=== PATIENT | male | born 1935 | race Caucasian/White ===

== ENCOUNTER 2022-07-16 09:36 | Outpatient (OUT) | payer MEDICARE, OTHER, SELFPAY ==
--- NOTE | 2022-07-16 10:26 | ECG_ITS ---
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
--- NOTE | 2022-07-16 11:15 | CA_ITS ---
Patient: SHANE IRWIN Exam Date: 07/16/2022 : 1935 Gender:M Ordering : DR RYLIE HENRY M.D. Admission #: [id number] Family : Order #: [id number] CLICK HERE TO VIEW EXAM ECHOCARDIOGRAM REPORT PROCEDURE: CA ECHO DOPPLER COMPLETE INDICATIONS: SYSTOLIC MURMUR COMPARISON: None. DESCRIPTION: COMPLETE ECHOCARDIOGRAM Real-time transthoracic echocardiography with 2D, M-mode, spectral and color flow Doppler performed. QUALITY: Technical quality was good. LEFT VENTRICLE: Normal chamber size. Moderate concentric left ventricular hypertrophy. Global left ventricular systolic function is normal. LV EF: Estimated left ventricular ejection fraction is 55-60% DIASTOLIC: Grade I diastolic dysfunction. ATRIAL SEPTUM: LEFT ATRIUM: Moderate dilatation. RIGHT ATRIUM: Moderate dilatation. RIGHT VENTRICLE: Normal chamber size. Normal right ventricular systolic function. TRICUSPID VALVE: Normal mobility and thickness. No stenosis with mild regurgitation. No evidence of pulmonary hypertension. RVSP 29 mmHg MITRAL VALVE: Normal mobility and thickness. No evidence of mitral valve stenosis. There is no mitral annular calcification. Trivial mitral regurgitation. AORTIC VALVE: Normal trileaflet appearance. Severely calcified aortic valve. Severely diminished mobility. Doppler velocity suggests moderate to severe aortic valve stenosis. LVOT diameter 2.3 cm. Aortic valve area 1.1 cm?, DVI 0.26, Maximum velocity 2.45 m/s, Mean gradient 12 mmHg. Mild to moderate aortic regurgitation. AORTIC ROOT: Mildly dilated, Measuring 3.9 cm. The ascending aorta is mildly dilated measuring 3.7 cm. PULMONIC VALVE: Normal thickness and mobility. No stenosis. Trivial regurgitation. PERICARDIUM: No evidence of pericardial effusion. IVC: Collapses with inspirations. Normal size. PLEURA: CONCLUSION: 1. Normal ventricular systolic function. LVEF is 55 to 60%. 2. Mild diastolic dysfunction. 3. Moderate concentric left ventricular hypertrophy. 4. Moderate to severe aortic valve stenosis. 5. Mild to moderate aortic valve regurgitation. 6. Normal right-sided pressures. 7. 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 Adult Echocardiography Procedure Report Left Ventricle LVEDD (3.7 - 5.6 cm): 4.59 cm, 4.59 cm LVESD (2.2 - 4.0 cm): 2.66 cm LVIVS thickness (0.6 - 1.2 cm): 1.40 cm, 1.39 cm LVPW thickness (0.5 - 1.0 cm): 1.18 cm e': 0.08 m/s E - e': 4.97 LVOT Max Gradient: 1.67 mm[Hg] LVOT Area (cm2): 0.65 m/s Peak Velocity (LVOT): 0.65 m/s Mean Velocity (LVOT): 0.43 m/s LVOT Diameter 2.3 cm Left Ventricular Ejection Fraction: 55-60% Left Atrium LA Volume Index (2D A2C): 53.97 ml/m2 Left Atrium Systolic Dimension: 4.54 cm Mitral Valve MV E to A Ratio: 0.47 Mitral Valve A-Wave Peak Velocity: 0.86 m/s Mitral Valve E-Wave Peak Velocity: 0.41 m/s Right Ventricle RV Internal Diastolic Dimension: 3.79 cm Aorta AO Root Diam: 3.87 cm Ascending Ao Diam: 3.73 cm Aortic Valve AoV Area (Peak Tereso): 1.31 cm2, 1.37 cm2 AoV Area (VTI): 1.32 cm2, 1.37 cm2 Deceleration [place]: 1.48 m/s2 Pressure Half-Time: 944.47 ms Peak Velocity(Antegrade Flow): 2.22 m/s, 2.22 m/s, 2.36 m/s, 2.36 m/s, 2.45 m/s Peak Gradient(Antegrade Flow): 19.80 mm[Hg], 19.80 mm[Hg], 22.33 mm[Hg], 22.33 mm[Hg], 23.97 mm[Hg] Mean Velocity(Antegrade Flow): 1.71 m/s, 1.71 m/s, 1.43 m/s, 1.43 m/s, 1.55 m/s Mean Gradient(Antegrade Flow): 12.41 mm[Hg], 12.37 mm[Hg], 10.17 mm[Hg], 10.17 mm[Hg], 11.32 mm[Hg] Velocity Time Integral: 60.57 cm, 53.59 cm, 67.57 cm, 67.57 cm, 63.69 cm Tricuspid Valve Peak Velocity (Regurgitant Flow): 2.55 m/s, 2.56 m/s, 1.82 m/s, 2.18 m/s Pulmonic Valve Mean Gradient: 3.25 mm[Hg] Mean Velocity: 0.83 m/s Peak Velocity: 1.28 m/s, 0.94 m/s Peak Gradient: 3.50 mm[Hg], 6.56 mm[Hg] Right Atrium Right Atrium Systolic Pressure: 45.92 ml, 45.92 ml Dictated by: Brooks Senior M.D. on 07/22/2022 at 10:22 Approved by: Brooks Senior M.D. on 07/22/2022 at 10:33
== END 2022-07-16 09:37 ==
LOC: CARD 09:41
PROVIDERS: PCP Internal Medicine; Visit Provider Internal Medicine
DX: I35.8 Other nonrheumatic aortic valve disorders (principal); R00.1 Bradycardia, unspecified
CPT/HCPCS: 93005; 93306

== ENCOUNTER 2022-09-07 10:28 | Outpatient (OUT) | payer MEDICARE, OTHER, SELFPAY ==
[2022-09-07 11:16] LABS: Anion Gap 10.3; Calcium 8.7 mg/dL (8.5-10.1); Carbon Dioxide 28.4 mmol/L (21.0-32.0); Chloride 98 mmol/L (98-107); Estimated GFR (African America >60 (>=60); Estimated GFR (Non-African Ame >60 (>=60); Glucose 102 mg/dL (74-106); Potassium 3.7 mmol/L (3.5-5.1); Sodium 133 mmol/L (136-145)
[2022-09-07 11:18] LABS: Basophils Absolute Auto 0.1 10^3/uL (0.0-0.1); Basophils Percent Auto 0.7 % (0.2-2.0); Eosinophils Absolute Auto 0.1 10^3/uL (0.0-0.7); Eosinophils Percent Auto 1.3 % (0.9-7.0); Hematocrit 37.9 % (42.0-54.0); Immature Granulocytes Abs Auto 0.07 10^3/uL (0.00-0.03); Immature Granulocytes Pct Auto 0.9 % (0.0-0.5); Lymphocytes Absolute Auto 0.9 10^3/uL (1.2-3.8); Lymphocytes Percent Auto 11.9 % (20.5-60.0); Mean Corpuscular HGB Conc 34.3 g/dL (29.9-35.2); Mean Corpuscular Hemoglobin 29.5 pg (25.9-34.0); Mean Corpuscular Volume 85.9 fL (80.0-94.0); Mean Platelet Volume 9.7 fL (9.5-13.5); Monocytes Absolute Auto 0.8 10^3/uL (0.3-0.8); Monocytes Percent Auto 10.6 % (1.7-12.0); Neutrophils Absolute Auto 5.6 10^3/uL (1.4-6.5); Neutrophils Percent Auto 74.6 % (43.0-75.0); Platelet Count 229 10^3/uL (150-450); Red Blood Count 4.41 10^6/uL (4.70-6.10); Red Cell Distribution Width 13.5 % (11.0-15.0); White Blood Count 7.5 10^3/uL (4.0-11.0)
== END 2022-09-07 10:29 | disposition home or self-care (01) ==
PROVIDERS: PCP Internal Medicine; Visit Provider Internal Medicine Interventional Cardiology
DX: I35.0 Nonrheumatic aortic (valve) stenosis (principal)
CPT/HCPCS: 36415; 80048; 85025

== ENCOUNTER 2023-01-20 16:24 | Emergency (ER) | payer MEDICARE, OTHER, SELFPAY ==
[2023-01-20] VITALS (27 sets, daily range): BP systolic 129–150; BP diastolic 59–66; PULSE 67–87; RESP 14–31; TEMP 36.6; O2SAT 98–100; BMI 23.0
--- NOTE | 2023-01-20 17:17 | ECG_ITS ---
The [facility] Test Date: 2023-01-20 Pat Name: SHANE IRWIN Department: Room: - Gender: Male [employer] C[employer]er: : 1935 Requested By: RYLIE HENRY Order Number: [id number] Reading MD: RAI FINN Measurements Intervals [place] Rate: 71 P: -88796 MI: -[id number] QRS: 22 QRSD: 106 T: 63 QT: 378 QTc: 400 Interpretive Statements Sinus rhythm Nonspecific ST/T wave changes 0102 ARTIFACT PRESENT 9140 abnormal rhythm ECG Compared to ECG 07/16/2022 10:56:29 Sinus bradycardia no longer present Intraventricular conduction delay no longer present T-wave abnormality no longer present Electronically Signed On 01-21-2023 7:15:53 EST by RAI FINN
[2023-01-20] MEDS: BACITRACIN OINTMENT 28.4 GM TUBE 1 APPLIC TOPICAL (17:20)
--- NOTE | 2023-01-20 17:30 | ED_ITS ---
HPI - Head Injury General Chief complaint: Head Injury Stated complaint: head injury/fall Time Seen by Provider: 01/20/23 16:41 Source: patient Mode of arrival: ambulance Limitations: no limitations History of Present Illness HPI Narrative: Is coming to us after he sustained an injury he fell down 1 step while getting out of the house apparently one of the neighbors called them because the patient had a pool of blood in front of his house the patient himself does not give enough details about how it happened but he remember falling one-step while getting out of his house on his face and hitting his face as well as knee and arms The patient just tripped he mentioned that he did not have any symptoms prior to this and he did not have any dizziness before or after, the patient actually stood up and did not realize that he had blood all over him until the neighbor called the EMS The patient did not lose consciousness he denies any dizziness or any pain at the moment although he does have multiple bruises and abrasions in his face as well as upper extremities and lower extremities the patient was brought to us by the EMS after he had a neck collar placed he did have some epistaxis as well prior to arrival Related Data Allergies Allergy/AdvReac Type Severity Reaction Status Date / Time No Known Drug Allergies Allergy Verified 01/20/23 16:31 Review of Systems ROS Status of ROS 10 or more systems reviewed and unremark able except as noted in history and below [facility] Social History Smoking status: Never smoker Exam Narrative Exam Narrative: Nurses notes and vital signs reviewed and patient is not hypoxic. General: Well-appearing and in no apparent distress. Skin: Warm, dry, no pallor noted. No rash. Head: The patient have ecchymosis to the left eye as well as raccoon eye on the left side and abrasion multiple to the face , none of them is deep and the patient have bilateral eye examination was normal Neck: Supple, non-tender. Eye: Pupils are equal, round and EOMI. No scleral icterus. Ears, Nose, Mouth, and Throat: TM are clear, no nasal mucosal hypertrophy. Oral mucosa is moist, no posterior oropharynx erythema, uvula is mid-line Cardiovascular: Regular Rate and Rhythm without murmur, gallop or rub. Respiratory: No accessory muscle use or respiratory distress. Lungs are clear to auscultation, no wheezing, rales or rhonchi Chest Wall: no tenderness Back: No midline thoracic or lumbar vertebral tenderness. No CVA tenderness Musculoskeletal: Multiple abrasions and wounds to his upper and lower extremity mostly at the dorsum of the hands as well as the anterior of the knee there is abrasion range in size between 4 and 3 cm and none of them is deep except for 1 on the dorsum of the right hand that is measuring 2 cm and no exposure of the underlying structures GI: Abdomen is soft, non-distended. Normal bowel sounds. No masses appreciated. No tenderness to palpation. No rebound, guarding, or rigidity noted. Neurological: A&O x4. No cranial nerve dysfunction observed. No truncal ataxia. Moves all extremities. Sensation intact. Psychiatric: Cooperative and interactive. Normal mood and affect. Constitutional Vital Signs, click to edit/add: Last Vital Signs Temp 97.8 F 01/20/23 16:31 Pulse 82 01/20/23 17:50 Resp 27 H 01/20/23 17:50 BP 129/61 01/20/23 17:43 Pulse Ox 100 01/20/23 17:50 O2 Del Method Room Air 01/20/23 16:31 Course Vital Signs Vital signs: Vital Signs Temperature 97.8 F 01/20/23 16:31 Pulse Rate 84 01/20/23 16:31 Respiratory Rate 24 01/20/23 16:31 Blood Pressure 150/65 H 01/20/23 16:31 Pulse Oximetry 100 01/20/23 16:31 Oxygen Delivery Method Room Air 01/20/23 16:31 Temperature 97.8 F 01/20/23 16:31 Pulse Rate 82 01/20/23 17:50 Respiratory Rate 27 H 01/20/23 17:50 Blood Pressure 129/61 01/20/23 17:43 Pulse Oximetry 100 01/20/23 17:50 Oxygen Delivery Method Room Air 01/20/23 16:31 MDM - Head Injury MDM Narrative Medical decision making narrative: The patient EKG in the ER showed sinus arrhythmia with a heart rate of [address] elevation or depression Patient have history of hypertension does not take any aspirin or any anticoagulation The patient neck collar kept in place he will obtain a CT head as well as CT sinuses and CT cervical The patient had a the laceration of the dorsum of the right hand that measures 2 cm cleaned thoroughly with normal saline and infiltrated with 1% lidocaine almost 2 cc after which almost 6 interrupted stitches of 4-0 Ethilon applied The patient provided with tetanus booster Awaiting the results of the above-mentioned work-up the patient had a CBC showing leukocytosis and the chemistry shows mild hyponatremia otherwise no significant pathology detected Awaiting the results of the above-mentioned scans the patient care will be transferred to Dr Caruso Lab Data Labs: Lab Results 01/20/23 Range/Units 17:44 WBC 15.5 H (4.0-11.0) 10^3/uL RBC 3.83 L (4.70-6.10) 10^6/uL Hgb 11.6 L (14.0-18.0) g/dL Hct 33.6 L (42.0-54.0) % MCV 87.7 (80.0-94.0) fL MCH 30.3 (25.9-34.0) pg MCHC 34.5 (29.9-35.2) g/dL RDW 13.5 (11.0-15.0) % Plt Count 214 (150-450) 10^3/uL MPV 9.9 (9.5-13.5) fL Neut % (Auto) 86.5 H (43.0-75.0) % Lymph % (Auto) 4.3 L (20.5-60.0) % [place] % (Auto) 7.9 (1.7-12.0) % Eos % (Auto) 0.2 L (0.9-7.0) % Baso % (Auto) 0.3 (0.2-2.0) % Neut # (Auto) 13.4 H (1.4-6.5) 10^3/uL Lymph # (Auto) 0.7 L (1.2-3.8) 10^3/uL [place] # (Auto) 1.2 H (0.3-0.8) 10^3/uL Eos # (Auto) 0.0 (0.0-0.7) 10^3/uL Baso # (Auto) 0.1 (0.0-0.1) 10^3/uL Abs Immat Gran (auto) 0.13 H (0.00-0.03) 10^3/uL Imm/Tot Granulo (auto) 0.8 H (0.0-0.5) % PT 10.8 (9.0-11.6) sec INR 1.02 Discharge Plan Discharge Patient Disposition: Still a Patient
[2023-01-20 17:49] LABS: Basophils Absolute Auto 0.1 10^3/uL (0.0-0.1); Basophils Percent Auto 0.3 % (0.2-2.0); Eosinophils Percent Auto 0.2 % (0.9-7.0); Hematocrit 33.6 % (42.0-54.0); Hemoglobin 11.6 g/dL (14.0-18.0); Immature Granulocytes Abs Auto 0.13 10^3/uL (0.00-0.03); Immature Granulocytes Pct Auto 0.8 % (0.0-0.5); Lymphocytes Absolute Auto 0.7 10^3/uL (1.2-3.8); Lymphocytes Percent Auto 4.3 % (20.5-60.0); Mean Corpuscular HGB Conc 34.5 g/dL (29.9-35.2); Mean Corpuscular Hemoglobin 30.3 pg (25.9-34.0); Mean Corpuscular Volume 87.7 fL (80.0-94.0); Mean Platelet Volume 9.9 fL (9.5-13.5); Monocytes Absolute Auto 1.2 10^3/uL (0.3-0.8); Monocytes Percent Auto 7.9 % (1.7-12.0); Neutrophils Absolute Auto 13.4 10^3/uL (1.4-6.5); Neutrophils Percent Auto 86.5 % (43.0-75.0); Platelet Count 214 10^3/uL (150-450); Red Blood Count 3.83 10^6/uL (4.70-6.10); Red Cell Distribution Width 13.5 % (11.0-15.0); White Blood Count 15.5 10^3/uL (4.0-11.0)
[2023-01-20] MEDS: LIDOCAINE HCL 1% 100 MG/10 ML MDV INJ (17:55)
[2023-01-20 18:03] LABS: INR 1.02; Prothrombin Time 10.8 sec (9.0-11.6)
[2023-01-20 18:07] LABS: Alanine Aminotransferase 18 U/L (16-63); Albumin Level 3.3 g/dL (3.4-5.0); Alkaline Phosphatase 109 U/L (46-116); Anion Gap 13.9; Aspartate Amino Transferase 23 U/L (15-37); Bilirubin Total 0.6 mg/dL (0.2-1.0); Calcium 9.3 mg/dL (8.5-10.1); Carbon Dioxide 25.2 mmol/L (21.0-32.0); Chloride 98 mmol/L (98-107); Estimated GFR (African America >60 (>=60); Estimated GFR (Non-African Ame 56 (>=60); Globulin 3.2 g/dL; Glucose 131 mg/dL (74-106); Potassium 4.1 mmol/L (3.5-5.1); Sodium 133 mmol/L (136-145); Total Protein 6.5 g/dL (6.4-8.2)
--- NOTE | 2023-01-20 18:13 | CT_ITS ---
The [address] [address] Patient Name: SHANE IRWIN MRN: [id number] date: 1935 Sex: M Assigned Patient Location: ED.MAIN Current Patient Location: Accession/Order Number: [id number] Exam Date: 01/20/2023 18:00 Report Date: 01/20/2023 19:17 At the request of: ZAC BLANDON Procedure: CT cervical spine wo con CT CERVICAL SPINE WITHOUT CONTRAST HISTORY: fall. COMPARISON: None available. TECHNIQUE: Helical CT images were performed of the cervical spine without intravenous contrast. Dose reduction techniques were achieved by using automated exposure control and/or adjustment of mA and/or kV according to patient size and/or use of iterative reconstruction technique. 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 MINERALIZATION: Moderate to severe osteopenia. CRANIOCERVICAL AND ATLANTOAXIAL ARTICULATIONS: Intact with no traumatic subluxation. VERTEBRAL BODIES: Normal in height with no acute compression fracture. DISC SPACES: Severe multilevel disc space narrowing with osteophytic spurring consistent with degenerative changes. ALIGNMENT: Grade 1 retrolisthesis at C2-C3, C3-C4, and C4-C5 which is likely degenerative in nature. POSTERIOR ELEMENTS: Intact. ODONTOID PROCESS: Intact. VISUALIZED SKULL BASE: Unremarkable. SPINAL CANAL/NEURAL FORAMEN: Multiple posterior disc-osteophyte complexes with canal stenosis at several levels including moderate canal stenosis at C3-C4, and moderate canal stenosis at C5-C6. UPPER THORAX: Unremarkable. SOFT TISSUES OF THE NECK: Diffuse atherosclerotic carotid artery calcification. CT/CT cervical spine wo con IMPRESSION: 1. No acute fracture or subluxation. 2. Osteopenia and degenerative changes as described above. 3. Atherosclerotic carotid artery calcification. Electronically authenticated by: TRISTON THOMPSON Date: 01/20/2023 19:17
--- NOTE | 2023-01-20 18:13 | CT_ITS ---
The [address] [address] Patient Name: SHANE IRWIN MRN: [id number] date: 1935 Sex: M Assigned Patient Location: ER Current Patient Location: ED.MAIN Accession/Order Number: [id number] Exam Date: 01/20/2023 18:00 Report Date: 01/20/2023 19:15 At the request of: ZAC BLANDON Procedure: CT head/brain wo con EXAMINATION: CT head/brain wo con, 01/20/2023 6:00 PM EST HISTORY: fall COMPARISON: None. TECHNIQUE: CT scan of the head was performed without IV contrast. CT dose reduction technique was used, including Automated Exposure Control. FINDINGS: BRAIN PARENCHYMA/CSF SPACES: Moderately enlarged ventricles and sulci consistent with atrophy. There is mild intraventricular hemorrhage within the occipital horns bilaterally. There is atherosclerotic calcification of bilateral carotid arteries. There is extensive low-attenuation throughout the white matter consistent with chronic microvascular ischemia. There is no other intracranial hemorrhage, mass effect or midline shift. PARANASAL SINUSES: There is a hemorrhagic air-fluid level in the left maxillary or sinus with extensive fractures of the maxillary sinus as described on the maxillofacial CT. Mild mucosal thickening of ethmoid air cells. SKULL BASE AND CALVARIUM: Fractured left zygomatic arch as noted on the maxillofacial CT. EXTRACRANIAL SOFT TISSUES: Moderate left lateral periorbital hematoma and left intraorbital/extraconal air. There is also air in the left infratemporal fossa and left scalp, likely related to the fractures. CT/CT head/brain wo con IMPRESSION: 1. Mild intraventricular hemorrhage. 2. No other intracranial hemorrhage. 3. Atrophy, chronic microvascular ischemia and atherosclerotic calcification. 4. Left facial bone fractures with associated soft tissue air, left periorbital hematoma and hemorrhage in the left maxillary sinus. Please correlate with the maxillofacial CT report. Critical results were NOTIFIED by TELEPHONE BY Dr. Sourav Yang to Sadia Siddiqui CNP At 01/20/2023 7:15 PM EST. Electronically authenticated by: SOURAV YANG Date: 01/20/2023 19:15
--- NOTE | 2023-01-20 18:13 | CT_ITS ---
The [address] [address] Patient Name: SHANE IRWIN MRN: [id number] date: 1935 Sex: M Assigned Patient Location: ED.MAIN Current Patient Location: Accession/Order Number: [id number] Exam Date: 01/20/2023 18:00 Report Date: 01/20/2023 19:38 At the request of: ZAC BLANDON Procedure: CT facial bones wo con EXAM: CT facial bones wo con HISTORY: fall COMPARISON: None. TECHNIQUE: Unenhanced helical CT was performed through the facial bones. Coronal and sagittal reconstructions were performed. FINDINGS: There is a mildly displaced fracture of the posterior left zygomatic arch and a nondisplaced fracture of the anterior left zygomatic arch. There are comminuted fractures of the left maxillary sinus involving the lateral and anterior connell extending into the inferior orbital rim. There is moderate displacement of the left lateral wall maxillary sinus fracture with apex medial angulation. The pterygoid plates appear intact. The nasal septum and nasal bones also appear intact. There is a nondisplaced fracture of the lateral wall of the left orbit. There is a nondisplaced fracture of the left mandibular ramus at the base of the coronoid process. There is also a nondisplaced fracture of the left lateral and posterior bony orbit due to the anterior temporal bone. There is a moderate hemorrhagic air-fluid level in the left maxillary sinus. There is mild mucosal thickening of ethmoid air cells consistent with chronic sinusitis. There is a moderate left lateral periorbital hematoma and there is moderate soft tissue gas seen in the left superior, lateral, and inferior orbit in the extraconal space. There is a large amount of soft tissue gas within the left retromaxillary fat extending into the left cheek and left fnps space. Air also extends inferiorly into the left neck. There is mild ecchymosis also seen in the left cheek. CT/CT facial bones wo con IMPRESSION: 1. Acute comminuted fractures of the left maxillary sinus extending into the inferior orbital rim with moderate displacement and angulation of the lateral wall. There is an associated hemorrhagic air-fluid level in left maxillary sinus and there is extensive left intraorbital/extraconal and facial soft tissue gas. 2. Nondisplaced fracture of the lateral left orbital wall. There is also a nondisplaced fracture of the posterolateral left bony orbit adjacent to the anterior temporal bone. 3. Nondisplaced and mild displaced fractures of the left zygomatic arch. 4. Nondisplaced left mandibular ramus fracture. Results were called to Sadia Siddiqui NP Electronically authenticated by: TRISTON THOMPSON Date: 01/20/2023 19:38
[2023-01-20] MEDS: ADACEL DIPH,PERTUSS(ACELL),TET VAC/PF 0.5 ML ADULT SYRINGE IM (18:45)
== END 2023-01-20 21:06 | disposition short-term general hospital (02) ==
PROVIDERS: Emergency Medicine; Emergency Provider Emergency Medicine; PCP Internal Medicine
DX: S02.842A Fracture of lateral orbital wall, left side, initial encounter for closed fracture (principal); S02.19XA Other fracture of base of skull, initial encounter for closed fracture; S02.40FA Zygomatic fracture, left side, initial encounter for closed fracture; S02.642A Fracture of ramus of left mandible, initial encounter for closed fracture; S02.40DA Maxillary fracture, left side, initial encounter for closed fracture; S06.300A Unspecified focal traumatic brain injury without loss of consciousness, initial encounter; W10.9XXA Fall (on) (from) unspecified stairs and steps, initial encounter; Z23 Encounter for immunization; I10 Essential (primary) hypertension; S61.411A Laceration without foreign body of right hand, initial encounter; D72.829 Elevated white blood cell count, unspecified; E87.1 Hypo-osmolality and hyponatremia
CPT/HCPCS: 36415; 70450; 70486; 72125; 80053; 85025; 85610; 90471; 90715; 93005; 99285

== ENCOUNTER 2023-04-10 19:34 | Observation (INO) | payer MEDICARE, OTHER, SELFPAY ==
[2023-04-10] VITALS (24 sets, daily range): BP systolic 150–182; BP diastolic 59–95; PULSE 43–77; RESP 9–25; TEMP 36.6; O2SAT 91–100; BMI 23.7; BMI 20.8
--- NOTE | 2023-04-10 19:40 | XR_ITS ---
The [address] [address] Patient Name: SHANE IRWIN MRN: [id number] date: 1935 Sex: M Assigned Patient Location: ED.MAIN Current Patient Location: ER Accession/Order Number: [id number] Exam Date: 04/10/2023 20:05 Report Date: 04/10/2023 20:53 At the request of: TATIANA ALFORD Procedure: XR chest 1V CXR HISTORY: Shortness of breath COMPARISON: None. TECHNIQUE: 1 view chest submitted for review. FINDINGS: Calcified granulomas. The lungs are adequately expanded without evidence of acute infiltrate or effusion. The cardiac silhouette measures within normal. Pulmonary vascularity is unremarkable. Osseous structures do not demonstrate any acute abnormality. XR/XR chest 1V IMPRESSION: No plain film evidence for acute cardiopulmonary disease. Electronically authenticated by: ADELINE GARRETT Date: 04/10/2023 20:53
--- NOTE | 2023-04-10 19:40 | ECG_ITS ---
The [facility] Test Date: 2023-04-10 Pat Name: SHANE IRWIN Department: Room: - Gender: Male [employer]: : 1935 Requested By: RYLIE HENRY Order Number: [id number] Reading MD: RAI FINN Measurements Intervals [place] Rate: 57 P: -17 OR: 218 QRS: 69 QRSD: 116 T: 72 QT: 452 QTc: 445 Interpretive Statements 1100 Sinus rhythm 1470 with occasional supraventricular premature complexes 2231 First degree AV block 2320 Nonspecific intraventricular conduction delay 9150 abnormal ECG Electronically Signed On 04-11-2023 7:37:25 EST by RAI FINN
--- NOTE | 2023-04-10 19:41 | CT_ITS ---
[address] [address] Patient Name: SHANE IRWIN MRN: [id number] date: 1935 Sex: M Assigned Patient Location: ER Current Patient Location: ER Accession/Order Number: [id number] Exam Date: 04/10/2023 20:05 Report Date: 04/10/2023 20:53 At the request of: TATIANA ALFORD Procedure: CT head/brain wo con EXAMINATION: CT head/brain wo con HISTORY: Syncope COMPARISON: Head CT 01/20/2023 TECHNIQUE: CT head without contrast. Dose reduction techniques were achieved by using: automated exposure control and/or adjustment of mA and /or kV according to patient size and/or use of iterative reconstruction technique. FINDINGS: There is mild prominence of the ventricles and sulci. There is no evidence for acute intracranial hemorrhage. There is mild hypoattenuation in the supratentorial white matter, most compatible with chronic microvascular ischemia. There is no mass effect or midline shift. There are no abnormal extraaxial fluid collections. Old injury in the left zygomatic arch. CT/CT head/brain wo con IMPRESSION: 1. Negative for acute hemorrhage or acute intracranial process. 2. 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 Electronically authenticated by: ROLLY GEORGE Date: 04/10/2023 20:53
--- NOTE | 2023-04-10 19:41 | ED_ITS ---
HPI - General Adult General Chief complaint: Altered Mental Status Stated complaint: weakness Time Seen by Provider: 04/10/23 19:40 Mode of arrival: ambulance Limitations: no limitations History of Present Illness HPI narrative: Patient is an 87-year-old male who presents to the emergency department by ambulance after an unresponsive episode at the [facility] where he is a resident. He has a history of Alzheimer's disease. He is a full code, not anticoagulated. Nursing staff reported finding the patient immediately prior to arrival Unresponsive, they attempted a sternal rub. EMS was called. The patient was breathing on his own and did not require CPR. On EMS arrival, the patient sat up and was completely alert and oriented. No incontinence, dental injury or seizure activity was noted. Patient states that this time he feels fine. He has no idea why he is in the emergency department. He has not had any recent illness, cough, congestion, chest pain, shortness of breath, dizziness. He has no focal medical complaints at this time. He is alert and oriented to person, place, time. Related Data Home Medications Medication Instructions Recorded Confirmed atorvastatin 20 mg tablet 20 mg PO QDAY 01/20/23 04/10/23 donepezil 10 mg tablet 10 mg PO QDAY 01/20/23 04/10/23 metoprolol succinate 25 mg 50 mg PO QDAY 01/20/23 04/10/23 tablet,extended release 24 hr olmesartan 40 1 tab PO QDAY 01/20/23 04/10/23 mg-hydrochlorothiazide 25 mg tablet Allergies Allergy/AdvReac Type Severity Reaction Status Date / Time No Known Drug Allergies Allergy Verified 01/20/23 16:31 Review of Systems ROS Constitutional Denies: fever or chills Eyes Denies: change in vision Ears, nose, mouth, and throat Denies: throat pain Cardiovascular Denies: chest pain Respiratory Denies: shortness of breath or cough Gastrointestinal Denies: nausea or vomiting Musculoskeletal Denies: back pain Integumentary/Breast Denies: rash Neurological Denies: headache Psychiatric Denies: anxiety Endocrine Denies: excessive urination [facility] Medical History (Updated 04/10/23 @ 23:46 by Tari Martinez) Bradycardia ?R00.1 - Bradycardia, unspecified (ICD-10) Hypertension ?I10 - Essential (primary) hypertension (ICD-10) Alzheimers disease ?G30.9 - Alzheimer's disease, unspecified (ICD-10) ?F02.80 - Dementia in other diseases classified elsewhere, unspecified severity, without behavioral disturbance, psychotic disturbance, mood disturbance, and anxiety (ICD-10) Intracranial bleed ?I62.9 - Nontraumatic intracranial hemorrhage, unspecified (ICD-10) Aortic valve disorder ?I35.9 - Nonrheumatic aortic valve disorder, unspecified (ICD-10) Social History Smoking status: Never smoker Gender Identity: male Exam Narrative Exam Narrative: Gen.: Awake, alert, in no distress Head: Normocephalic, atraumatic ENT: Moist mucous membranes Respiratory: No respiratory distress, lungs clear bilaterally Cardio: Regular rate and rhythm Gastrointestinal: Abdomen is soft, nondistended and nontender to palpation Extremities: Moves extremities equally, no injuries noted Psych: Normal mood and affect Neuro: No focal neuro deficit; Alert and oriented to person, place, time Skin: Warm, dry, intact Constitutional Vital Signs, click to edit/add: Last Vital Signs Temp 97.9 F 04/10/23 22:28 Pulse 56 L 04/11/23 02:00 Resp 16 04/10/23 22:28 BP 173/69 H 04/10/23 22:28 Pulse Ox 98 04/10/23 22:28 O2 Del Method Room Air 04/10/23 22:28 Course Vital Signs Vital signs: Vital Signs Temperature 97.9 F 04/10/23 19:36 Pulse Rate 73 04/10/23 19:36 Respiratory Rate 20 04/10/23 19:36 Blood Pressure 182/78 H 04/10/23 19:36 Pulse Oximetry 97 04/10/23 19:36 Oxygen Delivery Method Room Air 04/10/23 19:36 Temperature 97.9 F 04/10/23 22:28 Pulse Rate 56 L 04/11/23 02:00 Respiratory Rate 16 04/10/23 22:28 Blood Pressure 173/69 H 04/10/23 22:28 Pulse Oximetry 98 04/10/23 22:28 Oxygen Delivery Method Room Air 04/10/23 22:28 Medical Decision Making MDM Narrative Medical decision making narrative: Patient is treated with gentle IV fluids in the ER for elevated lactic acid and given antibiotic coverage with Rocephin by attending physician. Lab studies grossly within normal limits with the exception of elevated lactic acid, no significant UTI noted on urine specimen. Troponin within normal limits and EKG shows sinus bradycardia. Patient's son at bedside states that the patient was recently evaluated in [place], he had an echocardiogram and was noted to have resting bradycardia at that time, however given the patient's age and syncopal episode with full CODE STATUS, it was recommended to the patient and his son that he be admitted for observation and cardiac monitoring overnight. Medical Records Medical records reviewed: Yes I reviewed the patient's medical records Lab Data Lab results reviewed: Yes I reviewed the patient's lab results Labs: Lab Results 04/10/23 04/10/23 04/10/23 Range/Units 19:39 20:01 21:48 WBC 9.1 (4.0-11.0) 10^3/uL RBC 4.70 (4.70-6.10) 10^6/uL Hgb 13.5 L (14.0-18.0) g/dL Hct 41.7 L (42.0-54.0) % MCV 88.7 (80.0-94.0) fL MCH 28.7 (25.9-34.0) pg MCHC 32.4 (29.9-35.2) g/dL RDW 13.6 (11.0-15.0) % Plt Count 252 (150-450) 10^3/uL MPV 11.1 (9.5-13.5) fL Neut % (Auto) 63.3 (43.0-75.0) % Lymph % (Auto) 21.0 (20.5-60.0) % [place] % (Auto) 10.3 (1.7-12.0) % Eos % (Auto) 3.6 (0.9-7.0) % Baso % (Auto) 1.0 (0.2-2.0) % Neut # (Auto) 5.8 (1.4-6.5) 10^3/uL Lymph # (Auto) 1.9 (1.2-3.8) 10^3/uL [place] # (Auto) 0.9 H (0.3-0.8) 10^3/uL Eos # (Auto) 0.3 (0.0-0.7) 10^3/uL Baso # (Auto) 0.1 (0.0-0.1) 10^3/uL Abs Immat Gran (auto) 0.07 H (0.00-0.03) 10^3/uL Imm/Tot Granulo (auto) 0.8 H (0.0-0.5) % PT 10.3 (9.0-11.6) sec INR 0.97 Sodium 141 (136-145) mmol/L Potassium 4.0 (3.5-5.1) mmol/L Chloride 102 (98-107) mmol/L Carbon Dioxide 28.7 (21.0-32.0) mmol/L Anion Gap 14.3 BUN 26.0 H (7.0-18.0) mg/dL Creatinine 1.01 (0.70-1.30) mg/dL Est GFR ( Amer) >60 (>=60) Est GFR (Non-Af Amer) >60 (>=60) BUN/Creatinine Ratio 25.7 Glucose 83 (74-106) mg/dL Lactate 2.7 H* (0.4-2.0) mmol/L Calcium 9.3 (8.5-10.1) mg/dL Magnesium 1.9 (1.8-2.4) mg/dL Total Bilirubin 0.4 (0.2-1.0) mg/dL AST 18 (15-37) U/L ALT 19 (16-63) U/L Alkaline Phosphatase 172 H (46-116) U/L Troponin I High Sens 11.1 (4.0-76.1) pg/mL NT-Pro-B Natriuret Pep 511.0 (<=1800.0) pg/mL Total Protein 7.5 (6.4-8.2) g/dL Albumin 3.4 (3.4-5.0) g/dL Globulin 4.1 g/dL Albumin/Globulin Ratio 0.8 Procalcitonin 0.05 (0.00-0.50) ng/mL TSH 6.582 H (0.358-3.740) uIU/mL Free T4 1.12 (0.76-1.46) ng/dL Urine Color Lt. yellow (YELLOW) Urine Clarity Clear (CLEAR) Urine pH 6.0 (5.0-9.0) Ur Specific [place] 1.015 (1.005-1.025) Urine Protein Negative (NEG/TRACE) mg/dL Urine Glucose (UA) Negative (NEGATIVE) mg/dL Urine Ketones Negative (NEGATIVE) mg/dL Urine Occult Blood Small A (NEGATIVE) Urine Nitrite Negative (NEGATIVE) Urine Bilirubin Negative (NEGATIVE) Urine Urobilinogen 0.2 (0.2-1.0) EU/dL Ur Leukocyte Esterase Small A (NEGATIVE) Urine RBC 2-5 A (0-2) #/HPF Urine WBC 2-5 A (NONE SEEN) #/HPF Ur Squamous Epith Cells None seen (NONE/RARE) #/LPF Urine Crystals None seen (None Seen) #/HPF Urine Bacteria None seen (NONE SEEN) #/HPF Urine Casts Seen A (NONE SEEN) #/LPF Hyaline Casts Rare Urine Mucus Small A (NONE SEEN) Ur Culture Indicated? No Influenza Type A Ag Negative Influenza Type B Ag Negative RSV Antigen Not detected (NOT DETECTE) SARS-CoV-2 Ag (CV2AG) Negative (NEGATIVE) Imaging Data CT scan - head: Attestation: I have reviewed the pertinent imaging results. Radiologist's impression: ITS Impressions Chest X-Ray 04/10/23 19:40 IMPRESSION: No plain film evidence for acute cardiopulmonary disease. Electronically authenticated by: ADELINE GARRETT Date: 04/10/2023 20:[address] 04/10/23 19:41 IMPRESSION: 1. Negative for acute hemorrhage or acute intracranial process. 2. 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 Electronically authenticated by: ROLLY GEORGE Date: 04/10/2023 20:53 ECG Data Attestation: I personally reviewed and interpreted this ECG as follows: (Normal sinus rhythm at a rate of 57, occasional PVCs with first-degree AV block, artifact noted with no acute ST elevation. EKG reviewed by attending physician.) Discharge Plan Discharge Chief Complaint: Altered Mental Status Clinical Impression: Syncope Patient Disposition: Admitted as Observation Time of Disposition Decision: 21:32 Condition: Good Discharge Date/Time: 04/10/23 22:04
--- OUTSIDE RECORDS SUMMARY | 2023-04-10 20:04 | XMS_ITS | CCD ---
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 Name Role Phone GUIDO MCGREGOR Primary Care Unavailable REQUEST, NONE LISTED Admitting Unavailable REQUEST, NONE LISTED Attending Unavailable REQUEST, NONE LISTED Consulting Unavailable REQUEST, NONE LISTED Admitting Unavailable GUIDO MCGREGOR Primary Care Unavailable REQUEST, NONE LISTED Attending Unavailable REQUEST, NONE LISTED Consulting Unavailable Vlad Denis Attending Unavailable Vlad Denis Admitting Unavailable Guido Mcgregor Primary Care Unavailable DIMA WHITAKER Referring Unavailable DIMA WHITAKER Attending Unavailable DIMA WHITAKER Attending Unavailable CARROL FERNANDEZ Attending Unavailable TIGIST RYAN Consulting Unavailable GUIDO MCGREGOR Primary Care Unavailable CARROL FERNANDEZ Admitting Unavailable KOBE TRAN Consulting Unavailab le Problems Problem Classification Problem Date Documented Da te Episodic/Chronic 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, unspecified; Translations: [Nontraumatic intracranial hemorrhage, unspecified] Onset: 01-20-2023 Chronic Cardiac dysrhythmias (2 sources) Bradycardia, unspecified; Translations: [Bradycardia, unspecified] Onset: 08-06-2022 Episodic Disorders of lipid metabolism (2 sources) Mixed hyperlipidemia; Translations: [Mixed hyperlipidemia] Onset: 08-06-2022 Chronic Essential hypertension (2 sources) Essential (primary) hypertension; Translations: [Essential (primary) hypertension] Onset: 08-06-2022 Chronic Heart valve disorders (4 sources) Nonrheumatic aortic (valve) insufficiency; Translations: [Nonrheumatic aortic (valve) stenosis] Onset: 09-11-2022 Chronic Skull and face fractures (1 source) Unspecified fracture of facial bones, initial encounter for closed fracture; Translations: [Unspecified fracture of facial bones, initial encounter for closed fracture] Onset: 01-21-2023 Episodic Unclassified (1 source) Z01.818 - Encounter for other preprocedural examination; Translations: [Z01.818 - Encounter for other preprocedural examination] Onset: 04-22-2021 Results Test Name Value Interpretation Reference Range Facility Basic Metabolic Profon 01-25 Anion gap [Moles/Vol] 8 mmol/L Low 9-17 [facility] Comment on above: Performed By: #### T SH, VD25, ALB, B12, ECENZ, GLYHGB, ERTPF, FT4 #### [address] [address] [employer]: Jonathan Mckee MD Calcium [Mass/Vol] 8.7 mg/dL Normal 8.6-10.4 [facility] Comment on above: Performed By: #### T SH, VD25, ALB, B12, ECENZ, GLYHGB, ERTPF, FT4 #### [address] [address] [employer]: Jonathan Mckee MD Chloride [Moles/Vol] 100 mmol/L Normal 98-107 [facility] Comment on above: Performed By: #### T SH, VD25, ALB, B12, ECENZ, GLYHGB, ERTPF, FT4 #### [address] [address] [employer]: Jonathan Mckee MD CO2 [Moles/Vol] 23 mmol/L Normal 20-31 [facility] Comment on above: Performed By: #### T SH, VD25, ALB, B12, ECENZ, GLYHGB, ERTPF, FT4 #### [facility] [employer] [address] [place] [phone] [employer]: Jonathan Mckee MD Creatinine [Mass/Vol] 0.7 mg/dL Normal 0.7-1.2 [facility] Comment on above: Performed By: #### T SH, VD25, ALB, B12, ECENZ, GLYHGB, ERTPF, FT4 #### [address] [phone] [employer]: Jonathan Mckee MD GFR/1.73 sq M.predicted among non-blacks MDRD (S/P/Bld) [Vol rate/Area] mL/min/{1.73_m2} Normal >60 [facility] Comment on above: Result Comment: These results are not intended for use in patients <18 years of age. eGFR results are calculated without a race factor using the 2020 CKD-EPI equation. Careful clinical correlation is recommended, particularly when comparing to results calculated using previous equations. The CKD-EPI equation is less accurate in patients with extremes of muscle mass, extra-renal metabolism of creatine, excessive creatine ingestion, or following therapy that affects renal tubular secretion. Performed By: #### T SH, VD25, ALB, B12, ECENZ, GLYHGB, ERTPF, FT4 #### [address] [phone] [employer]: Jonathan Mckee MD Glucose [Mass/Vol] 98 mg/dL Normal 70-99 [facility] Comment on above: Performed By: #### T SH, VD25, ALB, B12, ECENZ, GLYHGB, ERTPF, FT4 #### [facility] [employer] [address] [place] [address] [phone] [employer]: Jonathan Mckee MD Potassium [Moles/Vol] 4.1 mmol/L Normal 3.7-5.3 [facility] Comment on above: Performed By: #### T SH, VD25, ALB, B12, ECENZ, GLYHGB, ERTPF, FT4 #### [address] [id number] [employer]: Jonathan Mckee MD Sodium [Moles/Vol] 131 mmol/L Low 135-144 [facility] Comment on above: Performed By: #### T SH, VD25, ALB, B12, ECENZ, GLYHGB, ERTPF, FT4 #### [address] [address] [employer]: Jonathan Mckee MD Urea nitrogen [Mass/Vol] 27 mg/dL High 8-23 [facility] Comment on above: Performed By: #### T SH, VD25, ALB, B12, ECENZ, GLYHGB, ERTPF, FT4 #### [address] [address] [employer]: Jonathan Mckee MD CBC with Diffon 01-25-2023 Abs. Basophil 0.05 k/uL Normal 0.00-0.20 [facility] Comment on above: Performed By: #### T SH, VD25, ALB, B12, ECENZ, GLYHGB, ERTPF, FT4 #### [address] [address] [employer]: Jonathan Mckee MD Abs.Imm.Granulocyte 0.11 k/uL Normal 0.00-0.30 [facility] Comment on above: Performed By: #### T SH, VD25, ALB, B12, ECENZ, GLYHGB, ERTPF, FT4 #### [address] [address] [employer]: Jonathan Mckee MD Abs.Neutrophil (Seg) 4.47 k/uL Normal 1.50-8.10 [facility] Comment on above: Performed By: #### T SH, VD25, ALB, B12, ECENZ, GLYHGB, ERTPF, FT4 #### [address] [address] [employer]: Jonathan Mckee MD Basophils/100 WBC (Bld) 1 % Normal 0-2 [facility] Comment on above: Performed By: #### T SH, VD25, ALB, B12, ECENZ, GLYHGB, ERTPF, FT4 #### [address] [address] [employer]: Jonathan Mckee MD Eosinophils (Bld) [#/Vol] 0.31 10*3/uL Normal 0.00-0.44 [facility] Comment on above: Performed By: #### T SH, VD25, ALB, B12, ECENZ, GLYHGB, ERTPF, FT4 #### [address] [address] [employer]: Jonathan Mckee MD Eosinophils/100 WBC (Bld) 5 % High 1-4 [facility] Comment on above: Performed By: #### T SH, VD25, ALB, B12, ECENZ, GLYHGB, ERTPF, FT4 #### [address] [address] [employer]: Jonathan Mckee MD Erythrocyte distribution width (RBC) [Ratio] 14.0 % Normal 11.8-14.4 [facility] Comment on above: Performed By: #### T SH, VD25, ALB, B12, ECENZ, GLYHGB, ERTPF, FT4 #### [address] [address] [employer]: Jonathan Mckee MD Hematocrit (Bld) [Volume fraction] 29.0 % Low 40.7-50.3 [facility] Comment on above: Performed By: #### T SH, VD25, ALB, B12, ECENZ, GLYHGB, ERTPF, FT4 #### [address] [address] [employer]: Jonathan Mckee MD Hemoglobin (Bld) [Mass/Vol] 10.1 g/dL Low 13.0-17.0 [facility] Comment on above: Performed By: #### T SH, VD25, ALB, B12, ECENZ, GLYHGB, ERTPF, FT4 #### [address] [address] [employer]: Jonathan Mckee MD Immature granulocytes/100 WBC (Bld) 2 % High 0 [facility] Comment on above: Performed By: #### T SH, VD25, ALB, B12, ECENZ, GLYHGB, ERTPF, FT4 #### [address] [address] [employer]: Jonathan Mckee MD Lymphocytes (Bld) [#/Vol] 0.94 10*3/uL Low 1.10-3.70 [facility] Comment on above: Performed By: #### T SH, VD25, ALB, B12, ECENZ, GLYHGB, ERTPF, FT4 #### [address] [address] [employer]: Jonathan Mckee MD Lymphocytes/100 WBC (Bld) 14 % Low 24-43 [facility] Comment on above: Performed By: #### T SH, VD25, ALB, B12, ECENZ, GLYHGB, ERTPF, FT4 #### [address] [address] [employer]: Jonathan Mckee MD MCH (RBC) [Entitic mass] 30.8 pg Normal 25.2-33.5 [facility] Comment on above: Performed By: #### T SH, VD25, ALB, B12, ECENZ, GLYHGB, ERTPF, FT4 #### [place] [address] [employer]: Jonathan Mckee MD MCHC (RBC) [Mass/Vol] 34.8 g/dL Normal 28.4-34.8 [facility] Comment on above: Performed By: #### T SH, VD25, ALB, B12, ECENZ, GLYHGB, ERTPF, FT4 #### [address] [address] [employer]: Jonathan Mckee MD MCV (RBC) [Entitic vol] 88.4 fL Normal 82.6-102.9 [facility] Comment on above: Performed By: #### T SH, VD25, ALB, B12, ECENZ, GLYHGB, ERTPF, FT4 #### [address] [address] [employer]: Jonathan Mckee MD Monocytes (Bld) [#/Vol] 0.70 10*3/uL Normal 0.10-1.20 [facility] Comment on above: Performed By: #### T SH, VD25, ALB, B12, ECENZ, GLYHGB, ERTPF, FT4 #### [address] [address] [employer]: Jonathan Mckee MD Monocytes/100 WBC (Bld) 11 % Normal 3-12 [facility] Comment on above: Performed By: #### T SH, VD25, ALB, B12, ECENZ, GLYHGB, ERTPF, FT4 #### [address] [address] [employer]: Jonathan Mckee MD Neutrophil (Seg) 68 % High 36-65 [facility] Comment on above: Performed By: #### T SH, VD25, ALB, B12, ECENZ, GLYHGB, ERTPF, FT4 #### [address] [address] [employer]: Jonathan Mckee MD NRBC Automated 0.0 per 100 WBC Normal 0.0 [facility] Comment on above: Performed By: #### T SH, VD25, ALB, B12, ECENZ, GLYHGB, ERTPF, FT4 #### [address] [address] [employer]: Jonathan Mckee MD Platelet mean volume (Bld) [Entitic vol] 11.6 fL Normal 8.1-13.5 [facility] Comment on above: Performed By: #### T SH, VD25, ALB, B12, ECENZ, GLYHGB, ERTPF, FT4 #### [facility] [address] [place] [address] [employer]: Jonathan Mckee MD Platelets (Bld) [#/Vol] 283 10*3/uL Normal 138-453 [facility] Comment on above: Performed By: #### T SH, VD25, ALB, B12, ECENZ, GLYHGB, ERTPF, FT4 #### [address] [address] [employer]: Jonathan Mckee MD RBC (Bld) [#/Vol] 3.28 10*6/uL Low 4.21-5.77 [facility] Comment on above: Performed By: #### T SH, VD25, ALB, B12, ECENZ, GLYHGB, ERTPF, FT4 #### [facility] [address] [place] [address] [employer]: Jonathan Mckee MD WBC (Bld) [#/Vol] 6.6 10*3/uL Normal 3.5-11.3 [facility] Comment on above: Performed By: #### T SH, VD25, ALB, B12, ECENZ, GLYHGB, ERTPF, FT4 #### [facility] [address] [place] [address] [employer]: Jonathan Mckee MD Basic Metabolic Profon 01-24 Anion gap [Moles/Vol] 9 mmol/L Normal 9-17 [facility] Comment on above: Performed By: #### T SH, VD25, ALB, B12, ECENZ, GLYHGB, ERTPF, FT4 #### [facility] [address] [place] [address] [employer]: Jonathan Mckee MD Calcium [Mass/Vol] 8.8 mg/dL Normal 8.6-10.4 [facility] Comment on above: Performed By: #### T SH, VD25, ALB, B12, ECENZ, GLYHGB, ERTPF, FT4 #### [address] [address] [employer]: Jonathan Mckee MD Chloride [Moles/Vol] 102 mmol/L Normal 98-107 [facility] Comment on above: Performed By: #### T SH, VD25, ALB, B12, ECENZ, GLYHGB, ERTPF, FT4 #### [address] [phone] [employer]: Jonathan Mckee MD CO2 [Moles/Vol] 23 mmol/L Normal 20-31 [facility] Comment on above: Performed By: #### T SH, VD25, ALB, B12, ECENZ, GLYHGB, ERTPF, FT4 #### [facility] [address] [place] [address] [phone] [employer]: Jonathan Mckee MD Creatinine [Mass/Vol] 0.7 mg/dL Normal 0.7-1.2 [facility] Comment on above: Performed By: #### T SH, VD25, ALB, B12, ECENZ, GLYHGB, ERTPF, FT4 #### [address] [phone] [employer]: Jonathan Mckee MD GFR/1.73 sq M.predicted among non-blacks MDRD (S/P/Bld) [Vol rate/Area] mL/min/{1.73_m2} Normal >60 [facility] Comment on above: Result Comment: These results are not intended for use in patients <18 years of age. eGFR results are calculated without a race factor using the 2020 CKD-EPI equation. Careful clinical correlation is recommended, particularly when comparing to results calculated using previous equations. The CKD-EPI equation is less accurate in patients with extremes of muscle mass, extra-renal metabolism of creatine, excessive creatine ingestion, or following therapy that affects renal tubular secretion. Performed By: #### T SH, VD25, ALB, B12, ECENZ, GLYHGB, ERTPF, FT4 #### [facility] [address] [place] [address] [employer]: Jonathan Mckee MD Glucose [Mass/Vol] 122 mg/dL High 70-99 [facility] Comment on above: Performed By: #### T SH, VD25, ALB, B12, ECENZ, GLYHGB, ERTPF, FT4 #### [facility] [address] [place] [address] [employer]: Jonathan Mckee MD Potassium [Moles/Vol] 3.7 mmol/L Normal 3.7-5.3 [facility] Comment on above: Performed By: #### T SH, VD25, ALB, B12, ECENZ, GLYHGB, ERTPF, FT4 #### [facility] [address] [place] [address] [employer]: Jonathan Mckee MD Sodium [Moles/Vol] 134 mmol/L Low 135-144 [facility] Comment on above: Performed By: #### T SH, VD25, ALB, B12, ECENZ, GLYHGB, ERTPF, FT4 #### [facility] [address] [place] [address] [employer]: Jonathan Mckee MD Urea nitrogen [Mass/Vol] 27 mg/dL High 8-23 [facility] Comment on above: Performed By: #### T SH, VD25, ALB, B12, ECENZ, GLYHGB, ERTPF, FT4 #### [facility] [address] [place] [address] [employer]: Jonathan Mckee MD CBC with Diffon 01-24-2023 Abs. Basophil 0.05 k/uL Normal 0.00-0.20 [facility] Comment on above: Performed By: #### T SH, VD25, ALB, B12, ECENZ, GLYHGB, ERTPF, FT4 #### [address] [address] [employer]: Jonathan Mckee MD Abs.Imm.Granulocyte 0.08 k/uL Normal 0.00-0.30 [facility] Comment on above: Performed By: #### T SH, VD25, ALB, B12, ECENZ, GLYHGB, ERTPF, FT4 #### [place] [address] [employer]: Jonathan Mckee MD Abs.Neutrophil (Seg) 4.05 k/uL Normal 1.50-8.10 [facility] Comment on above: Performed By: #### T SH, VD25, ALB, B12, ECENZ, GLYHGB, ERTPF, FT4 #### [place] [address] [employer]: Jonathan Mckee MD Basophils/100 WBC (Bld) 1 % Normal 0-2 [facility] Comment on above: Performed By: #### T SH, VD25, ALB, B12, ECENZ, GLYHGB, ERTPF, FT4 #### [place] [address] [employer]: Jonathan Mckee MD Eosinophils (Bld) [#/Vol] 0.26 10*3/uL Normal 0.00-0.44 [facility] Comment on above: Performed By: #### T SH, VD25, ALB, B12, ECENZ, GLYHGB, ERTPF, FT4 #### [place] [address] [employer]: Jonatahn Mckee MD Eosinophils/100 WBC (Bld) 5 % High 1-4 [facility] Comment on above: Performed By: #### T SH, VD25, ALB, B12, ECENZ, GLYHGB, ERTPF, FT4 #### [facility] [address] [place] [address] [phone] [employer]: Jonathan Mckee MD Erythrocyte distribution width (RBC) [Ratio] 13.7 % Normal 11.8-14.4 [facility] Comment on above: Performed By: #### T SH, VD25, ALB, B12, ECENZ, GLYHGB, ERTPF, FT4 #### [facility] [address] [place] [address] [phone] [employer]: Jonathan Mckee MD Hematocrit (Bld) [Volume fraction] 30.9 % Low 40.7-50.3 [facility] Comment on above: Performed By: #### T SH, VD25, ALB, B12, ECENZ, GLYHGB, ERTPF, FT4 #### [facility] [address] [place], [place] [phone] [employer]: Jnoathan Mckee MD Hemoglobin (Bld) [Mass/Vol] 10.4 g/dL Low 13.0-17.0 [facility] Comment on above: Performed By: #### T SH, VD25, ALB, B12, ECENZ, GLYHGB, ERTPF, FT4 #### [facility] [address] [place] [address] [phone] [employer]: Jonathan Mckee MD Immature granulocytes/100 WBC (Bld) 1 % High 0 [facility] Comment on above: Performed By: #### T SH, VD25, ALB, B12, ECENZ, GLYHGB, ERTPF, FT4 #### [facility] [address] [place] [address] [phone] [employer]: Jonathan Mckee MD Lymphocytes (Bld) [#/Vol] 0.70 10*3/uL Low 1.10-3.70 [facility] Comment on above: Performed By: #### T SH, VD25, ALB, B12, ECENZ, GLYHGB, ERTPF, FT4 #### [address] [address] [employer]: Jonathan Mckee MD Lymphocytes/100 WBC (Bld) 12 % Low 24-43 [facility] Comment on above: Performed By: #### T SH, VD25, ALB, B12, ECENZ, GLYHGB, ERTPF, FT4 #### [address] [address] [employer]: Jonathan Mckee MD MCH (RBC) [Entitic mass] 30.1 pg Normal 25.2-33.5 [facility] Comment on above: Performed By: #### T SH, VD25, ALB, B12, ECENZ, GLYHGB, ERTPF, FT4 #### [address] [address] [employer]: Jonathan Mckee MD MCHC (RBC) [Mass/Vol] 33.7 g/dL Normal 28.4-34.8 [facility] Comment on above: Performed By: #### T SH, VD25, ALB, B12, ECENZ, GLYHGB, ERTPF, FT4 #### [address] [address] [employer]: Jonathan Mckee MD MCV (RBC) [Entitic vol] 89.3 fL Normal 82.6-102.9 [facility] Comment on above: Performed By: #### T SH, VD25, ALB, B12, ECENZ, GLYHGB, ERTPF, FT4 #### [address] [address] [employer]: Jonathan Mckee MD Monocytes (Bld) [#/Vol] 0.62 10*3/uL Normal 0.10-1.20 [facility] Comment on above: Performed By: #### T SH, VD25, ALB, B12, ECENZ, GLYHGB, ERTPF, FT4 #### [address] [address] [employer]: Jonathan Mckee MD Monocytes/100 WBC (Bld) 11 % Normal 3-12 [facility] Comment on above: Performed By: #### T SH, VD25, ALB, B12, ECENZ, GLYHGB, ERTPF, FT4 #### [address] [address] [employer]: Jonathan Mckee MD Neutrophil (Seg) 70 % High 36-65 [facility] Comment on above: Performed By: #### T SH, VD25, ALB, B12, ECENZ, GLYHGB, ERTPF, FT4 #### [address] [address] [employer]: Jonathan Mckee MD NRBC Automated 0.0 per 100 WBC Normal 0.0 [facility] Comment on above: Performed By: #### T SH, VD25, ALB, B12, ECENZ, GLYHGB, ERTPF, FT4 #### [address] [address] [employer]: Jonathan Mckee MD Platelet mean volume (Bld) [Entitic vol] 10.4 fL Normal 8.1-13.5 [facility] Comment on above: Performed By: #### T SH, VD25, ALB, B12, ECENZ, GLYHGB, ERTPF, FT4 #### [address] [address] [employer]: Jonathan Mckee MD Platelets (Bld) [#/Vol] 166 10*3/uL Normal 138-453 [facility] Comment on above: Performed By: #### T SH, VD25, ALB, B12, ECENZ, GLYHGB, ERTPF, FT4 #### [address] [address] [employer]: Jonathan Mckee MD RBC (Bld) [#/Vol] 3.46 10*6/uL Low 4.21-5.77 [facility] Comment on above: Performed By: #### T SH, VD25, ALB, B12, ECENZ, GLYHGB, ERTPF, FT4 #### [address] [address] [employer]: Jonathan Mckee MD WBC (Bld) [#/Vol] 5.8 10*3/uL Normal 3.5-11.3 [facility] Comment on above: Performed By: #### T SH, VD25, ALB, B12, ECENZ, GLYHGB, ERTPF, FT4 #### [address] [address] [employer]: Jonathan Mckee MD Basic Metabolic Profon 01-23 Anion gap [Moles/Vol] 9 mmol/L Normal 9-17 [facility] Comment on above: Performed By: #### T SH, VD25, ALB, B12, ECENZ, GLYHGB, ERTPF, FT4 #### [address] [address] [employer]: Jonathan Mckee MD Calcium [Mass/Vol] 8.9 mg/dL Normal 8.6-10.4 [facility] Comment on above: Performed By: #### T SH, VD25, ALB, B12, ECENZ, GLYHGB, ERTPF, FT4 #### [address] [address] [employer]: Jonathan Mckee MD Chloride [Moles/Vol] 103 mmol/L Normal 98-107 [facility] Comment on above: Performed By: #### T SH, VD25, ALB, B12, ECENZ, GLYHGB, ERTPF, FT4 #### [address] [address] [employer]: Jonathan Mckee MD CO2 [Moles/Vol] 21 mmol/L Normal 20-31 [facility] Comment on above: Performed By: #### T SH, VD25, ALB, B12, ECENZ, GLYHGB, ERTPF, FT4 #### [facility] [address] [place] [address] [phone] [employer]: Jonathan Mckee MD Creatinine [Mass/Vol] 0.7 mg/dL Normal 0.7-1.2 [facility] Comment on above: Performed By: #### T SH, VD25, ALB, B12, ECENZ, GLYHGB, ERTPF, FT4 #### [address] [phone] [employer]: Jonathan Mckee MD GFR/1.73 sq M.predicted among non-blacks MDRD (S/P/Bld) [Vol rate/Area] mL/min/{1.73_m2} Normal >60 [facility] Comment on above: Result Comment: These results are not intended for use in patients <18 years of age. eGFR results are calculated without a race factor using the 2020 CKD-EPI equation. Careful clinical correlation is recommended, particularly when comparing to results calculated using previous equations. The CKD-EPI equation is less accurate in patients with extremes of muscle mass, extra-renal metabolism of creatine, excessive creatine ingestion, or following therapy that affects renal tubular secretion. Performed By: #### T SH, VD25, ALB, B12, ECENZ, GLYHGB, ERTPF, FT4 #### [facility] [address] [place] [address] [phone] [employer]: Jonathan Mckee MD Glucose [Mass/Vol] 105 mg/dL High 70-99 [facility] Comment on above: Performed By: #### T SH, VD25, ALB, B12, ECENZ, GLYHGB, ERTPF, FT4 #### [facility] [facility] [address] [place] [address] [id number] [employer]: Jonathan Mckee MD Potassium [Moles/Vol] 3.7 mmol/L Normal 3.7-5.3 [facility] Comment on above: Performed By: #### T SH, VD25, ALB, B12, ECENZ, GLYHGB, ERTPF, FT4 #### [address] [address] [employer]: Jonathan Mckee MD Sodium [Moles/Vol] 133 mmol/L Low 135-144 [facility] Comment on above: Performed By: #### T SH, VD25, ALB, B12, ECENZ, GLYHGB, ERTPF, FT4 #### [address] [address] [employer]: Jonathan Mckee MD Urea nitrogen [Mass/Vol] 28 mg/dL High 8-23 [facility] Comment on above: Performed By: #### T SH, VD25, ALB, B12, ECENZ, GLYHGB, ERTPF, FT4 #### [address] [address] [employer]: Jonathan Mckee MD CBC with Diffon 01-23-2023 Abs. Basophil 0.05 k/uL Normal 0.00-0.20 [facility] Comment on above: Performed By: #### T SH, VD25, ALB, B12, ECENZ, GLYHGB, ERTPF, FT4 #### [address] [address] [employer]: Jonathan Mckee MD Abs.Imm.Granulocyte 0.05 k/uL Normal 0.00-0.30 [facility] Comment on above: Performed By: #### T SH, VD25, ALB, B12, ECENZ, GLYHGB, ERTPF, FT4 #### [address] [address] [employer]: Jonathan Mckee MD Abs.Neutrophil (Seg) 4.18 k/uL Normal 1.50-8.10 [facility] Comment on above: Performed By: #### T SH, VD25, ALB, B12, ECENZ, GLYHGB, ERTPF, FT4 #### [address] [address] [employer]: Jonathan Mckee MD Basophils/100 WBC (Bld) 1 % Normal 0-2 [facility] Comment on above: Performed By: #### T SH, VD25, ALB, B12, ECENZ, GLYHGB, ERTPF, FT4 #### [place] [address] [employer]: Jonathan Mckee MD Eosinophils (Bld) [#/Vol] 0.21 10*3/uL Normal 0.00-0.44 [facility] Comment on above: Performed By: #### T SH, VD25, ALB, B12, ECENZ, GLYHGB, ERTPF, FT4 #### [place] [address] [employer]: Jonathan Mckee MD Eosinophils/100 WBC (Bld) 4 % Normal 1-4 [facility] Comment on above: Performed By: #### T SH, VD25, ALB, B12, ECENZ, GLYHGB, ERTPF, FT4 #### [place] [address] [employer]: Jonathan Mckee MD Erythrocyte distribution width (RBC) [Ratio] 13.8 % Normal 11.8-14.4 [facility] Comment on above: Performed By: #### T SH, VD25, ALB, B12, ECENZ, GLYHGB, ERTPF, FT4 #### [place] [address] [employer]: Jonathan Mckee MD Hematocrit (Bld) [Volume fraction] 31.5 % Low 40.7-50.3 [facility] Comment on above: Performed By: #### T SH, VD25, ALB, B12, ECENZ, GLYHGB, ERTPF, FT4 #### [facility] [address] [place] [address] [employer]: Jonathan Mckee MD Hemoglobin (Bld) [Mass/Vol] 10.6 g/dL Low 13.0-17.0 [facility] Comment on above: Performed By: #### T SH, VD25, ALB, B12, ECENZ, GLYHGB, ERTPF, FT4 #### [facility] [address] [place] [address] [employer]: Jonathan Mckee MD Immature granulocytes/100 WBC (Bld) 1 % High 0 [facility] Comment on above: Performed By: #### T SH, VD25, ALB, B12, ECENZ, GLYHGB, ERTPF, FT4 #### [facility] [address] [place] [address] [employer]: Jonathan Mckee MD Lymphocytes (Bld) [#/Vol] 0.71 10*3/uL Low 1.10-3.70 [facility] Comment on above: Performed By: #### T SH, VD25, ALB, B12, ECENZ, GLYHGB, ERTPF, FT4 #### [facility] [address] [place] [address] [employer]: Jonathan Mckee MD Lymphocytes/100 WBC (Bld) 12 % Low 24-43 [facility] Comment on above: Performed By: #### T SH, VD25, ALB, B12, ECENZ, GLYHGB, ERTPF, FT4 #### [facility] [address] [place] [address] [employer]: Jonathan Mckee MD MCH (RBC) [Entitic mass] 30.3 pg Normal 25.2-33.5 [facility] Comment on above: Performed By: #### T SH, VD25, ALB, B12, ECENZ, GLYHGB, ERTPF, FT4 #### [address] [id number] [employer]: Jonathan Mckee MD MCHC (RBC) [Mass/Vol] 33.7 g/dL Normal 28.4-34.8 [facility] Comment on above: Performed By: #### T SH, VD25, ALB, B12, ECENZ, GLYHGB, ERTPF, FT4 #### [address] [id number] [employer]: Jonathan Mckee MD MCV (RBC) [Entitic vol] 90.0 fL Normal 82.6-102.9 [facility] Comment on above: Performed By: #### T SH, VD25, ALB, B12, ECENZ, GLYHGB, ERTPF, FT4 #### [address] [id number] [employer]: Jonathan Mckee MD Monocytes (Bld) [#/Vol] 0.73 10*3/uL Normal 0.10-1.20 [facility] Comment on above: Performed By: #### T SH, VD25, ALB, B12, ECENZ, GLYHGB, ERTPF, FT4 #### [address] [id number] [employer]: Jonathan Mckee MD Monocytes/100 WBC (Bld) 12 % Normal 3-12 [facility] Comment on above: Performed By: #### T SH, VD25, ALB, B12, ECENZ, GLYHGB, ERTPF, FT4 #### [address] [id number] [employer]: Jonathan Mckee MD Neutrophil (Seg) 70 % High 36-65 [facility] Comment on above: Performed By: #### T SH, VD25, ALB, B12, ECENZ, GLYHGB, ERTPF, FT4 #### [address] [address] [employer]: Jonathan Mckee MD NRBC Automated 0.0 per 100 WBC Normal 0.0 [facility] Comment on above: Performed By: #### T SH, VD25, ALB, B12, ECENZ, GLYHGB, ERTPF, FT4 #### [address] [address] [employer]: Jonathan Mckee MD Platelet mean volume (Bld) [Entitic vol] 10.1 fL Normal 8.1-13.5 [facility] Comment on above: Performed By: #### T SH, VD25, ALB, B12, ECENZ, GLYHGB, ERTPF, FT4 #### [address] [address] [employer]: Jonathan Mckee MD Platelets (Bld) [#/Vol] 178 10*3/uL Normal 138-453 [facility] Comment on above: Performed By: #### T SH, VD25, ALB, B12, ECENZ, GLYHGB, ERTPF, FT4 #### [address] [address] [employer]: Jonathan Mckee MD RBC (Bld) [#/Vol] 3.50 10*6/uL Low 4.21-5.77 [facility] Comment on above: Performed By: #### T SH, VD25, ALB, B12, ECENZ, GLYHGB, ERTPF, FT4 #### [address] [address] [employer]: Jonathan Mckee MD WBC (Bld) [#/Vol] 5.9 10*3/uL Normal 3.5-11.3 [facility] Comment on above: Performed By: #### T SH, VD25, ALB, B12, ECENZ, GLYHGB, ERTPF, FT4 #### [address] [address] [employer]: Jonathan Mckee MD Basic Metabolic Profon 01-22 Anion gap [Moles/Vol] 15 mmol/L Normal 9-17 [facility] Comment on above: Performed By: #### T SH, VD25, ALB, B12, ECENZ, GLYHGB, ERTPF, FT4 #### [address] [address] [employer]: Jonathan Mckee MD Calcium [Mass/Vol] 8.9 mg/dL Normal 8.6-10.4 [facility] Comment on above: Performed By: #### T SH, VD25, ALB, B12, ECENZ, GLYHGB, ERTPF, FT4 #### [address] [address] [employer]: Jonathan Mckee MD Chloride [Moles/Vol] 99 mmol/L Normal 98-107 [facility] Comment on above: Performed By: #### T SH, VD25, ALB, B12, ECENZ, GLYHGB, ERTPF, FT4 #### [address] [address] [employer]: Jonathan Mckee MD CO2 [Moles/Vol] 17 mmol/L Low 20-31 [facility] Comment on above: Performed By: #### T SH, VD25, ALB, B12, ECENZ, GLYHGB, ERTPF, FT4 #### [address] [address] [employer]: Jonathan Mckee MD Creatinine [Mass/Vol] 0.8 mg/dL Normal 0.7-1.2 [facility] Comment on above: Performed By: #### T SH, VD25, ALB, B12, ECENZ, GLYHGB, ERTPF, FT4 #### [facility] [address] [place] [address] [employer]: Jonathan Mckee MD GFR/1.73 sq M.predicted among non-blacks MDRD (S/P/Bld) [Vol rate/Area] mL/min/{1.73_m2} Normal >60 [facility] Comment on above: Result Comment: These results are not intended for use in patients <18 years of age. eGFR results are calculated without a race factor using the 2020 CKD-EPI equation. Careful clinical correlation is recommended, particularly when comparing to results calculated using previous equations. The CKD-EPI equation is less accurate in patients with extremes of muscle mass, extra-renal metabolism of creatine, excessive creatine ingestion, or following therapy that affects renal tubular secretion. Performed By: #### T SH, VD25, ALB, B12, ECENZ, GLYHGB, ERTPF, FT4 #### [address] [address] [employer]: Jonathan Mckee MD Glucose [Mass/Vol] 90 mg/dL Normal 70-99 [facility] Comment on above: Performed By: #### T SH, VD25, ALB, B12, ECENZ, GLYHGB, ERTPF, FT4 #### [address] [address] [employer]: Jonathan Mckee MD Potassium [Moles/Vol] 3.7 mmol/L Normal 3.7-5.3 [facility] Comment on above: Performed By: #### T SH, VD25, ALB, B12, ECENZ, GLYHGB, ERTPF, FT4 #### [address] [address] [employer]: Jonathan Mckee MD Sodium [Moles/Vol] 131 mmol/L Low 135-144 [facility] Comment on above: Performed By: #### T SH, VD25, ALB, B12, ECENZ, GLYHGB, ERTPF, FT4 #### [address] [id number] [employer]: Jonathan Mckee MD Urea nitrogen [Mass/Vol] 28 mg/dL High 8-23 [facility] Comment on above: Performed By: #### T SH, VD25, ALB, B12, ECENZ, GLYHGB, ERTPF, FT4 #### [place] [address] [employer]: Jonathan Mckee MD CBC with Diffon 01-22-2023 Abs. Basophil 0.03 k/uL Normal 0.00-0.20 [facility] Comment on above: Performed By: #### T SH, VD25, ALB, B12, ECENZ, GLYHGB, ERTPF, FT4 #### [place] [address] [employer]: Jonathan Mckee MD Abs.Imm.Granulocyte 0.05 k/uL Normal 0.00-0.30 [facility] Comment on above: Performed By: #### T SH, VD25, ALB, B12, ECENZ, GLYHGB, ERTPF, FT4 #### [place] [address] [employer]: Jonathan Mckee MD Abs.Neutrophil (Seg) 4.98 k/uL Normal 1.50-8.10 [facility] Comment on above: Performed By: #### T SH, VD25, ALB, B12, ECENZ, GLYHGB, ERTPF, FT4 #### [place] [address] [employer]: Jonathan Mckee MD Basophils/100 WBC (Bld) 0 % Normal 0-2 [facility] Comment on above: Performed By: #### T SH, VD25, ALB, B12, ECENZ, GLYHGB, ERTPF, FT4 #### [place] [address] [employer]: Jonathan Mckee MD Eosinophils (Bld) [#/Vol] 0.18 10*3/uL Normal 0.00-0.44 [facility] Comment on above: Performed By: #### T SH, VD25, ALB, B12, ECENZ, GLYHGB, ERTPF, FT4 #### [facility] [address] [place] [address] [employer]: Jonathan Mckee MD Eosinophils/100 WBC (Bld) 3 % Normal 1-4 [facility] Comment on above: Performed By: #### T SH, VD25, ALB, B12, ECENZ, GLYHGB, ERTPF, FT4 #### [address] [address] [employer]: Jonathan Mckee MD Erythrocyte distribution width (RBC) [Ratio] 13.7 % Normal 11.8-14.4 [facility] Comment on above: Performed By: #### T SH, VD25, ALB, B12, ECENZ, GLYHGB, ERTPF, FT4 #### [address] [address] [employer]: Jonathan Mckee MD Hematocrit (Bld) [Volume fraction] 32.5 % Low 40.7-50.3 [facility] Comment on above: Performed By: #### T SH, VD25, ALB, B12, ECENZ, GLYHGB, ERTPF, FT4 #### [facility] [address] [place] [address] [employer]: Jonathan Mckee MD Hemoglobin (Bld) [Mass/Vol] 11.0 g/dL Low 13.0-17.0 [facility] Comment on above: Performed By: #### T SH, VD25, ALB, B12, ECENZ, GLYHGB, ERTPF, FT4 #### [facility] [address] [place] [address] [id number] [employer]: Jonathan Mckee MD Immature granulocytes/100 WBC (Bld) 1 % High 0 [facility] Comment on above: Performed By: #### T SH, VD25, ALB, B12, ECENZ, GLYHGB, ERTPF, FT4 #### [address] [address] [employer]: Jonathan Mckee MD Lymphocytes (Bld) [#/Vol] 0.95 10*3/uL Low 1.10-3.70 [facility] Comment on above: Performed By: #### T SH, VD25, ALB, B12, ECENZ, GLYHGB, ERTPF, FT4 #### [address] [address] [employer]: Jonathan Mckee MD Lymphocytes/100 WBC (Bld) 14 % Low 24-43 [facility] Comment on above: Performed By: #### T SH, VD25, ALB, B12, ECENZ, GLYHGB, ERTPF, FT4 #### [address] [address] [employer]: Jonathan Mckee MD MCH (RBC) [Entitic mass] 30.4 pg Normal 25.2-33.5 [facility] Comment on above: Performed By: #### T SH, VD25, ALB, B12, ECENZ, GLYHGB, ERTPF, FT4 #### [address] [address] [employer]: Jonathan Mckee MD MCHC (RBC) [Mass/Vol] 33.8 g/dL Normal 28.4-34.8 [facility] Comment on above: Performed By: #### T SH, VD25, ALB, B12, ECENZ, GLYHGB, ERTPF, FT4 #### [address] [address] [employer]: Jonathan Mckee MD MCV (RBC) [Entitic vol] 89.8 fL Normal 82.6-102.9 [facility] Comment on above: Performed By: #### T SH, VD25, ALB, B12, ECENZ, GLYHGB, ERTPF, FT4 #### [address] [address] [employer]: Jonathan Mckee MD Monocytes (Bld) [#/Vol] 0.78 10*3/uL Normal 0.10-1.20 [facility] Comment on above: Performed By: #### T SH, VD25, ALB, B12, ECENZ, GLYHGB, ERTPF, FT4 #### [place] [address] [employer]: Joanthan Mckee MD Monocytes/100 WBC (Bld) 11 % Normal 3-12 [facility] Comment on above: Performed By: #### T SH, VD25, ALB, B12, ECENZ, GLYHGB, ERTPF, FT4 #### [place] [address] [employer]: Jonathan Mckee MD Neutrophil (Seg) 72 % High 36-65 [facility] Comment on above: Performed By: #### T SH, VD25, ALB, B12, ECENZ, GLYHGB, ERTPF, FT4 #### [place] [address] [employer]: Jonathan Mckee MD NRBC Automated 0.0 per 100 WBC Normal 0.0 [facility] Comment on above: Performed By: #### T SH, VD25, ALB, B12, ECENZ, GLYHGB, ERTPF, FT4 #### [address] [address] [employer]: Jonathan Mckee MD Platelet mean volume (Bld) [Entitic vol] 10.3 fL Normal 8.1-13.5 [facility] Comment on above: Performed By: #### T SH, VD25, ALB, B12, ECENZ, GLYHGB, ERTPF, FT4 #### [facility] [address] [place] [phone] [employer]: Jonathan Mckee MD Platelets (Bld) [#/Vol] 201 10*3/uL Normal 138-453 [facility] Comment on above: Performed By: #### T SH, VD25, ALB, B12, ECENZ, GLYHGB, ERTPF, FT4 #### [facility] [address] [place] [address] [employer]: Jonathan Mckee MD RBC (Bld) [#/Vol] 3.62 10*6/uL Low 4.21-5.77 [facility] Comment on above: Performed By: #### T SH, VD25, ALB, B12, ECENZ, GLYHGB, ERTPF, FT4 #### [facility] [address] [place] [address] [employer]: Jonathan Mckee MD WBC (Bld) [#/Vol] 7.0 10*3/uL Normal 3.5-11.3 [facility] Comment on above: Performed By: #### T SH, VD25, ALB, B12, ECENZ, GLYHGB, ERTPF, FT4 #### [address] [address] [employer]: Jonathan Mckee MD XR SHOULDER RIGHT (MIN 2 VIE WS)on 01-22-2023 XR SHOULDER RIGHT (MIN 2 VIEWS) EXAMINATION: TWO XRAY VIEWS OF THE RIGHT SHOULDER 01/22/2023 12:22 pm COMPARISON: None. HISTORY: ORDERING SYSTEM PROVIDED HISTORY: right deltoid pain TECHNOLOGIST PROVIDED HISTORY: right deltoid pain FINDINGS: Glenohumeral joint is normally aligned. No evidence of acute fracture or dislocation. No abnormal periarticular calcifications. Mild AC joint degenerative changes. Visualized lung is unremarkable. IMPRESSION: No acute abnormality. Mild AC joint degenerative changes Interpreted by: Inder Pulliam MD Signed by: Inder Pulliam MD 01/22/23 Final result Normal [facility] Albuminon 01-21-2023 Albumin [Mass/Vol] 3.6 g/dL Normal 3.5-5.2 [facility] Comment on above: Performed By: #### T SH, VD25, ALB, B12, ECENZ, GLYHGB, ERTPF, FT4 #### [address] [address] [employer]: Jonathan Mckee MD Basic Metabolic Profon 01-21 Anion gap [Moles/Vol] 9 mmol/L Normal 9-17 [facility] Comment on above: Performed By: #### B MP, CDP, LISBETH, TROPI #### [address] [address] [employer]: Jonathan Mckee MD Calcium [Mass/Vol] 8.6 mg/dL Normal 8.6-10.4 [facility] Comment on above: Performed By: #### B MP, CDP, LISBETH, TROPI #### [address] [address] [employer]: Jonathan Mckee MD Chloride [Moles/Vol] 101 mmol/L Normal 98-107 [facility] Comment on above: Performed By: #### B MP, CDP, LISBETH, TROPI #### [address] [address] [employer]: Jonathan Mckee MD CO2 [Moles/Vol] 21 mmol/L Normal 20-31 [facility] Comment on above: Performed By: #### B MP, CDP, LISBETH, TROPI #### [address] [address] [employer]: Jonathan Mckee MD Creatinine [Mass/Vol] 0.9 mg/dL Normal 0.7-1.2 [facility] Comment on above: Performed By: #### B MP, CDP, LISBETH, TROPI #### [facility] [address] [place] [phone] [employer]: Jonathan Mckee MD GFR/1.73 sq M.predicted among non-blacks MDRD (S/P/Bld) [Vol rate/Area] mL/min/{1.73_m2} Normal >60 [facility] Comment on above: Result Comment: These results are not intended for use in patients <18 years of age. eGFR results are calculated without a race factor using the 2020 CKD-EPI equation. Careful clinical correlation is recommended, particularly when comparing to results calculated using previous equations. The CKD-EPI equation is less accurate in patients with extremes of muscle mass, extra-renal metabolism of creatine, excessive creatine ingestion, or following therapy that affects renal tubular secretion. Performed By: #### B MP, CDP, LISBETH, TROPI #### [facility] [address] [place] [address] [employer]: Jonathan Mckee MD Glucose [Mass/Vol] 113 mg/dL High 70-99 [facility] Comment on above: Performed By: #### B MP, CDP, LISBETH, TROPI #### [facility] [address] [place] [address] [employer]: Jonathan Mckee MD Potassium [Moles/Vol] 3.7 mmol/L Normal 3.7-5.3 [facility] Comment on above: Performed By: #### B MP, CDP, LISBETH, TROPI #### [facility] [address] [place] [address] [employer]: Jonathan Mckee MD Sodium [Moles/Vol] 131 mmol/L Low 135-144 [facility] Comment on above: Performed By: #### B MP, CDP, LISBETH, TROPI #### [facility] [address] [place] [address] [employer]: Jonathan Mckee MD Urea nitrogen [Mass/Vol] 30 mg/dL High 8-23 [facility] Comment on above: Performed By: #### B MP, CDP, LISBETH, TROPI #### [address] [address] [employer]: Jonathan Mckee MD CBC with Diffon 01-21-2023 Abs. Basophil 0.03 k/uL Normal 0.00-0.20 [facility] Comment on above: Performed By: #### B MP, CDP, LISBETH, TROPI #### [place] [address] [employer]: Jonathan Mckee MD Abs.Imm.Granulocyte 0.10 k/uL Normal 0.00-0.30 [facility] Comment on above: Performed By: #### B MP, CDP, LISBETH, TROPI #### [place] [address] [employer]: Jonathan Mckee MD Abs.Neutrophil (Seg) 9.58 k/uL High 1.50-8.10 [facility] Comment on above: Performed By: #### B MP, CDP, LISBETH, TROPI #### [place] [address] [employer]: Jonathan Mckee MD Basophils/100 WBC (Bld) 0 % Normal 0-2 [facility] Comment on above: Performed By: #### B MP, CDP, LISBETH, TROPI #### [facility] [address] [place] [address] [employer]: Jonathan Mckee MD Eosinophils (Bld) [#/Vol] 0.04 10*3/uL Normal 0.00-0.44 [facility] Comment on above: Performed By: #### B MP, CDP, LISBETH, TROPI #### [facility] [address] [place] [address] [employer]: Jonathan Mckee MD Eosinophils/100 WBC (Bld) 0 % Low 1-4 [facility] Comment on above: Performed By: #### B MP, CDP, LISBETH, TROPI #### [address] [address] [employer]: Jonathan Mckee MD Erythrocyte distribution width (RBC) [Ratio] 13.5 % Normal 11.8-14.4 [facility] Comment on above: Performed By: #### B MP, CDP, LISBETH, TROPI #### [address] [address] [employer]: Jonathan Mckee MD Hematocrit (Bld) [Volume fraction] 31.5 % Low 40.7-50.3 [facility] Comment on above: Performed By: #### B MP, CDP, LISBETH, TROPI #### [facility] [address] [place] [address] [employer]: Jonathan Mckee MD Hemoglobin (Bld) [Mass/Vol] 10.7 g/dL Low 13.0-17.0 [facility] Comment on above: Performed By: #### B MP, CDP, LISBETH, TROPI #### [facility] [address] [place] [address] [employer]: Jonathan Mckee MD Immature granulocytes/100 WBC (Bld) 1 % High 0 [facility] Comment on above: Performed By: #### B MP, CDP, LISBETH, TROPI #### [facility] [address] [place] [address] [employer]: Jonathan Mckee MD Lymphocytes (Bld) [#/Vol] 0.90 10*3/uL Low 1.10-3.70 [facility] Comment on above: Performed By: #### B MP, CDP, LISBETH, TROPI #### [facility] [address] [place] [address] [employer]: Jonathan Mckee MD Lymphocytes/100 WBC (Bld) 8 % Low 24-43 [facility] [facility] Comment on above: Performed By: #### B MP, CDP, LISBETH, TROPI #### [address] [address] [employer]: Jonathan Mckee MD MCH (RBC) [Entitic mass] 30.3 pg Normal 25.2-33.5 [facility] Comment on above: Performed By: #### B MP, CDP, LISBETH, TROPI #### [address] [address] [employer]: Jonathan Mckee MD MCHC (RBC) [Mass/Vol] 34.0 g/dL Normal 28.4-34.8 [facility] Comment on above: Performed By: #### B MP, CDP, LISBETH, TROPI #### [address] [address] [employer]: Jonathan Mckee MD MCV (RBC) [Entitic vol] 89.2 fL Normal 82.6-102.9 [facility] Comment on above: Performed By: #### B MP, CDP, LISBETH, TROPI #### [address] [address] [employer]: Jonathan Mckee MD Monocytes (Bld) [#/Vol] 1.19 10*3/uL Normal 0.10-1.20 [facility] Comment on above: Performed By: #### B MP, CDP, LISBETH, TROPI #### [address] [address] [employer]: Jonathan Mckee MD Monocytes/100 WBC (Bld) 10 % Normal 3-12 [facility] Comment on above: Performed By: #### B MP, CDP, LISBETH, TROPI #### [address] [address] [employer]: Jonathan Mckee MD Neutrophil (Seg) 81 % High 36-65 [facility] Comment on above: Performed By: #### B MP, CDP, LISBETH, TROPI #### [address] [address] [employer]: Jonathan Mckee MD NRBC Automated 0.0 per 100 WBC Normal 0.0 [facility] Comment on above: Performed By: #### B MP, CDP, LISBETH, TROPI #### [address] [address] [employer]: Jonathan Mckee MD Platelet mean volume (Bld) [Entitic vol] 9.9 fL Normal 8.1-13.5 [facility] Comment on above: Performed By: #### B MP, CDP, LISBETH, TROPI #### [address] [address] [employer]: Jonathan Mckee MD Platelets (Bld) [#/Vol] 186 10*3/uL Normal 138-453 [facility] Comment on above: Performed By: #### B MP, CDP, LISBETH, TROPI #### [address] [address] [employer]: Jonathan Mckee MD RBC (Bld) [#/Vol] 3.53 10*6/uL Low 4.21-5.77 [facility] Comment on above: Performed By: #### B MP, CDP, LISBETH, TROPI #### [address] [address] [employer]: Jonathan Mckee MD WBC (Bld) [#/Vol] 11.8 10*3/uL High 3.5-11.3 [facility] Comment on above: Performed By: #### B MP, CDP, LISBETH, TROPI #### [facility] [employer] [address] [place] [address] [employer]: Jonathan Mckee MD CT CHEST ABDOMEN PELVIS WO [facility] 01-21-[facility]23 CT CHEST ABDOMEN PELVIS WO CONTRAST EXAMINATION: CT OF THE CHEST, ABDOMEN, AND PELVIS WITHOUT CONTRAST 01/20/2023 10:04 pm TECHNIQUE: CT of the chest, abdomen and pelvis was performed without the administration of intravenous contrast. Multiplanar reformatted images are provided for review. Automated exposure control, iterative reconstruction, and/or weight based adjustment of the mA/kV was utilized to reduce the radiation dose to as low as reasonably achievable. COMPARISON: None HISTORY: ORDERING SYSTEM PROVIDED HISTORY: fall TECHNOLOGIST PROVIDED HISTORY: fall Decision Support Exception - unselect if not a suspected or confirmed emergency medical condition->Emergency Medical Condition (MA) FINDINGS: Chest: Lower neck: Unremarkable Chest wall: Unremarkable Lymph nodes: No lymphadenopathy in the chest. Calcified mediastinal lymph nodes compatible with prior granulomatous disease. Heart: The heart is not enlarged. Multivessel coronary artery calcifications. no pericardial effusion or focal thickening. Thoracic aorta: No aneurysm. Diffuse calcified plaque Esophagus: Unremarkable Lung parenchyma/Pleura: The lungs are clear of focal consolidation.No pleural effusion or pneumothorax. 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 Central airways: Patent. Soft tissues: ?Unremarkable. Bones: Spondylosis in the visualized spine. 7 ?old fracture of the right anterior 4th rib. No acute bony abnormality. Abdomen/Pelvis: Liver: ?Normal size and contour. No focal lesion. Gallbladder/biliary tree: No radiopaque stones. No biliary dilatation. ?Adrenal glands: ?Unremarkable Spleen: ?Unremarkable Pancreas: ?unremarkable Kidneys: 9.2 cm Bosniak 2 simple cyst in the right upper renal pole. Simple cyst in the left kidney measuring up to 3.5 cm. Tiny hyperdense lesion in the right kidney likely representing proteinaceous/hemorrhag ic cyst. No hydronephrosis or nephrolithiasis. Bowel: ?Normal in caliber. No obstruction or abnormal wall thickening. Appendix is normal in caliber. ?Lymph Nodes: ?No enlarged adenopathy Bladder: ?under distended and obscured by streak artifact. Pelvis: Extensive streak artifact from bilateral hip prosthesis limiting assessment. Peritoneum/retroperiton eum: ? No ascites or free air. No fluid collections. ?Abdominal aorta: ?Normal in caliber without aneurysm or dissection with diffuse calcified plaque.. Abdominal wall: ?Unremarkable ? Bones/soft tissues: L5-S1 degenerative disease. No acute bony abnormality. ? IMPRESSION: Limited noncontrast examination with no acute or traumatic findings identified. Interpreted by: Moe Waters MD Signed by: Moe Waters MD 01/20/23 Final result Normal [facility] CT HEAD WO CONTRASTon 2022 CT HEAD WO CONTRAST EXAMINATION: CT OF THE HEAD WITHOUT CONTRAST 01/21/2023 6:09 am TECHNIQUE: CT of the head was performed without the administration of intravenous contrast. Automated exposure control, iterative reconstruction, and/or weight based adjustment of the mA/kV was utilized to reduce the radiation dose to as low as reasonably achievable. COMPARISON: CT head 01/20/2023. HISTORY: ORDERING SYSTEM PROVIDED HISTORY: Repeat head CT for head bleed TECHNOLOGIST PROVIDED HISTORY: Repeat head CT for head bleed FINDINGS: BRAIN/VENTRICLES: There is no acute hemorrhage mass effect, midline shift. There is extensive chronic microvascular disease. The ventricles are symmetric and stable in size. There is a small amount of hemorrhagic products layering in the lateral ventricles that is decreased compared to prior exam. The infratentorial structures are unremarkable. ORBITS: There is redemonstration of air within the left orbital region along the lateral orbital wall.. SINUSES: There is fluid in the left maxillary sinus. Mastoid air cells are normally aerated. SOFT TISSUES/SKULL: There is redemonstration of facial fractures with left facial soft tissue swelling and soft tissue gas. IMPRESSION: Small amount of layering blood products in the lateral ventricles that is mildly decreased compared to prior. Stable facial fractures with left facial soft tissue swelling and soft tissue gas. Interpreted by: Myron Rizo MD Signed by: Myron Rizo MD 01/21/23 Final result Normal [facility] CT HEAD WO CONTRAST EXAMINATION: CT OF THE HEAD WITHOUT CONTRAST 01/20/2023 11:32 pm TECHNIQUE: CT of the head was performed without the administration of intravenous contrast. Automated exposure control, iterative reconstruction, and/or weight based adjustment of the mA/kV was utilized to reduce the radiation dose to as low as reasonably achievable. COMPARISON: None. HISTORY: ORDERING SYSTEM PROVIDED HISTORY: IVH TECHNOLOGIST PROVIDED HISTORY: IVH Decision Support Exception - unselect if not a suspected or confirmed emergency medical condition->Emergency Medical Condition (MA) Reason for Exam: IVH FINDINGS: BRAIN/VENTRICLES: Small amount of hyperdense blood layering in the occipital horns of both lateral ventricles. There is no significant mass effect or midline shift. No abnormal extra-axial fluid collection. The mahoney-white differentiation is maintained without evidence of an acute infarct. Generalized cerebral and cerebellar volume loss. Diffuse ventricular prominence may relate to central volume loss. There are nonspecific areas of hypoattenuation within the periventricular and subcortical white matter, which likely represent chronic microvascular ischemic change. Atherosclerosis. ORBITS: Posttraumatic extraconal air in the left orbit. No retro bulbar hematoma. Mild left proptosis. Both globes are intact. SINUSES: Hemorrhage in the left maxillary sinus. SOFT TISSUES/SKULL: Left facial soft tissue swelling and gas. Mildly depressed fracture of the left zygomatic arch. Fractures of the left maxillary sinus anterior and lateral connell, left orbital floor and lateral wall. IMPRESSION: 1. Small amount of blood layering in the occipital horns of both lateral ventricles. No mass effect or midline shift. 2. Diffuse ventricular prominence may relate to central volume loss. Component of hydrocephalus should also be considered in the appropriate clinical setting. 3. Extensive chronic small vessel ischemic disease. 4. Left facial bone fractures. Of note, patient's medical team is aware of the presence of intraventricular hemorrhage. Interpreted by: Darrell Hubbard DO Signed by: Darrell Hubbard DO 01/21/23 Final result Normal [facility] CT LUMBAR SPINE BONY RECONST RUCTIONon 01-21-2023 CT LUMBAR SPINE BONY RECONSTRUCTION EXAMINATION: CT OF THE LUMBAR SPINE WITHOUT CONTRAST; CT OF THE THORACIC SPINE WITHOUT CONTRAST 01/20/2023 TECHNIQUE: CT of the lumbar spine was performed without the administration of intravenous contrast. Multiplanar reformatted images are provided for review. Adjustment of mA and/or kV according to patient size was utilized. Automated exposure control, iterative reconstruction, and/or weight based adjustment of the mA/kV was utilized to reduce the radiation dose to as low as reasonably achievable.; CT of the thoracic spine was performed without the administration of intravenous contrast. Multiplanar reformatted images are provided for review. Automated exposure control, iterative reconstruction, and/or weight based adjustment of the mA/kV was utilized to reduce the radiation dose to as low as reasonably achievable. COMPARISON: None HISTORY: ORDERING SYSTEM PROVIDED HISTORY: fall TECHNOLOGIST PROVIDED HISTORY: fall FINDINGS: BONES/ALIGNMENT: There is normal curvature and alignment of the thoracolumbar spine. No acute fracture or subluxation is identified. Vertebral body heights are preserved. DEGENERATIVE CHANGES: There is intervertebral disc space narrowing at T7-T8, L2-L3, and L5-S1. SOFT TISSUES/RETROPERITONEUM : Normal dorsal paraspinal soft tissues. The partially visualized lungs are clear. 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 IMPRESSION: No acute fracture or subluxation of the thoracolumbar spine. Interpreted by: Saroj Franklin MD Signed by: Saroj Franklin MD 01/20/23 Final result Normal [facility] CT THORACIC SPINE BONY RECON STRUCTIONon 01-21-2023 CT THORACIC SPINE BONY RECONSTRUCTION EXAMINATION: CT OF THE LUMBAR SPINE WITHOUT CONTRAST; CT OF THE THORACIC SPINE WITHOUT CONTRAST 01/20/2023 TECHNIQUE: CT of the lumbar spine was performed without the administration of intravenous contrast. Multiplanar reformatted images are provided for review. Adjustment of mA and/or kV according to patient size was utilized. Automated exposure control, iterative reconstruction, and/or weight based adjustment of the mA/kV was utilized to reduce the radiation dose to as low as reasonably achievable.; CT of the thoracic spine was performed without the administration of intravenous contrast. Multiplanar reformatted images are provided for review. Automated exposure control, iterative reconstruction, and/or weight based adjustment of the mA/kV was utilized to reduce the radiation dose to as low as reasonably achievable. COMPARISON: None HISTORY: ORDERING SYSTEM PROVIDED HISTORY: fall TECHNOLOGIST PROVIDED HISTORY: fall FINDINGS: BONES/ALIGNMENT: There is normal curvature and alignment of the thoracolumbar spine. No acute fracture or subluxation is identified. Vertebral body heights are preserved. DEGENERATIVE CHANGES: There is intervertebral disc space narrowing at T7-T8, L2-L3, and L5-S1. SOFT TISSUES/RETROPERITONEUM : Normal dorsal paraspinal soft tissues. The partially visualized lungs are clear. 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 IMPRESSION: No acute fracture or subluxation of the thoracolumbar spine. Interpreted by: Saroj Franklin MD Signed by: Saroj Franklin MD 01/20/23 Final result Normal [facility] Drug Scr, Abuse, Uron 2022 Amphetamine(s),Ur Negative Normal NEG [facility] Comment on above: Result Comment: (Positive cutoff 1000 ng/mL) Performed By: #### T SH, VD25, ALB, B12, ECENZ, GLYHGB, ERTPF, FT4 #### [place] [address] [employer]: Jonathan Mckee MD Barbiturate(s),Ur Negative Normal NEG [facility] Comment on above: Result Comment: (Positive cutoff 200 ng/mL) Performed By: #### T SH, VD25, ALB, B12, ECENZ, GLYHGB, ERTPF, FT4 #### [place] [address] [employer]: Jonathan Mckee MD Benzodiazepine(s) Negative Normal NEG [facility] Comment on above: Result Comment: (Positive cutoff 200 ng/mL) Performed By: #### T SH, VD25, ALB, B12, ECENZ, GLYHGB, ERTPF, FT4 #### [facility] [employer] [address] [place] [address] [employer]: Jonathan Mckee MD Cannabinoid(s),Ur Negative Normal NEG [facility] Comment on above: Result Comment: (Positive cutoff 50 ng/mL) Performed By: #### T SH, VD25, ALB, B12, ECENZ, GLYHGB, ERTPF, FT4 #### [place] [address] [employer]: Jonathan Mckee MD Cocaine Metabolite Negative Normal NEG [facility] Comment on above: Result Comment: (Positive cutoff 300 ng/mL) Performed By: #### T SH, VD25, ALB, B12, ECENZ, GLYHGB, ERTPF, FT4 #### [place] [address] [employer]: Jonathan Mckee MD Fentanyl, Urine Negative Normal NEG [facility] Comment on above: Result Comment: (Positive cutoff 5 ng/ml) Performed By: #### T SH, VD25, ALB, B12, ECENZ, GLYHGB, ERTPF, FT4 #### [address] [address] [employer]: Jonathan Mckee MD Interpretive Info Assay provides medic al screening only. The absence of expected drug(s) and/or Normal [facility] Comment on above: Result Comment: meta bolite(s) may indicate diluted or adulterated urine, limitations of testing or timing of collection. Testing for legal purposes should be confirmed by another method. To request confirmation of test result, please call the lab within 7 days of sample submission. Performed By: #### T SH, VD25, ALB, B12, ECENZ, GLYHGB, ERTPF, FT4 #### [facility] [address] [place] [id number] [employer]: Jonathan Mckee MD Methadone Ql (U) Negative Normal NEG [facility] Comment on above: Result Comment: (Positive cutoff 300 ng/mL) Performed By: #### T SH, VD25, ALB, B12, ECENZ, GLYHGB, ERTPF, FT4 #### [facility] [address] [place] [address] [employer]: Jonathan Mckee MD Opiate(s), Ur Negative Normal NEG [facility] Comment on above: Result Comment: (Positive cutoff 300 ng/mL) Performed By: #### T SH, VD25, ALB, B12, ECENZ, GLYHGB, ERTPF, FT4 #### [employer] [address] [place] [address] [employer]: Jonathan Mckee MD Oxycodone, Urine Negative Normal NEG [facility] Comment on above: Result Comment: (Positive cutoff 100 ng/mL) Performed By: #### T SH, VD25, ALB, B12, ECENZ, GLYHGB, ERTPF, FT4 #### [employer] [address] [place] [address] [employer]: Jonathan Mckee MD Phencyclidine, Ur Negative Normal NEG [facility] Comment on above: Result Comment: (Positive cutoff 25 ng/mL) Performed By: #### T SH, VD25, ALB, B12, ECENZ, GLYHGB, ERTPF, FT4 #### [employer] [address] [place] [phone] [employer]: Jonathan Mckee MD Hemoglobin A1Con 01-21-2023 Glucose [Mass/Vol] 97 mg/dL Normal [facility] Comment on above: Result Comment: The ADA and AACC recommend providing the estimated average glucose result to permit better patient understanding of their HBA1c result. Performed By: #### T SH, VD25, ALB, B12, ECENZ, GLYHGB, ERTPF, FT4 #### [facility] [employer] [address] [place] [phone] [employer]: Jonathan Mckee MD HbA1c (Bld) [Mass fraction] 5.0 % Normal 4.0-6.0 [facility] Comment on above: Performed By: #### T SH, VD25, ALB, B12, ECENZ, GLYHGB, ERTPF, FT4 #### [facility] [address] [place] [phone] [employer]: Jonathan Mckee MD Myoglobinon 01-21-2023 Myoglobin [Mass/Vol] 888 ng/mL High 28-72 [facility] Comment on above: Performed By: #### T SH, VD25, ALB, B12, ECENZ, GLYHGB, ERTPF, FT4 #### [facility] [address] [place] [phone] [employer]: Jonathan Mckee MD Thyroid Stim. Horm.on 2022 Thyroid Stim. Horm. 4.37 uIU/mL Normal 0.30-5.00 [facility] Comment on above: Performed By: #### T SH, VD25, ALB, B12, ECENZ, GLYHGB, ERTPF, FT4 #### [address] [address] [employer]: Jonathan Mckee MD Thyroxine, Freeon 01-21-2023 Thyroxine, Free 1.4 ng/dL Normal 0.9-1.7 [facility] Comment on above: Performed By: #### T SH, VD25, ALB, B12, ECENZ, GLYHGB, ERTPF, FT4 #### [facility] [address] [place] [address] [employer]: Jonathan Mckee MD Trauma Profileon 01-21-2023 Anion gap [Moles/Vol] 15 mmol/L Normal 9-17 [facility] Comment on above: Performed By: #### T SH, VD25, ALB, B12, ECENZ, GLYHGB, ERTPF, FT4 #### [address] [address] [employer]: Jonathan Mckee MD Chloride [Moles/Vol] 98 mmol/L Normal 98-107 [facility] Comment on above: Performed By: #### T SH, VD25, ALB, B12, ECENZ, GLYHGB, ERTPF, FT4 #### [address] [address] [employer]: Jonathan Mckee MD CO2 [Moles/Vol] 19 mmol/L Low 20-31 [facility] Comment on above: Performed By: #### T SH, VD25, ALB, B12, ECENZ, GLYHGB, ERTPF, FT4 #### [address] [address] [employer]: Jonathan Mckee MD Creatinine [Mass/Vol] 0.9 mg/dL Normal 0.7-1.2 [facility] Comment on above: Performed By: #### T SH, VD25, ALB, B12, ECENZ, GLYHGB, ERTPF, FT4 #### [address] [address] [employer]: Jonathan Mckee MD Ethanol [Mass/Vol] mg/dL Normal <10 [facility] Comment on above: Performed By: #### T SH, VD25, ALB, B12, ECENZ, GLYHGB, ERTPF, FT4 #### [address] [address] [employer]: Jonathan Mckee MD Ethanol percent <0.010 Normal <0.010 [facility] Comment on above: Performed By: #### T SH, VD25, ALB, B12, ECENZ, GLYHGB, ERTPF, FT4 #### [address] [address] [employer]: Jonathan Mckee MD GFR/1.73 sq M.predicted among non-blacks MDRD (S/P/Bld) [Vol rate/Area] 58 mL/min/{1.73_m2} Low >60 [facility] Comment on above: Result Comment: These results are not intended for use in patients <18 years of age. eGFR results are calculated without a race factor using the 2020 CKD-EPI equation. Careful clinical correlation is recommended, particularly when comparing to results calculated using previous equations. The CKD-EPI equation is less accurate in patients with extremes of muscle mass, extra-renal metabolism of creatine, excessive creatine ingestion, or following therapy that affects renal tubular secretion. Performed By: #### T SH, VD25, ALB, B12, ECENZ, GLYHGB, ERTPF, FT4 #### [address] [address] [employer]: Jonathan Mckee MD Glucose [Mass/Vol] 111 mg/dL High 70-99 [facility] Comment on above: Performed By: #### T SH, VD25, ALB, B12, ECENZ, GLYHGB, ERTPF, FT4 #### [address] [address] [employer]: Jonathan Mckee MD Potassium [Moles/Vol] 3.7 mmol/L Normal 3.7-5.3 [facility] Comment on above: Performed By: #### T SH, VD25, ALB, B12, ECENZ, GLYHGB, ERTPF, FT4 #### [facility] [place], [place] [id number] [employer]: Jonathan Mckee MD Sodium [Moles/Vol] 132 mmol/L Low 135-144 [facility] Comment on above: Performed By: #### T SH, VD25, ALB, B12, ECENZ, GLYHGB, ERTPF, FT4 #### [facility] [address] [place] [phone] [employer]: Jonathan Mckee MD Urea nitrogen [Mass/Vol] 31 mg/dL High 8-23 [facility] Comment on above: Performed By: #### T SH, VD25, ALB, B12, ECENZ, GLYHGB, ERTPF, FT4 #### [facility] [employer] [address] [place] [phone] [employer]: Jonathan Mckee MD HCG Screen, Blood Negative Normal [facility] Comment on above: Result Comment: Spec imens with hCG levels near the threshold of the test (25 mIU/mL) may give a negative or indeterminate result. In such cases, another test should be performed with a new specimen in 48-72 hours. If early is suspected clinically in this setting, correlation with quantitative serum b-hCG level is suggested. [employer] has confirmed the use of plasma for this test. This has not been cleared or approved by the U.[place]. Food and Drug Administration. The FDA has determined that such clearance is not necessary. Performed By: #### T SH, VD25, ALB, B12, ECENZ, GLYHGB, ERTPF, FT4 #### [place] [address] [place], [place] [id number] [employer]: Jonathan Mckee MD aPTT Coag (Bld) [Time] 28.4 s Normal 23.0-36.5 [facility] Comment on above: Result Comment: IV Heparin Therapy Range: 66.0-92.0 sec Performed By: #### T SH, VD25, ALB, B12, ECENZ, GLYHGB, ERTPF, FT4 #### [place] [address] [employer]: Jonathan Mckee MD INR Coag (PPP) [Relative time] 1.1 {INR} Normal [facility] Comment on above: Result Comment: Therapeutic Range: Moderate Anticoagulant Intensity: INR = 2.0-3.0 High Anticoagulant Intensity: INR = 2.5-3.5 Performed By: #### T SH, VD25, ALB, B12, ECENZ, GLYHGB, ERTPF, FT4 #### [place] [id number] [employer]: Jonathan Mckee MD PT Coag (PPP) [Time] 14.3 s Normal 11.7-14.9 [facility] Comment on above: Performed By: #### T SH, VD25, ALB, B12, ECENZ, GLYHGB, ERTPF, FT4 #### [place] [address] [employer]: Jonathan Mckee MD Erythrocyte distribution width (RBC) [Ratio] 13.4 % Normal 11.8-14.4 [facility] Comment on above: Performed By: #### T SH, VD25, ALB, B12, ECENZ, GLYHGB, ERTPF, FT4 #### [place] [id number] [employer]: Jonathan Mckee MD Hematocrit (Bld) [Volume fraction] 35.3 % Low 40.7-50.3 [facility] Comment on above: Performed By: #### T SH, VD25, ALB, B12, ECENZ, GLYHGB, ERTPF, FT4 #### [address] [phone] [employer]: Jonathan Mckee MD Hemoglobin (Bld) [Mass/Vol] 12.1 g/dL Low 13.0-17.0 [facility] Comment on above: Performed By: #### T SH, VD25, ALB, B12, ECENZ, GLYHGB, ERTPF, FT4 #### [address] [address] [employer]: Jonathan Mckee MD MCH (RBC) [Entitic mass] 30.4 pg Normal 25.2-33.5 [facility] Comment on above: Performed By: #### T SH, VD25, ALB, B12, ECENZ, GLYHGB, ERTPF, FT4 #### [address] [address] [employer]: Jonathan Mckee MD MCHC (RBC) [Mass/Vol] 34.3 g/dL Normal 28.4-34.8 [facility] Comment on above: Performed By: #### T SH, VD25, ALB, B12, ECENZ, GLYHGB, ERTPF, FT4 #### [address] [address] [employer]: Jonathan Mckee MD MCV (RBC) [Entitic vol] 88.7 fL Normal 82.6-102.9 [facility] Comment on above: Performed By: #### T SH, VD25, ALB, B12, ECENZ, GLYHGB, ERTPF, FT4 #### [address] [id number] [employer]: Jonathan Mckee MD NRBC Automated 0.0 per 100 WBC Normal 0.0 [facility] Comment on above: Performed By: #### T SH, VD25, ALB, B12, ECENZ, GLYHGB, ERTPF, FT4 #### [address] [address] [employer]: Jonathan Mckee MD Platelet mean volume (Bld) [Entitic vol] 10.4 fL Normal 8.1-13.5 [facility] Comment on above: Performed By: #### T SH, VD25, ALB, B12, ECENZ, GLYHGB, ERTPF, FT4 #### [address] [address] [employer]: Jonathan Mckee MD Platelets (Bld) [#/Vol] 212 10*3/uL Normal 138-453 [facility] Comment on above: Performed By: #### T SH, VD25, ALB, B12, ECENZ, GLYHGB, ERTPF, FT4 #### [address] [address] [employer]: Jonathan Mckee MD RBC (Bld) [#/Vol] 3.98 10*6/uL Low 4.21-5.77 [facility] Comment on above: Performed By: #### T SH, VD25, ALB, B12, ECENZ, GLYHGB, ERTPF, FT4 #### [place] [address] [employer]: Jonathan Mckee MD WBC (Bld) [#/Vol] 14.3 10*3/uL High 3.5-11.3 [facility] Comment on above: Performed By: #### T SH, VD25, ALB, B12, ECENZ, GLYHGB, ERTPF, FT4 #### [address] [address] [employer]: Jonathan Mckee MD Body Temp. 37.0 Normal [facility] Comment on above: Performed By: #### T SH, VD25, ALB, B12, ECENZ, GLYHGB, ERTPF, FT4 #### [address] [address] [employer]: Jonathan Mckee MD Carboxy Hgb 1.1 % Normal 0-5 [facility] Comment on above: Result Comment: Reference Range: Non-Smokers 0-2% Average Smoker 2-4% Heavy Smoker <10% Performed By: #### T SH, VD25, ALB, B12, ECENZ, GLYHGB, ERTPF, FT4 #### [address] [address] [employer]: Jonathan Mckee MD FIO2 INFORMATION NOT PROVIDED Normal [facility] Comment on above: Performed By: #### T SH, VD25, ALB, B12, ECENZ, GLYHGB, ERTPF, FT4 #### [address] [address] [employer]: Jonathan Mckee MD HCO3 (Bld) [Moles/Vol] 24.1 mmol/L Normal 24-30 [facility] Comment on above: Performed By: #### T SH, VD25, ALB, B12, ECENZ, GLYHGB, ERTPF, FT4 #### [address] [address] [employer]: Jonathan Mckee MD Oxygen saturation in Blood 46.4 % Low 60.0-85.0 [facility] Comment on above: Performed By: #### T SH, VD25, ALB, B12, ECENZ, GLYHGB, ERTPF, FT4 #### [address] [address] [employer]: Jonathan Mckee MD pCO2 37.1 mm Hg Low 39-55 [facility] Comment on above: Performed By: #### T SH, VD25, ALB, B12, ECENZ, GLYHGB, ERTPF, FT4 #### [address] [address] [employer]: Jonathan Mckee MD pH (Bld) 7.428 [pH] High 7.320-7.420 [facility] Comment on above: Performed By: #### T SH, VD25, ALB, B12, ECENZ, GLYHGB, ERTPF, FT4 #### [facility] [address] [place] [address] [employer]: Jonathan Mckee MD pO2 28.2 mm Hg Low 30-50 [facility] Comment on above: Performed By: #### T SH, VD25, ALB, B12, ECENZ, GLYHGB, ERTPF, FT4 #### [facility] [employer] [address] [place] [address] [employer]: Jonathan Mckee MD Positive Base Excess 0.5 mmol/L Normal 0.0-2.0 [facility] Comment on above: Performed By: #### T SH, VD25, ALB, B12, ECENZ, GLYHGB, ERTPF, FT4 #### [facility] [address] [place] [address] [employer]: Joanthan Mckee MD Blood Bank BILL FOR SERVICES PERFORMED Normal [facility] Comment on above: Performed By: #### T SH, VD25, ALB, B12, ECENZ, GLYHGB, ERTPF, FT4 #### [facility] [employer] [address] [place] [address] [employer]: Jonathan Mckee MD Trop/Myoglobinon 01-21-2023 Myoglobin [Mass/Vol] 1084 ng/mL High 28-72 [facility] Comment on above: Performed By: #### T SH, VD25, ALB, B12, ECENZ, GLYHGB, ERTPF, FT4 #### [facility] [employer] [address] [place] [address] [employer]: Jonathan Mckee MD Troponin, High Sens 49 ng/L High 0-22 [facility] Comment on above: Result Comment: High Sensitivity Troponin values cannot be compared with other Troponin methodologies. Performed By: #### T SH, VD25, ALB, B12, ECENZ, GLYHGB, ERTPF, FT4 #### [facility] [employer] [address] [place] [address] [employer]: Jonathan Mckee MD Troponinon 01-21-2023 Troponin, High Sens 48 ng/L High 0-22 [facility] Comment on above: Result Comment: High Sensitivity Troponin values cannot be compared with other Troponin methodologies. Performed By: #### T SH, VD25, ALB, B12, ECENZ, GLYHGB, ERTPF, FT4 #### [address] [address] [employer]: Jonathan Mckee MD Type + Screenon 01-21-2023 Type + Screen Sample Expiration 01/23/2023,2359 Arm Band Number [place] [id number] ABO/Rh(D) O POSITIVE Antibody Screen NEGATIVE Normal [facility] Comment on above: Performed By: #### T SH, VD25, ALB, B12, ECENZ, GLYHGB, ERTPF, FT4 #### [address] [address] [employer]: Jonathan Mckee MD Urinalysis, Routineon 2022 Bilirubin, SemiQt,Ur Negative Normal NEG [facility] Comment on above: Performed By: #### T SH, VD25, ALB, B12, ECENZ, GLYHGB, ERTPF, FT4 #### [address] [address] [employer]: Jonathan Mckee MD Blood, Urine Negative Normal NEG [facility] Comment on above: Performed By: #### T SH, VD25, ALB, B12, ECENZ, GLYHGB, ERTPF, FT4 #### [facility] [employer] [address] [place] [address] [employer]: Jonathan Mckee MD Clarity (U) Clear Normal CLEAR [facility] Comment on above: Performed By: #### T SH, VD25, ALB, B12, ECENZ, GLYHGB, ERTPF, FT4 #### [facility] [address] [place] [address] [employer]: Jonathan Mckee MD Color (U) Yellow Normal YEL [facility] Comment on above: Performed By: #### T SH, VD25, ALB, B12, ECENZ, GLYHGB, ERTPF, FT4 #### [facility] [address] [place] [address] [employer]: Jonathan Mckee MD Glucose Ql (U) Negative Normal NEG [facility] Comment on above: Performed By: #### T SH, VD25, ALB, B12, ECENZ, GLYHGB, ERTPF, FT4 #### [facility] [address] [place] [address] [employer]: Jonathan Mckee MD Ketones Ql (U) SMALL Abnormal NEG [facility] Comment on above: Performed By: #### T SH, VD25, ALB, B12, ECENZ, GLYHGB, ERTPF, FT4 #### [facility] [address] [place] [address] [employer]: Jonathan Mckee MD Leukocyte esterase Test strip Ql (U) TRACE Abnormal NEG [facility] Comment on above: Performed By: #### T SH, VD25, ALB, B12, ECENZ, GLYHGB, ERTPF, FT4 #### [facility] [address] [place] [address] [employer]: Jonathan Mckee MD Nitrite,Ur Negative Normal NEG [facility] Comment on above: Performed By: #### T SH, VD25, ALB, B12, ECENZ, GLYHGB, ERTPF, FT4 #### [facility] [address] [place] [address] [employer]: Jonathan Mckee MD PH,Ur 8.0 Normal 5.0-8.0 [facility] Comment on above: Performed By: #### T SH, VD25, ALB, B12, ECENZ, GLYHGB, ERTPF, FT4 #### [address] [address] [employer]: Jonathan Mckee MD Protein Ql (U) Negative Normal NEG [facility] Comment on above: Performed By: #### T SH, VD25, ALB, B12, ECENZ, GLYHGB, ERTPF, FT4 #### [address] [address] [employer]: Jonathan Mckee MD Spec. [place],Ur 1.018 Normal 1.005-1.030 [facility] Comment on above: Performed By: #### T SH, VD25, ALB, B12, ECENZ, GLYHGB, ERTPF, FT4 #### [address] [address] [employer]: Jonathan Mckee MD Urobilinogen,Ur Normal Normal 0.0-1.0 [facility] Comment on above: Performed By: #### T SH, VD25, ALB, B12, ECENZ, GLYHGB, ERTPF, FT4 #### [address] [address] [employer]: Jonathan Mckee MD Urinalysis,Microon 3 Bacteria None Normal NONE [facility] Comment on above: Performed By: #### T SH, VD25, ALB, B12, ECENZ, GLYHGB, ERTPF, FT4 #### [address] [address] [employer]: Jonathan Mckee MD Casts 0 TO 2 HYALINE Normal 0-8 [facility] Comment on above: Result Comment: Refe rence range defined for non-centrifuged specimen. Performed By: #### T SH, VD25, ALB, B12, ECENZ, GLYHGB, ERTPF, FT4 #### [address] [address] [employer]: Jonathan Mckee MD Epithelial cells LM Ql (Urine sed) 0 TO 2 Normal 0-5 [facility] Comment on above: Performed By: #### T SH, VD25, ALB, B12, ECENZ, GLYHGB, ERTPF, FT4 #### [address] [address] [employer]: Jonathan Mckee MD Urine RBC's 0 TO 2 Normal 0-4 [facility] Comment on above: Result Comment: Refe rence range defined for non-centrifuged specimen. Performed By: #### T SH, VD25, ALB, B12, ECENZ, GLYHGB, ERTPF, FT4 #### [facility] [employer] [address] [place] [address] [employer]: Jonathan Mckee MD Urine WBC's 2 TO 5 Normal 0-5 [facility] Comment on above: Performed By: #### T SH, VD25, ALB, B12, ECENZ, GLYHGB, ERTPF, FT4 #### [address] [address] [employer]: Jonathan Mckee MD Vitamin B12on 01-21-2023 Cobalamin (Vitamin B12) [Mass/Vol] 544 pg/mL Normal 232-1245 [facility] Comment on above: Performed By: #### T SH, VD25, ALB, B12, ECENZ, GLYHGB, ERTPF, FT4 #### [address] [address] [employer]: Jonathan Mckee MD Vitamin D 25 OHon 01-21-2023 Vitamin D 25 OH 37.4 ng/mL Normal >29.9 [facility] Comment on above: Result Comment: Reference Range: Vitamin D status Range Deficiency <20 ng/mL Mild Deficiency 20-30 ng/mL Sufficiency 30-100 ng/mL Toxicity >100 ng/mL Performed By: #### T SH, VD25, ALB, B12, ECENZ, GLYHGB, ERTPF, FT4 #### [facility] [address] [place] [address] [employer]: Jonathan Mckee MD XR WRIST LEFT (MIN 3 VIEWS)o n 01-21-2023 XR WRIST LEFT (MIN 3 VIEWS) EXAMINATION: XRAY VIEWS OF THE LEFT WRIST 01/20/2023 10:15 pm COMPARISON: None. HISTORY: ORDERING SYSTEM PROVIDED HISTORY: fall TECHNOLOGIST PROVIDED HISTORY: fall Reason for Exam: fall FINDINGS: Carpal bones and alignment are maintained. Distal radius and ulna are intact. No acute fracture or dislocation. IMPRESSION: No acute fracture or dislocation Interpreted by: Moe Waters MD Signed by: Moe Waters MD 01/20/23 Final result Normal [facility] Office Visiton 10-02-2022 Follow-up visit [id number] Tal Torres 1935 M Date Provider Department Center 10/02/2022 [facility] Helene [facility] No family history on file Level of Service:95376 [place] OFFICE/OUTPATIENT ESTABLISHED LOW MDM 20-29 MIN Reason for Visit and Comments: Follow-up [825120] - FOLLOW UP FROM [facility] Jose 09-11-2022 LESLIE --- Attestation signed by Robby Buckner MD at 09/11/2022 5:02 PM agree Patient: Garth Torres Procedure Information Date/Time: 09/11/22 1030 Procedure: TRANSESOPHAGEAL ECHO (PETERSON) Location: [facility] Vascular Lab Clinical information reviewed: Allergies Meds Physical Exam Airway Mallampati: III Cardiovascular Rhythm: regular Rate: normal Dental Pulmonary Breath sounds clear to auscultation Abdominal Abdomen: soft Bowel sounds: normal Anesthesia Plan ASA 3 other (Moderate Sedation ) Anesthetic plan and risks discussed with patient. Use of blood products discussed with patient who consented to blood products. Additional Equipment Requests Normal [facility] HPon 09-11-2022 History Of Present Illness Garth Torres is a 87 y.o. male is presenting today for a scheduled PETERSON procedure. Past medical history includes HTN, HLD and mild dementia. Patient was seen by Dr. Whitaker last month for fatigue and mild dyspnea on exertion. An echocardiogram showed moderate to severe aortic stenosis. Patient was seen and examined today. PETERSON procedure was explained with risks and benefits. An informed consent was obtained. Past Medical History He has no past medical history on file. Surgical History He has no past surgical history on file. Social History He reports that he has never smoked. He has never used smokeless tobacco. No history on file for alcohol use and drug use. Allergies Patient has no known allergies. Medications (Not in a hospital admission) XR SHOULDER 2V 06/03/2020 [id number] Final Review of Systems All other systems reviewed and are negative. Physical Exam Vitals reviewed. Constitutional: Appearance: Normal appearance. HENT: Head: Normocephalic. Cardiovascular: Rate and Rhythm: Normal rate and regular rhythm. Pulses: Normal pulses. Heart sounds: Normal heart sounds. Pulmonary: Effort: Pulmonary effort is normal. Abdominal: General: Bowel sounds are normal. Palpations: Abdomen is soft. Musculoskeletal: Cervical back: Normal range of motion. Skin: General: Skin is warm. Neurological: Mental Status: He is alert. Last Recorded Vitals Blood pressure 131/83, pulse 50, resp. rate 16, SpO2 100 %. Imaging and other tests ECG 08/06/2022: Sinus bradycardia with first-degree AV block, ST and T wave abnormality consider lateral ischemia. Echocardiogram 07/16/2022: Normal ventricular systolic function, LVEF is 55 to 60%. Mild diastolic dysfunction, moderate concentric left ventricular hypertrophy, moderate to severe aortic valve stenosis, mild to moderate aortic valve regurgitation. Normal right-sided pressures. 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 Assessment/Plan Nonrheumatic aortic valve stenosis Primary hypertension Mixed hyperlipidemia Sinus bradycardia -symptomatic: fatigue, dyspnea on exertion -EKG: bradycardia -Echocardio: moderate to severe aortic valve stenosis, mild to moderate aortic valve regurgitation [DVI=0.26; Valve area= 1.1; Mean gradient= 12; Max velocity=2.45]. Scheduled for PETERSON procedure today to assess the severity of aortic stenosis. Daniel Nelson MD [facility] NURSNOTEon 09-11-2022 NURSNOTE RN educated pt on d/ c instructions. RN encouraged pt to voice any questions or concerns. Pt verbalizes no questions or concerns at this time.Swallow test passed by patient at bedside. [facility] Telephoneon 09-03-2022 Telephone [id number] Tal Torres 1935 [facility] Provider Department [place] 09/03/2022 [facility] No family history on file [facility] Office Visiton 08-06-2022 Follow-up visit [id number] Tal Torres 1935 [facility] Provider Department [place] 08/06/2022 Kb-DIMA WHITAKER [facility] No family history on file Level of Service:74154 [place] OFFICE/OUTPATIENT NEW MODERATE MDM 45-59 MINUTES Reason for Visit and Comments: Establish Care [42] - AORTIC STENOSIS [facility] Basic Metabolic Panelon 03-0 Calcium [Mass/Vol] 9.4 mg/dL Normal 8.2-10.2 [facility] Comment on above: Order Comment: Reaso n for Exam Blood tests prior to treatment or procedure Result Comment: PERF ORMED BY: [place] [address] PATHOLOGIST FLOORPERSON MAXI BENNETT M.D. Performed By: #### C BC, BMP #### [place] [address] [facility] Chloride [Moles/Vol] 97 mmol/L Normal 95-114 [facility] Comment on above: Order Comment: Reaso n for Exam Blood tests prior to treatment or procedure Performed By: #### C BC, BMP #### [facility] [address] CO2 [Moles/Vol] 25.9 mmol/L Normal 22.0-30.0 [facility] Comment on above: Order Comment: Reaso n for Exam Blood tests prior to treatment or procedure Performed By: #### C BC, BMP #### [facility] [address] Creatinine [Mass/Vol] 1.13 mg/dL Normal 0.64-1.27 [facility] Comment on above: Order Comment: Reaso n for Exam Blood tests prior to treatment or procedure Performed By: #### C BC, BMP #### [address] Estimated GFR ( [place] > 60 [facility] Comment on above: Order Comment: Reaso n for Exam Blood tests prior to treatment or procedure Result Comment: GFR estimated reference range: According to KDOQI guidelines, <60 ml/min/1.73m2 is sufficient to diagnose a patient with chronic kidney disease. Performed By: #### C BC, BMP #### [address] Estimated GFR (Non- Am > 60 [facility] Comment on above: Order Comment: Reaso n for Exam Blood tests prior to treatment or procedure Performed By: #### C BC, BMP #### [place] [address] [place] Glucose [Mass/Vol] 83 mg/dL Normal 70-100 [facility] Comment on above: Order Comment: Reaso n for Exam Blood tests prior to treatment or procedure Result Comment: [place] Glucose Reference Range is dependent on time and content of last meal. Glucose of more than 200 mg/dL in a nonstressed, ambulatory subject supports the diagnosis of Diabetes Mellitus. ADA recommended reference range Performed By: #### C BC, BMP #### [facility] [address] [place] [address] Potassium [Moles/Vol] 4.5 mmol/L Normal 3.5-5.1 [facility] Comment on above: Order Comment: Reaso n for Exam Blood tests prior to treatment or procedure Performed By: #### C BC, BMP #### [address] Sodium [Moles/Vol] 131 mmol/L Low 136-146 [facility] Comment on above: Order Comment: Reaso n for Exam Blood tests prior to treatment or procedure Performed By: #### C BC, BMP #### [address] Urea nitrogen [Mass/Vol] 20 mg/dL Normal 9-23 [facility] Comment on above: Order Comment: Reaso n for Exam Blood tests prior to treatment or procedure Performed By: #### C BC, BMP #### [address] Complete Blood Count Auto Di ffon 04-22-2021 Basophils (Bld) [#/Vol] 0.1 10*3/uL Normal 0.0-0.2 [facility] Comment on above: Order Comment: Reaso n for Exam Blood tests prior to treatment or procedure Result Comment: PERF ORMED BY: [place] [address] PATHOLOGIST FLOORPERSON MAXI BENNETT M.D. Performed By: #### C BC, BMP #### [address] Basophils/100 WBC (Bld) 1.0 % Normal . [facility] Comment on above: Order Comment: Reaso n for Exam Blood tests prior to treatment or procedure Performed By: #### C BC, BMP #### [address] Eosinophils (Bld) [#/Vol] 0.2 10*3/uL Normal 0.0-0.45 [facility] Comment on above: Order Comment: Reaso n for Exam Blood tests prior to treatment or procedure Performed By: #### C BC, BMP #### [address] Eosinophils/100 WBC (Bld) 2.5 % Normal . [facility] Comment on above: Order Comment: Reaso n for Exam Blood tests prior to treatment or procedure Performed By: #### C BC, BMP #### [address] Erythrocyte distribution width (RBC) [Ratio] 14.2 % Normal 12.0-14.8 [facility] Comment on above: Order Comment: Reaso n for Exam Blood tests prior to treatment or procedure Performed By: #### C BC, BMP #### [address] Hematocrit (Bld) [Volume fraction] 41.9 % Normal 38.8-50.0 [facility] Comment on above: Order Comment: Reaso n for Exam Blood tests prior to treatment or procedure Performed By: #### C BC, BMP #### [address] Hemoglobin (Bld) [Mass/Vol] 14.3 g/dL Normal 13.0-17.0 [facility] Comment on above: Order Comment: Reaso n for Exam Blood tests prior to treatment or procedure Performed By: #### C BC, BMP #### [address] Lymphocytes (Bld) [#/Vol] 1.1 10*3/uL Normal 1.00-4.8 [facility] Comment on above: Order Comment: Reaso n for Exam Blood tests prior to treatment or procedure Performed By: #### C BC, BMP #### [place] [address] [place] Lymphocytes/100 WBC (Bld) 14.2 % Normal . [facility] Comment on above: Order Comment: Reaso n for Exam Blood tests prior to treatment or procedure Performed By: #### C BC, BMP #### [address] MCH (RBC) [Entitic mass] 29.7 pg Normal 27.5-35.2 [facility] Comment on above: Order Comment: Reaso n for Exam Blood tests prior to treatment or procedure Performed By: #### C BC, BMP #### [address] MCV (RBC) [Entitic vol] 87.1 fL Normal 83.5-101 [facility] Comment on above: Order Comment: Reaso n for Exam Blood tests prior to treatment or procedure Performed By: #### C BC, BMP #### [address] Mean Corpuscular HGB Conc 34.0 g/dL Normal 32.5-35.6 [facility] Comment on above: Order Comment: Reaso n for Exam Blood tests prior to treatment or procedure Performed By: #### C BC, BMP #### [address] Monocytes (Bld) [#/Vol] 0.7 10*3/uL Normal 0.0-0.8 [facility] Comment on above: Order Comment: Reaso n for Exam Blood tests prior to treatment or procedure Performed By: #### C BC, BMP #### [address] Monocytes/100 WBC (Bld) 8.7 % Normal . [facility] Comment on above: Order Comment: Reaso n for Exam Blood tests prior to treatment or procedure Performed By: #### C BC, BMP #### [place] [address] [place] Neutrophils (Bld) [#/Vol] 5.6 10*3/uL Normal 1.8-7.7 [facility] Comment on above: Order Comment: Reaso n for Exam Blood tests prior to treatment or procedure Performed By: #### C BC, BMP #### [address] Neutrophils/100 WBC (Bld) 73.6 % Normal . [facility] Comment on above: Order Comment: Reaso n for Exam Blood tests prior to treatment or procedure Performed By: #### C BC, BMP #### [facility] [address] [place] [address] [place] Nucleated RBC/100 WBC (Bld) [Ratio] 0.1 % Normal 0-0.5 [facility] Comment on above: Order Comment: Reaso n for Exam Blood tests prior to treatment or procedure Performed By: #### C BC, BMP #### [address] Platelet mean volume (Bld) [Entitic vol] 9.8 fL Normal 6.6-10.1 [facility] Comment on above: Order Comment: Reaso n for Exam Blood tests prior to treatment or procedure Performed By: #### C BC, BMP #### [place] [address] [place] Platelets (Bld) [#/Vol] 200 10*3/uL Normal 150-450 [facility] Comment on above: Order Comment: Reaso n for Exam Blood tests prior to treatment or procedure Performed By: #### C BC, BMP #### [address] RBC (Bld) [#/Vol] 4.81 10*6/uL Normal 3.90-5.60 [facility] Comment on above: Order Comment: Reaso n for Exam Blood tests prior to treatment or procedure Performed By: #### C BC, BMP #### [address] WBC (Bld) [#/Vol] 7.6 10*3/uL Normal 4.5-11.0 [facility] Comment on above: Order Comment: Reaso n for Exam Blood tests prior to treatment or procedure Performed By: #### C BC, BMP #### [address] ECG 12 lead ECGon 04-22-2021 ECG 12 lead ECG [facility] [place] [address] [place] [address] Electrocardiograph Report Signed Patient: Garth Torres MR#: [id number] 25 : 1935 Acct:[id number] Age/Sex: 86 / M ADM Date: 04/22/21 Loc: Room: Type: [facility] Attending Dr: Vlad Denis DO Ordering Provider: Vlad Denis DO Date of Service: 04/22/2110/06/1133 ECG/ECG 12 lead ECG: Pre op;Encounter for other preprocedural examination Copies to: Test Reason : Blood Pressure : / mmHG Vent. Rate : 051 BPM Atrial Rate : 051 BPM P-R Int : 216 ms QRS Dur : 102 ms QT Int : 434 ms P-R-T Axes : 046 039 068 degrees QTc Int : 400 ms Sinus bradycardia with 1st degree AV block with premature atrial complexes Nonspecific ST abnormality Abnormal ECG When compared with ECG of 02-MAR-2019 16:53, premature atrial complexes are now present Confirmed by MITESH WEI DO ([id number]) on 04/22/2021 8:52:41 PM Referred By: Electronically Signed By:MITESH WEI DO Transcribed By: MUS Signed By Mitesh Wei DO 04/22 [facility] Ambulatory Clinical Summaryo n 02-11-2021 Ambulatory Clinical Summary {[id number] [facility] Patient Educationon 02-12-20 21 Patient Education Urology Benign Prostatic Hyperplasia Benign prostatic hyperplasia (BPH) is an enlarged prostate gland that is caused by the normal aging process and not by cancer. The prostate is a walnut-sized gland that is involved in the production of semen. It is located in front of the rectum and below the bladder. The bladder stores urine and the urethra is the tube that carries the urine out of the body. The prostate may get bigger as a man gets older. An enlarged prostate can press on the urethra. This can make it harder to pass urine. The build-up of urine in the bladder can cause infection. Back pressure and infection may progress to bladder damage and kidney (renal) failure. What are the causes? This condition is part of a normal aging process. However, not all men develop problems from this condition. If the prostate enlarges away from the urethra, urine flow will not be blocked. If it enlarges toward the urethra and compresses it, there will be problems passing urine. What increases the risk? This condition is more likely to develop in men over the age of 50 years. What are the signs or symptoms? Symptoms of this condition include: ? Getting up often during the night to urinate. ? Needing to urinate frequently during the day. ? Difficulty starting urine flow. ? Decrease in size and strength of your urine stream. ? Leaking (dribbling) after urinating. ? Inability to pass urine. This needs immediate treatment. ? Inability to completely empty your bladder. ? Pain when you pass urine. This is more common if there is also an infection. ? Urinary tract infection (UTI). How is this diagnosed? This condition is diagnosed based on your medical history, a physical exam, and your symptoms. Tests will also be done, such as: ? A post-void bladder scan. This measures any amount of urine that may remain in your bladder after you finish urinating. ? A digital rectal exam. In a rectal exam, your health care provider checks your prostate by putting a lubricated, gloved finger into your rectum to feel the back of your prostate gland. This exam detects the size of your gland and any abnormal lumps or growths. ? An exam of your urine (urinalysis). ? A prostate specific antigen (PSA) screening. This is a blood test used to screen for prostate cancer. ? An ultrasound. This test uses sound waves to electronically produce a picture of your prostate gland. Your health care provider may refer you to a specialist in kidney and prostate diseases (urologist). How is this treated? Once symptoms begin, your health care provider will monitor your condition (active surveillance or watchful waiting). Treatment for this condition will depend on the severity of your condition. Treatment may include: ? Observation and yearly exams. This may be the only treatment needed if your condition and symptoms are mild. ? Medicines to relieve your symptoms, including: ? Medicines to shrink the prostate. ? Medicines to relax the muscle of the prostate. ? Surgery in severe cases. Surgery may include: ? Prostatectomy. In this procedure, the prostate tissue is removed completely through an open incision or with a laparoscope or robotics. ? Transurethral resection of the prostate (TURP). In this procedure, a tool is inserted through the opening at the tip of the penis (urethra). It is used to cut away tissue of the inner core of the prostate. The pieces are removed through the same opening of the penis. This removes the blockage. ? Transurethral incision (TUIP). In this procedure, small cuts are made in the prostate. This lessens the prostate's pressure on the urethra. ? Transurethral microwave thermotherapy (TUMT). This procedure uses microwaves to create heat. The heat destroys and removes a small amount of prostate tissue. ? Transurethral needle ablation (TUNA). This procedure uses radio frequencies to destroy and remove a small amount of prostate tissue. ? Interstitial laser coagulation (ILC). This procedure uses a laser to destroy and remove a small amount of prostate tissue. ? Transurethral electrovaporization (TUVP). This procedure uses electrodes to destroy and remove a small amount of prostate tissue. ? Prostatic urethral lift. This procedure inserts an implant to push the lobes of the prostate away from the urethra. Follow these instructions at home: ? Take [id number] and prescription medicines only as told by your health care provider. ? Monitor your symptoms for any changes. Contact your health care provider with any changes. ? Avoid drinking large amounts of liquid before going to bed or out in public. ? Avoid or reduce how much caffeine or alcohol you drink. ? Give yourself time when you urinate. ? Keep all follow-up visits as told by your health care provider. This is important. Contact a health care provider if: ? You have unexplained back pain. ? Your symptoms do not get better with treatment. ? You d (more content not included)... Normal [facility] Urology Office/Clinic Noteon 02-11-2021 Urology Office/Clinic Note Chief Complaint This is a 85 year old male with BPH w/LUTS, urgency, nocturia This 85-year-old male has a history of prostatic hyperplasia. He status post TURP in August 2018 and states he is voiding without any difficulty at this point. He states he has a good stream with good control but he has occasional nocturia. There is no incontinence, dysuria, infections or urinary retention. HPI Staff 1 year. S/P TURP done 09/02. S/P Cysto/UD done 08/10/19. Pain with urination:No Blood in urine:No Incomplete bladder emptying:No Frequency:No Urgency:No Nocturia:1x Stream:good stream Post-void dribbling:No Leaking before getting to the restroom:Occasionally Urinary incontinence without sensory awareness:No Temporarily unable to restrain urination with body movement:No Flank/Back pain:No Abdominal pain:No History of Present Illness reviewed UA. reviewed last encounter. There have been no associated fever, chills, flank pain or blood in the urine. Review of Systems ROS - Provider Constitutional: denies weight loss, denies hot flashes. Eyes: denies eye problems. Gastrointestinal: denies nausea, denies vomiting. Cardiovascular: denies chest pain or angina. Integumentary: no dryness Musculoskeletal: denies musculoskeletal symptoms. ENMT: denies otolaryngeal symptoms. Respiratory: no shortness of breath. Heme/Lymph: denies easy bleeding tendency, denies easy bruising tendency. Psychiatric: no confusion, no anxiety. Genitourinary: denies dysuria, denies hematuria, denies discharge, denies urinary frequency, denies urinary hesitancy, mild nocturia, denies incontinence, denies genital sores, denies decreased libido, and denies erectile dysfunction. Physical Exam Vitals & Measurements HT: 177.8 cm HT: 177.8 cm WT: 78.5 kg WT: 78.5 kg BMI: 24.83 General Appearance: alert, no distress, well nourished, well developed male. Flank Pain: none. Bladder: nonpalpable. Assessment/Plan Overall this patient is doing quite well. We will plan to see him back in the office on an as-needed basis. He was to continue to follow-up with his primary care physician Dr. Hall. I explained to the patient to contact our office if he should have any difficulty voiding with his any problems related to his urinary tract. 1. BPH with urinary obstruction (N40.1: Benign prostatic hyperplasia with lower urinary tract symptoms) S/P TURP 08/2018. S/P Urolift 01/2018. Cysto/UD 08/10/19. Pt is currently not taking any BPH medications. Pt is emptying. Pt is not leaking. Pt is overall doing very well in the urology stand point. UA is clear Pt will be PRN 2. Asymptomatic microscopic hematuria (R31.21: Asymptomatic microscopic hematuria) UA today shows TRACE in sample. Ordered: Urnls Dip Stick Auto w/o Microscopy POC 76427 3. Urgency of urination (R39.15: Urgency of urination) mild to moderate sx- 4. Nocturia (R35.1: Nocturia) intermittent 1-2x a night Other obstructive and reflux uropathy (N13.8: Other obstructive and reflux uropathy) I have reviewed the previous health record information and history for this patient from Dr. Estevez Follow-up With When Contact Information Herb Dutton MD, Terrance Bal, URO Only if needed [facility] [address], [place] [address]- Additional Instructions: Patient Education Benign Prostatic Hyperplasia I, Ling Melara, personally scribed for Dr. Estevez on 02/11/2021 12:32:31. . Documentation recorded by the scribe, Ling Melara, accurately reflects the services(s) I performed and decisions made by me. Authenticated by Dr. Estevez on 02/11/2021 12:57:22. Problem List/Past Medical History Ongoing Asymptomatic microscopic hematuria BMI 24.0-24.9, adult BPH with urinary obstruction Colitis Elevated cholesterol Elevated PSA Feeling of incomplete bladder emptying Frequency of urination Hx of smoking Nocturia Post-void dribbling Urge incontinence Urgency of urination Urine frequency Weak urine stream Historical Esophageal reflux Heart murmur Hematospermia Incomplete bladder emptying Procedure/Surgical History Cystourethroscopy with dilation of urethral stricture (08/10/2019), TURP - Transurethral resection of prostate (08/24/2018), Cystoscopy (08/04/2018), Transurethral insertion of prostatic urethral lift implant (01/20/2018), Cystoscopy (12/16/2017), Transrectal biopsy of prostate using ultrasound (US) guidance (03/13/2011), Appendectomy, Hip replacement. Medications atorvastatin 20 mg oral tablet esomeprazole 20 mg Cap-DR hydrochlorothiazide 25 mg oral tablet Metoprolol Succinate ER 50 mg oral tablet, extended release naproxen sodium 220 mg Tab olmesartan 40 mg oral tablet Shingrix intramuscular injection Allergies No Known Medication Allergies Social History Alcohol Current, 1-2 times per year, 08/29/2018 Tobacco Former smoker, quit more t (more content not included)... Normal [facility] Comment on above: Result Comment: Elec tronically Signed By: Herb Dutton MD, Terrance Bal\.br\Date and Time Signed: 02/11/21 12:57 EST\.br\Electronically Co-Signed By: Ling Melara MA\.br\Date and Time Co-Signed: 02/11/21 12:33 EST Comprehensive Metabolic Pane daniela 02-10-2021 Albumin [Mass/Vol] 3.8 g/dL Normal 3.6-5.1 [facility] Comment on above: Performed By: #### L IPD, CMP #### [facility] [address] [facility] [place] [id number] Albumin/Globulin [Mass ratio] 1.7 {ratio} Normal 1.0-2.5 [facility] Comment on above: Performed By: #### L IPD, CMP #### [facility] [address] [place] [id number] ALP [Catalytic activity/Vol] 119 U/L Normal 40-129 [facility] Comment on above: Performed By: #### L IPD, CMP #### [facility] [address] [facility] [place] [id number] ALT [Catalytic activity/Vol] 12 U/L Normal 9-46 [facility] Comment on above: Result Comment: 01/15 Female reference range changed. Performed By: #### L IPD, CMP #### [facility] [address] [facility] [place] [id number] Anion gap [Moles/Vol] 14 mmol/L Normal 12-20 [facility] Comment on above: Result Comment: Effe ctive 02/20/2019 reference range changed. Performed By: #### L IPD, CMP #### [facility] [address] [place] [id number] AST [Catalytic activity/Vol] 17 U/L Normal 10-40 [facility] Comment on above: Performed By: #### L IPD, CMP #### [facility] [address] [facility] [id number] Bilirubin [Mass/Vol] 0.50 mg/dL Normal 0.30-1.20 [place] [facility] Comment on above: Performed By: #### L IPD, CMP #### [facility] [address] [place], [place] [id number] BUN/CREA 20 Ratio Normal 6-22 [facility] Comment on above: Performed By: #### L IPD, CMP #### [facility] [address] [place], [place] [id number] Calcium [Mass/Vol] 9.4 mg/dL Normal 8.6-10.2 [facility] Comment on above: Performed By: #### L IPD, CMP #### [facility] [address] [place], [place] [id number] Chloride [Moles/Vol] 101 mmol/L Normal 98-107 [facility] Comment on above: Performed By: #### L IPD, CMP #### [facility] [address] [place], [place] [id number] CO2 [Moles/Vol] 26 mmol/L Normal 20-31 [facility] Comment on above: Performed By: #### L IPD, CMP #### [facility] [address] [place], [place] [id number] Creatinine [Mass/Vol] 1.1 mg/dL Normal 0.7-1.4 [facility] Comment on above: Performed By: #### L IPD, CMP #### [facility] [address] [place], [place] [id number] eGFRAA 78 mL/min/1.73m2 Normal >60 [facility] Comment on above: Performed By: #### L IPD, CMP #### [facility] [address] [place], [place] [id number] eGFRNAA 64 mL/min/1.73m2 Normal >60 [facility] Comment on above: Performed By: #### L IPD, CMP #### [facility] [address] [place], [place] [id number] Globulin (S) [Mass/Vol] 2.3 g/dL Normal 1.9-3.7 [facility] Comment on above: Performed By: #### L IPD, CMP #### [facility] [address] [place], [place] [id number] Glucose [Mass/Vol] 85 mg/dL Normal 65-99 [facility] [place] [facility] Comment on above: Result Comment: For FASTING Glucose --- ADA reference ranges: Normal 65-99 mg/dl Prediabetes 100-125 Diabetes >/= 126 Performed By: #### L IPD, CMP #### [facility] [address] [place], [place] [id number] Potassium [Moles/Vol] 4.1 mmol/L Normal 3.5-5.5 [facility] Comment on above: Performed By: #### L IPD, CMP #### [facility] [address] [place], [place] [id number] Protein [Mass/Vol] 6.1 g/dL Normal 6.1-8.1 [place] [facility] Comment on above: Performed By: #### L IPD, CMP #### [facility] [address] [place], [place] [id number] Sodium [Moles/Vol] 137 mmol/L Normal 135-146 [place] [facility] Comment on above: Performed By: #### L IPD, CMP #### [facility] [address] [place], [place] [id number] Urea nitrogen [Mass/Vol] 22 mg/dL Normal 7-25 [facility] Comment on above: Performed By: #### L IPD, CMP #### [facility] [address] [place], [place] [id number] Hemoglobin A1Con 02-10-2021 EAG 114.02 Normal [facility] Comment on above: Performed By: #### A 1C #### [facility] [address] [place], [place] [id number] HbA1c (Bld) [Mass fraction] 5.6 % Normal 4.0-6.0 [facility] Comment on above: Performed By: #### A 1C #### [facility] [address] [place], [place] [id number] Lipid Panelon 02-10-2021 Cholesterol [Mass/Vol] 138 mg/dL Normal 125-200 [facility] Comment on above: Result Comment: Low risk < 200mg/dL Borderline risk 201-239 mg/dl High risk > or equal to 240 Performed By: #### L IPD, CMP #### [facility] [address] [place], [place] [id number] Cholesterol in HDL [Mass/Vol] 53 mg/dL Normal >40 [facility] Comment on above: Result Comment: High Cardiovascular Risk HDL <40 mg/dL Low Cardiovascular Risk HDL > or equal to 60 mg/dl Performed By: #### L IPD, CMP #### [facility] [address] [place], [place] [id number] Cholesterol in LDL [Mass/Vol] 65 mg/dL Normal [facility] Comment on above: Result Comment: LDL ATP III CLASSIFICATION LDL less than 100 mg/dl Optimal LDL 100-129 mg/dl Near or above optimal LDL 130-159 Borderline high LDL 160-189 High LDL greater than 189 mg/dl Very High Performed By: #### L IPD, CMP #### [facility] [address] [place], [place] [id number] Cholesterol in VLDL [Mass/Vol] 20 mg/dL Normal [facility] Comment on above: Performed By: #### L IPD, CMP #### [facility] [address] [place], [place] [id number] Cholesterol.total/Ch olesterol in HDL [Mass ratio] 3 {ratio} Normal [facility] Comment on above: Performed By: #### L IPD, CMP #### [facility] [address] [place], [place] [id number] Triglyceride [Mass/Vol] 98 mg/dL Normal 30-150 [facility] Comment on above: Result Comment: TRIG ATPIII CLASSIFICATIONS TRIG less than 150 mg/dl Normal TRIG 150-199 mg/dl Borderline High TRIG 200-500 mg/dl High TRIG greather than 500 mg/dl Very High Performed By: #### L IPD, CMP #### [facility] [address] [place], [place] [id number] Encounters Encounter Date Encounter Type Care Provider Facility Start: 01-20-2023 End: 01-25-2023 Evaluation and management of inpatient CARROL Wlilis JOSETONYAmy [facility] Start: 10-02-2022 End: 10-02-2022 ambulatory [facility] Start: 09-11-2022 End: 09-12-2022 ambulatory [facility] Start: 08-06-2022 End: 08-06-2022 ambulatory DIMA WHITAKER [facility] Start: 04-22-2021 End: 04-22-2021 ambulatory Vlad Denis Facility:[facility] Start: 04-22-2021 Encounter for preprocedural laboratory examination Vlad Denis [facility] Start: 04-03-2020 End: 04-04-2020 Patient encounter procedure GUIOD MCGREGOR Facility: Start: 03-11-2020 End: 03-12-2020 Patient encounter procedure NONE LISTED REQUEST Facility:[facility] Payers Date Payer Category Payer Private Health Insurance [id number] 1999 Medicare [id number] 1960 Self-pay 1935 Unknown [id number] Unknown [id number] [id number] [id number] Unknown [id number] [id number] [id number] Unknown [id number] [id number] Consultation note 01-21-2023 Note Date & Type Note Facility 01-21-[address] [address] CONSULTATION PATIENT NAME: GARTH TORRES : 1935 MED REC NO: [id number] ROOM: 1006 ACCOUNT NO: [id number] ADMIT DATE: 01/20/2023 PROVIDER: Kobe Tran CONSULT DATE: 01/21/2023 PLASTIC SURGICAL CONSULTATION He was seen earlier today by myself at the bedside in the Trauma ICU. HISTORY OF PRESENT ILLNESS: This is an 87-year-old gentleman, who was transferred from [facility] for intracranial bleed, left maxillary sinus fracture, left inferior orbital fracture, left orbital wall fracture, nondisplaced left zygomatic arch fracture, and left mandibular ramus fracture. The gentleman apparently was walking out a step to his front door and fell. He did not remember very much of what happened. He was brought to [facility] for evaluation and transferred to [facility]. He has been treated for intracranial hemorrhage and multiple skin tears. Facial fractures were noted on the examination. PAST MEDICAL HISTORY: Noted in the chart and reviewed. PHYSICAL EXAMINATION: Examination of this gentleman's face shows a significant left periorbital ecchymosis with multiple skin tears. He has old incisions that are well-healed on the nose. There is no palpable facial fracture. His symmetry of the face is reasonably appropriate and symmetrical. He is edentulous. IMAGING STUDIES: The x-rays do show a minimally displaced left zygomatic arch fracture and a nondisplaced vertical left ramus of the mandible fracture, as well as cracks around the left orbit maxillary sinus that are nondisplaced. IMPRESSION: Multiple facial fractures that do not require surgical intervention. PLAN: Plastic Surgery will be happy to be called at any time, but otherwise will sign off of this consultation. KOBE TRAN GERALD/[email or web address] Doc#: [id number] CC: [facility] Progress note 10-02-2022 Note Date & Type Note Facility 10-02-2022 Note [facility] Subjective Garth Torres is a 87 y.o. 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 Benign essential hypertension Benign localized prostatic hyperplasia with lower urinary tract symptoms (LUTS) Body mass index (BMI) of 20 to 24 Diverticulosis of colon GERD without esophagitis Gout Hemorrhoids High prostate specific antigen (PSA) History of total left hip replacement Hyponatremia IGT (impaired glucose tolerance) Increased frequency of urination Internal derangement of right shoulder LVH (left ventricular hypertrophy) Mild cognitive impairment Hypercholesterolemia Nocturia Osteoarthritis of hip Other specified malignant neoplasm of skin of nose Paroxysmal supraventricular tachycardia (CMS/HCC) Peyronie's disease Polydipsia Poor urinary stream 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 Social History Tobacco Use Smoking status: Never Smokeless tobacco: Never MATY Liang is seen in follow-up. I met him the first time on 08/06/[address] Mcgregor's office due to aortic valve stenosis. He is 87 years old. He has prior history of hypertension, hyperlipidemia and mild dementia on treatment. He was recently evaluated at his PCPs office due to feeling tired and fatigued and some symptoms of shortness of breath. An echocardiogram suggested moderate to severe aortic valve stenosis. Due to that and symptoms of shortness of breath, I proceeded with transesophageal echocardiography for better assessment of the valve. Also due to bradycardia I had reduce metoprolol succinate to 25 mg once daily. He denies chest pain, palpitations. He has occasional lightheadedness but no clear syncope. Today he reports that he does not feel any significant symptoms of shortness of breath. Review of Systems Constitutional: Positive for decreased appetite and weight loss. Musculoskeletal: Positive for muscle weakness. All other systems reviewed and are negative. Objective Visit Vitals BP 104/60 (BP Location: Right arm, Patient Position: Sitting, BP Cuff Size: Adult) Pulse (!) 47 Resp 12 Ht 1.778 m (5' 10 ) Wt 66.8 kg (147 lb 3.2 oz) SpO2 99% BMI 21.12 kg/m??? Smoking Status Never BSA 1.82 m??? Physical Exam Constitutional: Appearance: He is well-developed. He is not ill-appearing. HENT: Head: Normocephalic and atraumatic. Nose: Nose normal. Eyes: General: No scleral icterus. Pupils: Pupils are equal, round, and reactive to light. Neck: Thyroid: No thyromegaly. Vascular: No JVD. Cardiovascular: Rate and Rhythm: Regular rhythm. Bradycardia present. Pulses: Radial pulses are 2+ on the right side and 2+ on the left side. Heart sounds: Murmur heard. Systolic (RUSB) murmur is present with a grade of 2/6. No friction rub. No gallop. Pulmonary: Effort: Pulmonary effort is normal. No respiratory distress. Breath sounds: Normal breath sounds. No wheezing or rales. Chest: Chest wall: No tenderness. Abdominal: General: Bowel sounds are normal. There is no distension. Palpations: Abdomen is soft. Tenderness: There is no abdominal tenderness. Musculoskeletal: General: No swelling. Cervical back: Neck supple. Right lower le+ Pitting Edema present. Left lower le+ Pitting Edema present. Skin: General: Skin is warm and dry. Neurological: General: No focal deficit present. Mental Status: He is alert and oriented to person, place, and time. Psychiatric: Mood and Affect: Mood normal. Behavior: Behavior is cooperative. Judgment: Judgment normal. Allergies No Known Allergies Medications Current Outpatient Medications: atorvastatin (Lipitor) 20 mg tablet, Take 20 mg by mouth every other day., Disp: , Rfl: donepezil (Aricept) 10 mg tablet, Take 10 mg by mouth at bedtime., Disp: , Rfl: esomeprazole (NexIUM) [address] capsule, Take 20 mg by mouth if needed each day., Disp: , Rfl: olmesartan-hydrochlorothiazide (BENIcar HCT) 40-25 mg tablet, Take 1 tablet by mouth in the morning., Disp: , Rfl: Recent Labs Blood testing 09/07/2022: Hemoglobin 13, platelets 229, potassium 3.7, BUN 21, creatinine 1.05. Blood testing 02/17/2022: Hemoglobin 14.1, platelets 202, BUN 27, creatinine 1.02, potassium 4.3, LFTs normal, EGFR 71, cholesterol 139, triglycerides 94, HDL 58, LDL 63, TSH 6.88, free T4 1.1 Normal. Imaging and other tests [place] 09/11/2022: Left Ventr (more content not included)... [facility] Progress note 08-06-2022 Note Date & Type Note Facility 08-06-2022 Note [place] [facility] Subjective Garth Torres is a 87 y.o. 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 Benign essential hypertension Benign localized prostatic hyperplasia with lower urinary tract symptoms (LUTS) Body mass index (BMI) of 20 to 24 Diverticulosis of colon GERD without esophagitis Gout Hemorrhoids High prostate specific antigen (PSA) History of total left hip replacement Hyponatremia IGT (impaired glucose tolerance) Increased frequency of urination Internal derangement of right shoulder LVH (left ventricular hypertrophy) Mild cognitive impairment Hypercholesterolemia Nocturia Osteoarthritis of hip Other specified malignant neoplasm of skin of nose Paroxysmal supraventricular tachycardia (CMS/HCC) Peyronie's disease Polydipsia Poor urinary stream 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 Social History Tobacco Use Smoking status: Never Smokeless tobacco: Never HPI This is a 87-year-old man who is seen today as a new patient referred from Dr. Mcgregor's office due to aortic valve stenosis. He has prior history of hypertension, hyperlipidemia and mild dementia on treatment. He was recently evaluated at his PCPs office due to feeling tired and fatigued and some symptoms of shortness of breath. An echocardiogram suggested moderate to severe aortic valve stenosis. He denies chest pain, palpitations. He has occasional lightheadedness but no clear syncope. He has shortness of breath on exertion, NYHA class II-III. Review of Systems Constitutional: Positive for decreased appetite. Cardiovascular: Positive for dyspnea on exertion. Musculoskeletal: Positive for joint pain. Neurological: Positive for light-headedness. All other systems reviewed and are negative. Objective Visit Vitals BP 124/51 (BP Location: Left arm, Patient Position: Sitting, BP Cuff Size: Adult) Pulse (!) 41 Ht 1.778 m (5' 10 ) Wt 68.9 kg (152 lb) SpO2 99% BMI 21.81 kg/m??? Smoking Status Never BSA 1.84 m??? Physical Exam Constitutional: Appearance: He is well-developed. He is not ill-appearing. HENT: Head: Normocephalic and atraumatic. Nose: Nose normal. Eyes: General: No scleral icterus. Pupils: Pupils are equal, round, and reactive to light. Neck: Thyroid: No thyromegaly. Vascular: No JVD. Cardiovascular: Rate and Rhythm: Regular rhythm. Bradycardia present. Pulses: Radial pulses are 2+ on the right side and 2+ on the left side. Heart sounds: Murmur heard. Systolic (RUSB) murmur is present with a grade of 2/6. No friction rub. No gallop. Pulmonary: Effort: Pulmonary effort is normal. No respiratory distress. Breath sounds: Normal breath sounds. No wheezing or rales. Chest: Chest wall: No tenderness. Abdominal: General: Bowel sounds are normal. There is no distension. Palpations: Abdomen is soft. Tenderness: There is no abdominal tenderness. Musculoskeletal: General: No swelling. Cervical back: Neck supple. Right lower le+ Pitting Edema present. Left lower le+ Pitting Edema present. Skin: General: Skin is warm and dry. Neurological: General: No focal deficit present. Mental Status: He is alert and oriented to person, place, and time. Psychiatric: Mood and Affect: Mood normal. Behavior: Behavior is cooperative. Judgment: Judgment normal. Allergies No Known Allergies Medications Current Outpatient Medications: atorvastatin (Lipitor) 20 mg tablet, Take 20 mg by mouth in the morning., Disp: , Rfl: donepezil (Aricept) 10 mg tablet, Take 10 mg by mouth at bedtime., Disp: , Rfl: esomeprazole (NexIUM) [address] capsule, Take 20 mg by mouth if needed each day., Disp: , Rfl: olmesartan-hydrochlorothiazide (BENIcar HCT) 40-25 mg tablet, Take 1 tablet by mouth in the morning., Disp: , Rfl: metoprolol succinate XL (Toprol-XL) 25 mg 24 hr tablet, Take 1 tablet (25 mg) by mouth in the morning. Do not crush or chew., Disp: 90 tablet, Rfl: 3 Recent Labs No results found for any previous visit. Blood testing 02/17/2022: Hemoglobin 14.1, platelets 202, BUN 27, creatinine 1.02, potassium 4.3, LFTs normal, EGFR 71, cholesterol 139, triglycerides 94, HDL 58, LDL 63, TSH 6.88, free T41.1 Normal. Imaging and other tests ECG 08/06/2022: Sinus bradycardia with first-degree AV block, ST and T wave abnormality consider lateral ischemia. Echocardiogram 07/16/2022: Norm (more content not included)... [facility] Summary Purpose Family History No Family History Records FoundNo Family History Records FoundNo Family History Records FoundNo Family History Records FoundNo Family History Records FoundNo Family History Records Found Advance Directives No Advanced Directives Records FoundNo Advanced Directives Records FoundNo Advanced Directives Records FoundNo Advanced Directives Records FoundNo Advanced Directives Records FoundNo Advanced Directives Records Found Additional Source Comments (unrecognized sect ion and content) No Status Records FoundNo Status Records FoundNo Status Records FoundNo Status Records FoundNo Status Records FoundNo Status Records Found INFORMATION SOURCE (unrecogn ized section and content) DATE CREATED AUTHOR 04/02/2020 [facility] DATE CREATED AUTHOR AUTHOR'S ORGANIZ ATION 02/10/2021 [facility] DATE CREATED AUTHOR AUTHOR'S ORGANIZ ATION 05/08/2021 [facility] DATE CREATED AUTHOR AUTHOR'S ORGANIZ ATION 03/21/2022 [facility] DATE CREATED AUTHOR AUTHOR'S ORGANIZ ATION 10/03/2022 [facility] DATE CREATED AUTHOR AUTHOR'S ORGANIZ ATION 01/31/2023 [facility] FOR RECORDS PERTAINING TO PATIENTS WHO ARE OR HAVE BEEN ENROLLED IN A CHEMICAL DEPENDENCY/SUBSTANCEABUSE PROGRAM, SOME INFORMATION MAY BE OMITTED. This clinical summary was aggregated from multiple sources. Caution should be exercised in using it in the provision of clinical care. This summary normalizes information from multiple sources, and as a consequence, information in this document may materially change the coding, format and clinical context of patient data. In addition, data may be omitted in some cases. CLINICAL DECISIONS SHOULD BE BASED ON THE PRIMARY CLINICAL RECORDS. [facility] provides no warranty or guarantee of the accuracy or completeness of information in this document.
[2023-04-10 20:38] LABS: Basophils Absolute Auto 0.1 10^3/uL (0.0-0.1); Eosinophils Absolute Auto 0.3 10^3/uL (0.0-0.7); Eosinophils Percent Auto 3.6 % (0.9-7.0); Hematocrit 41.7 % (42.0-54.0); Hemoglobin 13.5 g/dL (14.0-18.0); Immature Granulocytes Abs Auto 0.07 10^3/uL (0.00-0.03); Immature Granulocytes Pct Auto 0.8 % (0.0-0.5); Lymphocytes Absolute Auto 1.9 10^3/uL (1.2-3.8); Mean Corpuscular HGB Conc 32.4 g/dL (29.9-35.2); Mean Corpuscular Hemoglobin 28.7 pg (25.9-34.0); Mean Corpuscular Volume 88.7 fL (80.0-94.0); Mean Platelet Volume 11.1 fL (9.5-13.5); Monocytes Absolute Auto 0.9 10^3/uL (0.3-0.8); Monocytes Percent Auto 10.3 % (1.7-12.0); Neutrophils Absolute Auto 5.8 10^3/uL (1.4-6.5); Neutrophils Percent Auto 63.3 % (43.0-75.0); Platelet Count 252 10^3/uL (150-450); Red Cell Distribution Width 13.6 % (11.0-15.0); White Blood Count 9.1 10^3/uL (4.0-11.0)
[2023-04-10 20:44] LABS: Bilirubin Urine NEGATIVE (NEGATIVE); Blood Urine SMALL (NEGATIVE); Clarity Urine CLEAR (CLEAR); Color Urine LT. YELLOW (YELLOW); Glucose Urine UA NEGATIVE (NEGATIVE); Ketones Urine NEGATIVE (NEGATIVE); Leukocyte Esterase Urine SMALL (NEGATIVE); Nitrite Urine NEGATIVE (NEGATIVE); Protein Urine NEGATIVE (NEG/TRACE); Specific Gravity Urine 1.015 (1.005-1.025); Urobilinogen Urine 0.2 EU/dL (0.2-1.0)
[2023-04-10 20:49] LABS: Urine Microscopic Indicated YES
[2023-04-10 20:55] LABS: Bacteria Urine NONE SEEN #/HPF (NONE SEEN)
[2023-04-10 20:56] LABS: Cast Seen? SEEN #/LPF (NONE SEEN); Crystals Seen? None Seen #/HPF (None Seen); Hyaline Casts Urine RARE; Mucus Urine SMALL (NONE SEEN); Squamous Epithelial Cell Urine NONE SEEN #/LPF (NONE/RARE); Urine Culture Indicated NO
[2023-04-10 20:59] LABS: INR 0.97; Prothrombin Time 10.3 sec (9.0-11.6)
[2023-04-10 21:10] LABS: Alanine Aminotransferase 19 U/L (16-63); Albumin Globulin Ratio 0.8; Albumin Level 3.4 g/dL (3.4-5.0); Alkaline Phosphatase 172 U/L (46-116); Anion Gap 14.3; Aspartate Amino Transferase 18 U/L (15-37); BUN Creatinine Ratio 25.7; Bilirubin Total 0.4 mg/dL (0.2-1.0); Calcium 9.3 mg/dL (8.5-10.1); Carbon Dioxide 28.7 mmol/L (21.0-32.0); Chloride 102 mmol/L (98-107); Estimated GFR (African America >60 (>=60); Estimated GFR (Non-African Ame >60 (>=60); Globulin 4.1 g/dL; Glucose 83 mg/dL (74-106); Magnesium 1.9 mg/dL (1.8-2.4); Sodium 141 mmol/L (136-145); Thyroid Stimulating Hormone 6.582 uIU/mL (0.358-3.740); Total Protein 7.5 g/dL (6.4-8.2); Troponin I High Sensitivity 11.1 pg/mL (4.0-76.1)
[2023-04-10 21:15] LABS: Lactate/Lactic Acid 2.7 mmol/L (0.4-2.0)
[2023-04-10] MEDS: CEFTRIAXONE 1,000 MG in 0.9 % SODIUM CHLORIDE 50 ML 100 MG IV (21:44)
[2023-04-10] MEDS: 0.9 % SODIUM CHLORIDE 1,000 ML 250 ML IV (21:45)
[2023-04-10 22:08] LABS: Free T4 1.12 ng/dL (0.76-1.46)
[2023-04-10 22:11] LABS: Influenza Virus A Antigen Negative; Influenza Virus B Antigen Negative; Internal Control Within Normal Limits; SARS-CoV-2 Ag NEGATIVE (NEGATIVE)
[2023-04-10 22:12] LABS: Internal Control Within Normal Limits; Respiratory Syncytial Virus Not Detected (NOT DETECTE)
--- OUTSIDE RECORDS SUMMARY | 2023-04-10 22:15 | XMS_ITS | CCD ---
Author Name Unknown Address [address] [facility] [address] [place] [address] Organization [facility] Care Team Providers Care Gyroscope Repairer Name Role Phone GUIDO MCGREGOR Primary Care [...] Anion gap [Moles/Vol] 8 mmol/L Low 9-17 [facility] Comment on above: Performed By: #### T SH, VD25, ALB, B12, ECENZ, GLYHGB, ERTPF, FT4 #### [address] [phone] [employer] Agent: Jonathan Mckee MD Calcium [Mass/Vol] 8.7 mg/dL Normal 8.6-10.4 [facility] Comment on above: Performed By: #### T SH, VD25, ALB, B12, ECENZ, GLYHGB, ERTPF, FT4 #### [address] [phone] [employer] Agent: Jonathan Mckee MD Chloride [Moles/Vol] 100 mmol/L Normal 98-107 [facility] Comment on above: Performed By: #### T SH, VD25, ALB, B12, ECENZ, GLYHGB, ERTPF, FT4 #### [address] [phone] Lot[employer] Agent: Jonathan Mckee MD CO2 [Moles/Vol] 23 mmol/L Normal 20-31 [facility] Comment on above: Performed By: #### T SH, VD25, ALB, B12, ECENZ, GLYHGB, ERTPF, FT4 #### [facility] [address] [place] [phone] [employer] Agent: Jonathan Mckee MD Creatinine [Mass/Vol] 0.7 mg/dL Normal 0.7-1.2 [facility] Comment on above: Performed By: #### T SH, VD25, ALB, B12, ECENZ, GLYHGB, ERTPF, FT4 #### [address] [phone] Lot[employer] Agent: Jonathan Mckee MD GFR/1.73 sq M.predicted among non-blacks MDRD (S/P/Bld) [Vol rate/Area] mL/min/{1.73_m2} Normal >60 [facility] Comment on above: Result Comment: These results [...] ALB, B12, ECENZ, GLYHGB, ERTPF, FT4 #### [address] [phone] Lot[employer] Agent: Jonathan Mckee MD Glucose [Mass/Vol] 98 mg/dL Normal 70-99 [facility] Comment on above: Performed By: #### T SH, VD25, ALB, B12, ECENZ, GLYHGB, ERTPF, FT4 #### [facility] [address] [place] [address] [phone] Lot[employer] Agent: Jonathan Mckee MD Potassium [Moles/Vol] 4.1 mmol/L Normal 3.7-5.3 [facility] Comment on above: Performed By: #### T SH, VD25, ALB, B12, ECENZ, GLYHGB, ERTPF, FT4 #### [address] [phone] Lot[employer] Agent: Jonathan Mckee MD Sodium [Moles/Vol] 131 mmol/L Low 135-144 [facility] Comment on above: Performed By: #### T SH, VD25, ALB, B12, ECENZ, GLYHGB, ERTPF, FT4 #### [address] [phone] [employer] Agent: Jonathan Mckee MD Urea nitrogen [Mass/Vol] 27 mg/dL High 8-23 [facility] Comment on above: Performed By: #### T SH, VD25, ALB, B12, ECENZ, GLYHGB, ERTPF, FT4 #### [address] [phone] Lotter[employer] Agent: Jonathan Mckee MD CBC with Diffon 01-25-2023 Abs. Basophil 0.05 k/uL Normal 0.00-0.20 [facility] Comment on above: Performed By: #### T SH, VD25, ALB, B12, ECENZ, GLYHGB, ERTPF, FT4 #### [address] [phone] Lot[employer] Agent: Jonathan Mckee MD Abs.Imm.Granulocyte 0.11 k/uL Normal 0.00-0.30 [facility] Comment on above: Performed By: #### T SH, VD25, ALB, B12, ECENZ, GLYHGB, ERTPF, FT4 #### [address] [phone] [employer] Agent: Jonathan Mckee MD Abs.Neutrophil (Seg) 4.47 k/uL Normal 1.50-8.10 [facility] Comment on above: Performed By: #### T SH, VD25, ALB, B12, ECENZ, GLYHGB, ERTPF, FT4 #### [address] [phone] [employer] Agent: Jonathan Mckee MD Basophils/100 WBC (Bld) 1 % Normal 0-2 [facility] Comment on above: Performed By: #### T SH, VD25, ALB, B12, ECENZ, GLYHGB, ERTPF, FT4 #### [address] [phone] [employer] Agent: Jonathan Mckee MD Eosinophils (Bld) [#/Vol] 0.31 10*3/uL Normal 0.00-0.44 [facility] Comment on above: Performed By: #### T SH, VD25, ALB, B12, ECENZ, GLYHGB, ERTPF, FT4 #### [address] [phone] [employer] Agent: Jonathan Mckee MD Eosinophils/100 WBC (Bld) 5 % High 1-4 [facility] Comment on above: Performed By: #### T SH, VD25, ALB, B12, ECENZ, GLYHGB, ERTPF, FT4 #### [address] [phone] [employer] Agent: Jonathan Mckee MD Erythrocyte distribution width (RBC) [Ratio] 14.0 % Normal 11.8-14.4 [facility] Comment on above: Performed By: #### T SH, VD25, ALB, B12, ECENZ, GLYHGB, ERTPF, FT4 #### [address] [phone] [employer] Agent: Jonathan Mckee MD Hematocrit (Bld) [Volume fraction] 29.0 % Low 40.7-50.3 [facility] Comment on above: Performed By: #### T SH, VD25, ALB, B12, ECENZ, GLYHGB, ERTPF, FT4 #### [address] [phone] Lot[employer] Agent: Jonathan Mckee MD Hemoglobin (Bld) [Mass/Vol] 10.1 g/dL Low 13.0-17.0 [facility] Comment on above: Performed By: #### T SH, VD25, ALB, B12, ECENZ, GLYHGB, ERTPF, FT4 #### [address] [phone] Lotter[employer] Agent: Jonathan Mckee MD Immature granulocytes/100 WBC (Bld) 2 % High 0 [facility] Comment on above: Performed By: #### T SH, VD25, ALB, B12, ECENZ, GLYHGB, ERTPF, FT4 #### [address] [phone] [employer] Agent: Jonathan Mckee MD Lymphocytes (Bld) [#/Vol] 0.94 10*3/uL Low 1.10-3.70 [facility] Comment on above: Performed By: #### T SH, VD25, ALB, B12, ECENZ, GLYHGB, ERTPF, FT4 #### [address] [phone] [employer] Agent: Jonathan Mckee MD Lymphocytes/100 WBC (Bld) 14 % Low 24-43 [facility] Comment on above: Performed By: #### T SH, VD25, ALB, B12, ECENZ, GLYHGB, ERTPF, FT4 #### [address] [phone] Lotter[employer] Agent: Jonathan Mckee MD MCH (RBC) [Entitic mass] 30.8 pg Normal 25.2-33.5 [facility] Comment on above: Performed By: #### T SH, VD25, ALB, B12, ECENZ, GLYHGB, ERTPF, FT4 #### [place] [address] [employer] Agent: Jonathan Mckee MD MCHC (RBC) [Mass/Vol] 34.8 g/dL Normal 28.4-34.8 [facility] Comment on above: Performed By: #### T SH, VD25, ALB, B12, ECENZ, GLYHGB, ERTPF, FT4 #### [address] [phone] [employer] Agent: Jonathan Mckee MD MCV (RBC) [Entitic vol] 88.4 fL Normal 82.6-102.9 [facility] Comment on above: Performed By: #### T SH, VD25, ALB, B12, ECENZ, GLYHGB, ERTPF, FT4 #### [address] [phone] [employer] Agent: Jonathan Mckee MD Monocytes (Bld) [#/Vol] 0.70 10*3/uL Normal 0.10-1.20 [facility] Comment on above: Performed By: #### T SH, VD25, ALB, B12, ECENZ, GLYHGB, ERTPF, FT4 #### [address] [phone] Lot[employer] Agent: Jonathan Mckee MD Monocytes/100 WBC (Bld) 11 % Normal 3-12 [facility] Comment on above: Performed By: #### T SH, VD25, ALB, B12, ECENZ, GLYHGB, ERTPF, FT4 #### [address] [phone] Lotter[employer] Agent: Jonathan Mckee MD Neutrophil (Seg) 68 % High 36-65 [facility] Comment on above: Performed By: #### T SH, VD25, ALB, B12, ECENZ, GLYHGB, ERTPF, FT4 #### [address] [phone] Lotter[employer] Agent: Jonathan Mckee MD NRBC Automated 0.0 per 100 WBC Normal 0.0 [facility] Comment on above: Performed By: #### T SH, VD25, ALB, B12, ECENZ, GLYHGB, ERTPF, FT4 #### [address] [phone] Lot[employer] Agent: Jonathan Mckee MD Platelet mean volume (Bld) [Entitic vol] 11.6 fL Normal 8.1-13.5 [facility] Comment on above: Performed By: #### T SH, VD25, ALB, B12, ECENZ, GLYHGB, ERTPF, FT4 #### [facility] [address] [place] [phone] Lotter[employer] Agent: Jonathan Mckee MD Platelets (Bld) [#/Vol] 283 10*3/uL Normal 138-453 [facility] Comment on above: Performed By: #### T SH, VD25, ALB, B12, ECENZ, GLYHGB, ERTPF, FT4 #### [address] [phone] Lotter[employer] Agent: Jonathan Mckee MD RBC (Bld) [#/Vol] 3.28 10*6/uL Low 4.21-5.77 [facility] Comment on above: Performed By: #### T SH, VD25, ALB, B12, ECENZ, GLYHGB, ERTPF, FT4 #### [facility] [address] [place] [phone] [employer] Agent: Jonathan Mckee MD WBC (Bld) [#/Vol] 6.6 10*3/uL Normal 3.5-11.3 [facility] Comment on above: Performed By: #### T SH, VD25, ALB, B12, ECENZ, GLYHGB, ERTPF, FT4 #### [facility] [address] [place] [phone] [employer] Agent: Jonathan Mckee MD Basic Metabolic Profon 01-24 Anion gap [Moles/Vol] 9 mmol/L Normal 9-17 [facility] Comment on above: Performed By: #### T SH, VD25, ALB, B12, ECENZ, GLYHGB, ERTPF, FT4 #### [facility] [address] [place] [phone] [employer] Agent: Jonathan Mckee MD Calcium [Mass/Vol] 8.8 mg/dL Normal 8.6-10.4 [facility] Comment on above: Performed By: #### T SH, VD25, ALB, B12, ECENZ, GLYHGB, ERTPF, FT4 #### [address] [phone] [employer] Agent: Jonathan Mckee MD Chloride [Moles/Vol] 102 mmol/L Normal 98-107 [facility] Comment on above: Performed By: #### T SH, VD25, ALB, B12, ECENZ, GLYHGB, ERTPF, FT4 #### [address] [phone] Lot[employer] Agent: Jonathan Mckee MD CO2 [Moles/Vol] 23 mmol/L Normal 20-31 [facility] Comment on above: Performed By: #### T SH, VD25, ALB, B12, ECENZ, GLYHGB, ERTPF, FT4 #### [facility] [address] [place] [address] [phone] [employer] Agent: Jonathan Mckee MD Creatinine [Mass/Vol] 0.7 mg/dL Normal 0.7-1.2 [facility] Comment on above: Performed By: #### T SH, VD25, ALB, B12, ECENZ, GLYHGB, ERTPF, FT4 #### [address] [phone] [employer] Agent: Jonathan Mckee MD GFR/1.73 sq M.predicted among non-blacks MDRD (S/P/Bld) [Vol rate/Area] mL/min/{1.73_m2} Normal >60 [facility] Comment on above: Result Comment: These results [...] ALB, B12, ECENZ, GLYHGB, ERTPF, FT4 #### [facility] [address] [place] [phone] [employer] Agent: Jonathan Mckee MD Glucose [Mass/Vol] 122 mg/dL High 70-99 [facility] Comment on above: Performed By: #### T SH, VD25, ALB, B12, ECENZ, GLYHGB, ERTPF, FT4 #### [facility] [address] [place] [phone] [employer]ter[employer] Agent: Jonathan Mckee MD Potassium [Moles/Vol] 3.7 mmol/L Normal 3.7-5.3 [facility] Comment on above: Performed By: #### T SH, VD25, ALB, B12, ECENZ, GLYHGB, ERTPF, FT4 #### [facility] [address] [place] [phone] Lotter[employer] Agent: Jonathan Mckee MD Sodium [Moles/Vol] 134 mmol/L Low 135-144 [facility] Comment on above: Performed By: #### T SH, VD25, ALB, B12, ECENZ, GLYHGB, ERTPF, FT4 #### [facility] [address] [place] [phone] [employer] Agent: Jonathan Mckee MD Urea nitrogen [Mass/Vol] 27 mg/dL High 8-23 [facility] Comment on above: Performed By: #### T SH, VD25, ALB, B12, ECENZ, GLYHGB, ERTPF, FT4 #### [facility] [address] [place] [phone] [employer] Agent: Jonathan Mckee MD CBC with Diffon 01-24-2023 Abs. Basophil 0.05 k/uL Normal 0.00-0.20 [facility] Comment on above: Performed By: #### T SH, VD25, ALB, B12, ECENZ, GLYHGB, ERTPF, FT4 #### [address] [phone] [employer] Agent: Jonathan Mckee MD Abs.Imm.Granulocyte 0.08 k/uL Normal 0.00-0.30 [facility] Comment on above: Performed By: #### T SH, VD25, ALB, B12, ECENZ, GLYHGB, ERTPF, FT4 #### [place] [address] [employer] Agent: Jonathan Mckee MD Abs.Neutrophil (Seg) 4.05 k/uL Normal 1.50-8.10 [facility] Comment on above: Performed By: #### T SH, VD25, ALB, B12, ECENZ, GLYHGB, ERTPF, FT4 #### [place] [address] [employer] Agent: Jonathan Mckee MD Basophils/100 WBC (Bld) 1 % Normal 0-2 [facility] Comment on above: Performed By: #### T SH, VD25, ALB, B12, ECENZ, GLYHGB, ERTPF, FT4 #### [place] [address] [employer] Agent: Jonathan Mckee MD Eosinophils (Bld) [#/Vol] 0.26 10*3/uL Normal 0.00-0.44 [facility] Comment on above: Performed By: #### T SH, VD25, ALB, B12, ECENZ, GLYHGB, ERTPF, FT4 #### [place] [address] [employer] Agent: Jonathan Mckee MD Eosinophils/100 WBC (Bld) 5 % High 1-4 [facility] Comment on above: Performed By: #### T SH, VD25, ALB, B12, ECENZ, GLYHGB, ERTPF, FT4 #### [facility] [address] [place] [address] [phone] Lot[employer] Agent: Jonathan Mckee MD Erythrocyte distribution width (RBC) [Ratio] 13.7 % Normal 11.8-14.4 [facility] Comment on above: Performed By: #### T SH, VD25, ALB, B12, ECENZ, GLYHGB, ERTPF, FT4 #### [facility] [address] [place] [address] [phone] [employer] Agent: Jonathan Mckee MD Hematocrit (Bld) [Volume fraction] 30.9 % Low 40.7-50.3 [facility] Comment on above: Performed By: #### T SH, VD25, ALB, B12, ECENZ, GLYHGB, ERTPF, FT4 #### [facility] [address] [place], [place] [phone] Lot[employer] Agent: Jonathan Mckee MD Hemoglobin (Bld) [Mass/Vol] 10.4 g/dL Low 13.0-17.0 [facility] Comment on above: Performed By: #### T SH, VD25, ALB, B12, ECENZ, GLYHGB, ERTPF, FT4 #### [facility] [address] [place] [address] [phone] [employer] Agent: Jonathan Mckee MD Immature granulocytes/100 WBC (Bld) 1 % High 0 [facility] Comment on above: Performed By: #### T SH, VD25, ALB, B12, ECENZ, GLYHGB, ERTPF, FT4 #### [facility] [address] [place] [address] [phone] [employer] Agent: Jonathan Mckee MD Lymphocytes (Bld) [#/Vol] 0.70 10*3/uL Low 1.10-3.70 [facility] Comment on above: Performed By: #### T SH, VD25, ALB, B12, ECENZ, GLYHGB, ERTPF, FT4 #### [address] [phone] [employer] Agent: Jonathan Mckee MD Lymphocytes/100 WBC (Bld) 12 % Low 24-43 [facility] Comment on above: Performed By: #### T SH, VD25, ALB, B12, ECENZ, GLYHGB, ERTPF, FT4 #### [address] [phone] [employer] Agent: Jonathan Mckee MD MCH (RBC) [Entitic mass] 30.1 pg Normal 25.2-33.5 [facility] Comment on above: Performed By: #### T SH, VD25, ALB, B12, ECENZ, GLYHGB, ERTPF, FT4 #### [address] [phone] [employer] Agent: Jonathan Mckee MD MCHC (RBC) [Mass/Vol] 33.7 g/dL Normal 28.4-34.8 [facility] Comment on above: Performed By: #### T SH, VD25, ALB, B12, ECENZ, GLYHGB, ERTPF, FT4 #### [address] [phone] [employer] Agent: Jonathan Mckee MD MCV (RBC) [Entitic vol] 89.3 fL Normal 82.6-102.9 [facility] Comment on above: Performed By: #### T SH, VD25, ALB, B12, ECENZ, GLYHGB, ERTPF, FT4 #### [address] [phone] [employer] Agent: Jonathan Mckee MD Monocytes (Bld) [#/Vol] 0.62 10*3/uL Normal 0.10-1.20 [facility] Comment on above: Performed By: #### T SH, VD25, ALB, B12, ECENZ, GLYHGB, ERTPF, FT4 #### [address] [phone] Lot[employer] Agent: Jonathan Mckee MD Monocytes/100 WBC (Bld) 11 % Normal 3-12 [facility] Comment on above: Performed By: #### T SH, VD25, ALB, B12, ECENZ, GLYHGB, ERTPF, FT4 #### [address] [phone] [employer] Agent: Jonathan Mckee MD Neutrophil (Seg) 70 % High 36-65 [facility] Comment on above: Performed By: #### T SH, VD25, ALB, B12, ECENZ, GLYHGB, ERTPF, FT4 #### [address] [phone] [employer] Agent: Jonathan Mckee MD NRBC Automated 0.0 per 100 WBC Normal 0.0 [facility] Comment on above: Performed By: #### T SH, VD25, ALB, B12, ECENZ, GLYHGB, ERTPF, FT4 #### [address] [phone] Lotter[employer] Agent: Jonathan Mckee MD Platelet mean volume (Bld) [Entitic vol] 10.4 fL Normal 8.1-13.5 [facility] Comment on above: Performed By: #### T SH, VD25, ALB, B12, ECENZ, GLYHGB, ERTPF, FT4 #### [address] [phone] Lotter[employer] Agent: Jonathan Mckee MD Platelets (Bld) [#/Vol] 166 10*3/uL Normal 138-453 [facility] Comment on above: Performed By: #### T SH, VD25, ALB, B12, ECENZ, GLYHGB, ERTPF, FT4 #### [address] [phone] [employer] Agent: Jonathan Mckee MD RBC (Bld) [#/Vol] 3.46 10*6/uL Low 4.21-5.77 [facility] Comment on above: Performed By: #### T SH, VD25, ALB, B12, ECENZ, GLYHGB, ERTPF, FT4 #### [address] [phone] [employer] Agent: Jonathan Mckee MD WBC (Bld) [#/Vol] 5.8 10*3/uL Normal 3.5-11.3 [facility] Comment on above: Performed By: #### T SH, VD25, ALB, B12, ECENZ, GLYHGB, ERTPF, FT4 #### [address] [phone] [employer] Agent: Jonathan Mckee MD Basic Metabolic Profon 01-23 Anion gap [Moles/Vol] 9 mmol/L Normal 9-17 [facility] Comment on above: Performed By: #### T SH, VD25, ALB, B12, ECENZ, GLYHGB, ERTPF, FT4 #### [address] [phone] Lot[employer] Agent: Jonathan Mckee MD Calcium [Mass/Vol] 8.9 mg/dL Normal 8.6-10.4 [facility] Comment on above: Performed By: #### T SH, VD25, ALB, B12, ECENZ, GLYHGB, ERTPF, FT4 #### [address] [phone] [employer] Agent: Jonathan Mckee MD Chloride [Moles/Vol] 103 mmol/L Normal 98-107 [facility] Comment on above: Performed By: #### T SH, VD25, ALB, B12, ECENZ, GLYHGB, ERTPF, FT4 #### [address] [phone] [employer] Agent: Jonathan Mckee MD CO2 [Moles/Vol] 21 mmol/L Normal 20-31 [facility] Comment on above: Performed By: #### T SH, VD25, ALB, B12, ECENZ, GLYHGB, ERTPF, FT4 #### [facility] [address] [place] [address] [phone] Lot[employer] Agent: Jonathan Mckee MD Creatinine [Mass/Vol] 0.7 mg/dL Normal 0.7-1.2 [facility] Comment on above: Performed By: #### T SH, VD25, ALB, B12, ECENZ, GLYHGB, ERTPF, FT4 #### [address] [phone] [employer] Agent: Jonathan Mckee MD GFR/1.73 sq M.predicted among non-blacks MDRD (S/P/Bld) [Vol rate/Area] mL/min/{1.73_m2} Normal >60 [facility] Comment on above: Result Comment: These results [...] ALB, B12, ECENZ, GLYHGB, ERTPF, FT4 #### [facility] [address] [place] [address] [phone] [employer] Agent: Jonathan Mckee MD Glucose [Mass/Vol] 105 mg/dL High 70-99 [facility] Comment on above: Performed By: #### T SH, VD25, ALB, B12, ECENZ, GLYHGB, ERTPF, FT4 #### [facility] [address] [place] [address] [phone] [employer] Agent: Jonathan Mckee MD Potassium [Moles/Vol] 3.7 mmol/L Normal 3.7-5.3 [facility] Comment on above: Performed By: #### T SH, VD25, ALB, B12, ECENZ, GLYHGB, ERTPF, FT4 #### [address] [phone] [employer] Agent: Jonathan Mckee MD Sodium [Moles/Vol] 133 mmol/L Low 135-144 [facility] Comment on above: Performed By: #### T SH, VD25, ALB, B12, ECENZ, GLYHGB, ERTPF, FT4 #### [address] [phone] [employer] Agent: Jonathan Mckee MD Urea nitrogen [Mass/Vol] 28 mg/dL High 8-23 [facility] Comment on above: Performed By: #### T SH, VD25, ALB, B12, ECENZ, GLYHGB, ERTPF, FT4 #### [address] [phone] [employer] Agent: Jonathan Mckee MD CBC with Diffon 01-23-2023 Abs. Basophil 0.05 k/uL Normal 0.00-0.20 [facility] Comment on above: Performed By: #### T SH, VD25, ALB, B12, ECENZ, GLYHGB, ERTPF, FT4 #### [address] [phone] [employer] Agent: Jonathan Mckee MD Abs.Imm.Granulocyte 0.05 k/uL Normal 0.00-0.30 [facility] Comment on above: Performed By: #### T SH, VD25, ALB, B12, ECENZ, GLYHGB, ERTPF, FT4 #### [address] [phone] Lot[employer] Agent: Jonathan Mckee MD Abs.Neutrophil (Seg) 4.18 k/uL Normal 1.50-8.10 [facility] Comment on above: Performed By: #### T SH, VD25, ALB, B12, ECENZ, GLYHGB, ERTPF, FT4 #### [address] [phone] Lot[employer] Agent: Jonathan Mckee MD Basophils/100 WBC (Bld) 1 % Normal 0-2 [facility] Comment on above: Performed By: #### T SH, VD25, ALB, B12, ECENZ, GLYHGB, ERTPF, FT4 #### [place] [address] [employer] Agent: Jonathan Mckee MD Eosinophils (Bld) [#/Vol] 0.21 10*3/uL Normal 0.00-0.44 [facility] Comment on above: Performed By: #### T SH, VD25, ALB, B12, ECENZ, GLYHGB, ERTPF, FT4 #### [place] [address] [employer] Agent: Jonathan Mckee MD Eosinophils/100 WBC (Bld) 4 % Normal 1-4 [facility] Comment on above: Performed By: #### T SH, VD25, ALB, B12, ECENZ, GLYHGB, ERTPF, FT4 #### [place] [address] [employer] Agent: Jonathan Mckee MD Erythrocyte distribution width (RBC) [Ratio] 13.8 % Normal 11.8-14.4 [facility] Comment on above: Performed By: #### T SH, VD25, ALB, B12, ECENZ, GLYHGB, ERTPF, FT4 #### [place] [address] [employer] Agent: Jonathan Mckee MD Hematocrit (Bld) [Volume fraction] 31.5 % Low 40.7-50.3 [facility] Comment on above: Performed By: #### T SH, VD25, ALB, B12, ECENZ, GLYHGB, ERTPF, FT4 #### [facility] [address] [place] [address] Lot[employer] Agent: Jonathan Mckee MD Hemoglobin (Bld) [Mass/Vol] 10.6 g/dL Low 13.0-17.0 [facility] Comment on above: Performed By: #### T SH, VD25, ALB, B12, ECENZ, GLYHGB, ERTPF, FT4 #### [facility] [address] [place] [address] Lot[employer]ies Agent: Jonathan Mckee MD Immature granulocytes/100 WBC (Bld) 1 % High 0 [facility] Comment on above: Performed By: #### T SH, VD25, ALB, B12, ECENZ, GLYHGB, ERTPF, FT4 #### [facility] [address] [place] [address] [employer] Agent: Jonathan Mckee MD Lymphocytes (Bld) [#/Vol] 0.71 10*3/uL Low 1.10-3.70 [facility] Comment on above: Performed By: #### T SH, VD25, ALB, B12, ECENZ, GLYHGB, ERTPF, FT4 #### [facility] [address] [place] [address] Lot[employer]ies Agent: Jonathan Mckee MD Lymphocytes/100 WBC (Bld) 12 % Low 24-43 [facility] Comment on above: Performed By: #### T SH, VD25, ALB, B12, ECENZ, GLYHGB, ERTPF, FT4 #### [facility] [address] [place] [address] [employer] Agent: Jonathan Mckee MD MCH (RBC) [Entitic mass] 30.3 pg Normal 25.2-33.5 [facility] Comment on above: Performed By: #### T SH, VD25, ALB, B12, ECENZ, GLYHGB, ERTPF, FT4 #### [address] [phone] Lot[employer] Agent: Jonathan Mckee MD MCHC (RBC) [Mass/Vol] 33.7 g/dL Normal 28.4-34.8 [facility] Comment on above: Performed By: #### T SH, VD25, ALB, B12, ECENZ, GLYHGB, ERTPF, FT4 #### [address] [phone] [employer] Agent: Jonathan Mckee MD MCV (RBC) [Entitic vol] 90.0 fL Normal 82.6-102.9 [facility] Comment on above: Performed By: #### T SH, VD25, ALB, B12, ECENZ, GLYHGB, ERTPF, FT4 #### [address] [phone] Lot[employer] Agent: Jonathan Mckee MD Monocytes (Bld) [#/Vol] 0.73 10*3/uL Normal 0.10-1.20 [facility] Comment on above: Performed By: #### T SH, VD25, ALB, B12, ECENZ, GLYHGB, ERTPF, FT4 #### [address] [phone] [employer] Agent: Jonathan Mckee MD Monocytes/100 WBC (Bld) 12 % Normal 3-12 [facility] [facility] Comment on above: Performed By: #### T SH, VD25, ALB, B12, ECENZ, GLYHGB, ERTPF, FT4 #### [address] [phone] Lotter[employer] Agent: Jonathan Mckee MD Neutrophil (Seg) 70 % High 36-65 [facility] Comment on above: Performed By: #### T SH, VD25, ALB, B12, ECENZ, GLYHGB, ERTPF, FT4 #### [address] [phone] Lotter[employer] Agent: Jonathan Mckee MD NRBC Automated 0.0 per 100 WBC Normal 0.0 [facility] Comment on above: Performed By: #### T SH, VD25, ALB, B12, ECENZ, GLYHGB, ERTPF, FT4 #### [address] [phone] Lotteries Agent: Jonathan Mckee MD Platelet mean volume (Bld) [Entitic vol] 10.1 fL Normal 8.1-13.5 [facility] Comment on above: Performed By: #### T SH, VD25, ALB, B12, ECENZ, GLYHGB, ERTPF, FT4 #### [address] [phone] Lotteries Agent: Jonathan Mckee MD Platelets (Bld) [#/Vol] 178 10*3/uL Normal 138-453 [facility] Comment on above: Performed By: #### T SH, VD25, ALB, B12, ECENZ, GLYHGB, ERTPF, FT4 #### [address] [phone] Lotter[employer] Agent: Jonathan Mckee MD RBC (Bld) [#/Vol] 3.50 10*6/uL Low 4.21-5.77 [facility] Comment on above: Performed By: #### T SH, VD25, ALB, B12, ECENZ, GLYHGB, ERTPF, FT4 #### [address] [phone] Lotter[employer] Agent: Jonathan Mckee MD WBC (Bld) [#/Vol] 5.9 10*3/uL Normal 3.5-11.3 [facility] Comment on above: Performed By: #### T SH, VD25, ALB, B12, ECENZ, GLYHGB, ERTPF, FT4 #### [address] [phone] Lot[employer] Agent: Jonathan Mckee MD Basic Metabolic Profon 01-22 Anion gap [Moles/Vol] 15 mmol/L Normal 9-17 [facility] Comment on above: Performed By: #### T SH, VD25, ALB, B12, ECENZ, GLYHGB, ERTPF, FT4 #### [address] [phone] Lotteries Agent: Jonathan Mckee MD Calcium [Mass/Vol] 8.9 mg/dL Normal 8.6-10.4 [facility] Comment on above: Performed By: #### T SH, VD25, ALB, B12, ECENZ, GLYHGB, ERTPF, FT4 #### [address] [phone] Lotter[employer] Agent: Jonathan Mckee MD Chloride [Moles/Vol] 99 mmol/L Normal 98-107 [facility] Comment on above: Performed By: #### T SH, VD25, ALB, B12, ECENZ, GLYHGB, ERTPF, FT4 #### [address] [phone] Lotteries Agent: Jonathan Mckee MD CO2 [Moles/Vol] 17 mmol/L Low 20-31 [facility] Comment on above: Performed By: #### T SH, VD25, ALB, B12, ECENZ, GLYHGB, ERTPF, FT4 #### [address] [phone] Lotteries Agent: Jonathan Mckee MD Creatinine [Mass/Vol] 0.8 mg/dL Normal 0.7-1.2 [facility] Comment on above: Performed By: #### T SH, VD25, ALB, B12, ECENZ, GLYHGB, ERTPF, FT4 #### [facility] [address] [place] [phone] Lotteries Agent: Jonathan Mckee MD GFR/1.73 sq M.predicted among non-blacks MDRD (S/P/Bld) [Vol rate/Area] mL/min/{1.73_m2} Normal >60 [facility] Comment on above: Result Comment: These results [...] ALB, B12, ECENZ, GLYHGB, ERTPF, FT4 #### [address] [phone] Lotteries Agent: Jonathan Mckee MD Glucose [Mass/Vol] 90 mg/dL Normal 70-99 [facility] Comment on above: Performed By: #### T SH, VD25, ALB, B12, ECENZ, GLYHGB, ERTPF, FT4 #### [address] [phone] Lotteries Agent: Jonathan Mckee MD Potassium [Moles/Vol] 3.7 mmol/L Normal 3.7-5.3 [facility] Comment on above: Performed By: #### T SH, VD25, ALB, B12, ECENZ, GLYHGB, ERTPF, FT4 #### [address] [phone] Lotteries Agent: Jonathan Mckee MD Sodium [Moles/Vol] 131 mmol/L Low 135-144 [facility] Comment on above: Performed By: #### T SH, VD25, ALB, B12, ECENZ, GLYHGB, ERTPF, FT4 #### [address] [phone] Lotter[employer] Agent: Jonathan Mckee MD Urea nitrogen [Mass/Vol] 28 mg/dL High 8-23 [facility] Comment on above: Performed By: #### T SH, VD25, ALB, B12, ECENZ, GLYHGB, ERTPF, FT4 #### [place] [address] [employer] Agent: Jonathan Mckee MD CBC with Diffon 01-22-2023 Abs. Basophil 0.03 k/uL Normal 0.00-0.20 [facility] Comment on above: Performed By: #### T SH, VD25, ALB, B12, ECENZ, GLYHGB, ERTPF, FT4 #### [place] [address] Lotter[employer] Agent: Jonathan Mckee MD Abs.Imm.Granulocyte 0.05 k/uL Normal 0.00-0.30 [facility] Comment on above: Performed By: #### T SH, VD25, ALB, B12, ECENZ, GLYHGB, ERTPF, FT4 #### [place] [address] [employer] Agent: Jonathan Mckee MD Abs.Neutrophil (Seg) 4.98 k/uL Normal 1.50-8.10 [facility] Comment on above: Performed By: #### T SH, VD25, ALB, B12, ECENZ, GLYHGB, ERTPF, FT4 #### [place] [address] [employer] Agent: Jonathan Mckee MD Basophils/100 WBC (Bld) 0 % Normal 0-2 [facility] Comment on above: Performed By: #### T SH, VD25, ALB, B12, ECENZ, GLYHGB, ERTPF, FT4 #### [place] [address] [employer] Agent: Jonathan Mckee MD Eosinophils (Bld) [#/Vol] 0.18 10*3/uL Normal 0.00-0.44 [facility] Comment on above: Performed By: #### T SH, VD25, ALB, B12, ECENZ, GLYHGB, ERTPF, FT4 #### [facility] [address] [place] [phone] Lotteries Agent: Jonathan Mckee MD Eosinophils/100 WBC (Bld) 3 % Normal 1-4 [facility] Comment on above: Performed By: #### T SH, VD25, ALB, B12, ECENZ, GLYHGB, ERTPF, FT4 #### [address] [phone] Lotter[employer] Agent: Jonathan Mckee MD Erythrocyte distribution width (RBC) [Ratio] 13.7 % Normal 11.8-14.4 [facility] Comment on above: Performed By: #### T SH, VD25, ALB, B12, ECENZ, GLYHGB, ERTPF, FT4 #### [address] [phone] Lotter[employer] Agent: Jonathan Mckee MD Hematocrit (Bld) [Volume fraction] 32.5 % Low 40.7-50.3 [facility] Comment on above: Performed By: #### T SH, VD25, ALB, B12, ECENZ, GLYHGB, ERTPF, FT4 #### [facility] [address] [place] [phone] Lot[employer] Agent: Jonathan Mckee MD Hemoglobin (Bld) [Mass/Vol] 11.0 g/dL Low 13.0-17.0 [facility] Comment on above: Performed By: #### T SH, VD25, ALB, B12, ECENZ, GLYHGB, ERTPF, FT4 #### [facility] [address] [place] [address] [phone] Lotter[employer] Agent: Jonathan Mckee MD Immature granulocytes/100 WBC (Bld) 1 % High 0 [facility] Comment on above: Performed By: #### T SH, VD25, ALB, B12, ECENZ, GLYHGB, ERTPF, FT4 #### [address] [phone] Lotter[employer] Agent: Jonathan Mckee MD Lymphocytes (Bld) [#/Vol] 0.95 10*3/uL Low 1.10-3.70 [facility] Comment on above: Performed By: #### T SH, VD25, ALB, B12, ECENZ, GLYHGB, ERTPF, FT4 #### [address] [phone] Lotter[employer] Agent: Jonathan Mckee MD Lymphocytes/100 WBC (Bld) 14 % Low 24-43 [facility] Comment on above: Performed By: #### T SH, VD25, ALB, B12, ECENZ, GLYHGB, ERTPF, FT4 #### [address] [phone] Lotter[employer] Agent: Jonathan Mckee MD MCH (RBC) [Entitic mass] 30.4 pg Normal 25.2-33.5 [facility] Comment on above: Performed By: #### T SH, VD25, ALB, B12, ECENZ, GLYHGB, ERTPF, FT4 #### [address] [phone] Lotter[employer] Agent: Jonathan Mckee MD MCHC (RBC) [Mass/Vol] 33.8 g/dL Normal 28.4-34.8 [facility] Comment on above: Performed By: #### T SH, VD25, ALB, B12, ECENZ, GLYHGB, ERTPF, FT4 #### [address] [phone] Lotter[employer] Agent: Jonathan Mckee MD MCV (RBC) [Entitic vol] 89.8 fL Normal 82.6-102.9 [facility] Comment on above: Performed By: #### T SH, VD25, ALB, B12, ECENZ, GLYHGB, ERTPF, FT4 #### [address] [phone] Lot[employer] Agent: Jonathan Mckee MD Monocytes (Bld) [#/Vol] 0.78 10*3/uL Normal 0.10-1.20 [facility] Comment on above: Performed By: #### T SH, VD25, ALB, B12, ECENZ, GLYHGB, ERTPF, FT4 #### [place] [address] [employer] Agent: Jonathan Mckee MD Monocytes/100 WBC (Bld) 11 % Normal 3-12 [facility] Comment on above: Performed By: #### T SH, VD25, ALB, B12, ECENZ, GLYHGB, ERTPF, FT4 #### [place] [address] [employer] Agent: Jonathan Mckee MD Neutrophil (Seg) 72 % High 36-65 [facility] Comment on above: Performed By: #### T SH, VD25, ALB, B12, ECENZ, GLYHGB, ERTPF, FT4 #### [place] [address] [employer] Agent: Jonathan Mckee MD NRBC Automated 0.0 per 100 WBC Normal 0.0 [facility] Comment on above: Performed By: #### T SH, VD25, ALB, B12, ECENZ, GLYHGB, ERTPF, FT4 #### [address] [phone] Lotter[employer] Agent: Jonathan Mckee MD Platelet mean volume (Bld) [Entitic vol] 10.3 fL Normal 8.1-13.5 [facility] Comment on above: Performed By: #### T SH, VD25, ALB, B12, ECENZ, GLYHGB, ERTPF, FT4 #### [facility] [address] [place] [phone] Lotteries Agent: Jonathan Mckee MD Platelets (Bld) [#/Vol] 201 10*3/uL Normal 138-453 [facility] Comment on above: Performed By: #### T SH, VD25, ALB, B12, ECENZ, GLYHGB, ERTPF, FT4 #### [facility] [address] [place] [phone] Lotteries Agent: Jonathan Mckee MD RBC (Bld) [#/Vol] 3.62 10*6/uL Low 4.21-5.77 [facility] Comment on above: Performed By: #### T SH, VD25, ALB, B12, ECENZ, GLYHGB, ERTPF, FT4 #### [facility] [address] [place] [phone] Lotter[employer] Agent: Jonathan Mckee MD WBC (Bld) [#/Vol] 7.0 10*3/uL Normal 3.5-11.3 [facility] Comment on above: Performed By: #### T SH, VD25, ALB, B12, ECENZ, GLYHGB, ERTPF, FT4 #### [address] [phone] Lotter[employer] Agent: Jonathan Mckee MD XR SHOULDER RIGHT (MIN [...] Inder Pulliam MD 01/22/23 Final result Normal [facility] Albuminon 01-21-2023 Albumin [Mass/Vol] 3.6 g/dL Normal 3.5-5.2 [facility] Comment on above: Performed By: #### T SH, VD25, ALB, B12, ECENZ, GLYHGB, ERTPF, FT4 #### [address] [phone] Lot[employer] Agent: Jonathan Mckee MD Basic Metabolic Profon 01-21 Anion gap [Moles/Vol] 9 mmol/L Normal 9-17 [facility] Comment on above: Performed By: #### B MP, CDP, LISBETH, TROPI #### [address] [phone] Lotter[employer] Agent: Jonathan Mckee MD Calcium [Mass/Vol] 8.6 mg/dL Normal 8.6-10.4 [facility] Comment on above: Performed By: #### B MP, CDP, LISBETH, TROPI #### [address] [phone] Lotter[employer] Agent: Jonathan Mckee MD Chloride [Moles/Vol] 101 mmol/L Normal 98-107 [facility] Comment on above: Performed By: #### B MP, CDP, LISBETH, TROPI #### [address] [phone] Lotteries Agent: Jonathan Mckee MD CO2 [Moles/Vol] 21 mmol/L Normal 20-31 [facility] Comment on above: Performed By: #### B MP, CDP, LISBETH, TROPI #### [address] [phone] Lot[employer] Agent: Jonathan Mckee MD Creatinine [Mass/Vol] 0.9 mg/dL Normal 0.7-1.2 [facility] Comment on above: Performed By: #### B MP, CDP, LISBETH, TROPI #### [facility] [address] [place] [phone] [employer] Agent: Jonathan Mckee MD GFR/1.73 sq M.predicted among non-blacks MDRD (S/P/Bld) [Vol rate/Area] mL/min/{1.73_m2} Normal >60 [facility] Comment on above: Result Comment: These results [...] #### B MP, CDP, LISBETH, TROPI #### [facility] [address] [place] [phone] Lotter[employer] Agent: Jonathan Mckee MD Glucose [Mass/Vol] 113 mg/dL High 70-99 [facility] Comment on above: Performed By: #### B MP, CDP, LISBETH, TROPI #### [facility] [address] [place] [phone] Lotteries Agent: Jonathan Mckee MD Potassium [Moles/Vol] 3.7 mmol/L Normal 3.7-5.3 [facility] Comment on above: Performed By: #### B MP, CDP, LISBETH, TROPI #### [facility] [address] [place] [phone] Lotter[employer] Agent: Jonathan Mckee MD Sodium [Moles/Vol] 131 mmol/L Low 135-144 [facility] Comment on above: Performed By: #### B MP, CDP, LISBETH, TROPI #### [facility] [address] [place] [phone] Lot[employer] Agent: Jonathan Mckee MD Urea nitrogen [Mass/Vol] 30 mg/dL High 8-23 [facility] Comment on above: Performed By: #### B MP, CDP, LISBETH, TROPI #### [address] [phone] Lotter[employer] Agent: Jonathan Mckee MD CBC with Diffon 01-21-2023 Abs. Basophil 0.03 k/uL Normal 0.00-0.20 [facility] Comment on above: Performed By: #### B MP, CDP, LISBETH, TROPI #### [place] [address] [employer] Agent: Jonathan Mckee MD Abs.Imm.Granulocyte 0.10 k/uL Normal 0.00-0.30 [facility] Comment on above: Performed By: #### B MP, CDP, LISBETH, TROPI #### [place] [address] [employer] Agent: Jonathan Mckee MD Abs.Neutrophil (Seg) 9.58 k/uL High 1.50-8.10 [facility] Comment on above: Performed By: #### B MP, CDP, LISBETH, TROPI #### [place] [address] [employer] Agent: Jonathan Mckee MD Basophils/100 WBC (Bld) 0 % Normal 0-2 [facility] Comment on above: Performed By: #### B MP, CDP, LISBETH, TROPI #### [facility] [address] [place] [address] Lot[employer] Agent: Jonathan Mckee MD Eosinophils (Bld) [#/Vol] 0.04 10*3/uL Normal 0.00-0.44 [facility] Comment on above: Performed By: #### B MP, CDP, LISBETH, TROPI #### [facility] [address] [place] [phone] [employer] Agent: Jonathan Mckee MD Eosinophils/100 WBC (Bld) 0 % Low 1-4 [facility] Comment on above: Performed By: #### B MP, CDP, LISBETH, TROPI #### [address] [phone] [employer] Agent: Jonathan Mckee MD Erythrocyte distribution width (RBC) [Ratio] 13.5 % Normal 11.8-14.4 [facility] Comment on above: Performed By: #### B MP, CDP, LISBETH, TROPI #### [address] [phone] [employer]ter[employer] Agent: Jonathan Mckee MD Hematocrit (Bld) [Volume fraction] 31.5 % Low 40.7-50.3 [facility] Comment on above: Performed By: #### B MP, CDP, LISBETH, TROPI #### [facility] [address] [place] [phone] [employer] Agent: Jonathan Mckee MD Hemoglobin (Bld) [Mass/Vol] 10.7 g/dL Low 13.0-17.0 [facility] Comment on above: Performed By: #### B MP, CDP, LISBETH, TROPI #### [facility] [address] [place] [phone] Lotteries Agent: Jonathan Mckee MD Immature granulocytes/100 WBC (Bld) 1 % High 0 [facility] Comment on above: Performed By: #### B MP, CDP, LISBETH, TROPI #### [facility] [address] [place] [phone] Lot[employer] Agent: Jonathan Mckee MD Lymphocytes (Bld) [#/Vol] 0.90 10*3/uL Low 1.10-3.70 [facility] Comment on above: Performed By: #### B MP, CDP, LISBETH, TROPI #### [facility] [address] [place] [phone] Lot[employer]ies Agent: Jonathan Mckee MD Lymphocytes/100 WBC (Bld) 8 % Low 24-43 [facility] Comment on above: Performed By: #### B MP, CDP, LISBETH, TROPI #### [address] [phone] [employer] Agent: Jonathan Mckee MD MCH (RBC) [Entitic mass] 30.3 pg Normal 25.2-33.5 [facility] Comment on above: Performed By: #### B MP, CDP, LISBETH, TROPI #### [address] [phone] Lot[employer] Agent: Jonathan Mckee MD MCHC (RBC) [Mass/Vol] 34.0 g/dL Normal 28.4-34.8 [facility] Comment on above: Performed By: #### B MP, CDP, LISBETH, TROPI #### [address] [phone] Lot[employer] Agent: Jonathan Mckee MD MCV (RBC) [Entitic vol] 89.2 fL Normal 82.6-102.9 [facility] Comment on above: Performed By: #### B MP, CDP, LISBETH, TROPI #### [address] [phone] Lot[employer]ies Agent: Jonathan Mckee MD Monocytes (Bld) [#/Vol] 1.19 10*3/uL Normal 0.10-1.20 [facility] Comment on above: Performed By: #### B MP, CDP, LISBETH, TROPI #### [address] [phone] Lot[employer] Agent: Jonathan Mckee MD Monocytes/100 WBC (Bld) 10 % Normal 3-12 [facility] Comment on above: Performed By: #### B MP, CDP, LISBETH, TROPI #### [address] [phone] Lot[employer] Agent: Jonathan Mckee MD Neutrophil (Seg) 81 % High 36-65 [facility] Comment on above: Performed By: #### B MP, CDP, LISBETH, TROPI #### [address] [phone] Lot[employer] Agent: Jonathan Mckee MD NRBC Automated 0.0 per 100 WBC Normal 0.0 [facility] Comment on above: Performed By: #### B MP, CDP, LISBETH, TROPI #### [address] [phone] Lot[employer] Agent: Jonathan Mckee MD Platelet mean volume (Bld) [Entitic vol] 9.9 fL Normal 8.1-13.5 [facility] Comment on above: Performed By: #### B MP, CDP, LISBETH, TROPI #### [address] [phone] Lot[employer]ies Agent: Jonathan Mckee MD Platelets (Bld) [#/Vol] 186 10*3/uL Normal 138-453 [facility] Comment on above: Performed By: #### B MP, CDP, LISBETH, TROPI #### [address] [phone] Lot[employer]ies Agent: Jonathan Mckee MD RBC (Bld) [#/Vol] 3.53 10*6/uL Low 4.21-5.77 [facility] Comment on above: Performed By: #### B MP, CDP, LISBETH, TROPI #### [address] [phone] Lot[employer] Agent: Jonathan Mckee MD WBC (Bld) [#/Vol] 11.8 10*3/uL High 3.5-11.3 [facility] Comment on above: Performed By: #### B MP, CDP, LISBETH, TROPI #### [facility] [address] [place] [phone] Lotteries Agent: Jonathan Mckee MD CT CHEST ABDOMEN PELVIS WO [facility] 01-21-2023 CT CHEST ABDOMEN PELVIS WO CONTRAST [...] Moe Waters MD 01/20/23 Final result Normal [facility] CT HEAD WO CONTRASTon 2022 CT HEAD [...] Myron Rizo MD 01/21/23 Final result Normal [facility] CT HEAD WO CONTRAST EXAMINATION: CT OF [...] Darrell Hubbard DO 01/21/23 Final result Normal [facility] CT LUMBAR SPINE BONY RECONST RUCTIONon 01-21-2023 [...] Saroj Franklin MD 01/20/23 Final result Normal [facility] CT THORACIC SPINE BONY RECON STRUCTIONon 01-21-2023 [...] Saroj Franklin MD 01/20/23 Final result Normal [facility] Drug Scr, Abuse, Uron 2022 Amphetamine(s),Ur Negative Normal [facility]G [facility] Comment on above: Result Comment: (Positive cutoff 1000 ng/mL) Performed By: #### T SH, VD25, ALB, B12, ECENZ, GLYHGB, ERTPF, FT4 #### [place] [address] [employer] Agent: Jonathan Mckee MD Barbiturate(s),Ur Negative Normal NEG [facility] Comment on above: Result Comment: (Positive cutoff 200 ng/mL) Performed By: #### T SH, VD25, ALB, B12, ECENZ, GLYHGB, ERTPF, FT4 #### [place] [address] [employer] Agent: Jonathan Mckee MD Benzodiazepine(s) Negative Normal [facility]G [facility] Comment on above: Result Comment: (Positive cutoff 200 ng/mL) Performed By: #### T SH, VD25, ALB, B12, ECENZ, GLYHGB, ERTPF, FT4 #### [facility] [address] [place] [address] Lotteries Agent: Jonathan Mckee MD Cannabinoid(s),Ur Negative Normal [facility]G [facility] Comment on above: Result Comment: (Positive cutoff 50 ng/mL) Performed By: #### T SH, VD25, ALB, B12, ECENZ, GLYHGB, ERTPF, FT4 #### [place] [address] [employer] Agent: Jonathan Mckee MD Cocaine Metabolite Negative Normal NEG [facility] Comment on above: Result Comment: (Positive cutoff 300 ng/mL) Performed By: #### T SH, VD25, ALB, B12, ECENZ, GLYHGB, ERTPF, FT4 #### [place] [address] [employer] Agent: Jonathan Mckee MD Fentanyl, Urine Negative Normal NEG [facility] Comment on above: Result Comment: (Positive cutoff 5 ng/ml) Performed By: #### T SH, VD25, ALB, B12, ECENZ, GLYHGB, ERTPF, FT4 #### [address] [phone] Lotteries Agent: Jonathan Mckee MD Interpretive Info Assay provides medic al screening only. The absence of expected drug(s) and/or Normal [facility] Comment on above: Result Comment: meta bolite(s) may indicate diluted or adulterated urine, limitations of testing or timing of collection. Testing for legal purposes should be confirmed by another method. To request confirmation of test result, please call the lab within 7 days of sample submission. Performed By: #### T SH, VD25, ALB, B12, ECENZ, GLYHGB, ERTPF, FT4 #### [facility] [address] [place] [phone] Lotteries Agent: Jonathan Mckee MD Methadone Ql (U) Negative Normal NEG [facility] Comment on above: Result Comment: (Positive cutoff 300 ng/mL) Performed By: #### T SH, VD25, ALB, B12, ECENZ, GLYHGB, ERTPF, FT4 #### [facility] [address] [place] [phone] Lotteries Agent: Jonathan Mckee MD Opiate(s), Ur Negative Normal NEG [facility] Comment on above: Result Comment: (Positive cutoff 300 ng/mL) Performed By: #### T SH, VD25, ALB, B12, ECENZ, GLYHGB, ERTPF, FT4 #### [facility] [address] [place] [phone] Lotteries Agent: Jonathan Mckee MD Oxycodone, Urine Negative Normal NEG [facility] Comment on above: Result Comment: (Positive cutoff 100 ng/mL) Performed By: #### T SH, VD25, ALB, B12, ECENZ, GLYHGB, ERTPF, FT4 #### [facility] [address] [place] [phone] Lotteries Agent: Jonathan Mckee MD Phencyclidine, Ur Negative Normal NEG [facility] Comment on above: Result Comment: (Positive cutoff 25 ng/mL) Performed By: #### T SH, VD25, ALB, B12, ECENZ, GLYHGB, ERTPF, FT4 #### [facility] [address] [place] [address] [phone] Lotteries Agent: Jonathan Mckee MD Hemoglobin A1Con 01-21-2023 Glucose [Mass/Vol] 97 mg/dL Normal [facility] Comment on above: Result Comment: The ADA and AACC recommend providing the estimated average glucose result to permit better patient understanding of their HBA1c result. Performed By: #### T SH, VD25, ALB, B12, ECENZ, GLYHGB, ERTPF, FT4 #### [facility] [address] [place] [address] [phone] Lot[employer] Agent: Jonathan Mckee MD HbA1c (Bld) [Mass fraction] 5.0 % Normal 4.0-6.0 [facility] Comment on above: Performed By: #### T SH, VD25, ALB, B12, ECENZ, GLYHGB, ERTPF, FT4 #### [facility] [address] [place] [address] [phone] Lot[employer]ies Agent: Jonathan Mckee MD Myoglobinon 01-21-2023 Myoglobin [Mass/Vol] 888 ng/mL High 28-72 [facility] Comment on above: Performed By: #### T SH, VD25, ALB, B12, ECENZ, GLYHGB, ERTPF, FT4 #### [facility] [address] [place] [phone] [employer] Agent: Jonathan Mckee MD Thyroid Stim. Horm.on 2022 Thyroid Stim. Horm. 4.37 uIU/mL Normal 0.30-5.00 [facility] Comment on above: Performed By: #### T SH, VD25, ALB, B12, ECENZ, GLYHGB, ERTPF, FT4 #### [address] [phone] Lot[employer] Agent: Jonathan Mckee MD Thyroxine, Freeon 01-21-2023 Thyroxine, Free 1.4 ng/dL Normal 0.9-1.7 [facility] Comment on above: Performed By: #### T SH, VD25, ALB, B12, ECENZ, GLYHGB, ERTPF, FT4 #### [facility] [address] [place] [phone] Lotteries Agent: Jonathan Mckee MD Trauma Profileon 01-21-2023 Anion gap [Moles/Vol] 15 mmol/L Normal 9-17 [facility] Comment on above: Performed By: #### T SH, VD25, ALB, B12, ECENZ, GLYHGB, ERTPF, FT4 #### [address] [phone] Lotteries Agent: Jonathan Mckee MD Chloride [Moles/Vol] 98 mmol/L Normal 98-107 [facility] Comment on above: Performed By: #### T SH, VD25, ALB, B12, ECENZ, GLYHGB, ERTPF, FT4 #### [address] [phone] Lotteries Agent: Jonathan Mckee MD CO2 [Moles/Vol] 19 mmol/L Low 20-31 [facility] Comment on above: Performed By: #### T SH, VD25, ALB, B12, ECENZ, GLYHGB, ERTPF, FT4 #### [address] [phone] Lotteries Agent: Jonathan Mckee MD Creatinine [Mass/Vol] 0.9 mg/dL Normal 0.7-1.2 [facility] Comment on above: Performed By: #### T SH, VD25, ALB, B12, ECENZ, GLYHGB, ERTPF, FT4 #### [address] [phone] Lotteries Agent: Jonathan Mckee MD Ethanol [Mass/Vol] mg/dL Normal <10 [facility] Comment on above: Performed By: #### T SH, VD25, ALB, B12, ECENZ, GLYHGB, ERTPF, FT4 #### [address] [phone] Lotteries Agent: Jonathan Mckee MD Ethanol percent <0.010 Normal <0.010 [facility] Comment on above: Performed By: #### T SH, VD25, ALB, B12, ECENZ, GLYHGB, ERTPF, FT4 #### [address] [phone] Lotteries Agent: Jonathan Mckee MD GFR/1.73 sq M.predicted among non-blacks MDRD (S/P/Bld) [Vol rate/Area] 58 mL/min/{1.73_m2} Low >60 [facility] Comment on above: Result Comment: These results [...] ALB, B12, ECENZ, GLYHGB, ERTPF, FT4 #### [address] [phone] Lotteries Agent: Jonathan Mckee MD Glucose [Mass/Vol] 111 mg/dL High 70-99 [facility] Comment on above: Performed By: #### T SH, VD25, ALB, B12, ECENZ, GLYHGB, ERTPF, FT4 #### [address] [phone] Lotteries Agent: Jonathan Mckee MD Potassium [Moles/Vol] 3.7 mmol/L Normal 3.7-5.3 [facility] Comment on above: Performed By: #### T SH, VD25, ALB, B12, ECENZ, GLYHGB, ERTPF, FT4 #### [facility] [place], [place] [phone] Lotteries Agent: Jonathan Mckee MD Sodium [Moles/Vol] 132 mmol/L Low 135-144 [facility] Comment on above: Performed By: #### T SH, VD25, ALB, B12, ECENZ, GLYHGB, ERTPF, FT4 #### [facility] [address] [place] [address] [phone] Lotteries Agent: Jonathan Mckee MD Urea nitrogen [Mass/Vol] 31 mg/dL High 8-23 [facility] Comment on above: Performed By: #### T SH, VD25, ALB, B12, ECENZ, GLYHGB, ERTPF, FT4 #### [facility] [address] [place] [address] [phone] Lotteries Agent: Jonathan Mckee MD HCG Screen, Blood Negative Normal [facility] Comment on above: Result Comment: Spec imens with hCG levels near the threshold of the test (25 mIU/mL) may give a negative or indeterminate result. In such cases, another test should be performed with a new specimen in 48-72 hours. If early is suspected clinically in this setting, correlation with quantitative serum b-hCG level is suggested. [employer] has confirmed the use of plasma for this test. This has not been cleared or approved by the U.S. Food and Drug Administration. The FDA has determined that such clearance is not necessary. Performed By: #### T SH, VD25, ALB, B12, ECENZ, GLYHGB, ERTPF, FT4 #### [id number] [place], [place] [phone] Lotteries Agent: Jonathan Mckee MD aPTT Coag (Bld) [Time] 28.4 s Normal 23.0-36.5 [facility] Comment on above: Result Comment: IV Heparin Therapy Range: 66.0-92.0 sec Performed By: #### T SH, VD25, ALB, B12, ECENZ, GLYHGB, ERTPF, FT4 #### [place] [address] Lotteries Agent: Jonathan Mckee MD INR Coag (PPP) [Relative time] 1.1 {INR} Normal [facility] Comment on above: Result Comment: Therapeutic Range: Moderate Anticoagulant Intensity: INR = 2.0-3.0 High Anticoagulant Intensity: INR = 2.5-3.5 Performed By: #### T SH, VD25, ALB, B12, ECENZ, GLYHGB, ERTPF, FT4 #### [place] [phone] Lotteries Agent: Jonathan Mckee MD PT Coag (PPP) [Time] 14.3 s Normal 11.7-14.9 [facility] Comment on above: Performed By: #### T SH, VD25, ALB, B12, ECENZ, GLYHGB, ERTPF, FT4 #### [place] [address] [employer] Agent: Jonathan Mckee MD Erythrocyte distribution width (RBC) [Ratio] 13.4 % Normal 11.8-14.4 [facility] Comment on above: Performed By: #### T SH, VD25, ALB, B12, ECENZ, GLYHGB, ERTPF, FT4 #### [place] [phone] Lotteries Agent: Jonathan Mckee MD Hematocrit (Bld) [Volume fraction] 35.3 % Low 40.7-50.3 [facility] Comment on above: Performed By: #### T SH, VD25, ALB, B12, ECENZ, GLYHGB, ERTPF, FT4 #### [address] [phone] Lotteries Agent: Jonathan Mckee MD Hemoglobin (Bld) [Mass/Vol] 12.1 g/dL Low 13.0-17.0 [facility] Comment on above: Performed By: #### T SH, VD25, ALB, B12, ECENZ, GLYHGB, ERTPF, FT4 #### [address] [phone] Lotteries Agent: Jonathan Mckee MD MCH (RBC) [Entitic mass] 30.4 pg Normal 25.2-33.5 [facility] Comment on above: Performed By: #### T SH, VD25, ALB, B12, ECENZ, GLYHGB, ERTPF, FT4 #### [address] [phone] Lotteries Agent: Jonathan Mckee MD MCHC (RBC) [Mass/Vol] 34.3 g/dL Normal 28.4-34.8 [facility] Comment on above: Performed By: #### T SH, VD25, ALB, B12, ECENZ, GLYHGB, ERTPF, FT4 #### [address] [phone] Lotteries Agent: Jonathan Mckee MD MCV (RBC) [Entitic vol] 88.7 fL Normal 82.6-102.9 [facility] Comment on above: Performed By: #### T SH, VD25, ALB, B12, ECENZ, GLYHGB, ERTPF, FT4 #### [address] [phone] Lotteries Agent: Jonathan Mckee MD NRBC Automated 0.0 per 100 WBC Normal 0.0 [facility] Comment on above: Performed By: #### T SH, VD25, ALB, B12, ECENZ, GLYHGB, ERTPF, FT4 #### [address] [phone] Lotteries Agent: Jonathan Mckee MD Platelet mean volume (Bld) [Entitic vol] 10.4 fL Normal 8.1-13.5 [facility] Comment on above: Performed By: #### T SH, VD25, ALB, B12, ECENZ, GLYHGB, ERTPF, FT4 #### [address] [phone] Lotteries Agent: Jonathan Mckee MD Platelets (Bld) [#/Vol] 212 10*3/uL Normal 138-453 [facility] Comment on above: Performed By: #### T SH, VD25, ALB, B12, ECENZ, GLYHGB, ERTPF, FT4 #### [address] [phone] Lotteries Agent: Jonathan Mckee MD RBC (Bld) [#/Vol] 3.98 10*6/uL Low 4.21-5.77 [facility] Comment on above: Performed By: #### T SH, VD25, ALB, B12, ECENZ, GLYHGB, ERTPF, FT4 #### [place] [address] [employer] Agent: Jonathan Mckee MD WBC (Bld) [#/Vol] 14.3 10*3/uL High 3.5-11.3 [facility] Comment on above: Performed By: #### T SH, VD25, ALB, B12, ECENZ, GLYHGB, ERTPF, FT4 #### [address] [phone] Lotteries Agent: Jonathan Mckee MD Body Temp. 37.0 Normal [facility] Comment on above: Performed By: #### T SH, VD25, ALB, B12, ECENZ, GLYHGB, ERTPF, FT4 #### [address] [phone] Lotteries Agent: Jonathan Mckee MD Carboxy Hgb 1.1 % Normal 0-5 [facility] Comment on above: Result Comment: Reference Range: Non-Smokers 0-2% Average Smoker 2-4% Heavy Smoker <10% Performed By: #### T SH, VD25, ALB, B12, ECENZ, GLYHGB, ERTPF, FT4 #### [address] [phone] Lotteries Agent: Jonathan Mckee MD FIO2 INFORMATION NOT PROVIDED Normal [facility] Comment on above: Performed By: #### T SH, VD25, ALB, B12, ECENZ, GLYHGB, ERTPF, FT4 #### [address] [phone] Lotteries Agent: Jonathan Mckee MD HCO3 (Bld) [Moles/Vol] 24.1 mmol/L Normal 24-30 [facility] Comment on above: Performed By: #### T SH, VD25, ALB, B12, ECENZ, GLYHGB, ERTPF, FT4 #### [address] [phone] Lotteries Agent: Jonathan Mckee MD Oxygen saturation in Blood 46.4 % Low 60.0-85.0 [facility] Comment on above: Performed By: #### T SH, VD25, ALB, B12, ECENZ, GLYHGB, ERTPF, FT4 #### [address] [phone] Lotteries Agent: Jonathan Mckee MD pCO2 37.1 mm Hg Low 39-55 [facility] Comment on above: Performed By: #### T SH, VD25, ALB, B12, ECENZ, GLYHGB, ERTPF, FT4 #### [address] [phone] Lotteries Agent: Jonathan Mckee MD pH (Bld) 7.428 [pH] High 7.320-7.420 [facility] Comment on above: Performed By: #### T SH, VD25, ALB, B12, ECENZ, GLYHGB, ERTPF, FT4 #### [facility] [address] [place] [phone] Lotteries Agent: Jonathan Mckee MD pO2 28.2 mm Hg Low 30-50 [facility] Comment on above: Performed By: #### T SH, VD25, ALB, B12, ECENZ, GLYHGB, ERTPF, FT4 #### [facility] [address] [place] [phone] Lotteries Agent: Jonathan Mckee MD Positive Base Excess 0.5 mmol/L Normal 0.0-2.0 [facility] Comment on above: Performed By: #### T SH, VD25, ALB, B12, ECENZ, GLYHGB, ERTPF, FT4 #### [facility] [address] [place] [phone] Lotteries Agent: Jonathan Mckee MD Blood Bank BILL FOR SERVICES PERFORMED Normal [facility] Comment on above: Performed By: #### T SH, VD25, ALB, B12, ECENZ, GLYHGB, ERTPF, FT4 #### [facility] [address] [place] [phone] Lotteries Agent: Jonathan Mckee MD Trop/Myoglobinon 01-21-2023 Myoglobin [Mass/Vol] 1084 ng/mL High 28-72 [facility] Comment on above: Performed By: #### T SH, VD25, ALB, B12, ECENZ, GLYHGB, ERTPF, FT4 #### [facility] [address] [place] [phone] Lotteries Agent: Jonathan Mckee MD Troponin, High Sens 49 ng/L High 0-22 [facility] Comment on above: Result Comment: High Sensitivity Troponin values cannot be compared with other Troponin methodologies. Performed By: #### T SH, VD25, ALB, B12, ECENZ, GLYHGB, ERTPF, FT4 #### [facility] [address] [place] [phone] Lotteries Agent: Jonathan Mckee MD Troponinon 01-21-2023 Troponin, High Sens 48 ng/L High 0-22 [facility] Comment on above: Result Comment: High Sensitivity Troponin values cannot be compared with other Troponin methodologies. Performed By: #### T SH, VD25, ALB, B12, ECENZ, GLYHGB, ERTPF, FT4 #### [address] [phone] Lotteries Agent: Jonathan Mckee MD Type + Screenon 01-21-2023 Type + Screen Sample Expiration 01/23/2023,2359 Arm Band Number BE [id number] ABO/Rh(D) O POSITIVE Antibody Screen NEGATIVE Normal [facility] Comment on above: Performed By: #### T SH, VD25, ALB, B12, ECENZ, GLYHGB, ERTPF, FT4 #### [address] [phone] Lotteries Agent: Jonathan Mckee MD Urinalysis, Routineon 2022 Bilirubin, SemiQt,Ur Negative Normal NEG [facility] Comment on above: Performed By: #### T SH, VD25, ALB, B12, ECENZ, GLYHGB, ERTPF, FT4 #### [address] [phone] Lotteries Agent: Jonathan Mckee MD Blood, Urine Negative Normal NEG [facility] Comment on above: Performed By: #### T SH, VD25, ALB, B12, ECENZ, GLYHGB, ERTPF, FT4 #### [facility] [address] [place] [phone] Lotteries Agent: Jonathan Mckee MD Clarity (U) Clear Normal CLEAR [facility] Comment on above: Performed By: #### T SH, VD25, ALB, B12, ECENZ, GLYHGB, ERTPF, FT4 #### [facility] [address] [place] [phone] Lotteries Agent: Jonathan Mckee MD Color (U) Yellow Normal YEL [facility] Comment on above: Performed By: #### T SH, VD25, ALB, B12, ECENZ, GLYHGB, ERTPF, FT4 #### [facility] [address] [place] [phone] Lotteries Agent: Jonathan Mckee MD Glucose Ql (U) Negative Normal NEG [facility] Comment on above: Performed By: #### T SH, VD25, ALB, B12, ECENZ, GLYHGB, ERTPF, FT4 #### [facility] [address] [place] [phone] Lotteries Agent: Jonathan Mckee MD Ketones Ql (U) SMALL Abnormal NEG [facility] Comment on above: Performed By: #### T SH, VD25, ALB, B12, ECENZ, GLYHGB, ERTPF, FT4 #### [facility] [address] [place] [phone] Lotteries Agent: Jonathan Mckee MD Leukocyte esterase Test strip Ql (U) TRACE Abnormal NEG [facility] Comment on above: Performed By: #### T SH, VD25, ALB, B12, ECENZ, GLYHGB, ERTPF, FT4 #### [facility] [address] [place] [phone] Lotteries Agent: Jonathan Mckee MD Nitrite,Ur Negative Normal NEG [facility] Comment on above: Performed By: #### T SH, VD25, ALB, B12, ECENZ, GLYHGB, ERTPF, FT4 #### [facility] [address] [place] [phone] Lotteries Agent: Jonathan Mckee MD PH,Ur 8.0 Normal 5.0-8.0 [facility] Comment on above: Performed By: #### T SH, VD25, ALB, B12, ECENZ, GLYHGB, ERTPF, FT4 #### [address] [phone] Lotteries Agent: Jonathan Mckee MD Protein Ql (U) Negative Normal NEG [facility] Comment on above: Performed By: #### T SH, VD25, ALB, B12, ECENZ, GLYHGB, ERTPF, FT4 #### [address] [phone] Lotteries Agent: Jonathan Mckee MD Spec. [place],Ur 1.018 Normal 1.005-1.030 [facility] Comment on above: Performed By: #### T SH, VD25, ALB, B12, ECENZ, GLYHGB, ERTPF, FT4 #### [address] [phone] Lotteries Agent: Jonathan Mckee MD Urobilinogen,Ur Normal Normal 0.0-1.0 [facility] Comment on above: Performed By: #### T SH, VD25, ALB, B12, ECENZ, GLYHGB, ERTPF, FT4 #### [address] [phone] Lotteries Agent: Jonathan Mckee MD Urinalysis,Microon 3 Bacteria None Normal NONE [facility] Comment on above: Performed By: #### T SH, VD25, ALB, B12, ECENZ, GLYHGB, ERTPF, FT4 #### [address] [phone] Lotteries Agent: Jonathan Mckee MD Casts 0 TO 2 HYALINE Normal 0-8 [facility] Comment on above: Result Comment: Refe rence range defined for non-centrifuged specimen. Performed By: #### T SH, VD25, ALB, B12, ECENZ, GLYHGB, ERTPF, FT4 #### [address] [phone] Lotteries Agent: Jonathan Mckee MD Epithelial cells LM Ql (Urine sed) 0 TO 2 Normal 0-5 [facility] Comment on above: Performed By: #### T SH, VD25, ALB, B12, ECENZ, GLYHGB, ERTPF, FT4 #### [address] [phone] Lotteries Agent: Jonathan Mckee MD Urine RBC's 0 TO 2 Normal 0-4 [facility] Comment on above: Result Comment: Refe rence range defined for non-centrifuged specimen. Performed By: #### T SH, VD25, ALB, B12, ECENZ, GLYHGB, ERTPF, FT4 #### [facility] [address] [place] [phone] Lotteries Agent: Jonathan Mckee MD Urine WBC's 2 TO 5 Normal 0-5 [facility] Comment on above: Performed By: #### T SH, VD25, ALB, B12, ECENZ, GLYHGB, ERTPF, FT4 #### [address] [phone] Lotteries Agent: Jonathan Mckee MD Vitamin B12on 01-21-2023 Cobalamin (Vitamin B12) [Mass/Vol] 544 pg/mL Normal 232-1245 [facility] Comment on above: Performed By: #### T SH, VD25, ALB, B12, ECENZ, GLYHGB, ERTPF, FT4 #### [address] [phone] Lotteries Agent: Jonathan Mckee MD Vitamin D 25 OHon 01-21-2023 Vitamin D 25 [place] 37.4 ng/mL Normal >29.9 [facility] Comment on above: Result Comment: Reference Range: Vitamin D status Range Deficiency <20 ng/mL Mild Deficiency 20-30 ng/mL Sufficiency 30-100 ng/mL Toxicity >100 ng/mL Performed By: #### T SH, VD25, ALB, B12, ECENZ, GLYHGB, ERTPF, FT4 #### [facility] [address] [place] [address] Lotteries Agent: Jonathan Mckee MD XR WRIST LEFT (MIN [...] Moe Waters MD 01/20/23 Final result Normal [facility] Office Visiton 10-02-2022 Follow-up visit [id number] Tal Torres 1935 M Date Provider Department Center 10/02/2022 DIMA HENDRIX [facility] Helene [facility] No family history on file Level of Service:97237 [place] OFFICE/OUTPATIENT ESTABLISHED LOW MDM 20-29 MIN Reason for Visit and Comments: Follow-up [[id number]] - FOLLOW UP FROM [facility] Jose 09-11-2022 LESLIE --- Attestation signed by Robby Buckner MD at 09/11/2022 5:02 PM agree Patient: Garth Torres Procedure Information Date/Time: 09/11/22 1030 Procedure: TRANSESOPHAGEAL ECHO (PETERSON) Location: [facility] Vascular Lab Clinical [...] to blood products. Additional Equipment Requests Normal [facility] HPon 09-11-2022 History Of Present Illness [...] a hospital admission) XR SHOULDER 2V 06/03/2020 [id number] Final Review of Systems All other systems [...] severity of aortic stenosis. Daniel Nelson MD [facility] NURSNOTEon 09-11-2022 NURSNOTE RN educated pt on d/ c instructions. RN encouraged pt to voice any questions or concerns. Pt verbalizes no questions or concerns at this time.Swallow test passed by patient at bedside. [facility] Telephoneon 09-03-2022 Telephone [id number] Tal Torres 1935 [facility] Provider Department [place] 09/03/2022 FOX MANZANO [facility] No family history on file [facility] Office Visiton 08-06-2022 Follow-up visit [id number] Tal Torres 1935 [facility] Provider Department [place] 08/06/2022 Kb-DIMA WHITAKER CARD [facility] No family history on file Level of Service:72906 [place] OFFICE/OUTPATIENT NEW MODERATE MDM 45-59 MINUTES Reason for Visit and Comments: Establish Care [42] - AORTIC STENOSIS [facility] Basic Metabolic Panelon 03-0 Calcium [Mass/Vol] 9.4 mg/dL Normal 8.2-10.2 [facility] Comment on above: Order Comment: Reaso n for Exam Blood tests prior to treatment or procedure Result Comment: PERF ORMED BY: [place] [address] PATHOLOGIST [employer] TENDER MAXI BENNETT M.D. Performed By: #### C BC, BMP #### [place] [address] [facility] Chloride [Moles/Vol] 97 mmol/L Normal 95-114 [facility] Comment on above: Order Comment: Reaso n for Exam Blood tests prior to treatment or procedure Performed By: #### C BC, BMP #### [facility] [address] CO2 [Moles/Vol] 25.9 mmol/L Normal 22.0-30.0 [facility] Comment on above: Order Comment: Reaso n for Exam Blood tests prior to treatment or procedure Performed By: #### C BC, BMP #### [facility] [address] Creatinine [Mass/Vol] 1.13 mg/dL Normal 0.64-1.27 [facility] Comment on above: Order Comment: Reaso n for Exam Blood tests prior to treatment or procedure Performed By: #### C BC, BMP #### [address] Estimated GFR ( [place] > 60 [facility] Comment on above: Order Comment: Reaso n for Exam Blood tests prior to treatment or procedure Result Comment: GFR estimated reference range: According to KDOQI guidelines, <60 ml/min/1.73m2 is sufficient to diagnose a patient with chronic kidney disease. Performed By: #### C BC, BMP #### [address] Estimated GFR (Non- Am > 60 [facility] Comment on above: Order Comment: Reaso n for Exam Blood tests prior to treatment or procedure Performed By: #### C BC, BMP #### [place] [address] [place] Glucose [Mass/Vol] 83 mg/dL Normal 70-100 [facility] Comment on above: Order Comment: Reaso n for Exam Blood tests prior to treatment or procedure Result Comment: [place] Glucose Reference Range is dependent on time and content of last meal. Glucose of more than 200 mg/dL in a nonstressed, ambulatory subject supports the diagnosis of Diabetes Mellitus. ADA recommended reference range Performed By: #### C BC, BMP #### [facility] [address] [place] [address] Potassium [Moles/Vol] 4.5 mmol/L Normal 3.5-5.1 [facility] Comment on above: Order Comment: Reaso n for Exam Blood tests prior to treatment or procedure Performed By: #### C BC, BMP #### [address] Sodium [Moles/Vol] 131 mmol/L Low 136-146 [facility] Comment on above: Order Comment: Reaso n for Exam Blood tests prior to treatment or procedure Performed By: #### C BC, BMP #### [address] Urea nitrogen [Mass/Vol] 20 mg/dL Normal 9-23 [facility] Comment on above: Order Comment: Reaso n for Exam Blood tests prior to treatment or procedure Performed By: #### C BC, BMP #### [address] Complete Blood Count Auto Di ffon 04-22-2021 Basophils (Bld) [#/Vol] 0.1 10*3/uL Normal 0.0-0.2 [facility] Comment on above: Order Comment: Reaso n for Exam Blood tests prior to treatment or procedure Result Comment: PERF ORMED BY: [place] [address] PATHOLOGIST [employer] TENDER MAXI BENNETT M.D. Performed By: #### C BC, BMP #### [address] Basophils/100 WBC (Bld) 1.0 % Normal . [facility] Comment on above: Order Comment: Reaso n for Exam Blood tests prior to treatment or procedure Performed By: #### C BC, BMP #### [address] Eosinophils (Bld) [#/Vol] 0.2 10*3/uL Normal 0.0-0.45 [facility] Comment on above: Order Comment: Reaso n for Exam Blood tests prior to treatment or procedure Performed By: #### C BC, BMP #### [address] Eosinophils/100 WBC (Bld) 2.5 % Normal . [facility] Comment on above: Order Comment: Reaso n for Exam Blood tests prior to treatment or procedure Performed By: #### C BC, BMP #### [address] Erythrocyte distribution width (RBC) [Ratio] 14.2 % Normal 12.0-14.8 [facility] Comment on above: Order Comment: Reaso n for Exam Blood tests prior to treatment or procedure Performed By: #### C BC, BMP #### [address] Hematocrit (Bld) [Volume fraction] 41.9 % Normal 38.8-50.0 [facility] Comment on above: Order Comment: Reaso n for Exam Blood tests prior to treatment or procedure Performed By: #### C BC, BMP #### [address] Hemoglobin (Bld) [Mass/Vol] 14.3 g/dL Normal 13.0-17.0 [facility] Comment on above: Order Comment: Reaso n for Exam Blood tests prior to treatment or procedure Performed By: #### C BC, BMP #### [address] Lymphocytes (Bld) [#/Vol] 1.1 10*3/uL Normal 1.00-4.8 [facility] Comment on above: Order Comment: Reaso n for Exam Blood tests prior to treatment or procedure Performed By: #### C BC, BMP #### [place] [address] [place] Lymphocytes/100 WBC (Bld) 14.2 % Normal . [facility] Comment on above: Order Comment: Reaso n for Exam Blood tests prior to treatment or procedure Performed By: #### C BC, BMP #### [address] MCH (RBC) [Entitic mass] 29.7 pg Normal 27.5-35.2 [facility] Comment on above: Order Comment: Reaso n for Exam Blood tests prior to treatment or procedure Performed By: #### C BC, BMP #### [address] MCV (RBC) [Entitic vol] 87.1 fL Normal 83.5-101 [facility] Comment on above: Order Comment: Reaso n for Exam Blood tests prior to treatment or procedure Performed By: #### C BC, BMP #### [address] Mean Corpuscular HGB Conc 34.0 g/dL Normal 32.5-35.6 [facility] Comment on above: Order Comment: Reaso n for Exam Blood tests prior to treatment or procedure Performed By: #### C BC, BMP #### [address] Monocytes (Bld) [#/Vol] 0.7 10*3/uL Normal 0.0-0.8 [facility] Comment on above: Order Comment: Reaso n for Exam Blood tests prior to treatment or procedure Performed By: #### C BC, BMP #### [address] Monocytes/100 WBC (Bld) 8.7 % Normal . [facility] Comment on above: Order Comment: Reaso n for Exam Blood tests prior to treatment or procedure Performed By: #### C BC, BMP #### [place] [address] [place] Neutrophils (Bld) [#/Vol] 5.6 10*3/uL Normal 1.8-7.7 [facility] Comment on above: Order Comment: Reaso n for Exam Blood tests prior to treatment or procedure Performed By: #### C BC, BMP #### [address] Neutrophils/100 WBC (Bld) 73.6 % Normal . [facility] Comment on above: Order Comment: Reaso n for Exam Blood tests prior to treatment or procedure Performed By: #### C BC, BMP #### [facility] [address] [place] [address] [place] Nucleated RBC/100 WBC (Bld) [Ratio] 0.1 % Normal 0-0.5 [facility] Comment on above: Order Comment: Reaso n for Exam Blood tests prior to treatment or procedure Performed By: #### C BC, BMP #### [address] Platelet mean volume (Bld) [Entitic vol] 9.8 fL Normal 6.6-10.1 [facility] Comment on above: Order Comment: Reaso n for Exam Blood tests prior to treatment or procedure Performed By: #### C BC, BMP #### [place] [address] [place] Platelets (Bld) [#/Vol] 200 10*3/uL Normal 150-450 [facility] Comment on above: Order Comment: Reaso n for Exam Blood tests prior to treatment or procedure Performed By: #### C BC, BMP #### [address] RBC (Bld) [#/Vol] 4.81 10*6/uL Normal 3.90-5.60 [facility] Comment on above: Order Comment: Reaso n for Exam Blood tests prior to treatment or procedure Performed By: #### C BC, BMP #### [address] WBC (Bld) [#/Vol] 7.6 10*3/uL Normal 4.5-11.0 [facility] Comment on above: Order Comment: Reaso n for Exam Blood tests prior to treatment or procedure Performed By: #### C BC, BMP #### [address] ECG 12 lead ECGon 04-22-2021 [address] [facility] [address] [place] [address] Electrocardiograph Report Signed Patient: Garth Torres MR#: [id number] 25 : 1935 Acct:[id number] Age/Sex: 86 / M ADM Date: 04/22/21 Loc: Room: Type: [facility] Attending Dr: Vlad Denis DO Ordering Provider: [...] MUS Signed By Mitesh Wei DO 04/22 [facility] Ambulatory Clinical Summaryo n 02-11-2021 Ambulatory Clinical Summary {[id number] [facility] Patient Educationon 02-12-20 21 Patient Education [...] Follow these instructions at home: ? Take xfyd-mhl-uezenob and prescription medicines only as told by [...] You d (more content not included)... Normal [facility] Urology Office/Clinic Noteon 02-11-2021 Urology Office/Clinic [...] Urnls Dip Stick Auto w/o Microscopy POC 91599 3. Urgency of urination (R39.15: Urgency of [...] [facility] [address], [place] [address]- Additional Instructions: Patient Education Benign Prostatic Hyperplasia [...] more t (more content not included)... Normal [facility] Comment on above: Result Comment: Elec tronically Signed By: Herb Dutton MD, Terrance Bal\.br\Date and Time Signed: 02/11/21 12:57 EST\.br\Electronically Co-Signed By: Ling Melara MA\.br\Date and Time Co-Signed: 02/11/21 12:33 EST Comprehensive Metabolic Pane daniela 02-10-2021 Albumin [Mass/Vol] 3.8 g/dL Normal 3.6-5.1 [facility] Comment on above: Performed By: #### L IPD, CMP #### [facility] [address] [facility] [place] [id number] Albumin/Globulin [Mass ratio] 1.7 {ratio} Normal 1.0-2.5 [facility] Comment on above: Performed By: #### L IPD, CMP #### [facility] [address] [facility] [id number] ALP [Catalytic activity/Vol] 119 U/L Normal 40-129 [facility] Comment on above: Performed By: #### L IPD, CMP #### [facility] [address] [facility] [place] [id number] ALT [Catalytic activity/Vol] 12 U/L Normal 9-46 [facility] Comment on above: Result Comment: 01/15 Female reference range changed. Performed By: #### L IPD, CMP #### [facility] [address] [facility] [place] [id number] Anion gap [Moles/Vol] 14 mmol/L Normal 12-20 [facility] Comment on above: Result Comment: Effe ctive 02/20/2019 reference range changed. Performed By: #### L IPD, CMP #### [facility] [address] [place] [id number] AST [Catalytic activity/Vol] 17 U/L Normal 10-40 [facility] Comment on above: Performed By: #### L IPD, CMP #### [facility] [address] [facility] [place] [id number] Bilirubin [Mass/Vol] 0.50 mg/dL Normal 0.30-1.20 [place] [employer] Comment on above: Performed By: #### L IPD, CMP #### [facility] [address] [place], [place] [id number] BUN/CREA 20 Ratio Normal 6-22 [facility] Comment on above: Performed By: #### L IPD, CMP #### [facility] [address] [place], [place] [id number] Calcium [Mass/Vol] 9.4 mg/dL Normal 8.6-10.2 [facility] Comment on above: Performed By: #### L IPD, CMP #### [facility] [address] [place], [place] [id number] Chloride [Moles/Vol] 101 mmol/L Normal 98-107 [facility] Comment on above: Performed By: #### L IPD, CMP #### [facility] [address] [place], [place] [id number] CO2 [Moles/Vol] 26 mmol/L Normal 20-31 [facility] Comment on above: Performed By: #### L IPD, CMP #### [facility] [address] [place], [place] [id number] Creatinine [Mass/Vol] 1.1 mg/dL Normal 0.7-1.4 [facility] Comment on above: Performed By: #### L IPD, CMP #### [facility] [address] [place], [place] [id number] eGFRAA 78 mL/min/1.73m2 Normal >60 [facility] Comment on above: Performed By: #### L IPD, CMP #### [facility] [address] [place], [place] [id number] eGFRNAA 64 mL/min/1.73m2 Normal >60 [facility] Comment on above: Performed By: #### L IPD, CMP #### [facility] [address] [place], [place] [id number] Globulin (S) [Mass/Vol] 2.3 g/dL Normal 1.9-3.7 [facility] Comment on above: Performed By: #### L IPD, CMP #### [facility] [address] [place], [place] [id number] Glucose [Mass/Vol] 85 mg/dL Normal 65-99 [facility] [place] [employer] Comment on above: Result Comment: For FASTING Glucose --- ADA reference ranges: Normal 65-99 mg/dl Prediabetes 100-125 Diabetes >/= 126 Performed By: #### L IPD, CMP #### [facility] [address] [place], [place] [id number] Potassium [Moles/Vol] 4.1 mmol/L Normal 3.5-5.5 [facility] [employer] Comment on above: Performed By: #### L IPD, CMP #### [facility] [address] [place], [place] [id number] Protein [Mass/Vol] 6.1 g/dL Normal 6.1-8.1 [place] [employer] Comment on above: Performed By: #### L IPD, CMP #### [facility] [address] [place], [place] [id number] Sodium [Moles/Vol] 137 mmol/L Normal 135-146 [place] [facility] [employer] Comment on above: Performed By: #### L IPD, CMP #### [facility] [address] [place], [place] [id number] Urea nitrogen [Mass/Vol] 22 mg/dL Normal 7-25 [facility] [employer] Comment on above: Performed By: #### L IPD, CMP #### [facility] [address] [place], [place] [id number] Hemoglobin A1Con 02-10-2021 EAG 114.02 Normal [facility] [employer] Comment on above: Performed By: #### A 1C #### [facility] [address] [place], [place] [id number] HbA1c (Bld) [Mass fraction] 5.6 % Normal 4.0-6.0 [facility] [employer] Comment on above: Performed By: #### A 1C #### [facility] [address] [place], [place] [id number] Lipid Panelon 02-10-2021 Cholesterol [Mass/Vol] 138 mg/dL Normal 125-200 [facility] [employer] Comment on above: Result Comment: Low risk < 200mg/dL Borderline risk 201-239 mg/dl High risk > or equal to 240 Performed By: #### L IPD, CMP #### [facility] [address] [place], [place] [id number] Cholesterol in HDL [Mass/Vol] 53 mg/dL Normal >40 [facility] [employer] Comment on above: Result Comment: High Cardiovascular Risk HDL <40 mg/dL Low Cardiovascular Risk HDL > or equal to 60 mg/dl Performed By: #### L IPD, CMP #### [facility] [address] [place], [place] [id number] Cholesterol in LDL [Mass/Vol] 65 mg/dL Normal [facility] [employer] Comment on above: Result Comment: LDL ATP III CLASSIFICATION LDL less than 100 mg/dl Optimal LDL 100-129 mg/dl Near or above optimal LDL 130-159 Borderline high LDL 160-189 High LDL greater than 189 mg/dl Very High Performed By: #### L IPD, CMP #### [facility] [address] [place], [place] [id number] Cholesterol in VLDL [Mass/Vol] 20 mg/dL Normal [facility] [employer] Comment on above: Performed By: #### L IPD, CMP #### [facility] [address] [place], [place] [id number] Cholesterol.total/Ch olesterol in HDL [Mass ratio] 3 {ratio} Normal [facility] [employer] Comment on above: Performed By: #### L IPD, CMP #### [facility] [address] [place], [place] [id number] Triglyceride [Mass/Vol] 98 mg/dL Normal 30-150 [facility] [employer] Comment on above: Result Comment: TRIG ATPIII CLASSIFICATIONS TRIG less than 150 mg/dl Normal TRIG 150-199 mg/dl Borderline High TRIG 200-500 mg/dl High TRIG greather than 500 mg/dl Very High Performed By: #### L IPD, CMP #### [facility] [address] [place], [place] [id number] Encounters Encounter Date Encounter Type Care Provider Facility Start: 01-20-2023 End: 01-25-2023 Evaluation and management of inpatient CARROL Willis JOSETONYAmy [facility] Start: 10-02-2022 End: 10-02-2022 ambulatory [facility] Start: 09-11-2022 End: 09-12-2022 ambulatory [facility] Start: 08-06-2022 End: 08-06-2022 ambulatory DIMA WHITAKER [facility] Start: 04-22-2021 End: 04-22-2021 ambulatory Vlad Denis Facility:[facility] Start: 04-22-2021 Encounter for preprocedural laboratory examination Vlad Denis [facility] Start: 04-03-2020 End: 04-04-2020 Patient encounter procedure GUIDO MCGREGOR Facility: Start: 03-11-2020 End: 03-12-2020 Patient encounter procedure NONE LISTED REQUEST Facility:[facility]1 Payers Date Payer Category Payer Private Health Insurance [id number] 1999 Medicare [id number] 1960 Self-pay 1935 Unknown [id number] Unknown [id number] Unknown [id number] [id number] Unknown [id number] Consultation note 01-21-2023 Note Date & Type Note Facility 01-21-[address] [address] CONSULTATION PATIENT NAME: GARTH TORRES : 1935 MED REC NO: [id number] ROOM: 1006 ACCOUNT NO: [id number] ADMIT DATE: 01/20/2023 PROVIDER: Kobe Tran CONSULT DATE: 01/21/2023 PLASTIC SURGICAL CONSULTATION He was seen earlier today by myself at the bedside in the Trauma ICU. HISTORY OF PRESENT ILLNESS: This is an 87-year-old gentleman, who was transferred from [facility] for intracranial bleed, left maxillary sinus fracture, left inferior orbital fracture, left orbital wall fracture, nondisplaced left zygomatic arch fracture, and left mandibular ramus fracture. The gentleman apparently was walking out a step to his front door and fell. He did not remember very much of what happened. He was brought to [facility] for evaluation and transferred to [facility]. He has been treated for intracranial [...] of this consultation. KOBE TRAN GERALD/[email or web address] Doc#: [id number] CC: [facility] Progress note 10-02-2022 Note Date & Type Note Facility 10-02-2022 Note [facility] Subjective Garth Torres is a 87 [...] 09/11/2022: Left Ventr (more content not included)... [facility] Progress note 08-06-2022 Note Date & Type Note Facility 08-06-2022 Note [facility] Subjective Garth Torres is a 87 [...] Echocardiogram 07/16/2022: Norm (more content not included)... [facility] Summary Purpose Family History No Family [...] and content) DATE CREATED AUTHOR 04/02/2020 [facility] DATE CREATED AUTHOR AUTHOR'S ORGANIZ ATION 02/10/2021 [facility] dical Specialist DATE CREATED AUTHOR AUTHOR'S ORGANIZ ATION 05/08/2021 [facility] DATE CREATED AUTHOR AUTHOR'S ORGANIZ ATION 03/21/2022 [facility] DATE CREATED AUTHOR AUTHOR'S ORGANIZ ATION 10/03/2022 [facility] DATE CREATED AUTHOR AUTHOR'S ORGANIZ ATION 01/31/2023 [facility] FOR RECORDS PERTAINING TO PATIENTS WHO ARE [...] BE BASED ON THE PRIMARY CLINICAL RECORDS. [facility] [employer] [facility] provides no warranty or guarantee of the accuracy or completeness of information in this document.
[2023-04-10 22:20] LABS: PROCALCITONIN 0.05 ng/mL (0.00-0.50)
[2023-04-10 23:00] LABS: Lactate/Lactic Acid 1.1 mmol/L (0.4-2.0)
[2023-04-11] VITALS (8 sets, daily range): BP systolic 95–171; BP diastolic 47–76; PULSE 52–73; RESP 18; TEMP 36.4; O2SAT 97
[2023-04-11 04:38] LABS: Hemoglobin 11.7 g/dL (14.0-18.0); Mean Corpuscular HGB Conc 33.4 g/dL (29.9-35.2); Mean Corpuscular Hemoglobin 29.1 pg (25.9-34.0); Mean Corpuscular Volume 87.1 fL (80.0-94.0); Mean Platelet Volume 10.6 fL (9.5-13.5); Platelet Count 208 10^3/uL (150-450); Red Blood Count 4.02 10^6/uL (4.70-6.10); Red Cell Distribution Width 13.3 % (11.0-15.0); White Blood Count 7.4 10^3/uL (4.0-11.0)
[2023-04-11 04:50] LABS: Anion Gap 10.6; BUN Creatinine Ratio 25.6; Calcium 8.5 mg/dL (8.5-10.1); Carbon Dioxide 27.3 mmol/L (21.0-32.0); Chloride 105 mmol/L (98-107); Estimated GFR (African America >60 (>=60); Estimated GFR (Non-African Ame >60 (>=60); Glucose 86 mg/dL (74-106); Potassium 3.9 mmol/L (3.5-5.1); Sodium 139 mmol/L (136-145)
--- NOTE | 2023-04-11 07:50 | PM.HP ---
H&P: HPI History of Present Illness Chief complaint: weakness, syncope Narrative: patient is a very pleasant 87-year-old male with past medical history of hypertension, Alzheimer's dementia and hyperlipidemia. He follows regularly with [facility] cardiology. 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 daughter is present at the bedside during admission exam this morning. Patient resides in an assisted living facility and last night when staff went to check on him they could not arouse him from sleep. EMS was called and once they arrived patient was alert and oriented ?3. Patient was brought to the Emergency Room for further workup and possible syncopal event. Patient states this morning he feels fine and is not sure why he is in the hospital. He also reports that he is uncertain as to what happened last night he just said maybe he was sleeping. He denies any chest pain shortness of breath, fevers chills, nausea vomiting or diarrhea. He has been worked up for bradycardia in the past but denies any other cardiovascular issues. 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 workup in the emergency department revealed a normal cbc, Normal coags, Normal troponin, normal proBNP, normal electrolytes, UA was negative for infection, Viral testing negative.head CT and chest x-ray revealed both negative for any acute processes. he was admitted overnight to the hospitalist service for further evaluation. No overnight events noted on Telemetry. This morning patient and daughter are amendable to discharge back to assisted living facility with close Cardiology follow up for possible Holter monitor/ Event monitor. I also discussed the need for further outpatient management of home meds as this may be contributing to his bradycardia and orthostatic hypotension. I decreased the olmesartan/hctz dose. Review of Systems ROS Narrative ROS: a complete review of systems were reviewed with patient and are positive as below or listed in History of Chief Complaint. General: no fever, chills, night sweats Head: no headache, trauma, visual changes, nausea or vomiting Skin: no reported rashes, itching or sores Eyes: no blurriness of vision Ears: no reported hearing loss, vertigo, earache, or tinnitus Throat: no sore throat, hoarseness, swelling of neck, or tongue pain Heart: no chest pain Lungs: no shortness of breath or cough GI: no diarrhea or vomiting/nausea Urinary: no urinary urgency, frequency or pain Neuro: no numbness or tingling HEM: no bleeding issues or bruising ENDO: no thyroid problems Psych: no anxiety or depression PFSH PFSH Medical History Bradycardia ?R00.1 - Bradycardia, unspecified (ICD-10) Hypertension ?I10 - Essential (primary) hypertension (ICD-10) Alzheimers disease ?G30.9 - Alzheimer's disease, unspecified (ICD-10) ?F02.80 - Dementia in other diseases classified elsewhere, unspecified severity, without behavioral disturbance, psychotic disturbance, mood disturbance, and anxiety (ICD-10) Intracranial bleed ?I62.9 - Nontraumatic intracranial hemorrhage, unspecified (ICD-10) Aortic valve disorder ?I35.9 - Nonrheumatic aortic valve disorder, unspecified (ICD-10) Social History Smoking status: Never smoker Gender Identity: male Meds Home Medications and Allergies Home Medications Medication Instructions Recorded Confirmed Type atorvastatin 20 mg tablet 20 mg PO QDAY 01/20/23 04/10/23 History donepezil 10 mg tablet 10 mg PO QDAY 01/20/23 04/10/23 History metoprolol succinate 25 mg 50 mg PO QDAY 01/20/23 04/10/23 History tablet,extended release 24 hr olmesartan 20 1 tab PO DAILY #30 tabs 04/11/23 Rx mg-hydrochlorothiazide 12.5 mg tablet Allergies Allergy/AdvReac Type Severity Reaction Status Date / Time No Known Drug Allergies Allergy Verified 01/20/23 16:31 Exam Narrative Exam Narrative: General: Patient is alert, and oriented to person, place and time with normal affect, proper hygiene Skin: no visible rashes, or ulcers Head: atraumatic, acephalic Eyes: PERRLA, no nystagmus present, conjunctiva clear, no scleral icterus Ears: diminished gross auditory acuity Nose: symmetric, no discharge, no maxillary or frontal sinus tenderness Mouth/Throat: no erythema, exudate, or tonsillar enlargement, normal dentition Neck: no masses palpated Heart: Normal rate and rhythm, holo systolic murmur Lungs: no audible wheezes, crackles and normal breath sounds all lung morrison Abdomen: Normal audible bowel sounds, no distension, No palpable masses, no organomegaly, no rebound/guarding/ or rigidity Musculoskeletal: no swelling bilateral lower extremities Neuro: CN II-X grossly intact Constitutional Vital Signs, click to edit/add: Last Vital Signs Temp 97.6 F 04/11/23 04:58 Pulse 65 04/11/23 06:00 Resp 18 04/11/23 04:58 BP 171/76 H 04/11/23 04:58 Pulse Ox 97 04/11/23 04:58 O2 Del Method Room Air 04/11/23 04:58 Results Labs Labs: Short CBC 04/10/23 04/11/23 Range/Units 19:39 04:11 WBC 9.1 7.4 (4.0-11.0) 10^3/uL Hgb 13.5 L 11.7 L (14.0-18.0) g/dL Hct 41.7 L 35.0 L (42.0-54.0) % Plt Count 252 208 (150-450) 10^3/uL BMP 04/10/23 04/11/23 19:39 04:11 Sodium 141 139 Potassium 4.0 3.9 Chloride 102 105 Carbon Dioxide 28.7 27.3 BUN 26.0 H 21.0 H Creatinine 1.01 0.82 Glucose 83 86 Calcium 9.3 8.5 Liver Function 04/10/23 Range/Units 19:39 Total Bilirubin 0.4 (0.2-1.0) mg/dL AST 18 (15-37) U/L ALT 19 (16-63) U/L Alkaline Phosphatase 172 H (46-116) U/L Albumin 3.4 (3.4-5.0) g/dL Urine 04/10/23 Range/Units 20:01 Urine Color Lt. yellow (YELLOW) Urine Clarity Clear (CLEAR) Urine pH 6.0 (5.0-9.0) Ur Specific [place] 1.015 (1.005-1.025) Urine Protein Negative (NEG/TRACE) mg/dL Urine Glucose (UA) Negative (NEGATIVE) mg/dL Assessment and Plan Assessment and Plan (1) Syncope: Assessment and Plan: symptoms have since resolved at the time of admission. Please see the HPI but workup has essentially been remained negative with exception of positive orthostatic vital signs. I will decrease the almost certain/hydrochlorothiazide to 20 mg and 12.5 daily he is to have close outpatient follow-up with cardiology for discussion of his blood pressure medications, possible Holter or event monitor and possibly carotid artery ultrasounds. Daughter is in agreement with plan he'll be discharged today with close follow-up. Qualifiers: Syncope type: unspecified Qualified Code(s): R55 - Syncope and collapse (2) Bradycardia: Assessment and Plan: further outpatient work up but no symptomatic events, HR stable (3) Alzheimers disease: Assessment and Plan: continue donepezil (4) Hypertension: Assessment and Plan: continue home medications with exception of taking half of the almost certain Hydrocort thiazide Qualifiers: Hypertension type: primary hypertension Qualified Code(s): I10 - Essential (primary) hypertension (5) Aortic valve disorder: Assessment and Plan: as seen on echocardiogram Plan patient was admitted to observation is not expected to stay more than two days for evaluation of his medical condition. patient is a full code
[2023-04-11] MEDS: ATORVASTATIN CALCIUM 20 MG TABLET PO (09:56)
--- NOTE | 2023-04-11 12:43 | PM.DS1 ---
DS: Providers Provider Date of admission: 04/10/23 22:04 Primary care physician: RYLIE HENRY Admitting clinician: Yohana Ferguson Discharging clinician: Yohana Ferguson DS: Diagnosis Discharge Diagnosis (1) Syncope: Qualifiers: Syncope type: unspecified Qualified Code(s): R55 - Syncope and collapse (2) Bradycardia: (3) Alzheimers disease: (4) Hypertension: Qualifiers: Hypertension type: primary hypertension Qualified Code(s): I10 - Essential (primary) hypertension (5) Aortic valve disorder: DS: Summary Hospital Course Hospital Course: please see the H and P dated 04/11/2023 as this was a same-day admit and discharge Status at Discharge Functional status at discharge: independent ambulation Overall status at discharge: patient is not back to baseline Time Spent with Patient Time attestation: Total time spent providing and/or coordinating discharge services: Time spent: less than 30 minutes Exam Narrative Exam Narrative: no changes to discharge exam from admission exam dated 04/11/23 Constitutional Vital Signs, click to edit/add: Last Vital Signs Temp 97.6 F 04/11/23 04:58 Pulse 63 04/11/23 11:56 Resp 18 04/11/23 08:00 BP 95/47 L 04/11/23 08:00 Pulse Ox 97 04/11/23 04:58 O2 Del Method Room Air 04/11/23 04:58 DS: Data Data Completed and Pending Labs on day of discharge: Labs from last 24 hours 04/11/23 04/10/23 04/10/23 04:11 22:36 21:48 WBC 7.4 RBC 4.02 L Hgb 11.7 L Hct 35.0 L MCV 87.1 MCH 29.1 MCHC 33.4 RDW 13.3 Plt Count 208 MPV 10.6 Neut % (Auto) Lymph % (Auto) [place] % (Auto) Eos % (Auto) Baso % (Auto) Neut # (Auto) Lymph # (Auto) [place] # (Auto) Eos # (Auto) Baso # (Auto) Abs Immat Gran (auto) Imm/Tot Granulo (auto) PT INR Sodium 139 Potassium 3.9 Chloride 105 Carbon Dioxide 27.3 Anion Gap 10.6 BUN 21.0 H Creatinine 0.82 Est GFR ( Amer) >60 Est GFR (Non-Af Amer) >60 BUN/Creatinine Ratio 25.6 Glucose 86 Lactate 1.1 Calcium 8.5 Magnesium Total Bilirubin AST ALT Alkaline Phosphatase Troponin I High Sens NT-Pro-B Natriuret Pep Total Protein Albumin Globulin Albumin/Globulin Ratio Procalcitonin TSH Free T4 Urine Color Urine Clarity Urine pH Ur Specific [place] Urine Protein Urine Glucose (UA) Urine Ketones Urine Occult Blood Urine Nitrite Urine Bilirubin Urine Urobilinogen Ur Leukocyte Esterase Urine RBC Urine WBC Ur Squamous Epith Cells Urine Crystals Urine Bacteria Urine Casts Hyaline Casts Urine Mucus Ur Culture Indicated? Influenza Type A Ag Negative Influenza Type B Ag Negative RSV Antigen Not detected SARS-CoV-2 Ag (CV2AG) Negative 04/10/23 04/10/23 20:01 19:39 WBC 9.1 RBC 4.70 Hgb 13.5 L Hct 41.7 L MCV 88.7 MCH 28.7 MCHC 32.4 RDW 13.6 Plt Count 252 MPV 11.1 Neut % (Auto) 63.3 Lymph % (Auto) 21.0 [place] % (Auto) 10.3 Eos % (Auto) 3.6 Baso % (Auto) 1.0 Neut # (Auto) 5.8 Lymph # (Auto) 1.9 [place] # (Auto) 0.9 H Eos # (Auto) 0.3 Baso # (Auto) 0.1 Abs Immat Gran (auto) 0.07 H Imm/Tot Granulo (auto) 0.8 H PT 10.3 INR 0.97 Sodium 141 Potassium 4.0 Chloride 102 Carbon Dioxide 28.7 Anion Gap 14.3 BUN 26.0 H Creatinine 1.01 Est GFR ( Amer) >60 Est GFR (Non-Af Amer) >60 BUN/Creatinine Ratio 25.7 Glucose 83 Lactate 2.7 H* Calcium 9.3 Magnesium 1.9 Total Bilirubin 0.4 AST 18 ALT 19 Alkaline Phosphatase 172 H Troponin I High Sens 11.1 NT-Pro-B Natriuret Pep 511.0 Total Protein 7.5 Albumin 3.4 Globulin 4.1 Albumin/Globulin Ratio 0.8 Procalcitonin 0.05 TSH 6.582 H Free T4 1.12 Urine Color Lt. yellow Urine Clarity Clear Urine pH 6.0 Ur Specific [place] 1.015 Urine Protein Negative Urine Glucose (UA) Negative Urine Ketones Negative Urine Occult Blood Small A Urine Nitrite Negative Urine Bilirubin Negative Urine Urobilinogen 0.2 Ur Leukocyte Esterase Small A Urine RBC 2-5 A Urine WBC 2-5 A Ur Squamous Epith Cells None seen Urine Crystals None seen Urine Bacteria None seen Urine Casts Seen A Hyaline Casts Rare Urine Mucus Small A Ur Culture Indicated? No Influenza Type A Ag Influenza Type B Ag RSV Antigen SARS-CoV-2 Ag (CV2AG) Discharge Plan Discharge Disposition: er Intermediate Care Fac Condition: Good Discharge Medications: New olmesartan-hydrochlorothiazide 20-12.5 mg tablet 1 tab PO DAILY Qty: 30 0RF Continued atorvastatin 20 mg tablet 20 mg PO QDAY donepezil 10 mg tablet 10 mg PO QDAY metoprolol succinate 25 mg tablet extended release 24 hr 50 mg PO QDAY Discontinued olmesartan-hydrochlorothiazide 40-25 mg tablet 1 tab PO QDAY Forms: Portal Instructions Follow Up Appointments: Please Call [facility] Cardiology tomorrow and get appt this week for hospital follow up and possible Holter Monitor placement and to assess Blood Pressure medications Discharge location: [facility]
== END 2023-04-11 13:12 ==
LOC: ER 21:37 → MS 22:13
PROVIDERS: Physician Assistant; Registered Nurse; Admitting Provider Family Medicine; Emergency Provider Emergency Medicine; PCP Internal Medicine; Visit Provider Family Medicine
DX: R55 Syncope and collapse (principal); R00.1 Bradycardia, unspecified; G30.9 Alzheimer's disease, unspecified; F02.80 Dementia in other diseases classified elsewhere, unspecified severity, without behavioral disturbance, psychotic disturbance, mood disturbance, and anxiety; I10 Essential (primary) hypertension; E78.5 Hyperlipidemia, unspecified; I35.9 Nonrheumatic aortic valve disorder, unspecified; R06.02 Shortness of breath; Z79.899 Other long term (current) drug therapy; Z20.822 Contact with and (suspected) exposure to COVID-19
CPT/HCPCS: 36415; 70450; 71045; 80048; 80053; 81001; 83605; 83735; 83880; 84145; 84439; 84443; 84484; 85025; 85027; 85610; 87420; 87804; 87811; 93005; 96365; 99285; G0378

== ENCOUNTER 2023-11-16 09:48 | Outpatient (OUT) | payer MEDICARE, OTHER, SELFPAY ==
--- NOTE | 2023-11-16 10:01 | CA_ITS ---
Patient Name: SHANE IRWIN MR#: [id number] : 1935 Exam Date: 11/16/2023 Ordering Doctor: EMANUEL PARMAR ECHOCARDIOGRAM REPORT PROCEDURE: CA ECHO DOPPLER COMPLETE INDICATIONS: Aortic valve stenosis, Aortic insufficiency COMPARISON: None. DESCRIPTION: COMPLETE ECHOCARDIOGRAM Real-time transthoracic echocardiography with 2D, M-mode, spectral and color flow Doppler performed. QUALITY: Technical quality was good. LEFT VENTRICLE: Normal chamber size. Proximal septal hypertrophy (sigmoid septum). LV EF: Global left ventricular systolic function is normal; visually estimated ejection fraction is 60%. No significant wall motion abnormalities. DIASTOLIC: Grade I diastolic dysfunction. ATRIAL SEPTUM: Inadequately seen. LEFT ATRIUM: Severe dilatation. RIGHT ATRIUM: Mild dilatation. RIGHT VENTRICLE: Normal chamber size. Normal right ventricular systolic function. TRICUSPID VALVE: Normal mobility and thickness. No stenosis with trivial regurgitation. No evidence of pulmonary hypertension. RVSP 30 mmHg MITRAL VALVE: Normal mobility and thickness. No evidence of mitral valve stenosis. There is no mitral annular calcification. Trivial mitral regurgitation. AORTIC VALVE: Normal trileaflet appearance. Severely calcified aortic valve with diminished mobility. Doppler velocity suggests mild to moderate aortic valve stenosis RICARDO 1.3 cm2, mean 14.74 mmHg. DVI 0.25 consistent with severe aortic stenosis. Mild aortic regurgitation. AORTIC ROOT: Mildly dilated (4.0 cm). Ascending aorta is mildly dilated (3.9 cm). PULMONIC VALVE: Normal thickness and mobility. No stenosis. Trivial regurgitation. PERICARDIUM: No evidence of pericardial effusion. IVC: Not well visualized. CONCLUSION: 1. Global left ventricular systolic function is normal; visually estimated ejection fraction is 60% 2. Normal right ventricular size and systolic function 3. Biatrial dilatation 4. Grade 1 diastolic dysfunction 5. Doppler velocity suggests mild to moderate aortic valve stenosis RICARDO 1.3 cm2, mean 14.74 mmHg; DVI 0.25 consistent with severe aortic stenosis 6. Mild aortic regurgitation 7. 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 Adult Echocardiography Procedure Report Left Ventricle LVEDD (3.7 - 5.6 cm): 5.31 cm LVESD (2.2 - 4.0 cm): 3.52 cm LVIVS thickness (0.6 - 1.2 cm): 1.64 cm LVPW thickness (0.5 - 1.0 cm): 0.87 cm e': 0.08 m/s E - e': 5.13 LVOT Max Gradient: 1.69 mm[Hg] LVOT Area (cm2): 0.65 m/s Peak Velocity (LVOT): 0.65 m/s Mean Velocity (LVOT): 0.44 m/s LVOT Diameter 2.77 cm Left Atrium LA Volume Index (2D A2C): 50.60 ml/m2 Left Atrium Systolic Dimension: 4.21 cm Mitral Valve MV E to A Ratio: 0.49 Mitral Valve A-Wave Peak Velocity: 0.84 m/s Mitral Valve E-Wave Peak Velocity: 0.41 m/s Right Ventricle Aorta AO Root Diam: 3.99 cm Ascending Ao Diam: 3.89 cm Aortic Valve AoV Area (Peak Tereso): 1.53 cm2, 1.99 cm2 AoV Area (VTI): 1.32 cm2, 2.01 cm2 Deceleration [place]: 1.28 m/s2 Pressure Half-Time: 980.10 ms Peak Velocity(Antegrade Flow): 1.96 m/s, 2.55 m/s Peak Gradient(Antegrade Flow): 15.43 mm[Hg], 26.08 mm[Hg] Mean Velocity(Antegrade Flow): 1.45 m/s, 1.81 m/s Mean Gradient(Antegrade Flow): 9.22 mm[Hg], 14.74 mm[Hg] Velocity Time Integral: 45.12 cm, 68.93 cm Tricuspid Valve Peak Velocity (Regurgitant Flow): 2.15 m/s, 2.61 m/s Pulmonic Valve Mean Gradient: 4.25 mm[Hg] Mean Velocity: 0.94 m/s Peak Velocity: 1.43 m/s, 0.80 m/s Peak Gradient: 2.55 mm[Hg], 8.16 mm[Hg] Right Atrium Right Atrium Systolic Pressure: 53.96 ml, 53.96 ml Dictated by: Carol Guardado M.D. on 11/16/2023 at 17:20 Approved by: Carol Guardado M.D. on 11/16/2023 at 17:28
--- OUTSIDE RECORDS SUMMARY | 2023-11-16 10:09 | XMS_ITS | CCD ---
Author Organization [facility] Care Team Providers Care Stoner Hand Name Role Phone GUIDO MCGREGOR Primary Care Unavailable REQUEST, NONE LISTED Admitting Unavailable REQUEST, NONE LISTED Attending Unavailable REQUEST, NONE LISTED Consulting Unavailable REQUEST, NONE LISTED Admitting Unavailable GUIDO MCGREGOR Primary Care Unavailable REQUEST, NONE LISTED Attending Unavailable REQUEST, NONE LISTED Consulting Unavailable Vlad Denis Attending Unavailable Vlad Denis Admitting Unavailable Guido Mcgregor Primary Care Unavailable CARROL FERNANDEZ Attending Unavailable TIGIST RYAN Consulting Unavailable GUIDO MCGREGOR Primary Care Unavailable CARROL FERNANDEZ Admitting Unavailable KOBE TRAN Consulting Unavailab EMANUEL Hernandez Attending Unavailable MOUKADIMA AUGUSTE Attending Unavailable MOUKADIMA AUGUSTE Referring Unavailable DIMA WHITAKER Attending Unavailable GUIDO MCGREGOR Attending Unavailable JANAK CROCKER Attending Unavailable GUIDO MCGREGOR Referring Unavailable JANAK CROCKER Attending Unavailable Problems Active Problems Problem Classification Problem Date Documented Date Episodic/Chronic 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, unspecified; Translations: [Nontraumatic intracranial hemorrhage, unspecified] Onset: 01-20-2023 Chronic Disorders of lipid metabolism (2 sources) Mixed hyperlipidemia; Translations: [Mixed hyperlipidemia] Onset: 08-06-2022 Chronic Essential hypertension (2 sources) Essential (primary) hypertension; Translations: [Essential (primary) hypertension] Onset: 08-06-2022 Chronic Heart valve disorders (4 sources) Nonrheumatic aortic (valve) stenosis; Translations: [Nonrheumatic aortic (valve) insufficiency] Onset: 08-06-2022 Chronic Skull and face fractures (1 source) Unspecified fracture of facial bones, initial encounter for closed fracture; Translations: [Unspecified fracture of facial bones, initial encounter for closed fracture] Onset: 01-21-2023 Episodic Unclassified (1 source) Z01.818 - Encounter for other preprocedural examination; Translations: [Z01.818 - Encounter for other preprocedural examination] Onset: 04-22-2021 Unclassified (1 source) Supraventricular tachycardia, unspecified; Translations: [Supraventricular tachycardia, unspecified] Onset: 08-06-2022 Past or Other Problems Problem Classification Problem Date Documented Date Episodic/Chronic Cardiac dysrhythmias (2 sources) Bradycardia, unspecified; Translations: [Bradycardia, unspecified] Onset: 08-06-2022 Episodic Unclassified (1 source) Supraventricular tachycardia, unspecified; Translations: [Supraventricular tachycardia, unspecified] Onset: 04-23-2023 Results Test Name Value Interpretation Reference Range Facility Office Visiton 04-23-2023 Follow-up visit [id number] Torres,Tal figueroa 1935 M Date Provider Department Center 04/23/2023 Dorothy-EMANUEL PARMAR [facility] No family history on file Level of Service:72309 [place] OFFICE/OUTPATIENT ESTABLISHED MOD MDM 30 MIN Reason for Visit and Comments: Follow-up [205766] - ER follow up Normal [facility] Basic Metabolic Profon 01-25 Anion gap [Moles/Vol] 8 mmol/L Low 9-17 [facility] Comment on above: Performed By: #### T SH, VD25, ALB, B12, ECENZ, GLYHGB, ERTPF, FT4 #### [facility] [address] [place] [id number] Mental Health Specialist: Jonathan Mckee MD Calcium [Mass/Vol] 8.7 mg/dL Normal 8.6-10.4 [facility] Comment on above: Performed By: #### T SH, VD25, ALB, B12, ECENZ, GLYHGB, ERTPF, FT4 #### [facility] [address] [place], [place] [id number] Mental Health Specialist: Jonathan Mckee MD Chloride [Moles/Vol] 100 mmol/L Normal 98-107 [facility] Comment on above: Performed By: #### T SH, VD25, ALB, B12, ECENZ, GLYHGB, ERTPF, FT4 #### [address] [id number] Mental Health Specialist: Jonathan Mckee MD CO2 [Moles/Vol] 23 mmol/L Normal 20-31 [facility] Comment on above: Performed By: #### T SH, VD25, ALB, B12, ECENZ, GLYHGB, ERTPF, FT4 #### [address] [id number] Mental Health Specialist: Jonathan Mckee MD Creatinine [Mass/Vol] 0.7 mg/dL Normal 0.7-1.2 [facility] Comment on above: Performed By: #### T SH, VD25, ALB, B12, ECENZ, GLYHGB, ERTPF, FT4 #### [address] [id number] Mental Health Specialist: Jonathan Mckee MD GFR/1.73 sq M.predicted among non-blacks MDRD (S/P/Bld) [Vol rate/Area] mL/min/{1.73_m2} Normal >60 [facility] Comment on above: Result Comment: These results [...] ALB, B12, ECENZ, GLYHGB, ERTPF, FT4 #### [address] [id number] Mental Health Specialist: Jonathan Mckee MD Glucose [Mass/Vol] 98 mg/dL Normal 70-99 [facility] Comment on above: Performed By: #### T SH, VD25, ALB, B12, ECENZ, GLYHGB, ERTPF, FT4 #### [facility] [address] [place] [address] Mental Health Specialist: Jonathan Mckee MD Potassium [Moles/Vol] 4.1 mmol/L Normal 3.7-5.3 [facility] Comment on above: Performed By: #### T SH, VD25, ALB, B12, ECENZ, GLYHGB, ERTPF, FT4 #### [facility] [address] [place] [address] Mental Health Specialist: Jnoathan Mckee MD Sodium [Moles/Vol] 131 mmol/L Low 135-144 [facility] Comment on above: Performed By: #### T SH, VD25, ALB, B12, ECENZ, GLYHGB, ERTPF, FT4 #### [place] [address] Mental Health Specialist: Jonathan Mckee MD Urea nitrogen [Mass/Vol] 27 mg/dL High 8-23 [facility] Comment on above: Performed By: #### T SH, VD25, ALB, B12, ECENZ, GLYHGB, ERTPF, FT4 #### [facility] [address] [place] [address] Mental Health Specialist: Jonathan Mckee MD CBC with Diffon 01-25-2023 Abs. Basophil 0.05 k/uL Normal 0.00-0.20 [facility] Comment on above: Performed By: #### T SH, VD25, ALB, B12, ECENZ, GLYHGB, ERTPF, FT4 #### [facility] [address] [place] [address] Mental Health Specialist: Jonathan Mckee MD Abs.Imm.Granulocyte 0.11 k/uL Normal 0.00-0.30 [facility] Comment on above: Performed By: #### T SH, VD25, ALB, B12, ECENZ, GLYHGB, ERTPF, FT4 #### [address] [address] Mental Health Specialist: Jonathan Mckee MD Abs.Neutrophil (Seg) 4.47 k/uL Normal 1.50-8.10 [facility] Comment on above: Performed By: #### T SH, VD25, ALB, B12, ECENZ, GLYHGB, ERTPF, FT4 #### [address] [address] Mental Health Specialist: Jonathan Mckee MD Basophils/100 WBC (Bld) 1 % Normal 0-2 [facility] Comment on above: Performed By: #### T SH, VD25, ALB, B12, ECENZ, GLYHGB, ERTPF, FT4 #### [place] [address] Mental Health Specialist: Jonathan Mckee MD Eosinophils (Bld) [#/Vol] 0.31 10*3/uL Normal 0.00-0.44 [facility] Comment on above: Performed By: #### T SH, VD25, ALB, B12, ECENZ, GLYHGB, ERTPF, FT4 #### [place] [address] Mental Health Specialist: Jonathan Mckee MD Eosinophils/100 WBC (Bld) 5 % High 1-4 [facility] Comment on above: Performed By: #### T SH, VD25, ALB, B12, ECENZ, GLYHGB, ERTPF, FT4 #### [place] [address] Mental Health Specialist: Jonathan Mckee MD Erythrocyte distribution width (RBC) [Ratio] 14.0 % Normal 11.8-14.4 [facility] Comment on above: Performed By: #### T SH, VD25, ALB, B12, ECENZ, GLYHGB, ERTPF, FT4 #### [place] [address] Mental Health Specialist: Jonathan Mckee MD Hematocrit (Bld) [Volume fraction] 29.0 % Low 40.7-50.3 [facility] Comment on above: Performed By: #### T SH, VD25, ALB, B12, ECENZ, GLYHGB, ERTPF, FT4 #### [place] [address] Mental Health Specialist: Jonathan Mckee MD Hemoglobin (Bld) [Mass/Vol] 10.1 g/dL Low 13.0-17.0 [facility] Comment on above: Performed By: #### T SH, VD25, ALB, B12, ECENZ, GLYHGB, ERTPF, FT4 #### [place] [address] Mental Health Specialist: Jonathan Mckee MD Immature granulocytes/100 WBC (Bld) 2 % High 0 [facility] Comment on above: Performed By: #### T SH, VD25, ALB, B12, ECENZ, GLYHGB, ERTPF, FT4 #### [place] [address] Mental Health Specialist: Jonathan Mckee MD Lymphocytes (Bld) [#/Vol] 0.94 10*3/uL Low 1.10-3.70 [facility] Comment on above: Performed By: #### T SH, VD25, ALB, B12, ECENZ, GLYHGB, ERTPF, FT4 #### [facility] [address] [place] [address] Mental Health Specialist: Jonathan Mckee MD Lymphocytes/100 WBC (Bld) 14 % Low 24-43 [facility] Comment on above: Performed By: #### T SH, VD25, ALB, B12, ECENZ, GLYHGB, ERTPF, FT4 #### [facility] [address] [place] [address] Mental Health Specialist: Jonathan Mckee MD MCH (RBC) [Entitic mass] 30.8 pg Normal 25.2-33.5 [facility] Comment on above: Performed By: #### T SH, VD25, ALB, B12, ECENZ, GLYHGB, ERTPF, FT4 #### [address] [address] Mental Health Specialist: Jonathan Mckee MD MCHC (RBC) [Mass/Vol] 34.8 g/dL Normal 28.4-34.8 [facility] Comment on above: Performed By: #### T SH, VD25, ALB, B12, ECENZ, GLYHGB, ERTPF, FT4 #### [address] [address] Mental Health Specialist: Jonathan Mckee MD MCV (RBC) [Entitic vol] 88.4 fL Normal 82.6-102.9 [facility] Comment on above: Performed By: #### T SH, VD25, ALB, B12, ECENZ, GLYHGB, ERTPF, FT4 #### [address] [address] Mental Health Specialist: Jonathan Mckee MD Monocytes (Bld) [#/Vol] 0.70 10*3/uL Normal 0.10-1.20 [facility] Comment on above: Performed By: #### T SH, VD25, ALB, B12, ECENZ, GLYHGB, ERTPF, FT4 #### [address] [address] Mental Health Specialist: Jonathan Mckee MD Monocytes/100 WBC (Bld) 11 % Normal 3-12 [facility] Comment on above: Performed By: #### T SH, VD25, ALB, B12, ECENZ, GLYHGB, ERTPF, FT4 #### [address] [address] Mental Health Specialist: Jonathan Mckee MD Neutrophil (Seg) 68 % High 36-65 [facility] Comment on above: Performed By: #### T SH, VD25, ALB, B12, ECENZ, GLYHGB, ERTPF, FT4 #### [address] [address] Mental Health Specialist: Jonathan Mckee MD NRBC Automated 0.0 per 100 WBC Normal 0.0 [facility] Comment on above: Performed By: #### T SH, VD25, ALB, B12, ECENZ, GLYHGB, ERTPF, FT4 #### [address] [address] Mental Health Specialist: Jonathan Mckee MD Platelet mean volume (Bld) [Entitic vol] 11.6 fL Normal 8.1-13.5 [facility] Comment on above: Performed By: #### T SH, VD25, ALB, B12, ECENZ, GLYHGB, ERTPF, FT4 #### [address] [address] Mental Health Specialist: Jonathan Mckee MD Platelets (Bld) [#/Vol] 283 10*3/uL Normal 138-453 [facility] Comment on above: Performed By: #### T SH, VD25, ALB, B12, ECENZ, GLYHGB, ERTPF, FT4 #### [address] [address] Mental Health Specialist: Jonathan Mckee MD RBC (Bld) [#/Vol] 3.28 10*6/uL Low 4.21-5.77 [facility] Comment on above: Performed By: #### T SH, VD25, ALB, B12, ECENZ, GLYHGB, ERTPF, FT4 #### [address] [address] Mental Health Specialist: Jonathan Mckee MD WBC (Bld) [#/Vol] 6.6 10*3/uL Normal 3.5-11.3 [facility] Comment on above: Performed By: #### T SH, VD25, ALB, B12, ECENZ, GLYHGB, ERTPF, FT4 #### [address] [address] Mental Health Specialist: Jonathan Mckee MD Basic Metabolic Profon 01-24 Anion gap [Moles/Vol] 9 mmol/L Normal 9-17 [facility] Comment on above: Performed By: #### T SH, VD25, ALB, B12, ECENZ, GLYHGB, ERTPF, FT4 #### [address] [address] Mental Health Specialist: Jonathan Mckee MD Calcium [Mass/Vol] 8.8 mg/dL Normal 8.6-10.4 [facility] Comment on above: Performed By: #### T SH, VD25, ALB, B12, ECENZ, GLYHGB, ERTPF, FT4 #### [address] [address] Mental Health Specialist: Jonathan Mckee MD Chloride [Moles/Vol] 102 mmol/L Normal 98-107 [facility] Comment on above: Performed By: #### T SH, VD25, ALB, B12, ECENZ, GLYHGB, ERTPF, FT4 #### [address] [address] Mental Health Specialist: Jonathan Mckee MD CO2 [Moles/Vol] 23 mmol/L Normal 20-31 [facility] Comment on above: Performed By: #### T SH, VD25, ALB, B12, ECENZ, GLYHGB, ERTPF, FT4 #### [address] [address] Mental Health Specialist: Jonathan Mckee MD Creatinine [Mass/Vol] 0.7 mg/dL Normal 0.7-1.2 [facility] Comment on above: Performed By: #### T SH, VD25, ALB, B12, ECENZ, GLYHGB, ERTPF, FT4 #### [address] [id number] Mental Health Specialist: Jonathan Mckee MD GFR/1.73 sq M.predicted among non-blacks MDRD (S/P/Bld) [Vol rate/Area] mL/min/{1.73_m2} Normal >60 [facility] Comment on above: Result Comment: These results [...] ALB, B12, ECENZ, GLYHGB, ERTPF, FT4 #### [address] [address] Mental Health Specialist: Jonathan Mckee MD Glucose [Mass/Vol] 122 mg/dL High 70-99 [facility] Comment on above: Performed By: #### T SH, VD25, ALB, B12, ECENZ, GLYHGB, ERTPF, FT4 #### [address] [address] Mental Health Specialist: Jonathan Mckee MD Potassium [Moles/Vol] 3.7 mmol/L Normal 3.7-5.3 [facility] Comment on above: Performed By: #### T SH, VD25, ALB, B12, ECENZ, GLYHGB, ERTPF, FT4 #### [address] [address] Mental Health Specialist: Jonathan Mckee MD Sodium [Moles/Vol] 134 mmol/L Low 135-144 [facility] Comment on above: Performed By: #### T SH, VD25, ALB, B12, ECENZ, GLYHGB, ERTPF, FT4 #### [place] [address] Mental Health Specialist: Jonathan Mckee MD Urea nitrogen [Mass/Vol] 27 mg/dL High 8-23 [facility] Comment on above: Performed By: #### T SH, VD25, ALB, B12, ECENZ, GLYHGB, ERTPF, FT4 #### [address] [address] Mental Health Specialist: Jonathan Mckee MD CBC with Diffon 01-24-2023 Abs. Basophil 0.05 k/uL Normal 0.00-0.20 [facility] Comment on above: Performed By: #### T SH, VD25, ALB, B12, ECENZ, GLYHGB, ERTPF, FT4 #### [place] [address] Mental Health Specialist: Jonathan Mckee MD Abs.Imm.Granulocyte 0.08 k/uL Normal 0.00-0.30 [facility] Comment on above: Performed By: #### T SH, VD25, ALB, B12, ECENZ, GLYHGB, ERTPF, FT4 #### [place] [address] Mental Health Specialist: Jonathan Mckee MD Abs.Neutrophil (Seg) 4.05 k/uL Normal 1.50-8.10 [facility] Comment on above: Performed By: #### T SH, VD25, ALB, B12, ECENZ, GLYHGB, ERTPF, FT4 #### [place] [address] Mental Health Specialist: Jonathan Mckee MD Basophils/100 WBC (Bld) 1 % Normal 0-2 [facility] Comment on above: Performed By: #### T SH, VD25, ALB, B12, ECENZ, GLYHGB, ERTPF, FT4 #### [address] [id number] Mental Health Specialist: Jonathan Mckee MD Eosinophils (Bld) [#/Vol] 0.26 10*3/uL Normal 0.00-0.44 [facility] Comment on above: Performed By: #### T SH, VD25, ALB, B12, ECENZ, GLYHGB, ERTPF, FT4 #### [address] [address] Mental Health Specialist: Jonathan Mckee MD Eosinophils/100 WBC (Bld) 5 % High 1-4 [facility] Comment on above: Performed By: #### T SH, VD25, ALB, B12, ECENZ, GLYHGB, ERTPF, FT4 #### [place] [address] Mental Health Specialist: Jonathan Mckee MD Erythrocyte distribution width (RBC) [Ratio] 13.7 % Normal 11.8-14.4 [facility] Comment on above: Performed By: #### T SH, VD25, ALB, B12, ECENZ, GLYHGB, ERTPF, FT4 #### [place] [address] Mental Health Specialist: Jonathan Mckee MD Hematocrit (Bld) [Volume fraction] 30.9 % Low 40.7-50.3 [facility] Comment on above: Performed By: #### T SH, VD25, ALB, B12, ECENZ, GLYHGB, ERTPF, FT4 #### [place] [address] Mental Health Specialist: Jonathan Mckee MD Hemoglobin (Bld) [Mass/Vol] 10.4 g/dL Low 13.0-17.0 [facility] Comment on above: Performed By: #### T SH, VD25, ALB, B12, ECENZ, GLYHGB, ERTPF, FT4 #### [address] [address] Mental Health Specialist: Jonathan Mckee MD Immature granulocytes/100 WBC (Bld) 1 % High 0 [facility] Comment on above: Performed By: #### T SH, VD25, ALB, B12, ECENZ, GLYHGB, ERTPF, FT4 #### [address] [address] Mental Health Specialist: Jonathan Mckee MD Lymphocytes (Bld) [#/Vol] 0.70 10*3/uL Low 1.10-3.70 [facility] Comment on above: Performed By: #### T SH, VD25, ALB, B12, ECENZ, GLYHGB, ERTPF, FT4 #### [place] [address] Mental Health Specialist: Jonathan Mckee MD Lymphocytes/100 WBC (Bld) 12 % Low 24-43 [facility] Comment on above: Performed By: #### T SH, VD25, ALB, B12, ECENZ, GLYHGB, ERTPF, FT4 #### [address] [address] Mental Health Specialist: Jonathan Mckee MD MCH (RBC) [Entitic mass] 30.1 pg Normal 25.2-33.5 [facility] Comment on above: Performed By: #### T SH, VD25, ALB, B12, ECENZ, GLYHGB, ERTPF, FT4 #### [address] [address] Mental Health Specialist: Jonathan Mckee MD MCHC (RBC) [Mass/Vol] 33.7 g/dL Normal 28.4-34.8 [facility] Comment on above: Performed By: #### T SH, VD25, ALB, B12, ECENZ, GLYHGB, ERTPF, FT4 #### [address] [address] Mental Health Specialist: Jonathan Mckee MD MCV (RBC) [Entitic vol] 89.3 fL Normal 82.6-102.9 [facility] Comment on above: Performed By: #### T SH, VD25, ALB, B12, ECENZ, GLYHGB, ERTPF, FT4 #### [address] [address] Mental Health Specialist: Jonathan Mckee MD Monocytes (Bld) [#/Vol] 0.62 10*3/uL Normal 0.10-1.20 [facility] Comment on above: Performed By: #### T SH, VD25, ALB, B12, ECENZ, GLYHGB, ERTPF, FT4 #### [address] [address] Mental Health Specialist: Jonathan Mckee MD Monocytes/100 WBC (Bld) 11 % Normal 3-12 [facility] Comment on above: Performed By: #### T SH, VD25, ALB, B12, ECENZ, GLYHGB, ERTPF, FT4 #### [address] [address] Mental Health Specialist: Jonathan Mckee MD Neutrophil (Seg) 70 % High 36-65 [facility] Comment on above: Performed By: #### T SH, VD25, ALB, B12, ECENZ, GLYHGB, ERTPF, FT4 #### [address] [address] Mental Health Specialist: Jonathan Mckee MD NRBC Automated 0.0 per 100 WBC Normal 0.0 [facility] Comment on above: Performed By: #### T SH, VD25, ALB, B12, ECENZ, GLYHGB, ERTPF, FT4 #### [address] [address] Mental Health Specialist: Jonathan Mckee MD Platelet mean volume (Bld) [Entitic vol] 10.4 fL Normal 8.1-13.5 [facility] Comment on above: Performed By: #### T SH, VD25, ALB, B12, ECENZ, GLYHGB, ERTPF, FT4 #### [address] [address] Mental Health Specialist: Jonathan Mckee MD Platelets (Bld) [#/Vol] 166 10*3/uL Normal 138-453 [facility] Comment on above: Performed By: #### T SH, VD25, ALB, B12, ECENZ, GLYHGB, ERTPF, FT4 #### [address] [address] Mental Health Specialist: Jonathan Mckee MD RBC (Bld) [#/Vol] 3.46 10*6/uL Low 4.21-5.77 [facility] Comment on above: Performed By: #### T SH, VD25, ALB, B12, ECENZ, GLYHGB, ERTPF, FT4 #### [address] [address] Mental Health Specialist: Jonathan Mckee MD WBC (Bld) [#/Vol] 5.8 10*3/uL Normal 3.5-11.3 [facility] Comment on above: Performed By: #### T SH, VD25, ALB, B12, ECENZ, GLYHGB, ERTPF, FT4 #### [address] [address] Mental Health Specialist: Jonathan Mckee MD Basic Metabolic Profon 01-23 Anion gap [Moles/Vol] 9 mmol/L Normal 9-17 [facility] Comment on above: Performed By: #### T SH, VD25, ALB, B12, ECENZ, GLYHGB, ERTPF, FT4 #### [address] [place] [id number] Mental Health Specialist: Jonathan Mckee MD Calcium [Mass/Vol] 8.9 mg/dL Normal 8.6-10.4 [facility] Comment on above: Performed By: #### T SH, VD25, ALB, B12, ECENZ, GLYHGB, ERTPF, FT4 #### [address] [id number] Mental Health Specialist: Jonathan Mckee MD Chloride [Moles/Vol] 103 mmol/L Normal 98-107 [facility] Comment on above: Performed By: #### T SH, VD25, ALB, B12, ECENZ, GLYHGB, ERTPF, FT4 #### [address] [address] Mental Health Specialist: Jonathan Mckee MD CO2 [Moles/Vol] 21 mmol/L Normal 20-31 [facility] Comment on above: Performed By: #### T SH, VD25, ALB, B12, ECENZ, GLYHGB, ERTPF, FT4 #### [address] [address] Mental Health Specialist: Jonathan Mckee MD Creatinine [Mass/Vol] 0.7 mg/dL Normal 0.7-1.2 [facility] Comment on above: Performed By: #### T SH, VD25, ALB, B12, ECENZ, GLYHGB, ERTPF, FT4 #### [address] [address] Mental Health Specialist: Jonathan Mckee MD GFR/1.73 sq M.predicted among non-blacks MDRD (S/P/Bld) [Vol rate/Area] mL/min/{1.73_m2} Normal >60 [facility] Comment on above: Result Comment: These results [...] ALB, B12, ECENZ, GLYHGB, ERTPF, FT4 #### [address] [address] Mental Health Specialist: Jonathan Mckee MD Glucose [Mass/Vol] 105 mg/dL High 70-99 [facility] Comment on above: Performed By: #### T SH, VD25, ALB, B12, ECENZ, GLYHGB, ERTPF, FT4 #### [address] [address] Mental Health Specialist: Jonathan Mckee MD Potassium [Moles/Vol] 3.7 mmol/L Normal 3.7-5.3 [facility] Comment on above: Performed By: #### T SH, VD25, ALB, B12, ECENZ, GLYHGB, ERTPF, FT4 #### [address] [address] Mental Health Specialist: Jonathan Mckee MD Sodium [Moles/Vol] 133 mmol/L Low 135-144 [facility] Comment on above: Performed By: #### T SH, VD25, ALB, B12, ECENZ, GLYHGB, ERTPF, FT4 #### [address] [address] Mental Health Specialist: Jonathan Mckee MD Urea nitrogen [Mass/Vol] 28 mg/dL High 8-23 [facility] Comment on above: Performed By: #### T SH, VD25, ALB, B12, ECENZ, GLYHGB, ERTPF, FT4 #### [address] [address] Mental Health Specialist: Jonathan Mckee MD CBC with Diffon 01-23-2023 Abs. Basophil 0.05 k/uL Normal 0.00-0.20 [facility] Comment on above: Performed By: #### T SH, VD25, ALB, B12, ECENZ, GLYHGB, ERTPF, FT4 #### [address] [address] Mental Health Specialist: Jonathan Mckee MD Abs.Imm.Granulocyte 0.05 k/uL Normal 0.00-0.30 [facility] Comment on above: Performed By: #### T SH, VD25, ALB, B12, ECENZ, GLYHGB, ERTPF, FT4 #### [place] [address] Mental Health Specialist: Jonathan Mckee MD Abs.Neutrophil (Seg) 4.18 k/uL Normal 1.50-8.10 [facility] Comment on above: Performed By: #### T SH, VD25, ALB, B12, ECENZ, GLYHGB, ERTPF, FT4 #### [place] [address] Mental Health Specialist: Jonathan Mckee MD Basophils/100 WBC (Bld) 1 % Normal 0-2 [facility] Comment on above: Performed By: #### T SH, VD25, ALB, B12, ECENZ, GLYHGB, ERTPF, FT4 #### [place] [address] Mental Health Specialist: Jonathan Mckee MD Eosinophils (Bld) [#/Vol] 0.21 10*3/uL Normal 0.00-0.44 [facility] Comment on above: Performed By: #### T SH, VD25, ALB, B12, ECENZ, GLYHGB, ERTPF, FT4 #### [address] [address] Mental Health Specialist: Jonathan Mckee MD Eosinophils/100 WBC (Bld) 4 % Normal 1-4 [facility] Comment on above: Performed By: #### T SH, VD25, ALB, B12, ECENZ, GLYHGB, ERTPF, FT4 #### [place] [address] Mental Health Specialist: Jonathan Mckee MD Erythrocyte distribution width (RBC) [Ratio] 13.8 % Normal 11.8-14.4 [facility] Comment on above: Performed By: #### T SH, VD25, ALB, B12, ECENZ, GLYHGB, ERTPF, FT4 #### [place] [address] Mental Health Specialist: Jonathan Mckee MD Hematocrit (Bld) [Volume fraction] 31.5 % Low 40.7-50.3 [facility] Comment on above: Performed By: #### T SH, VD25, ALB, B12, ECENZ, GLYHGB, ERTPF, FT4 #### [place] [place] [address] Mental Health Specialist: Jonathan Mckee MD Hemoglobin (Bld) [Mass/Vol] 10.6 g/dL Low 13.0-17.0 [facility] Comment on above: Performed By: #### T SH, VD25, ALB, B12, ECENZ, GLYHGB, ERTPF, FT4 #### [place] [address] Mental Health Specialist: Jonathan Mckee MD Immature granulocytes/100 WBC (Bld) 1 % High 0 [facility] Comment on above: Performed By: #### T SH, VD25, ALB, B12, ECENZ, GLYHGB, ERTPF, FT4 #### [place] [address] Mental Health Specialist: Jonathan Mckee MD Lymphocytes (Bld) [#/Vol] 0.71 10*3/uL Low 1.10-3.70 [facility] Comment on above: Performed By: #### T SH, VD25, ALB, B12, ECENZ, GLYHGB, ERTPF, FT4 #### [address] [id number] Mental Health Specialist: Jonathan Mckee MD Lymphocytes/100 WBC (Bld) 12 % Low 24-43 [facility] Comment on above: Performed By: #### T SH, VD25, ALB, B12, ECENZ, GLYHGB, ERTPF, FT4 #### [place] [address] Mental Health Specialist: Jonathan Mckee MD MCH (RBC) [Entitic mass] 30.3 pg Normal 25.2-33.5 [facility] Comment on above: Performed By: #### T SH, VD25, ALB, B12, ECENZ, GLYHGB, ERTPF, FT4 #### [place] [address] Mental Health Specialist: Jonathan Mckee MD MCHC (RBC) [Mass/Vol] 33.7 g/dL Normal 28.4-34.8 [facility] Comment on above: Performed By: #### T SH, VD25, ALB, B12, ECENZ, GLYHGB, ERTPF, FT4 #### [place] [address] Mental Health Specialist: Jonathan Mckee MD MCV (RBC) [Entitic vol] 90.0 fL Normal 82.6-102.9 [facility] Comment on above: Performed By: #### T SH, VD25, ALB, B12, ECENZ, GLYHGB, ERTPF, FT4 #### [place] [address] Mental Health Specialist: Jonathan Mckee MD Monocytes (Bld) [#/Vol] 0.73 10*3/uL Normal 0.10-1.20 [facility] Comment on above: Performed By: #### T SH, VD25, ALB, B12, ECENZ, GLYHGB, ERTPF, FT4 #### [address] [address] Mental Health Specialist: Jonathan Mckee MD Monocytes/100 WBC (Bld) 12 % Normal 3-12 [facility] Comment on above: Performed By: #### T SH, VD25, ALB, B12, ECENZ, GLYHGB, ERTPF, FT4 #### [address] [address] Mental Health Specialist: Jonathan Mckee MD Neutrophil (Seg) 70 % High 36-65 [facility] Comment on above: Performed By: #### T SH, VD25, ALB, B12, ECENZ, GLYHGB, ERTPF, FT4 #### [place] [address] Mental Health Specialist: Jonathan Mckee MD NRBC Automated 0.0 per 100 WBC Normal 0.0 [facility] Comment on above: Performed By: #### T SH, VD25, ALB, B12, ECENZ, GLYHGB, ERTPF, FT4 #### [address] [address] Mental Health Specialist: Jonathan Mckee MD Platelet mean volume (Bld) [Entitic vol] 10.1 fL Normal 8.1-13.5 [facility] Comment on above: Performed By: #### T SH, VD25, ALB, B12, ECENZ, GLYHGB, ERTPF, FT4 #### [address] [address] Mental Health Specialist: Jonathan Mckee MD Platelets (Bld) [#/Vol] 178 10*3/uL Normal 138-453 [facility] Comment on above: Performed By: #### T SH, VD25, ALB, B12, ECENZ, GLYHGB, ERTPF, FT4 #### [address] [address] Mental Health Specialist: Jonathan Mckee MD RBC (Bld) [#/Vol] 3.50 10*6/uL Low 4.21-5.77 [facility] Comment on above: Performed By: #### T SH, VD25, ALB, B12, ECENZ, GLYHGB, ERTPF, FT4 #### [address] [address] Mental Health Specialist: Jonathan Mckee MD WBC (Bld) [#/Vol] 5.9 10*3/uL Normal 3.5-11.3 [facility] Comment on above: Performed By: #### T SH, VD25, ALB, B12, ECENZ, GLYHGB, ERTPF, FT4 #### [address] [address] Mental Health Specialist: Jonathan Mckee MD Basic Metabolic Profon 01-22 Anion gap [Moles/Vol] 15 mmol/L Normal 9-17 [facility] Comment on above: Performed By: #### T SH, VD25, ALB, B12, ECENZ, GLYHGB, ERTPF, FT4 #### [address] [address] Mental Health Specialist: Jonathan Mckee MD Calcium [Mass/Vol] 8.9 mg/dL Normal 8.6-10.4 [facility] Comment on above: Performed By: #### T SH, VD25, ALB, B12, ECENZ, GLYHGB, ERTPF, FT4 #### [address] [address] Mental Health Specialist: Jonathan Mckee MD Chloride [Moles/Vol] 99 mmol/L Normal 98-107 [facility] Comment on above: Performed By: #### T SH, VD25, ALB, B12, ECENZ, GLYHGB, ERTPF, FT4 #### [facility] [address] [place] [address] Mental Health Specialist: Jonathan Mckee MD CO2 [Moles/Vol] 17 mmol/L Low 20-31 [facility] Comment on above: Performed By: #### T SH, VD25, ALB, B12, ECENZ, GLYHGB, ERTPF, FT4 #### [facility] [address] [place] [address] Mental Health Specialist: Jonathan Mckee MD Creatinine [Mass/Vol] 0.8 mg/dL Normal 0.7-1.2 [facility] Comment on above: Performed By: #### T SH, VD25, ALB, B12, ECENZ, GLYHGB, ERTPF, FT4 #### [address] [id number] Mental Health Specialist: Jonathan Mckee MD GFR/1.73 sq M.predicted among non-blacks MDRD (S/P/Bld) [Vol rate/Area] mL/min/{1.73_m2} Normal >60 [facility] Comment on above: Result Comment: These results [...] ALB, B12, ECENZ, GLYHGB, ERTPF, FT4 #### [facility] [address] [place] [address] [id number] Mental Health Specialist: Jonathan Mckee MD Glucose [Mass/Vol] 90 mg/dL Normal 70-99 [facility] Comment on above: Performed By: #### T SH, VD25, ALB, B12, ECENZ, GLYHGB, ERTPF, FT4 #### [address] [address] Mental Health Specialist: Jonathan Mckee MD Potassium [Moles/Vol] 3.7 mmol/L Normal 3.7-5.3 [facility] Comment on above: Performed By: #### T SH, VD25, ALB, B12, ECENZ, GLYHGB, ERTPF, FT4 #### [address] [address] Mental Health Specialist: Jonathan Mckee MD Sodium [Moles/Vol] 131 mmol/L Low 135-144 [facility] Comment on above: Performed By: #### T SH, VD25, ALB, B12, ECENZ, GLYHGB, ERTPF, FT4 #### [place] [address] Mental Health Specialist: Jonathan Mckee MD Urea nitrogen [Mass/Vol] 28 mg/dL High 8-23 [facility] Comment on above: Performed By: #### T SH, VD25, ALB, B12, ECENZ, GLYHGB, ERTPF, FT4 #### [address] [address] Mental Health Specialist: Jonathan Mckee MD CBC with Diffon 01-22-2023 Abs. Basophil 0.03 k/uL Normal 0.00-0.20 [facility] Comment on above: Performed By: #### T SH, VD25, ALB, B12, ECENZ, GLYHGB, ERTPF, FT4 #### [address] [address] Mental Health Specialist: Jonathan Mckee MD Abs.Imm.Granulocyte 0.05 k/uL Normal 0.00-0.30 [facility] Comment on above: Performed By: #### T SH, VD25, ALB, B12, ECENZ, GLYHGB, ERTPF, FT4 #### [address] [address] Mental Health Specialist: Jonathan Mckee MD Abs.Neutrophil (Seg) 4.98 k/uL Normal 1.50-8.10 [facility] Comment on above: Performed By: #### T SH, VD25, ALB, B12, ECENZ, GLYHGB, ERTPF, FT4 #### [place] [address] Mental Health Specialist: Jonathan Mkcee MD Basophils/100 WBC (Bld) 0 % Normal 0-2 [facility] Comment on above: Performed By: #### T SH, VD25, ALB, B12, ECENZ, GLYHGB, ERTPF, FT4 #### [place] [address] Mental Health Specialist: Jonathan Mckee MD Eosinophils (Bld) [#/Vol] 0.18 10*3/uL Normal 0.00-0.44 [facility] Comment on above: Performed By: #### T SH, VD25, ALB, B12, ECENZ, GLYHGB, ERTPF, FT4 #### [place] [address] Mental Health Specialist: Jonathan Mckee MD Eosinophils/100 WBC (Bld) 3 % Normal 1-4 [facility] Comment on above: Performed By: #### T SH, VD25, ALB, B12, ECENZ, GLYHGB, ERTPF, FT4 #### [place] [address] Mental Health Specialist: Jonathan Mckee MD Erythrocyte distribution width (RBC) [Ratio] 13.7 % Normal 11.8-14.4 [facility] Comment on above: Performed By: #### T SH, VD25, ALB, B12, ECENZ, GLYHGB, ERTPF, FT4 #### [place] [address] Mental Health Specialist: Jonathan Mckee MD Hematocrit (Bld) [Volume fraction] 32.5 % Low 40.7-50.3 [facility] Comment on above: Performed By: #### T SH, VD25, ALB, B12, ECENZ, GLYHGB, ERTPF, FT4 #### [address] [address] Mental Health Specialist: Jonathan Mckee MD Hemoglobin (Bld) [Mass/Vol] 11.0 g/dL Low 13.0-17.0 [facility] Comment on above: Performed By: #### T SH, VD25, ALB, B12, ECENZ, GLYHGB, ERTPF, FT4 #### [address] [address] Mental Health Specialist: Jonathan Mckee MD Immature granulocytes/100 WBC (Bld) 1 % High 0 [facility] Comment on above: Performed By: #### T SH, VD25, ALB, B12, ECENZ, GLYHGB, ERTPF, FT4 #### [place] [address] Mental Health Specialist: Jonathan Mckee MD Lymphocytes (Bld) [#/Vol] 0.95 10*3/uL Low 1.10-3.70 [facility] Comment on above: Performed By: #### T SH, VD25, ALB, B12, ECENZ, GLYHGB, ERTPF, FT4 #### [address] [address] Mental Health Specialist: Jonathan Mckee MD Lymphocytes/100 WBC (Bld) 14 % Low 24-43 [facility] Comment on above: Performed By: #### T SH, VD25, ALB, B12, ECENZ, GLYHGB, ERTPF, FT4 #### [address] [address] Mental Health Specialist: Jonathan Mckee MD MCH (RBC) [Entitic mass] 30.4 pg Normal 25.2-33.5 [facility] Comment on above: Performed By: #### T SH, VD25, ALB, B12, ECENZ, GLYHGB, ERTPF, FT4 #### [address] [address] Mental Health Specialist: Jonathan Mckee MD MCHC (RBC) [Mass/Vol] 33.8 g/dL Normal 28.4-34.8 [facility] Comment on above: Performed By: #### T SH, VD25, ALB, B12, ECENZ, GLYHGB, ERTPF, FT4 #### [address] [address] Mental Health Specialist: Jonathan Mckee MD MCV (RBC) [Entitic vol] 89.8 fL Normal 82.6-102.9 [facility] Comment on above: Performed By: #### T SH, VD25, ALB, B12, ECENZ, GLYHGB, ERTPF, FT4 #### [address] [address] Mental Health Specialist: Jonathan Mckee MD Monocytes (Bld) [#/Vol] 0.78 10*3/uL Normal 0.10-1.20 [facility] Comment on above: Performed By: #### T SH, VD25, ALB, B12, ECENZ, GLYHGB, ERTPF, FT4 #### [address] [address] Mental Health Specialist: Jonathan Mckee MD Monocytes/100 WBC (Bld) 11 % Normal 3-12 [facility] Comment on above: Performed By: #### T SH, VD25, ALB, B12, ECENZ, GLYHGB, ERTPF, FT4 #### [address] [address] Mental Health Specialist: Jonathan Mckee MD Neutrophil (Seg) 72 % High 36-65 [facility] Comment on above: Performed By: #### T SH, VD25, ALB, B12, ECENZ, GLYHGB, ERTPF, FT4 #### [address] [address] Mental Health Specialist: Jonathan Mckee MD NRBC Automated 0.0 per 100 WBC Normal 0.0 [facility] Comment on above: Performed By: #### T SH, VD25, ALB, B12, ECENZ, GLYHGB, ERTPF, FT4 #### [address] [address] Mental Health Specialist: Jonathan Mckee MD Platelet mean volume (Bld) [Entitic vol] 10.3 fL Normal 8.1-13.5 [facility] Comment on above: Performed By: #### T SH, VD25, ALB, B12, ECENZ, GLYHGB, ERTPF, FT4 #### [address] [address] Mental Health Specialist: Jonathan Mckee MD Platelets (Bld) [#/Vol] 201 10*3/uL Normal 138-453 [facility] Comment on above: Performed By: #### T SH, VD25, ALB, B12, ECENZ, GLYHGB, ERTPF, FT4 #### [address] [address] Mental Health Specialist: Jonathan Mckee MD RBC (Bld) [#/Vol] 3.62 10*6/uL Low 4.21-5.77 [facility] Comment on above: Performed By: #### T SH, VD25, ALB, B12, ECENZ, GLYHGB, ERTPF, FT4 #### [address] [address] Mental Health Specialist: Jonathan Mckee MD WBC (Bld) [#/Vol] 7.0 10*3/uL Normal 3.5-11.3 [facility] Comment on above: Performed By: #### T SH, VD25, ALB, B12, ECENZ, GLYHGB, ERTPF, FT4 #### [facility] [address] [place] [id number] Mental Health Specialist: Jonathan Mckee MD XR SHOULDER RIGHT (MIN [...] Inder Pulliam MD 01/22/23 Final result Normal [facility] Albuminon 01-21-2023 Albumin [Mass/Vol] 3.6 g/dL Normal 3.5-5.2 [facility] Comment on above: Performed By: #### T SH, VD25, ALB, B12, ECENZ, GLYHGB, ERTPF, FT4 #### [address] [address] Mental Health Specialist: Jonathan Mckee MD Basic Metabolic Profon 01-21 Anion gap [Moles/Vol] 9 mmol/L Normal 9-17 [facility] Comment on above: Performed By: #### B MP, CDP, LISBETH, TROPI #### [facility] [address] [place] [address] Mental Health Specialist: Jonathan Mckee MD Calcium [Mass/Vol] 8.6 mg/dL Normal 8.6-10.4 [facility] Comment on above: Performed By: #### B MP, CDP, LISBETH, TROPI #### [facility] [address] [place] [address] Mental Health Specialist: Jonathan Mckee MD Chloride [Moles/Vol] 101 mmol/L Normal 98-107 [facility] Comment on above: Performed By: #### B MP, CDP, LISBETH, TROPI #### [facility] [address] [place] [address] [phone] Mental Health Specialist: Jonathan Mckee MD CO2 [Moles/Vol] 21 mmol/L Normal 20-31 [facility] Comment on above: Performed By: #### B MP, CDP, LISBETH, TROPI #### [facility] [address] [place] [address] Mental Health Specialist: Jonathan Mckee MD Creatinine [Mass/Vol] 0.9 mg/dL Normal 0.7-1.2 [facility] Comment on above: Performed By: #### B MP, CDP, LISBETH, TROPI #### [address] [phone] Mental Health Specialist: Jonathan Mckee MD GFR/1.73 sq M.predicted among non-blacks MDRD (S/P/Bld) [Vol rate/Area] mL/min/{1.73_m2} Normal >60 [facility] Comment on above: Result Comment: These results [...] #### B MP, CDP, LISBETH, TROPI #### [facility] [address] [place] [address] Mental Health Specialist: Jonathan Mckee MD Glucose [Mass/Vol] 113 mg/dL High 70-99 [facility] Comment on above: Performed By: #### B MP, CDP, LISBETH, TROPI #### [facility] [address] [place] [address] Mental Health Specialist: Jonathan Mckee MD Potassium [Moles/Vol] 3.7 mmol/L Normal 3.7-5.3 [facility] Comment on above: Performed By: #### B MP, CDP, LISBETH, TROPI #### [address] [address] Mental Health Specialist: Jonathan Mckee MD Sodium [Moles/Vol] 131 mmol/L Low 135-144 [facility] Comment on above: Performed By: #### B MP, CDP, LISBETH, TROPI #### [address] [address] Mental Health Specialist: Jonathan Mckee MD Urea nitrogen [Mass/Vol] 30 mg/dL High 8-23 [facility] Comment on above: Performed By: #### B MP, CDP, LISBETH, TROPI #### [facility] [address] [place] [address] Mental Health Specialist: Jonathan Mckee MD CBC with Diffon 01-21-2023 Abs. Basophil 0.03 k/uL Normal 0.00-0.20 [facility] Comment on above: Performed By: #### B MP, CDP, LISBETH, TROPI #### [facility] [address] [place] [address] Mental Health Specialist: Jonathan Mckee MD Abs.Imm.Granulocyte 0.10 k/uL Normal 0.00-0.30 [facility] Comment on above: Performed By: #### B MP, CDP, LISBETH, TROPI #### [facility] [address] [place] [address] Mental Health Specialist: Jonathan Mckee MD Abs.Neutrophil (Seg) 9.58 k/uL High 1.50-8.10 [facility] Comment on above: Performed By: #### B MP, CDP, LISBETH, TROPI #### [address] [address] Mental Health Specialist: Jonathan Mckee MD Basophils/100 WBC (Bld) 0 % Normal 0-2 [facility] Comment on above: Performed By: #### B MP, CDP, LISBETH, TROPI #### [address] [address] Mental Health Specialist: Jonathan Mckee MD Eosinophils (Bld) [#/Vol] 0.04 10*3/uL Normal 0.00-0.44 [facility] Comment on above: Performed By: #### B MP, CDP, LISBETH, TROPI #### [address] [address] Mental Health Specialist: Jonathan Mckee MD Eosinophils/100 WBC (Bld) 0 % Low 1-4 [facility] Comment on above: Performed By: #### B MP, CDP, LISBETH, TROPI #### [address] [address] Mental Health Specialist: Jonathan Mckee MD Erythrocyte distribution width (RBC) [Ratio] 13.5 % Normal 11.8-14.4 [facility] Comment on above: Performed By: #### B MP, CDP, LISBETH, TROPI #### [address] [address] Mental Health Specialist: Jonathan Mckee MD Hematocrit (Bld) [Volume fraction] 31.5 % Low 40.7-50.3 [facility] Comment on above: Performed By: #### B MP, CDP, LISBETH, TROPI #### [address] [address] Mental Health Specialist: Jonathan Mckee MD Hemoglobin (Bld) [Mass/Vol] 10.7 g/dL Low 13.0-17.0 [facility] Comment on above: Performed By: #### B MP, CDP, LISBETH, TROPI #### [address] [place] [address] Mental Health Specialist: Jonathan Mckee MD Immature granulocytes/100 WBC (Bld) 1 % High 0 [facility] Comment on above: Performed By: #### B MP, CDP, LISBETH, TROPI #### [address] [address] Mental Health Specialist: Jonathan Mckee MD Lymphocytes (Bld) [#/Vol] 0.90 10*3/uL Low 1.10-3.70 [facility] Comment on above: Performed By: #### B MP, CDP, LISBETH, TROPI #### [address] [address] Mental Health Specialist: Jonathan Mckee MD Lymphocytes/100 WBC (Bld) 8 % Low 24-43 [facility] Comment on above: Performed By: #### B MP, CDP, LISBETH, TROPI #### [address] [address] Mental Health Specialist: Jonathan Mckee MD MCH (RBC) [Entitic mass] 30.3 pg Normal 25.2-33.5 [facility] Comment on above: Performed By: #### B MP, CDP, LISBETH, TROPI #### [address] [address] Mental Health Specialist: Jonathan Mckee MD MCHC (RBC) [Mass/Vol] 34.0 g/dL Normal 28.4-34.8 [facility] Comment on above: Performed By: #### B MP, CDP, LISBETH, TROPI #### [facility] [address] [place] [address] Mental Health Specialist: Jonathan Mckee MD MCV (RBC) [Entitic vol] 89.2 fL Normal 82.6-102.9 [facility] Comment on above: Performed By: #### B MP, CDP, LISBETH, TROPI #### [address] [address] Mental Health Specialist: Jonathan Mckee MD Monocytes (Bld) [#/Vol] 1.19 10*3/uL Normal 0.10-1.20 [facility] Comment on above: Performed By: #### B MP, CDP, LISBETH, TROPI #### [address] [address] Mental Health Specialist: Jonathan Mckee MD Monocytes/100 WBC (Bld) 10 % Normal 3-12 [facility] Comment on above: Performed By: #### B MP, CDP, LISBETH, TROPI #### [address] [address] Mental Health Specialist: Jonathan Mckee MD Neutrophil (Seg) 81 % High 36-65 [facility] Comment on above: Performed By: #### B MP, CDP, LISBETH, TROPI #### [address] [address] Mental Health Specialist: Jonahtan Mckee MD NRBC Automated 0.0 per 100 WBC Normal 0.0 [facility] Comment on above: Performed By: #### B MP, CDP, LISBETH, TROPI #### [address] [address] Mental Health Specialist: Jonathan Mckee MD Platelet mean volume (Bld) [Entitic vol] 9.9 fL Normal 8.1-13.5 [facility] Comment on above: Performed By: #### B MP, CDP, LISBETH, TROPI #### [address] [address] Mental Health Specialist: Jonathan Mckee MD Platelets (Bld) [#/Vol] 186 10*3/uL Normal 138-453 [facility] Comment on above: Performed By: #### B MP, CDP, LISBETH, TROPI #### [address] [place] [phone] Mental Health Specialist: Jonathan Mckee MD RBC (Bld) [#/Vol] 3.53 10*6/uL Low 4.21-5.77 [facility] Comment on above: Performed By: #### B MP, CDP, LISBETH, TROPI #### [facility] [address] [place], [place] [phone] Mental Health Specialist: Jonathan Mckee MD WBC (Bld) [#/Vol] 11.8 10*3/uL High 3.5-11.3 [facility] Comment on above: Performed By: #### B MP, CDP, LISBETH, TROPI #### [place] [address] [place], [place] [phone] Mental Health Specialist: Jonathan Mckee MD CT CHEST ABDOMEN PELVIS WO C ONTRASTon 01-21-2023 CT CHEST ABDOMEN PELVIS WO CONTRAST [...] Moe Waters MD 01/20/23 Final result Normal [facility] CT HEAD WO CONTRASTon 2022 CT HEAD [...] Myron Rizo MD 01/21/23 Final result Normal [facility] CT HEAD WO CONTRAST EXAMINATION: CT OF [...] Darrell Hubbard DO 01/21/23 Final result Normal [facility] CT LUMBAR SPINE BONY RECONST RUCTIONon 01-21-2023 [...] Saroj Franklin MD 01/20/23 Final result Normal [facility] CT THORACIC SPINE BONY RECON STRUCTIONon 01-21-2023 [...] Saroj Franklin MD 01/20/23 Final result Normal [facility] Drug Scr, Abuse, Uron 2022 Amphetamine(s),Ur Negative Normal NEG [facility] Comment on above: Result Comment: (Positive cutoff 1000 ng/mL) Performed By: #### T SH, VD25, ALB, B12, ECENZ, GLYHGB, ERTPF, FT4 #### [place] [address] [place] [address] [phone] Mental Health Specialist: Jonathan Mckee MD Barbiturate(s),Ur Negative Normal NEG [facility] Comment on above: Result Comment: (Positive cutoff 200 ng/mL) Performed By: #### T SH, VD25, ALB, B12, ECENZ, GLYHGB, ERTPF, FT4 #### [place] [address] [place] [address] [phone] Mental Health Specialist: Jonathan Mckee MD Benzodiazepine(s) Negative Normal NEG [facility] Comment on above: Result Comment: (Positive cutoff 200 ng/mL) Performed By: #### T SH, VD25, ALB, B12, ECENZ, GLYHGB, ERTPF, FT4 #### [place] [address] [place] [address] [phone] Mental Health Specialist: Jonathan Mckee MD Cannabinoid(s),Ur Negative Normal NEG [facility] Comment on above: Result Comment: (Positive cutoff 50 ng/mL) Performed By: #### T SH, VD25, ALB, B12, ECENZ, GLYHGB, ERTPF, FT4 #### [facility] [address] [place] [id number] Mental Health Specialist: Jonathan Mckee MD Cocaine Metabolite Negative Normal NEG [facility] Comment on above: Result Comment: (Positive cutoff 300 ng/mL) Performed By: #### T SH, VD25, ALB, B12, ECENZ, GLYHGB, ERTPF, FT4 #### [facility] [address] [place] [address] Mental Health Specialist: Jonathan Mckee MD Fentanyl, Urine Negative Normal NEG [facility] Comment on above: Result Comment: (Positive cutoff 5 ng/ml) Performed By: #### T SH, VD25, ALB, B12, ECENZ, GLYHGB, ERTPF, FT4 #### [facility] [address] [address] Mental Health Specialist: Jonathan Mckee MD Interpretive Info Assay provides medic al screening only. The absence of expected drug(s) and/or Normal [facility] Comment on above: Result Comment: meta bolite(s) may indicate diluted or adulterated urine, limitations of testing or timing of collection. Testing for legal purposes should be confirmed by another method. To request confirmation of test result, please call the lab within 7 days of sample submission. Performed By: #### T SH, VD25, ALB, B12, ECENZ, GLYHGB, ERTPF, FT4 #### [facility] [address] [place] [id number] Mental Health Specialist: Jonathan Mckee MD Methadone Ql (U) Negative Normal NEG [facility] Comment on above: Result Comment: (Positive cutoff 300 ng/mL) Performed By: #### T SH, VD25, ALB, B12, ECENZ, GLYHGB, ERTPF, FT4 #### [facility] [address] [place] [id number] Mental Health Specialist: Jonathan Mckee MD Opiate(s), Ur Negative Normal NEG [facility] Comment on above: Result Comment: (Positive cutoff 300 ng/mL) Performed By: #### T SH, VD25, ALB, B12, ECENZ, GLYHGB, ERTPF, FT4 #### [address] [id number] Mental Health Specialist: Jonathan Mckee MD Oxycodone, Urine Negative Normal NEG [facility] Comment on above: Result Comment: (Positive cutoff 100 ng/mL) Performed By: #### T SH, VD25, ALB, B12, ECENZ, GLYHGB, ERTPF, FT4 #### [address] [id number] Mental Health Specialist: Jonathan Mckee MD Phencyclidine, Ur Negative Normal NEG [facility] Comment on above: Result Comment: (Positive cutoff 25 ng/mL) Performed By: #### T SH, VD25, ALB, B12, ECENZ, GLYHGB, ERTPF, FT4 #### [address] [id number] Mental Health Specialist: Jonathan Mckee MD Hemoglobin A1Con 01-21-2023 Glucose [Mass/Vol] 97 mg/dL Normal [facility] Comment on above: Result Comment: The ADA and AACC recommend providing the estimated average glucose result to permit better patient understanding of their HBA1c result. Performed By: #### T SH, VD25, ALB, B12, ECENZ, GLYHGB, ERTPF, FT4 #### [facility] [address] [place] [address] [id number] Mental Health Specialist: Jonathan Mckee MD HbA1c (Bld) [Mass fraction] 5.0 % Normal 4.0-6.0 [facility] Comment on above: Performed By: #### T SH, VD25, ALB, B12, ECENZ, GLYHGB, ERTPF, FT4 #### [address] [id number] Mental Health Specialist: Jonathan Mckee MD Myoglobinon 01-21-2023 Myoglobin [Mass/Vol] 888 ng/mL High 28-72 [facility] Comment on above: Performed By: #### T SH, VD25, ALB, B12, ECENZ, GLYHGB, ERTPF, FT4 #### [address] [phone] Mental Health Specialist: Jonathan Mckee MD Thyroid Stim. Horm.on 2022 Thyroid Stim. Horm. 4.37 uIU/mL Normal 0.30-5.00 [facility] Comment on above: Performed By: #### T SH, VD25, ALB, B12, ECENZ, GLYHGB, ERTPF, FT4 #### [address] [phone] Mental Health Specialist: Jonathan Mckee MD Thyroxine, Freeon 01-21-2023 Thyroxine, Free 1.4 ng/dL Normal 0.9-1.7 [facility] Comment on above: Performed By: #### T SH, VD25, ALB, B12, ECENZ, GLYHGB, ERTPF, FT4 #### [address] [phone] Mental Health Specialist: Jonathan Mckee MD Trauma Profileon 01-21-2023 Anion gap [Moles/Vol] 15 mmol/L Normal 9-17 [facility] Comment on above: Performed By: #### T SH, VD25, ALB, B12, ECENZ, GLYHGB, ERTPF, FT4 #### [address] [phone] Mental Health Specialist: Jonathan Mckee MD Chloride [Moles/Vol] 98 mmol/L Normal 98-107 [facility] Comment on above: Performed By: #### T SH, VD25, ALB, B12, ECENZ, GLYHGB, ERTPF, FT4 #### [address] [address] Mental Health Specialist: Jonathan Mckee MD CO2 [Moles/Vol] 19 mmol/L Low 20-31 [facility] Comment on above: Performed By: #### T SH, VD25, ALB, B12, ECENZ, GLYHGB, ERTPF, FT4 #### [address] [address] Mental Health Specialist: Jonathan Mckee MD Creatinine [Mass/Vol] 0.9 mg/dL Normal 0.7-1.2 [facility] Comment on above: Performed By: #### T SH, VD25, ALB, B12, ECENZ, GLYHGB, ERTPF, FT4 #### [address] [address] Mental Health Specialist: Jonathan Mckee MD Ethanol [Mass/Vol] mg/dL Normal <10 [facility] Comment on above: Performed By: #### T SH, VD25, ALB, B12, ECENZ, GLYHGB, ERTPF, FT4 #### [address] [address] Mental Health Specialist: Jonathan Mckee MD Ethanol percent <0.010 Normal <0.010 [facility] Comment on above: Performed By: #### T SH, VD25, ALB, B12, ECENZ, GLYHGB, ERTPF, FT4 #### [address] [address] Mental Health Specialist: Jonathan Mckee MD GFR/1.73 sq M.predicted among non-blacks MDRD (S/P/Bld) [Vol rate/Area] 58 mL/min/{1.73_m2} Low >60 [facility] Comment on above: Result Comment: These results [...] ALB, B12, ECENZ, GLYHGB, ERTPF, FT4 #### [address] [address] Mental Health Specialist: Jonathan Mckee MD Glucose [Mass/Vol] 111 mg/dL High 70-99 [facility] Comment on above: Performed By: #### T SH, VD25, ALB, B12, ECENZ, GLYHGB, ERTPF, FT4 #### [address] [address] Mental Health Specialist: Jonathan Mckee MD Potassium [Moles/Vol] 3.7 mmol/L Normal 3.7-5.3 [facility] Comment on above: Performed By: #### T SH, VD25, ALB, B12, ECENZ, GLYHGB, ERTPF, FT4 #### [address] [address] Mental Health Specialist: Jonathan Mckee MD Sodium [Moles/Vol] 132 mmol/L Low 135-144 [facility] Comment on above: Performed By: #### T SH, VD25, ALB, B12, ECENZ, GLYHGB, ERTPF, FT4 #### [address] [address] Mental Health Specialist: Jonathan Mckee MD Urea nitrogen [Mass/Vol] 31 mg/dL High 8-23 [facility] Comment on above: Performed By: #### T SH, VD25, ALB, B12, ECENZ, GLYHGB, ERTPF, FT4 #### [address] [address] Mental Health Specialist: Jonathan Mckee MD HCG Screen, Blood Negative Normal [facility] Comment on above: Result Comment: Spec imens with hCG levels near the threshold of the test (25 mIU/mL) may give a negative or indeterminate result. In such cases, another test should be performed with a new specimen in 48-72 hours. If early is suspected clinically in this setting, correlation with quantitative serum b-hCG level is suggested. [facility] has confirmed the use of plasma for this test. This has not been cleared or approved by the U.S. Food and Drug Administration. The FDA has determined that such clearance is not necessary. Performed By: #### T SH, VD25, ALB, B12, ECENZ, GLYHGB, ERTPF, FT4 #### [address] [address] Mental Health Specialist: Jonathan Mckee MD aPTT Coag (Bld) [Time] 28.4 s Normal 23.0-36.5 [facility] Comment on above: Result Comment: IV Heparin Therapy Range: 66.0-92.0 sec Performed By: #### T SH, VD25, ALB, B12, ECENZ, GLYHGB, ERTPF, FT4 #### [address] [address] Mental Health Specialist: Jonathan Mckee MD INR Coag (PPP) [Relative time] 1.1 {INR} Normal [facility] Comment on above: Result Comment: Therapeutic Range: Moderate Anticoagulant Intensity: INR = 2.0-3.0 High Anticoagulant Intensity: INR = 2.5-3.5 Performed By: #### T SH, VD25, ALB, B12, ECENZ, GLYHGB, ERTPF, FT4 #### [address] [address] Mental Health Specialist: Jonathan Mckee MD PT Coag (PPP) [Time] 14.3 s Normal 11.7-14.9 [facility] Comment on above: Performed By: #### T SH, VD25, ALB, B12, ECENZ, GLYHGB, ERTPF, FT4 #### [address] [address] Mental Health Specialist: Jonathan Mckee MD Erythrocyte distribution width (RBC) [Ratio] 13.4 % Normal 11.8-14.4 [facility] Comment on above: Performed By: #### T SH, VD25, ALB, B12, ECENZ, GLYHGB, ERTPF, FT4 #### [address] [address] Mental Health Specialist: Jonathan Mckee MD Hematocrit (Bld) [Volume fraction] 35.3 % Low 40.7-50.3 [facility] Comment on above: Performed By: #### T SH, VD25, ALB, B12, ECENZ, GLYHGB, ERTPF, FT4 #### [place] [address] Mental Health Specialist: Jonathan Mckee MD Hemoglobin (Bld) [Mass/Vol] 12.1 g/dL Low 13.0-17.0 [facility] Comment on above: Performed By: #### T SH, VD25, ALB, B12, ECENZ, GLYHGB, ERTPF, FT4 #### [address] [id number] Mental Health Specialist: Jonathan Mckee MD MCH (RBC) [Entitic mass] 30.4 pg Normal 25.2-33.5 [facility] Comment on above: Performed By: #### T SH, VD25, ALB, B12, ECENZ, GLYHGB, ERTPF, FT4 #### [place] [address] Mental Health Specialist: Jonathan Mckee MD MCHC (RBC) [Mass/Vol] 34.3 g/dL Normal 28.4-34.8 [facility] Comment on above: Performed By: #### T SH, VD25, ALB, B12, ECENZ, GLYHGB, ERTPF, FT4 #### [address] [address] Mental Health Specialist: Jonathan Mckee MD MCV (RBC) [Entitic vol] 88.7 fL Normal 82.6-102.9 [facility] Comment on above: Performed By: #### T SH, VD25, ALB, B12, ECENZ, GLYHGB, ERTPF, FT4 #### [address] [address] Mental Health Specialist: Jonathan Mckee MD NRBC Automated 0.0 per 100 WBC Normal 0.0 [facility] Comment on above: Performed By: #### T SH, VD25, ALB, B12, ECENZ, GLYHGB, ERTPF, FT4 #### [address] [address] Mental Health Specialist: Jonathan Mckee MD Platelet mean volume (Bld) [Entitic vol] 10.4 fL Normal 8.1-13.5 [facility] Comment on above: Performed By: #### T SH, VD25, ALB, B12, ECENZ, GLYHGB, ERTPF, FT4 #### [address] [address] Mental Health Specialist: Jonathan Mckee MD Platelets (Bld) [#/Vol] 212 10*3/uL Normal 138-453 [facility] Comment on above: Performed By: #### T SH, VD25, ALB, B12, ECENZ, GLYHGB, ERTPF, FT4 #### [address] [address] Mental Health Specialist: Jonathan Mckee MD RBC (Bld) [#/Vol] 3.98 10*6/uL Low 4.21-5.77 [facility] Comment on above: Performed By: #### T SH, VD25, ALB, B12, ECENZ, GLYHGB, ERTPF, FT4 #### [address] [address] Mental Health Specialist: Jonathan Mckee MD WBC (Bld) [#/Vol] 14.3 10*3/uL High 3.5-11.3 [facility] Comment on above: Performed By: #### T SH, VD25, ALB, B12, ECENZ, GLYHGB, ERTPF, FT4 #### [address] [address] Mental Health Specialist: Jonathan Mckee MD Body Temp. 37.0 Normal [facility] Comment on above: Performed By: #### T SH, VD25, ALB, B12, ECENZ, GLYHGB, ERTPF, FT4 #### [address] [address] Mental Health Specialist: Jonathan Mckee MD Carboxy Hgb 1.1 % Normal 0-5 [facility] Comment on above: Result Comment: Reference Range: Non-Smokers 0-2% Average Smoker 2-4% Heavy Smoker <10% Performed By: #### T SH, VD25, ALB, B12, ECENZ, GLYHGB, ERTPF, FT4 #### [address] [address] Mental Health Specialist: Jonathan Mckee MD FIO2 INFORMATION NOT PROVIDED Normal [facility] Comment on above: Performed By: #### T SH, VD25, ALB, B12, ECENZ, GLYHGB, ERTPF, FT4 #### [address] [address] Mental Health Specialist: Jonathan Mckee MD HCO3 (Bld) [Moles/Vol] 24.1 mmol/L Normal 24-30 [facility] Comment on above: Performed By: #### T SH, VD25, ALB, B12, ECENZ, GLYHGB, ERTPF, FT4 #### [address] [address] Mental Health Specialist: Jonathan Mckee MD Oxygen saturation in Blood 46.4 % Low 60.0-85.0 [facility] Comment on above: Performed By: #### T SH, VD25, ALB, B12, ECENZ, GLYHGB, ERTPF, FT4 #### [address] [address] Mental Health Specialist: Jonathan Mckee MD pCO2 37.1 mm Hg Low 39-55 [facility] Comment on above: Performed By: #### T SH, VD25, ALB, B12, ECENZ, GLYHGB, ERTPF, FT4 #### [address] [address] Mental Health Specialist: Jonathan Mckee MD pH (Bld) 7.428 [pH] High 7.320-7.420 [facility] Comment on above: Performed By: #### T SH, VD25, ALB, B12, ECENZ, GLYHGB, ERTPF, FT4 #### [address] [address] Mental Health Specialist: Jonathan Mckee MD pO2 28.2 mm Hg Low 30-50 [facility] Comment on above: Performed By: #### T SH, VD25, ALB, B12, ECENZ, GLYHGB, ERTPF, FT4 #### [facility] [address] [place] [address] Mental Health Specialist: Jonathan Mckee MD Positive Base Excess 0.5 mmol/L Normal 0.0-2.0 [facility] Comment on above: Performed By: #### T SH, VD25, ALB, B12, ECENZ, GLYHGB, ERTPF, FT4 #### [address] [address] Mental Health Specialist: Jonathan Mckee MD Blood Bank BILL FOR SERVICES PERFORMED Normal [facility] Comment on above: Performed By: #### T SH, VD25, ALB, B12, ECENZ, GLYHGB, ERTPF, FT4 #### [address] [address] Mental Health Specialist: Jonathan Mckee MD Trop/Myoglobinon 01-21-2023 Myoglobin [Mass/Vol] 1084 ng/mL High 28-72 [facility] Comment on above: Performed By: #### T SH, VD25, ALB, B12, ECENZ, GLYHGB, ERTPF, FT4 #### [address] [phone] Mental Health Specialist: Jonathan Mckee MD Troponin, High Sens 49 ng/L High 0-22 [facility] Comment on above: Result Comment: High Sensitivity Troponin values cannot be compared with other Troponin methodologies. Performed By: #### T SH, VD25, ALB, B12, ECENZ, GLYHGB, ERTPF, FT4 #### [facility] [address] [place] [address] Mental Health Specialist: Jonathan Mckee MD Troponinon 01-21-2023 Troponin, High Sens 48 ng/L High 0-22 [facility] Comment on above: Result Comment: High Sensitivity Troponin values cannot be compared with other Troponin methodologies. Performed By: #### T SH, VD25, ALB, B12, ECENZ, GLYHGB, ERTPF, FT4 #### [facility] [address] [place] [id number] Mental Health Specialist: Jonathan Mckee MD Type + Screenon 01-21-2023 Type + Screen Sample Expiration 01/23/2023,2359 Arm Band Number BE [id number] ABO/Rh(D) O POSITIVE Antibody Screen NEGATIVE Normal [facility] Comment on above: Performed By: #### T SH, VD25, ALB, B12, ECENZ, GLYHGB, ERTPF, FT4 #### [facility] [address] [place] [address] Mental Health Specialist: Jonathan Mckee MD Urinalysis, Routineon 2022 Bilirubin, SemiQt,Ur Negative Normal NEG [facility] Comment on above: Performed By: #### T SH, VD25, ALB, B12, ECENZ, GLYHGB, ERTPF, FT4 #### [facility] [address] [place] [address] Mental Health Specialist: Jonathan Mckee MD Blood, Urine Negative Normal NEG [facility] Comment on above: Performed By: #### T SH, VD25, ALB, B12, ECENZ, GLYHGB, ERTPF, FT4 #### [facility] [address] [place] [address] Mental Health Specialist: Jonathan Mckee MD Clarity (U) Clear Normal CLEAR [facility] Comment on above: Performed By: #### T SH, VD25, ALB, B12, ECENZ, GLYHGB, ERTPF, FT4 #### [facility] [address] [place] [address] Mental Health Specialist: Jonathan Mckee MD Color (U) Yellow Normal YEL [facility] Comment on above: Performed By: #### T SH, VD25, ALB, B12, ECENZ, GLYHGB, ERTPF, FT4 #### [facility] [address] [place] [address] Mental Health Specialist: Jonathan Mckee MD Glucose Ql (U) Negative Normal NEG [facility] Comment on above: Performed By: #### T SH, VD25, ALB, B12, ECENZ, GLYHGB, ERTPF, FT4 #### [facility] [address] [place] [address] Mental Health Specialist: Jonathan Mckee MD Ketones Ql (U) SMALL Abnormal NEG [facility] Comment on above: Performed By: #### T SH, VD25, ALB, B12, ECENZ, GLYHGB, ERTPF, FT4 #### [address] [address] Mental Health Specialist: Jonathan Mckee MD Leukocyte esterase Test strip Ql (U) TRACE Abnormal NEG [facility] Comment on above: Performed By: #### T SH, VD25, ALB, B12, ECENZ, GLYHGB, ERTPF, FT4 #### [address] [address] Mental Health Specialist: Jonathan Mckee MD Nitrite,Ur Negative Normal NEG [facility] Comment on above: Performed By: #### T SH, VD25, ALB, B12, ECENZ, GLYHGB, ERTPF, FT4 #### [address] [address] Mental Health Specialist: Jonathan Mckee MD PH,Ur 8.0 Normal 5.0-8.0 [facility] Comment on above: Performed By: #### T SH, VD25, ALB, B12, ECENZ, GLYHGB, ERTPF, FT4 #### [address] [address] Mental Health Specialist: Jonathan Mckee MD Protein Ql (U) Negative Normal NEG [facility] Comment on above: Performed By: #### T SH, VD25, ALB, B12, ECENZ, GLYHGB, ERTPF, FT4 #### [address] [address] Mental Health Specialist: Jonathan Mckee MD Spec. Felton,Ur 1.018 Normal 1.005-1.030 [facility] Comment on above: Performed By: #### T SH, VD25, ALB, B12, ECENZ, GLYHGB, ERTPF, FT4 #### [address] [address] Mental Health Specialist: Jonathan Mckee MD Urobilinogen,Ur Normal Normal 0.0-1.0 [facility] Comment on above: Performed By: #### T SH, VD25, ALB, B12, ECENZ, GLYHGB, ERTPF, FT4 #### [address] [address] Mental Health Specialist: Jonathan Mckee MD Urinalysis,Microon 3 Bacteria None Normal NONE [facility] Comment on above: Performed By: #### T SH, VD25, ALB, B12, ECENZ, GLYHGB, ERTPF, FT4 #### [address] [address] Mental Health Specialist: Jonathan Mckee MD Casts 0 TO 2 HYALINE Normal 0-8 [facility] Comment on above: Result Comment: Refe rence range defined for non-centrifuged specimen. Performed By: #### T SH, VD25, ALB, B12, ECENZ, GLYHGB, ERTPF, FT4 #### [address] [address] Mental Health Specialist: Jonathan Mckee MD Epithelial cells LM Ql (Urine sed) 0 TO 2 Normal 0-5 [facility] Comment on above: Performed By: #### T SH, VD25, ALB, B12, ECENZ, GLYHGB, ERTPF, FT4 #### [address] [address] Mental Health Specialist: Jonathan Mckee MD Urine RBC's 0 TO 2 Normal 0-4 [facility] Comment on above: Result Comment: Refe rence range defined for non-centrifuged specimen. Performed By: #### T SH, VD25, ALB, B12, ECENZ, GLYHGB, ERTPF, FT4 #### [address] [address] Mental Health Specialist: Jonathan Mckee MD Urine WBC's 2 TO 5 Normal 0-5 [facility] Comment on above: Performed By: #### T SH, VD25, ALB, B12, ECENZ, GLYHGB, ERTPF, FT4 #### [facility] [address] [place] [address] [phone] Mental Health Specialist: Jonathan Mckee MD Vitamin B12on 01-21-2023 Cobalamin (Vitamin B12) [Mass/Vol] 544 pg/mL Normal 232-1245 [facility] Comment on above: Performed By: #### T SH, VD25, ALB, B12, ECENZ, GLYHGB, ERTPF, FT4 #### [facility] [address] [place] [address] [phone] Mental Health Specialist: Jonathan Mckee MD Vitamin D 25 OHon 01-21-2023 Vitamin D 25 OH 37.4 ng/mL Normal >29.9 [facility] Comment on above: Result Comment: Reference Range: Vitamin D status Range Deficiency <20 ng/mL Mild Deficiency 20-30 ng/mL Sufficiency 30-100 ng/mL Toxicity >100 ng/mL Performed By: #### T SH, VD25, ALB, B12, ECENZ, GLYHGB, ERTPF, FT4 #### [address] [phone] Mental Health Specialist: Jonathan Mckee MD XR WRIST LEFT (MIN [...] Moe Waters MD 01/20/23 Final result Normal [facility] Office Visiton 10-02-2022 Follow-up visit [id number] aTl Torres 1935 M Date Provider Department Center 10/02/2022 DIMA HENDRIX [facility] No family history on file Level of Service:04902 [place] OFFICE/OUTPATIENT ESTABLISHED LOW MDM 20-29 MIN Reason for Visit and Comments: Follow-up [297999] - FOLLOW UP FROM [facility] Normal [facility] ANESon 09-11-2022 ANES --- Attestation signed by Robby Buckner MD at 09/11/2022 5:02 PM agree Patient: Garth Torres Procedure Information Date/Time: 09/11/22 1030 Procedure: TRANSESOPHAGEAL ECHO ([facility]) Location: [facility] V[facility] Lab [...] to blood products. Additional Equipment Requests Normal [facility] HPon 09-11-2022 History Of Present Illness [...] a hospital admission) XR SHOULDER 2V 06/03/2020 [id number] Final Review of Systems All other systems [...] severity of aortic stenosis. Daniel Nelson MD [facility] NURSNOTEon 09-11-2022 NURSNOTE RN educated pt on d/ c instructions. RN encouraged pt to voice any questions or concerns. Pt verbalizes no questions or concerns at this time.Swallow test passed by patient at bedside. [facility] Telephoneon 09-03-2022 Telephone [id number] Tal Torres 1935 M Date Provider Department Center 09/03/2022 Eddy7-FOX MARTINEZ [facility] No family history on file [facility] Office Visiton 08-06-2022 Follow-up visit [id number] Tal Torres 1935 M Date Provider Department Center 08/06/2022 367-DIMA WHITAKER CARD [facility] No family history on file Level of Service:80169 [place] OFFICE/OUTPATIENT NEW MODERATE MDM 45-59 MINUTES Reason for Visit and Comments: Establish Care [42] - AORTIC STENOSIS Normal [facility] Basic Metabolic Panelon 03-0 Calcium [Mass/Vol] 9.4 mg/dL Normal 8.2-10.2 [facility] Comment on above: Order Comment: Reaso n for Exam Blood tests prior to treatment or procedure Result Comment: PERF ORMED BY: [place] [address] PATHOLOGIST ADMISSIONS COORDINATOR MAXI BENNETT M.D. Performed By: #### C BC, BMP #### [facility] [address] [place] [address] [place] Chloride [Moles/Vol] 97 mmol/L Normal 95-[address] [facility] Comment on above: Order Comment: Reaso n for Exam Blood tests prior to treatment or procedure Performed By: #### C BC, BMP #### [facility] [address] CO2 [Moles/Vol] 25.9 mmol/L Normal 22.0-30.0 [facility] Comment on above: Order Comment: Reaso n for Exam Blood tests prior to treatment or procedure Performed By: #### C BC, BMP #### [facility] [address] [place] [address] [place] Creatinine [Mass/Vol] 1.13 mg/dL Normal 0.64-1.27 [facility] Comment on above: Order Comment: Reaso n for Exam Blood tests prior to treatment or procedure Performed By: #### C BC, BMP #### [facility] [address] [place] [address] [place] Estimated GFR ( Kayley > 60 Normal [facility] Comment on above: Order Comment: Reaso n for Exam Blood tests prior to treatment or procedure Result Comment: GFR estimated reference range: According to KDOQI guidelines, <60 ml/min/1.73m2 is sufficient to diagnose a patient with chronic kidney disease. Performed By: #### C BC, BMP #### [address] Estimated GFR (Non- Am > 60 Normal [facility] Comment on above: Order Comment: Reaso n for Exam Blood tests prior to treatment or procedure Performed By: #### C BC, BMP #### [address] Glucose [Mass/Vol] 83 mg/dL Normal 70-100 [facility] Comment on above: Order Comment: Reaso n for Exam Blood tests prior to treatment or procedure Result Comment: [facility] Glucose Reference Range is dependent on time and content of last meal. Glucose of more than 200 mg/dL in a nonstressed, ambulatory subject supports the diagnosis of Diabetes Mellitus. ADA recommended reference range Performed By: #### C PEARL, BMP #### [address] Potassium [Moles/Vol] 4.5 mmol/L Normal 3.5-5.1 [facility] Comment on above: Order Comment: Reaso n for Exam Blood tests prior to treatment or procedure Performed By: #### C PEARL, BMP #### [address] Sodium [Moles/Vol] 131 mmol/L Low 136-146 [facility] Comment on above: Order Comment: Reaso n for Exam Blood tests prior to treatment or procedure Performed By: #### C BC, BMP #### [address] Urea nitrogen [Mass/Vol] 20 mg/dL Normal 9-23 [facility] Comment on above: Order Comment: Reaso n for Exam Blood tests prior to treatment or procedure Performed By: #### C BC, BMP #### [address] Complete Blood Count Auto Di ffon 04-22-2021 Basophils (Bld) [#/Vol] 0.1 10*3/uL Normal 0.0-0.2 [facility] Comment on above: Order Comment: Reaso n for Exam Blood tests prior to treatment or procedure Result Comment: PERF ORMED BY: [place] [address] PATHOLOGIST ADMISSIONS COORDINATOR MAXI BENNETT M.D. Performed By: #### C BC, BMP #### [address] Basophils/100 WBC (Bld) 1.0 % Normal . [facility] Comment on above: Order Comment: Reaso n for Exam Blood tests prior to treatment or procedure Performed By: #### C BC, BMP #### [place] [address] [place] Eosinophils (Bld) [#/Vol] 0.2 10*3/uL Normal 0.0-0.45 [facility] Comment on above: Order Comment: Reaso n for Exam Blood tests prior to treatment or procedure Performed By: #### C BC, BMP #### [place] [address] [place] Eosinophils/100 WBC (Bld) 2.5 % Normal . [facility] [facility] Comment on above: Order Comment: Reaso n for Exam Blood tests prior to treatment or procedure Performed By: #### C BC, BMP #### [address] Erythrocyte distribution width (RBC) [Ratio] 14.2 % Normal 12.0-14.8 [facility] Comment on above: Order Comment: Reaso n for Exam Blood tests prior to treatment or procedure Performed By: #### C BC, BMP #### [address] Hematocrit (Bld) [Volume fraction] 41.9 % Normal 38.8-50.0 [facility] Comment on above: Order Comment: Reaso n for Exam Blood tests prior to treatment or procedure Performed By: #### C BC, BMP #### [address] Hemoglobin (Bld) [Mass/Vol] 14.3 g/dL Normal 13.0-17.0 [facility] Comment on above: Order Comment: Reaso n for Exam Blood tests prior to treatment or procedure Performed By: #### C BC, BMP #### [address] Lymphocytes (Bld) [#/Vol] 1.1 10*3/uL Normal 1.00-4.8 [facility] Comment on above: Order Comment: Reaso n for Exam Blood tests prior to treatment or procedure Performed By: #### C BC, BMP #### [address] Lymphocytes/100 WBC (Bld) 14.2 % Normal . [facility] Comment on above: Order Comment: Reaso n for Exam Blood tests prior to treatment or procedure Performed By: #### C BC, BMP #### [address] MCH (RBC) [Entitic mass] 29.7 pg Normal 27.5-35.2 [facility] Comment on above: Order Comment: Reaso n for Exam Blood tests prior to treatment or procedure Performed By: #### C BC, BMP #### [address] MCV (RBC) [Entitic vol] 87.1 fL Normal 83.5-101 [facility] Comment on above: Order Comment: Reaso n for Exam Blood tests prior to treatment or procedure Performed By: #### C BC, BMP #### [address] Mean Corpuscular HGB Conc 34.0 g/dL Normal 32.5-35.6 [facility] Comment on above: Order Comment: Reaso n for Exam Blood tests prior to treatment or procedure Performed By: #### C BC, BMP #### [address] Monocytes (Bld) [#/Vol] 0.7 10*3/uL Normal 0.0-0.8 [facility] Comment on above: Order Comment: Reaso n for Exam Blood tests prior to treatment or procedure Performed By: #### C BC, BMP #### [place] [address] [place] Monocytes/100 WBC (Bld) 8.7 % Normal . [facility] Comment on above: Order Comment: Reaso n for Exam Blood tests prior to treatment or procedure Performed By: #### C BC, BMP #### [facility] [address] [place] [address] [place] Neutrophils (Bld) [#/Vol] 5.6 10*3/uL Normal 1.8-7.7 [facility] Comment on above: Order Comment: Reaso n for Exam Blood tests prior to treatment or procedure Performed By: #### C BC, BMP #### [facility] [address] [place] [address] [place] Neutrophils/100 WBC (Bld) 73.6 % Normal . [facility] Comment on above: Order Comment: Reaso n for Exam Blood tests prior to treatment or procedure Performed By: #### C BC, BMP #### [facility] [address] [place] [address] [place] Nucleated RBC/100 WBC (Bld) [Ratio] 0.1 % Normal 0-0.5 [facility] Comment on above: Order Comment: Reaso n for Exam Blood tests prior to treatment or procedure Performed By: #### C BC, BMP #### [facility] [address] [place] [address] [place] Platelet mean volume (Bld) [Entitic vol] 9.8 fL Normal 6.6-10.1 [facility] Comment on above: Order Comment: Reaso n for Exam Blood tests prior to treatment or procedure Performed By: #### C BC, BMP #### [facility] [address] [place] [address] [place] Platelets (Bld) [#/Vol] 200 10*3/uL Normal 150-450 [facility] Comment on above: Order Comment: Reaso n for Exam Blood tests prior to treatment or procedure Performed By: #### C BC, BMP #### [facility] [address] [place] [address] [place] RBC (Bld) [#/Vol] 4.81 10*6/uL Normal 3.90-5.60 [facility] Comment on above: Order Comment: Reaso n for Exam Blood tests prior to treatment or procedure Performed By: #### C BC, BMP #### [facility] [address] WBC (Bld) [#/Vol] 7.6 10*3/uL Normal 4.5-11.0 [facility] Comment on above: Order Comment: Reaso n for Exam Blood tests prior to treatment or procedure Performed By: #### C BC, BMP #### [facility] [address] ECG 12 lead ECGon 04-22-2021 ECG 12 lead ECG [facility] [place] [address] [place] [address] Electrocardiograph Report Signed Patient: Garth Torres MR#: [id number] 25 : 1935 Acct:[id number] Age/Sex: 86 / M ADM Date: 04/22/21 Loc: Room: Type: [facility] Attending Dr: Vlad Denis DO Ordering Provider: [...] MUS Signed By Mitesh Wei DO 04/22 Normal [facility] Ambulatory Clinical Summaryo n 02-11-2021 Ambulatory Clinical Summary {[id number] Anabella Champion [facility] Patient Educationon 12-28-20 21 Patient Education Urology Benign Prostatic Hyperplasia [...] Follow these instructions at home: ? Take ymbj-pri-mjmhzzh and prescription medicines only as told by [...] You d (more content not included)... Normal Akira [facility] Urology Office/Clinic Noteon 02-11-2021 Urology Office/Clinic [...] Urnls Dip Stick Auto w/o Microscopy POC 36267 3. Urgency of urination (R39.15: Urgency of [...] Only if needed [facility] [address] [place] [address]- Additional Instructions: Patient Education Benign Prostatic Hyperplasia [...] more t (more content not included)... Normal [facility] Comment on above: Result Comment: Elec tronically Signed By: Herb Dutton MD, Terrance aBl\.br\Date and Time Signed: 02/11/21 12:57 EST\.br\Electronically Co-Signed By: Ling Melara MA\.br\Date and Time Co-Signed: 02/11/21 12:33 EST Comprehensive Metabolic Pane [facility] 02-10-2021 Albumin [Mass/Vol] 3.8 g/dL Normal 3.6-5.1 [facility] Comment on above: Performed By: #### L IPD, CMP #### [facility] [address] [place], [place] [id number] Albumin/Globulin [Mass ratio] 1.7 {ratio} Normal 1.0-2.5 [facility] Manager Comment on above: Performed By: #### L IPD, CMP #### [facility] [address] [place], [place] [id number] ALP [Catalytic activity/Vol] 119 U/L Normal 40-129 [facility] Manager Comment on above: Performed By: #### L IPD, CMP #### [facility] [address] [place], [place] [id number] ALT [Catalytic activity/Vol] 12 U/L Normal 9-46 [facility] Comment on above: Result Comment: 01/15 Female reference range changed. Performed By: #### L IPD, CMP #### [facility] [address] [place], [place] [id number] Anion gap [Moles/Vol] 14 mmol/L Normal 12-20 [facility] Comment on above: Result Comment: Effe ctive 02/20/2019 reference range changed. Performed By: #### L IPD, CMP #### [facility] [address] [place], [place] [id number] AST [Catalytic activity/Vol] 17 U/L Normal 10-40 [facility] Comment on above: Performed By: #### L IPD, CMP #### [facility] [address] [place], [place] [id number] Bilirubin [Mass/Vol] 0.50 mg/dL Normal 0.30-1.20 [facility] Comment on above: Performed By: #### L IPD, CMP #### [facility] [address] [place], [place] [id number] BUN/CREA 20 Ratio Normal 6-22 [facility] Comment on above: Performed By: #### L IPD, CMP #### [facility] [address] [place], [place] [id number] Calcium [Mass/Vol] 9.4 mg/dL Normal 8.6-10.2 [facility] Comment on above: Performed By: #### L IPD, CMP #### [facility] [address] [place], [place] [id number] Chloride [Moles/Vol] 101 mmol/L Normal 98-107 [facility] Comment on above: Performed By: #### L IPD, CMP #### [facility] [address] [place], [place] [id number] CO2 [Moles/Vol] 26 mmol/L Normal 20-31 [facility] Comment on above: Performed By: #### L IPD, CMP #### [facility] [address] [place], [place] [id number] Creatinine [Mass/Vol] 1.1 mg/dL Normal 0.7-1.4 [facility] Comment on above: Performed By: #### L IPD, CMP #### [facility] [address] [place], [place] [id number] eGFRAA 78 mL/min/1.73m2 Normal >60 [facility] Specialist Comment on above: Performed By: #### L IPD, CMP #### [facility] [address] [place], [place] [id number] eGFRNAA 64 mL/min/1.73m2 Normal >60 [facility] Specialist Comment on above: Performed By: #### L IPD, CMP #### [facility] [address] [place], [place] [id number] Globulin (S) [Mass/Vol] 2.3 g/dL Normal 1.9-3.7 [facility] Camp Manager Comment on above: Performed By: #### L IPD, CMP #### [facility] [address] [place], [place] [id number] Glucose [Mass/Vol] 85 mg/dL Normal 65-99 [facility] Manager Comment on above: Result Comment: For FASTING Glucose --- ADA reference ranges: Normal 65-99 mg/dl Prediabetes 100-125 Diabetes >/= 126 Performed By: #### L IPD, CMP #### [facility] [address] [place], [place] [id number] Potassium [Moles/Vol] 4.1 mmol/L Normal 3.5-5.5 [facility] Camp Manager Comment on above: Performed By: #### L IPD, CMP #### [facility] [address] [place], [place] [id number] Protein [Mass/Vol] 6.1 g/dL Normal 6.1-8.1 [facility] Camp Manager Comment on above: Performed By: #### L IPD, CMP #### [facility] [address] [place], [place] [id number] Sodium [Moles/Vol] 137 mmol/L Normal 135-146 [facility] Camp Manager Comment on above: Performed By: #### L IPD, CMP #### [facility] [address] [place], [place] [id number] Urea nitrogen [Mass/Vol] 22 mg/dL Normal 7-25 [facility] Camp Manager Comment on above: Performed By: #### L IPD, CMP #### [facility] [address] [place], [place] [id number] Hemoglobin A1Con 02-10-2021 EAG 114.02 Normal [facility] Manager Comment on above: Performed By: #### A 1C #### [facility] [address] [place], [place] [id number] HbA1c (Bld) [Mass fraction] 5.6 % Normal 4.0-6.0 [facility] Manager Comment on above: Performed By: #### A 1C #### [facility] [address] [place], [place] [id number] Lipid Panelon 02-10-2021 Cholesterol [Mass/Vol] 138 mg/dL Normal 125-200 [facility] Camp Manager Comment on above: Result Comment: Low risk < 200mg/dL Borderline risk 201-239 mg/dl High risk > or equal to 240 Performed By: #### L IPD, CMP #### [facility] [address] [place], [place] [id number] Cholesterol in HDL [Mass/Vol] 53 mg/dL Normal >40 [facility] Camp Manager Comment on above: Result Comment: High Cardiovascular Risk HDL <40 mg/dL Low Cardiovascular Risk HDL > or equal to 60 mg/dl Performed By: #### L IPD, CMP #### [facility] [address] [place], [place] [id number] Cholesterol in LDL [Mass/Vol] 65 mg/dL Normal [facility] Camp Manager Comment on above: Result Comment: LDL ATP III CLASSIFICATION LDL less than 100 mg/dl Optimal LDL 100-129 mg/dl Near or above optimal LDL 130-159 Borderline high LDL 160-189 High LDL greater than 189 mg/dl Very High Performed By: #### L IPD, CMP #### [facility] [address] [place], [place] [id number] Cholesterol in VLDL [Mass/Vol] 20 mg/dL Normal [facility] Camp Manager Comment on above: Performed By: #### L IPD, CMP #### [facility] [address] [place], [place] [id number] Cholesterol.total/Ch olesterol in HDL [Mass ratio] 3 {ratio} Normal [facility] Camp Manager Comment on above: Performed By: #### L IPD, CMP #### [facility] [address] [place], [place] [id number] Triglyceride [Mass/Vol] 98 mg/dL Normal 30-150 [facility] Camp Manager Comment on above: Result Comment: TRIG ATPIII CLASSIFICATIONS TRIG less than 150 mg/dl Normal TRIG 150-199 mg/dl Borderline High TRIG 200-500 mg/dl High TRIG greather than 500 mg/dl Very High Performed By: #### L IPD, CMP #### [facility] [address] [place] [id number] Encounters Encounter Date Encounter Type Care Provider Facility Start: 07-28-2023 End: 07-28-2023 ambulatory JANAK CHINORee Not Available Start: 05-31-2023 End: 05-31-2023 ambulatory JANAK Cartagena [facility] Not Available Start: 05-05-2023 End: 05-05-2023 ambulatory GUIDO MCGREGOR Not Available Start: 04-23-2023 End: 04-23-2023 ambulatory EMANUEL [facility] Start: 01-20-2023 End: 01-25-2023 Evaluation and management of inpatient CARROL Lazaro JIMENEZSTEPHEN [facility] Start: 10-02-2022 End: 10-02-2022 ambulatory [facility] Start: 09-11-2022 End: 09-12-2022 ambulatory [facility] Start: 08-06-2022 End: 08-06-2022 ambulatory [facility] Start: 04-22-2021 End: 04-22-2021 ambulatory Vlad Denis Facility:[facility] Start: 04-22-2021 Encounter for preprocedural laboratory examination Vlad Denis [facility] Start: 04-03-2020 End: 04-04-2020 Patient encounter procedure GUIDO MCGREGOR Facility: Start: 03-11-2020 End: 03-12-2020 Patient encounter procedure NONE LISTED REQUEST Facility: Payers Date Payer Category Payer Private Health Insurance [id number] 1999 Medicare [id number] 1960 Self-pay 1935 Unknown [id number] 1934 Unknown [id number] 2.16.84 [id number] 1934 Unknown [id number] 2.16.84 [id number] 1934 Unknown [id number] 2.16.84 [id number] Unknown [id number] 2.16.84 [id number] Unknown [id number] 2.16.84 [id number] Unknown [id number] 2.16.8 [id number] Progress note 04-23-2023 Note Date & Type Note Facility 04-23-2023 Note will monitor with echocardiogram [facility] Progress note 04-23-2023 Note Date & Type Note Facility 04-23-2023 Note Hypertension is well controlled Continue olmesartan/ hydrochlorothiazide 20-12.5 mg daily [facility] Progress note 04-23-2023 Note Date & Type Note Facility 04-23-2023 Note Continue toprol 50 m g daily Denied any lightheadedness/dizziness or syncope [facility] Progress note 04-23-2023 Note Date & Type Note Facility 04-23-2023 Note [facility] PRO[facility] ESS NOTE HPI: Garth Torres is a 88 y.o. male here for AO stensosis, HTN, HPL HPI 04/10/23 [facility] recent admission- 04/10/23 Admitted for Syncope, bradycardia, HTN, AO stenosis and Alzheimers disease. HE was noted to be hypotensive and Olmesartan-hydrochlorothiazide dose was decreased to 20-12.5 mg daily. Pt and son state that staff had checked on pt at assisted living and he was found unresponsive sitting in a chair and they were unable to arouse him therefore 911 was called. Currently pt denied any further episodes of lightheadedness/dizziness or passing out. Denied chest pain, shortness of breath, orthopnea or palpitations. Review of Systems Constitutional: Negative. Respiratory: Negative. Cardiovascular: Negative. Neurological: Positive for dizziness and light-headedness. All other systems reviewed and are negative. 10/02/[address] Nadeen RUTLEDGE Garth is seen in follow-up. I met him [...] any significant symptoms of shortness of breath. Visit Vitals BP 120/60 (BP Location: Left arm, Patient Position: Sitting, BP Cuff Size: Adult) Pulse 60 Resp 12 Ht 1.778 m (5' 10 ) Wt 66.7 kg (147 lb) SpO2 98% BMI 21.09 kg/m??? Smoking Status Never BSA 1.82 m??? No Known Allergies Medications: Current Outpatient Medications on File Prior to Visit Medication Sig Dispense Refill atorvastatin (Lipitor) 20 mg tablet Take 20 mg by mouth every other day. donepezil (Aricept) 10 mg tablet Take 10 mg by mouth at bedtime. metoprolol succinate XL (Toprol-XL) 50 mg 24 hr tablet Take 1 tablet by mouth in the morning. olmesartan-hydrochlorothiazide (BENIcar HCT) 20-12.5 mg tablet Take 1 tablet by mouth in the morning. [DISCONTINUED] esomeprazole (NexIUM) [address] capsule Take 20 mg by mouth if needed each day. No current facility-administered medications on file prior to visit. Physical Exam: Constitutional: Appearance: Normal appearance. Without apparent distress, thin appearing HENT: Head: Normocephalic and atraumatic. Nose: Nose normal. Mouth/Throat: Mouth: Mucous membranes are moist. Eyes: Extraocular Movements: Extraocular movements intact. Conjunctiva/sclera: Conjunctivae normal. Neck: Vascular: No JVD. Cardiovascular: Rate and Rhythm: Normal rate and regular rhythm. Pulses: Dorsalis pedis pulses are 3 on the right side and 3on the left side. Posterior tibial pulses are 3 on the right side and 3 on the left side. Heart sounds: Normal heart sounds, S1 normal and S2 normal. Pulmonary: Effort: Pulmonary effort is normal. Breath sounds: Normal breath sounds. Abdominal: General: Bowel sounds are normal. Palpations: Abdomen is soft. Musculoskeletal: General: Normal range of motion. Cervical back: Normal range of motion. Right lower leg: No edema. Left lower leg: No edema. Skin: General: Skin is warm and dry. Capillary Refill: Capillary refill takes less than 2 seconds. Neurological: General: No focal deficit present. Mental Status: She is alert and oriented to person, place, and time. Psychiatric: Mood and Affect: Mood normal. Behavior: Behavior normal. Thought Content: Thought content normal. Judgment: Judgment normal. Labs: 04/11/23- CBC stable, HGB 11.7- low NA 139, K+ 3.9, Mag 1.9- normal BUN 21, CR 0.82 GFR > 60- normal Liver function stable HS trop 11.1- negative Pro BNP 511 normal TSH 6.582- elevated Last lab values have been reviewed CV Testing: ECG 04/10/23- Sinus rhythm with 1st degree AV block, PVCs TTE 07/22/22 Assessment/Plan: Paroxysmal supraventricular tachycardia (CMS/HCC) Continue toprol 50 mg daily Denied any lightheadedness/dizziness or syncope Benign essential hypertension Hypertension is well controlled Continue olmesartan/ hydrochlorothiazide 20-12.5 mg daily Aortic valve stenosis, severe will monitor with echocardiogram RTC 3-6 months [facility] Consultation note 01-21-2023 Note Date & Type Note Facility 01-21-[address] [address] CONSULTATION PATIENT NAME: GARTH TORRES : 1935 MED REC NO: [id number] ROOM: 1006 ACCOUNT NO: [id number] ADMIT DATE: 01/20/2023 PROVIDER: Kobe Tran CONSULT DATE: 01/21/2023 PLASTIC SURGICAL CONSULTATION He was seen earlier today by myself at the bedside in the Trauma ICU. HISTORY OF PRESENT ILLNESS: This is an 87-year-old gentleman, who was transferred from [facility] for intracranial bleed, left maxillary sinus fracture, left inferior orbital fracture, left orbital wall fracture, nondisplaced left zygomatic arch fracture, and left mandibular ramus fracture. The gentleman apparently was walking out a step to his front door and fell. He did not remember very much of what happened. He was brought to [facility] for evaluation and transferred to [facility]. He has been treated for intracranial [...] sign off of this consultation. KOBE [id number] Doc#: [id number] CC: [facility] Progress note 10-02-2022 Note Date & Type Note Facility 10-02-2022 Note PR Cardiology - [facility] Subjective Garth Torres is a [...] Smoking status: Never Smokeless tobacco: Never MATY Garth is seen in follow-up. I met him [...] 09/11/2022: Left Ventr (more content not included)... [facility] Progress note 08-06-2022 Note Date & Type Note Facility 08-06-2022 Note PR Cardiology - [facility] Subjective Garth Torres is a 87 y.o. [...] Echocardiogram 07/16/2022: Norm (more content not included)... [facility] Summary Purpose Family History No Family [...] and content) DATE CREATED AUTHOR 04/02/2020 [facility] p[facility] DATE CREATED AUTHOR AUTHOR'S ORGANIZ ATION 02/10/2021 [facility] dical Specialist DATE CREATED AUTHOR AUTHOR'S ORGANIZ ATION 05/08/2021 [facility] DATE CREATED AUTHOR AUTHOR'S ORGANIZ ATION 03/21/2022 [facility] DATE CREATED AUTHOR AUTHOR'S ORGANIZ ATION 01/31/2023 [facility] DATE CREATED AUTHOR AUTHOR'S ORGANIZ ATION 04/24/2023 [facility] DATE CREATED AUTHOR AUTHOR'S ORGANIZ ATION 07/29/2023 [facility] dical Specialists [facility] FOR RECORDS PERTAINING TO PATIENTS WHO ARE [...] BE BASED ON THE PRIMARY CLINICAL RECORDS. [facility] [employer] [facility]. provides no warranty or guarantee of the accuracy or completeness of information in this document.
== END 2023-11-16 09:49 | disposition home or self-care (01) ==
LOC: CARD 09:48
PROVIDERS: PCP Internal Medicine; Visit Provider Nurse Practitioner
DX: I35.2 Nonrheumatic aortic (valve) stenosis with insufficiency (principal)
CPT/HCPCS: 93306

== ENCOUNTER 2024-02-15 08:11 | Inpatient (IN) | payer MEDICARE, OTHER, SELFPAY ==
[2024-02-15] VITALS (36 sets, daily range): BP systolic 116–166; BP diastolic 51–72; PULSE 46–74; TEMP 36.7–37.5; O2SAT 92–99; BMI 23.7; BMI 22.4
--- OUTSIDE RECORDS SUMMARY | 2024-02-15 08:16 | XMS_ITS | CCD ---
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, unspecified; Translations: [Nontraumatic intracranial hemorrhage, unspecified] Onset: 01-20-2023 Chronic Essential hypertension (2 sources) Essential (primary) [...] Problem Classification Problem Date Documented Date Episodic/Chronic Unclassified (1 source) Supraventricular tachycardia, unspecified; Translations: [Supraventricular tachycardia, unspecified] Onset: 04-23-2023 Results Test Name Value Interpretation Reference Range Facility Office Vis[facility] 12-01-2023 Follow-up visit [id number] Tal Torres W 1935 M Date Provider Department Center 12/01/2023 Danis-CHRISVINNIEMARILEELanieCAROL BRIANDA [facility] Family History Family history unknown: Yes Level of Service:05104 [place] OFFICE/OUTPATIENT ESTABLISHED LOW MDM 20 MIN Normal [facility] Office Vis[place] 04-23-2023 Follow-up visit [id number] Tal Torres 1935 M Date Provider Department Center 04/23/2023 120EMANUEL FINCH BRIANDA [facility] No family history on file Level of Service:10716 [place] OFFICE/OUTPATIENT ESTABLISHED MOD MDM 30 MIN Reason for Visit and Comments: Follow-up [087978] - ER follow up Normal [facility] Basic Metabolic Profon 01-25 Anion gap [Moles/Vol] 8 mmol/L Low 9-17 [facility] Comment on above: Performed By: #### T SH, VD25, ALB, B12, ECENZ, GLYHGB, ERTPF, FT4 #### [facility] [address] [place] [address] [id number] [employer]roleum Refinery Operator: Jonathan Mckee MD Calcium [Mass/Vol] 8.7 mg/dL Normal 8.6-10.4 [facility] Comment on above: Performed By: #### T SH, VD25, ALB, B12, ECENZ, GLYHGB, ERTPF, FT4 #### [facility] [address] [place] [address] [phone] Petroleum Refinery Operator: Jonathan Mckee MD Chloride [Moles/Vol] 100 mmol/L Normal 98-107 [facility] Comment on above: Performed By: #### T SH, VD25, ALB, B12, ECENZ, GLYHGB, ERTPF, FT4 #### [address] [address] Petroleum Refinery Operator: Jonathan Mckee MD CO2 [Moles/Vol] 23 mmol/L Normal 20-31 [facility] Comment on above: Performed By: #### T SH, VD25, ALB, B12, ECENZ, GLYHGB, ERTPF, FT4 #### [address] [phone] Petroleum Refinery Operator: Jonathan Mckee MD Creatinine [Mass/Vol] 0.7 mg/dL Normal 0.7-1.2 [facility] Comment on above: Performed By: #### T SH, VD25, ALB, B12, ECENZ, GLYHGB, ERTPF, FT4 #### [address] [phone] [employer]roleum Refinery Operator: Jonathan Mckee MD GFR/1.73 sq M.predicted among non-blacks MDRD (S/P/Bld) [Vol rate/Area] mL/min/{1.73_m2} Normal >60 [facility] Comment on above: Result Comment: These [...] ALB, B12, ECENZ, GLYHGB, ERTPF, FT4 #### [address] [phone] Petroleum Refinery Operator: Jonathan Mckee MD Glucose [Mass/Vol] 98 mg/dL Normal 70-99 [facility] Comment on above: Performed By: #### T SH, VD25, ALB, B12, ECENZ, GLYHGB, ERTPF, FT4 #### [address] [address] Petroleum Refinery Operator: Jonathan Mckee MD Potassium [Moles/Vol] 4.1 mmol/L Normal 3.7-5.3 [facility] Comment on above: Performed By: #### T SH, VD25, ALB, B12, ECENZ, GLYHGB, ERTPF, FT4 #### [place] [address] [employer]roleum Refinery Operator: Jonathan Mckee MD Sodium [Moles/Vol] 131 mmol/L Low 135-144 [facility] Comment on above: Performed By: #### T SH, VD25, ALB, B12, ECENZ, GLYHGB, ERTPF, FT4 #### [place] [address] [employer]roleum Refinery Operator: Jonathan Mckee MD Urea nitrogen [Mass/Vol] 27 mg/dL High 8-23 [facility] Comment on above: Performed By: #### T SH, VD25, ALB, B12, ECENZ, GLYHGB, ERTPF, FT4 #### [place] [address] [employer]roleum Refinery Operator: Jonathan Mckee MD CBC with Diffon 01-25-2023 Abs. Basophil 0.05 k/uL Normal 0.00-0.20 [facility] Comment on above: Performed By: #### T SH, VD25, ALB, B12, ECENZ, GLYHGB, ERTPF, FT4 #### [place] [address] [employer]roleum Refinery Operator: Jonathan Mckee MD Abs.Imm.Granulocyte 0.11 k/uL Normal 0.00-0.30 [facility] Comment on above: Performed By: #### T SH, VD25, ALB, B12, ECENZ, GLYHGB, ERTPF, FT4 #### [address] [address] [employer]roleum Refinery Operator: Jonathan Mckee MD Abs.Neutrophil (Seg) 4.47 k/uL Normal 1.50-8.10 [facility] Comment on above: Performed By: #### T SH, VD25, ALB, B12, ECENZ, GLYHGB, ERTPF, FT4 #### [address] [address] [employer]roleum Refinery Operator: Jonathan Mckee MD Basophils/100 WBC (Bld) 1 % Normal 0-2 [facility] Comment on above: Performed By: #### T SH, VD25, ALB, B12, ECENZ, GLYHGB, ERTPF, FT4 #### [place] [address] [employer]roleum Refinery Operator: Jonathan Mckee MD Eosinophils (Bld) [#/Vol] 0.31 10*3/uL Normal 0.00-0.44 [facility] Comment on above: Performed By: #### T SH, VD25, ALB, B12, ECENZ, GLYHGB, ERTPF, FT4 #### [place] [address] [employer] Refinery Operator: Jonathan Mckee MD Eosinophils/100 WBC (Bld) 5 % High 1-4 [facility] Comment on above: Performed By: #### T SH, VD25, ALB, B12, ECENZ, GLYHGB, ERTPF, FT4 #### [place] [address] [employer] Refinery Operator: Jonathan Mceke MD Erythrocyte distribution width (RBC) [Ratio] 14.0 % Normal 11.8-14.4 [facility] Comment on above: Performed By: #### T SH, VD25, ALB, B12, ECENZ, GLYHGB, ERTPF, FT4 #### [address] [address] [employer]roleum Refinery Operator: Jonathan Mckee MD Hematocrit (Bld) [Volume fraction] 29.0 % Low 40.7-50.3 [facility] Comment on above: Performed By: #### T SH, VD25, ALB, B12, ECENZ, GLYHGB, ERTPF, FT4 #### [place] [address] [employer]roleum Refinery Operator: Jonathan Mckee MD Hemoglobin (Bld) [Mass/Vol] 10.1 g/dL Low 13.0-17.0 [facility] Comment on above: Performed By: #### T SH, VD25, ALB, B12, ECENZ, GLYHGB, ERTPF, FT4 #### [place] [address] [employer]roleum Refinery Operator: Jonathan Mckee MD Immature granulocytes/100 WBC (Bld) 2 % High 0 [facility] Comment on above: Performed By: #### T SH, VD25, ALB, B12, ECENZ, GLYHGB, ERTPF, FT4 #### [place] [address] [employer] Refinery Operator: Jonathan Mckee MD Lymphocytes (Bld) [#/Vol] 0.94 10*3/uL Low 1.10-3.70 [facility] Comment on above: Performed By: #### T SH, VD25, ALB, B12, ECENZ, GLYHGB, ERTPF, FT4 #### [place] [address] [employer] Refinery Operator: Jonathan Mckee MD Lymphocytes/100 WBC (Bld) 14 % Low 24-43 [facility] Comment on above: Performed By: #### T SH, VD25, ALB, B12, ECENZ, GLYHGB, ERTPF, FT4 #### [place] [address] [employer]roleum Refinery Operator: Jonathan Mckee MD MCH (RBC) [Entitic mass] 30.8 pg Normal 25.2-33.5 [facility] Comment on above: Performed By: #### T SH, VD25, ALB, B12, ECENZ, GLYHGB, ERTPF, FT4 #### [address] [address] Petroleum Refinery Operator: Jonathan Mckee MD MCHC (RBC) [Mass/Vol] 34.8 g/dL Normal 28.4-34.8 [facility] Comment on above: Performed By: #### T SH, VD25, ALB, B12, ECENZ, GLYHGB, ERTPF, FT4 #### [address] [address] [employer]roleum Refinery Operator: Jonathan Mckee MD MCV (RBC) [Entitic vol] 88.4 fL Normal 82.6-102.9 [facility] Comment on above: Performed By: #### T SH, VD25, ALB, B12, ECENZ, GLYHGB, ERTPF, FT4 #### [place] [address] Petroleum Refinery Operator: Jonathan Mckee MD Monocytes (Bld) [#/Vol] 0.70 10*3/uL Normal 0.10-1.20 [facility] Comment on above: Performed By: #### T SH, VD25, ALB, B12, ECENZ, GLYHGB, ERTPF, FT4 #### [place] [address] Petroleum Refinery Operator: Jonathan Mckee MD Monocytes/100 WBC (Bld) 11 % Normal 3-12 [facility] Comment on above: Performed By: #### T SH, VD25, ALB, B12, ECENZ, GLYHGB, ERTPF, FT4 #### [place] [address] Petroleum Refinery Operator: Jonathan Mckee MD Neutrophil (Seg) 68 % High 36-65 [facility] Comment on above: Performed By: #### T SH, VD25, ALB, B12, ECENZ, GLYHGB, ERTPF, FT4 #### [address] [address] Petroleum Refinery Operator: Jonathan Mckee MD NRBC Automated 0.0 per 100 WBC Normal 0.0 [facility] Comment on above: Performed By: #### T SH, VD25, ALB, B12, ECENZ, GLYHGB, ERTPF, FT4 #### [address] [address] Petroleum Refinery Operator: Jonathan Mckee MD Platelet mean volume (Bld) [Entitic vol] 11.6 fL Normal 8.1-13.5 [facility] Comment on above: Performed By: #### T SH, VD25, ALB, B12, ECENZ, GLYHGB, ERTPF, FT4 #### [address] [address] [employer]roleum Refinery Operator: Jonathan Mckee MD Platelets (Bld) [#/Vol] 283 10*3/uL Normal 138-453 [facility] Comment on above: Performed By: #### T SH, VD25, ALB, B12, ECENZ, GLYHGB, ERTPF, FT4 #### [address] [address] Petroleum Refinery Operator: Jonathan Mckee MD RBC (Bld) [#/Vol] 3.28 10*6/uL Low 4.21-5.77 [facility] Comment on above: Performed By: #### T SH, VD25, ALB, B12, ECENZ, GLYHGB, ERTPF, FT4 #### [address] [address] [employer]roleum Refinery Operator: Jonathan Mckee MD WBC (Bld) [#/Vol] 6.6 10*3/uL Normal 3.5-11.3 [facility] Comment on above: Performed By: #### T SH, VD25, ALB, B12, ECENZ, GLYHGB, ERTPF, FT4 #### [address] [address] [employer] Refinery Operator: Jonathan Mckee MD Basic Metabolic Profon 01-24 Anion gap [Moles/Vol] 9 mmol/L Normal 9-17 [facility] Comment on above: Performed By: #### T SH, VD25, ALB, B12, ECENZ, GLYHGB, ERTPF, FT4 #### [address] [address] [employer]roleum Refinery Operator: Jonathan Mckee MD Calcium [Mass/Vol] 8.8 mg/dL Normal 8.6-10.4 [facility] Comment on above: Performed By: #### T SH, VD25, ALB, B12, ECENZ, GLYHGB, ERTPF, FT4 #### [facility] [address] [place] [address] [employer]roleum Refinery Operator: Jonathan Mckee MD Chloride [Moles/Vol] 102 mmol/L Normal 98-107 [facility] Comment on above: Performed By: #### T SH, VD25, ALB, B12, ECENZ, GLYHGB, ERTPF, FT4 #### [facility] [address] [place] [address] [employer] Refinery Operator: Jonathan Mckee MD CO2 [Moles/Vol] 23 mmol/L Normal 20-31 [facility] Comment on above: Performed By: #### T SH, VD25, ALB, B12, ECENZ, GLYHGB, ERTPF, FT4 #### [facility] [address] [place] [address] [employer] Operator: Jonathan Mckee MD Creatinine [Mass/Vol] 0.7 mg/dL Normal 0.7-1.2 [facility] Comment on above: Performed By: #### T SH, VD25, ALB, B12, ECENZ, GLYHGB, ERTPF, FT4 #### [address] [phone] [employer] Operator: Jonathan Mckee MD GFR/1.73 sq M.predicted among non-blacks MDRD (S/P/Bld) [Vol rate/Area] mL/min/{1.73_m2} Normal >60 [facility] Comment on above: Result Comment: These [...] ALB, B12, ECENZ, GLYHGB, ERTPF, FT4 #### [address] [address] [employer] Refinery Operator: Jonathan Mckee MD Glucose [Mass/Vol] 122 mg/dL High 70-99 [facility] Comment on above: Performed By: #### T SH, VD25, ALB, B12, ECENZ, GLYHGB, ERTPF, FT4 #### [address] [phone] [employer]roleum Refinery Operator: Jonathan Mckee MD Potassium [Moles/Vol] 3.7 mmol/L Normal 3.7-5.3 [facility] Comment on above: Performed By: #### T SH, VD25, ALB, B12, ECENZ, GLYHGB, ERTPF, FT4 #### [address] [phone] [employer] Refinery Operator: Jonathan Mckee MD Sodium [Moles/Vol] 134 mmol/L Low 135-144 [facility] Comment on above: Performed By: #### T SH, VD25, ALB, B12, ECENZ, GLYHGB, ERTPF, FT4 #### [address] [address] [employer] Refinery Operator: Jonathan Mckee MD Urea nitrogen [Mass/Vol] 27 mg/dL High 8-23 [facility] Comment on above: Performed By: #### T SH, VD25, ALB, B12, ECENZ, GLYHGB, ERTPF, FT4 #### [address] [address] [employer]roleum Refinery Operator: Jonathan Mckee MD CBC with Diffon 01-24-2023 Abs. Basophil 0.05 k/uL Normal 0.00-0.20 [facility] Comment on above: Performed By: #### T SH, VD25, ALB, B12, ECENZ, GLYHGB, ERTPF, FT4 #### [address] [address] [employer]roleum Refinery Operator: Jonathan Mckee MD Abs.Imm.Granulocyte 0.08 k/uL Normal 0.00-0.30 [facility] Comment on above: Performed By: #### T SH, VD25, ALB, B12, ECENZ, GLYHGB, ERTPF, FT4 #### [address] [address] [employer] Refinery Operator: Jonathan Mckee MD Abs.Neutrophil (Seg) 4.05 k/uL Normal 1.50-8.10 [facility] Comment on above: Performed By: #### T SH, VD25, ALB, B12, ECENZ, GLYHGB, ERTPF, FT4 #### [address] [address] [employer]inery Operator: Jonathan Mckee MD Basophils/100 WBC (Bld) 1 % Normal 0-2 [facility] Comment on above: Performed By: #### T SH, VD25, ALB, B12, ECENZ, GLYHGB, ERTPF, FT4 #### [place] [address] [employer] Refinery Operator: Jonathan Mckee MD Eosinophils (Bld) [#/Vol] 0.26 10*3/uL Normal 0.00-0.44 [facility] Comment on above: Performed By: #### T SH, VD25, ALB, B12, ECENZ, GLYHGB, ERTPF, FT4 #### [place] [address] [employer] Refinery Operator: Jonathan Mckee MD Eosinophils/100 WBC (Bld) 5 % High 1-4 [facility] Comment on above: Performed By: #### T SH, VD25, ALB, B12, ECENZ, GLYHGB, ERTPF, FT4 #### [place] [address] [employer] Operator: Jonathan Mckee MD Erythrocyte distribution width (RBC) [Ratio] 13.7 % Normal 11.8-14.4 [facility] Comment on above: Performed By: #### T SH, VD25, ALB, B12, ECENZ, GLYHGB, ERTPF, FT4 #### [place] [address] [employer] Operator: Jonathan Mckee MD Hematocrit (Bld) [Volume fraction] 30.9 % Low 40.7-50.3 [facility] Comment on above: Performed By: #### T SH, VD25, ALB, B12, ECENZ, GLYHGB, ERTPF, FT4 #### [place] [address] [employer] Ref[employer] Operator: Jonathan Mckee MD Hemoglobin (Bld) [Mass/Vol] 10.4 g/dL Low 13.0-17.0 [facility] Comment on above: Performed By: #### T SH, VD25, ALB, B12, ECENZ, GLYHGB, ERTPF, FT4 #### [address] [address] [employer] Operator: Jonathan Mckee MD Immature granulocytes/100 WBC (Bld) 1 % High 0 [facility] Comment on above: Performed By: #### T SH, VD25, ALB, B12, ECENZ, GLYHGB, ERTPF, FT4 #### [address] [address] [employer] Operator: Jonathan Mckee MD Lymphocytes (Bld) [#/Vol] 0.70 10*3/uL Low 1.10-3.70 [facility] Comment on above: Performed By: #### T SH, VD25, ALB, B12, ECENZ, GLYHGB, ERTPF, FT4 #### [place] [address] [employer] Operator: Jonathan Mckee MD Lymphocytes/100 WBC (Bld) 12 % Low 24-43 [facility] Comment on above: Performed By: #### T SH, VD25, ALB, B12, ECENZ, GLYHGB, ERTPF, FT4 #### [address] [address] [employer]inery Operator: Jonathan Mckee MD MCH (RBC) [Entitic mass] 30.1 pg Normal 25.2-33.5 [facility] Comment on above: Performed By: #### T SH, VD25, ALB, B12, ECENZ, GLYHGB, ERTPF, FT4 #### [place] [address] [employer] Operator: Jonathan Mckee MD MCHC (RBC) [Mass/Vol] 33.7 g/dL Normal 28.4-34.8 [facility] Comment on above: Performed By: #### T SH, VD25, ALB, B12, ECENZ, GLYHGB, ERTPF, FT4 #### [address] [address] [employer] Operator: Jonathan Mckee MD MCV (RBC) [Entitic vol] 89.3 fL Normal 82.6-102.9 [facility] Comment on above: Performed By: #### T SH, VD25, ALB, B12, ECENZ, GLYHGB, ERTPF, FT4 #### [address] [address] [employer] Operator: Jonathan Mckee MD Monocytes (Bld) [#/Vol] 0.62 10*3/uL Normal 0.10-1.20 [facility] Comment on above: Performed By: #### T SH, VD25, ALB, B12, ECENZ, GLYHGB, ERTPF, FT4 #### [place] [address] [employer] Ref[employer] Operator: Jonathan Mckee MD Monocytes/100 WBC (Bld) 11 % Normal 3-12 [facility] Comment on above: Performed By: #### T SH, VD25, ALB, B12, ECENZ, GLYHGB, ERTPF, FT4 #### [address] [address] [employer] Refinery Operator: Jonathan Mckee MD Neutrophil (Seg) 70 % High 36-65 [facility] Comment on above: Performed By: #### T SH, VD25, ALB, B12, ECENZ, GLYHGB, ERTPF, FT4 #### [address] [address] [employer] Operator: Jonathan Mckee MD NRBC Automated 0.0 per 100 WBC Normal 0.0 [facility] Comment on above: Performed By: #### T SH, VD25, ALB, B12, ECENZ, GLYHGB, ERTPF, FT4 #### [address] [address] [employer] Operator: Jonathan Mckee MD Platelet mean volume (Bld) [Entitic vol] 10.4 fL Normal 8.1-13.5 [facility] Comment on above: Performed By: #### T SH, VD25, ALB, B12, ECENZ, GLYHGB, ERTPF, FT4 #### [address] [address] [employer] Operator: Jonathan Mckee MD Platelets (Bld) [#/Vol] 166 10*3/uL Normal 138-453 [facility] Comment on above: Performed By: #### T SH, VD25, ALB, B12, ECENZ, GLYHGB, ERTPF, FT4 #### [facility] [address] [place] [address] [employer] Operator: Jonathan Mckee MD RBC (Bld) [#/Vol] 3.46 10*6/uL Low 4.21-5.77 [facility] Comment on above: Performed By: #### T SH, VD25, ALB, B12, ECENZ, GLYHGB, ERTPF, FT4 #### [facility] [address] [place] [address] [employer] Operator: Jonathan Mckee MD WBC (Bld) [#/Vol] 5.8 10*3/uL Normal 3.5-11.3 [facility] Comment on above: Performed By: #### T SH, VD25, ALB, B12, ECENZ, GLYHGB, ERTPF, FT4 #### [facility] [address] [place] [address] [employer] Operator: Jonathan Mckee MD Basic Metabolic Profon 01-23 Anion gap [Moles/Vol] 9 mmol/L Normal 9-17 [facility] Comment on above: Performed By: #### T SH, VD25, ALB, B12, ECENZ, GLYHGB, ERTPF, FT4 #### [address] [address] [employer] Operator: Jonathan Mckee MD Calcium [Mass/Vol] 8.9 mg/dL Normal 8.6-10.4 [facility] Comment on above: Performed By: #### T SH, VD25, ALB, B12, ECENZ, GLYHGB, ERTPF, FT4 #### [address] [address] [employer] Operator: Jonathan Mckee MD Chloride [Moles/Vol] 103 mmol/L Normal 98-107 [facility] Comment on above: Performed By: #### T SH, VD25, ALB, B12, ECENZ, GLYHGB, ERTPF, FT4 #### [address] [address] [employer] Operator: Jonathan Mckee MD CO2 [Moles/Vol] 21 mmol/L Normal 20-31 [facility] Comment on above: Performed By: #### T SH, VD25, ALB, B12, ECENZ, GLYHGB, ERTPF, FT4 #### [address] [address] [employer] Operator: Jonathan Mckee MD Creatinine [Mass/Vol] 0.7 mg/dL Normal 0.7-1.2 [facility] Comment on above: Performed By: #### T SH, VD25, ALB, B12, ECENZ, GLYHGB, ERTPF, FT4 #### [address] [address] [employer] Operator: Jonathan Mckee MD GFR/1.73 sq M.predicted among non-blacks MDRD (S/P/Bld) [Vol rate/Area] mL/min/{1.73_m2} Normal >60 [facility] Comment on above: Result Comment: These [...] ALB, B12, ECENZ, GLYHGB, ERTPF, FT4 #### [address] [address] [employer] Operator: Jonathan Mckee MD Glucose [Mass/Vol] 105 mg/dL High 70-99 [facility] Comment on above: Performed By: #### T SH, VD25, ALB, B12, ECENZ, GLYHGB, ERTPF, FT4 #### [address] [address] [employer] Operator: Jonathan Mckee MD Potassium [Moles/Vol] 3.7 mmol/L Normal 3.7-5.3 [facility] Comment on above: Performed By: #### T SH, VD25, ALB, B12, ECENZ, GLYHGB, ERTPF, FT4 #### [address] [address] [employer] Operator: Jonathan Mckee MD Sodium [Moles/Vol] 133 mmol/L Low 135-144 [facility] Comment on above: Performed By: #### T SH, VD25, ALB, B12, ECENZ, GLYHGB, ERTPF, FT4 #### [address] [address] [employer] Operator: Jonathan Mckee MD Urea nitrogen [Mass/Vol] 28 mg/dL High 8-23 [facility] Comment on above: Performed By: #### T SH, VD25, ALB, B12, ECENZ, GLYHGB, ERTPF, FT4 #### [address] [address] [employer] Operator: Jonathan Mckee MD CBC with Diffon 12-09-2023 Abs. Basophil 0.05 k/uL Normal 0.00-0.20 [facility] Comment on above: Performed By: #### T SH, VD25, ALB, B12, ECENZ, GLYHGB, ERTPF, FT4 #### [place] [address] [employer] Operator: Jonathan Mckee MD Abs.Imm.Granulocyte 0.05 k/uL Normal 0.00-0.30 [facility] Comment on above: Performed By: #### T SH, VD25, ALB, B12, ECENZ, GLYHGB, ERTPF, FT4 #### [place] [address] [employer] Operator: Jonathan Mckee MD Abs.Neutrophil (Seg) 4.18 k/uL Normal 1.50-8.10 [facility] Comment on above: Performed By: #### T SH, VD25, ALB, B12, ECENZ, GLYHGB, ERTPF, FT4 #### [place] [address] [employer] Operator: Jonathan Mckee MD Basophils/100 WBC (Bld) 1 % Normal 0-2 [facility] Comment on above: Performed By: #### T SH, VD25, ALB, B12, ECENZ, GLYHGB, ERTPF, FT4 #### [place] [address] [employer] Operator: Jonathan Mckee MD Eosinophils (Bld) [#/Vol] 0.21 10*3/uL Normal 0.00-0.44 [facility] Comment on above: Performed By: #### T SH, VD25, ALB, B12, ECENZ, GLYHGB, ERTPF, FT4 #### [place] [address] [employer] Operator: Jonathan Mckee MD Eosinophils/100 WBC (Bld) 4 % Normal 1-4 [facility] Comment on above: Performed By: #### T SH, VD25, ALB, B12, ECENZ, GLYHGB, ERTPF, FT4 #### [address] [address] [employer] Operator: Jonathan Mckee MD Erythrocyte distribution width (RBC) [Ratio] 13.8 % Normal 11.8-14.4 [facility] Comment on above: Performed By: #### T SH, VD25, ALB, B12, ECENZ, GLYHGB, ERTPF, FT4 #### [place] [address] [employer] Operator: Jonathan Mckee MD Hematocrit (Bld) [Volume fraction] 31.5 % Low 40.7-50.3 [facility] Comment on above: Performed By: #### T SH, VD25, ALB, B12, ECENZ, GLYHGB, ERTPF, FT4 #### [place] [address] [employer]: Jonathan Mckee MD Hemoglobin (Bld) [Mass/Vol] 10.6 g/dL Low 13.0-17.0 [facility] Comment on above: Performed By: #### T SH, VD25, ALB, B12, ECENZ, GLYHGB, ERTPF, FT4 #### [place] [address] [employer]: Jonathan Mckee MD Immature granulocytes/100 WBC (Bld) 1 % High 0 [facility] Comment on above: Performed By: #### T SH, VD25, ALB, B12, ECENZ, GLYHGB, ERTPF, FT4 #### 65 [address] [id number] [employer]: Jonathan Mckee MD Lymphocytes (Bld) [#/Vol] 0.71 10*3/uL Low 1.10-3.70 [facility] Comment on above: Performed By: #### T SH, VD25, ALB, B12, ECENZ, GLYHGB, ERTPF, FT4 #### [address] [address] [employer]: Jonathan Mckee MD Lymphocytes/100 WBC (Bld) 12 % Low 24-43 [facility] Comment on above: Performed By: #### T SH, VD25, ALB, B12, ECENZ, GLYHGB, ERTPF, FT4 #### [place] [address] [employer]: Jonathan Mckee MD MCH (RBC) [Entitic mass] 30.3 pg Normal 25.2-33.5 [facility] Comment on above: Performed By: #### T SH, VD25, ALB, B12, ECENZ, GLYHGB, ERTPF, FT4 #### [place] [address] [employer]: Jonathan Mckee MD MCHC (RBC) [Mass/Vol] 33.7 g/dL Normal 28.4-34.8 [facility] Comment on above: Performed By: #### T SH, VD25, ALB, B12, ECENZ, GLYHGB, ERTPF, FT4 #### [place] [address] [employer]: Jonathan Mckee MD MCV (RBC) [Entitic vol] 90.0 fL Normal 82.6-102.9 [facility] Comment on above: Performed By: #### T SH, VD25, ALB, B12, ECENZ, GLYHGB, ERTPF, FT4 #### [address] [address] [employer]: Jonathan Mckee MD Monocytes (Bld) [#/Vol] 0.73 10*3/uL Normal 0.10-1.20 [facility] Comment on above: Performed By: #### T SH, VD25, ALB, B12, ECENZ, GLYHGB, ERTPF, FT4 #### [address] [address] [employer]: Jonathan Mckee MD Monocytes/100 WBC (Bld) 12 % Normal 3-12 [facility] Comment on above: Performed By: #### T SH, VD25, ALB, B12, ECENZ, GLYHGB, ERTPF, FT4 #### [address] [address] [employer]: Jonathan Mckee MD Neutrophil (Seg) 70 % High 36-65 [facility] Comment on above: Performed By: #### T SH, VD25, ALB, B12, ECENZ, GLYHGB, ERTPF, FT4 #### [address] [address] [employer]: Jonathan Mckee MD NRBC Automated 0.0 per 100 WBC Normal 0.0 [facility] Comment on above: Performed By: #### T SH, VD25, ALB, B12, ECENZ, GLYHGB, ERTPF, FT4 #### [address] [address] [employer]: Jonathan Mckee MD Platelet mean volume (Bld) [Entitic vol] 10.1 fL Normal 8.1-13.5 [facility] Comment on above: Performed By: #### T SH, VD25, ALB, B12, ECENZ, GLYHGB, ERTPF, FT4 #### [address] [address] [employer]: Jonathan Mckee MD Platelets (Bld) [#/Vol] 178 10*3/uL Normal 138-453 [facility] Comment on above: Performed By: #### T SH, VD25, ALB, B12, ECENZ, GLYHGB, ERTPF, FT4 #### [address] [address] [employer]: Jonathan Mckee MD RBC (d) [#/Vol] 3.50 10*6/uL Low 4.21-5.77 [facility] Comment on above: Performed By: #### T SH, VD25, ALB, B12, ECENZ, GLYHGB, ERTPF, FT4 #### [address] [address] [employer]: Jonathan Mckee MD WBC (Bld) [#/Vol] 5.9 10*3/uL Normal 3.5-11.3 [facility] Comment on above: Performed By: #### T SH, VD25, ALB, B12, ECENZ, GLYHGB, ERTPF, FT4 #### [address] [id number] [employer]: Jonathan Mckee MD Basic Metabolic Profon 01-22 Anion gap [Moles/Vol] 15 mmol/L Normal 9-17 [facility] Comment on above: Performed By: #### T SH, VD25, ALB, B12, ECENZ, GLYHGB, ERTPF, FT4 #### [address] [address] [employer]: Jonathan Mckee MD Calcium [Mass/Vol] 8.9 mg/dL Normal 8.6-10.4 [facility] Comment on above: Performed By: #### T SH, VD25, ALB, B12, ECENZ, GLYHGB, ERTPF, FT4 #### [address] [address] [employer]: Jonathan Mckee MD Chloride [Moles/Vol] 99 mmol/L Normal 98-107 [facility] Comment on above: Performed By: #### T SH, VD25, ALB, B12, ECENZ, GLYHGB, ERTPF, FT4 #### [address] [phone] [employer]: Jonathan Mckee MD CO2 [Moles/Vol] 17 mmol/L Low 20-31 [facility] Comment on above: Performed By: #### T SH, VD25, ALB, B12, ECENZ, GLYHGB, ERTPF, FT4 #### [address] [phone] [employer]: Jonathan Mckee MD Creatinine [Mass/Vol] 0.8 mg/dL Normal 0.7-1.2 [facility] Comment on above: Performed By: #### T SH, VD25, ALB, B12, ECENZ, GLYHGB, ERTPF, FT4 #### [address] [phone] [employer]: Jonathan Mckee MD GFR/1.73 sq M.predicted among non-blacks MDRD (S/P/Bld) [Vol rate/Area] mL/min/{1.73_m2} Normal >60 [facility] Comment on above: Result Comment: These [...] ALB, B12, ECENZ, GLYHGB, ERTPF, FT4 #### [address] [id number] [employer]: Jonathan Mckee MD Glucose [Mass/Vol] 90 mg/dL Normal 70-99 [facility] Comment on above: Performed By: #### T SH, VD25, ALB, B12, ECENZ, GLYHGB, ERTPF, FT4 #### [facility] [address] [place] [address] [employer]: Jonathan Mckee MD Potassium [Moles/Vol] 3.7 mmol/L Normal 3.7-5.3 [facility] Comment on above: Performed By: #### T SH, VD25, ALB, B12, ECENZ, GLYHGB, ERTPF, FT4 #### [facility] [address] [place] [address] [employer]: Jonathan Mckee MD Sodium [Moles/Vol] 131 mmol/L Low 135-144 [facility] Comment on above: Performed By: #### T SH, VD25, ALB, B12, ECENZ, GLYHGB, ERTPF, FT4 #### [place] [address] [employer]: Jonathan Mckee MD Urea nitrogen [Mass/Vol] 28 mg/dL High 8-23 [facility] Comment on above: Performed By: #### T SH, VD25, ALB, B12, ECENZ, GLYHGB, ERTPF, FT4 #### [facility] [address] [place] [address] [employer]: Jonathan Mckee MD CBC with Diffon 01-22-2023 Abs. Basophil 0.03 k/uL Normal 0.00-0.20 [facility] Comment on above: Performed By: #### T SH, VD25, ALB, B12, ECENZ, GLYHGB, ERTPF, FT4 #### [address] [address] [employer]: Jonathan Mckee MD Abs.Imm.Granulocyte 0.05 k/uL Normal 0.00-0.30 [facility] Comment on above: Performed By: #### T SH, VD25, ALB, B12, ECENZ, GLYHGB, ERTPF, FT4 #### [address] [address] [employer]: Jonathan Mckee MD Abs.Neutrophil (Seg) 4.98 k/uL Normal 1.50-8.10 [facility] Comment on above: Performed By: #### T SH, VD25, ALB, B12, ECENZ, GLYHGB, ERTPF, FT4 #### [place] [address] [employer]: Jonathan Mckee MD Basophils/100 WBC (Bld) 0 % Normal 0-2 [facility] Comment on above: Performed By: #### T SH, VD25, ALB, B12, ECENZ, GLYHGB, ERTPF, FT4 #### [place] [address] [employer]: Jonathan Mckee MD Eosinophils (Bld) [#/Vol] 0.18 10*3/uL Normal 0.00-0.44 [facility] Comment on above: Performed By: #### T SH, VD25, ALB, B12, ECENZ, GLYHGB, ERTPF, FT4 #### [place] [address] [employer]: Jonathan Mckee MD Eosinophils/100 WBC (Bld) 3 % Normal 1-4 [facility] Comment on above: Performed By: #### T SH, VD25, ALB, B12, ECENZ, GLYHGB, ERTPF, FT4 #### [place] [address] [employer]: Jonathan Mckee MD Erythrocyte distribution width (RBC) [Ratio] 13.7 % Normal 11.8-14.4 [facility] Comment on above: Performed By: #### T SH, VD25, ALB, B12, ECENZ, GLYHGB, ERTPF, FT4 #### [place] [address] [employer]: Jonathan Mckee MD Hematocrit (Bld) [Volume fraction] 32.5 % Low 40.7-50.3 [facility] Comment on above: Performed By: #### T SH, VD25, ALB, B12, ECENZ, GLYHGB, ERTPF, FT4 #### [address] [address] [employer]: Jonathan Mckee MD Hemoglobin (Bld) [Mass/Vol] 11.0 g/dL Low 13.0-17.0 [facility] Comment on above: Performed By: #### T SH, VD25, ALB, B12, ECENZ, GLYHGB, ERTPF, FT4 #### [place] [address] [employer]: Jonathan Mckee MD Immature granulocytes/100 WBC (Bld) 1 % High 0 [facility] Comment on above: Performed By: #### T SH, VD25, ALB, B12, ECENZ, GLYHGB, ERTPF, FT4 #### [place] [address] [employer]: Jonathan Mckee MD Lymphocytes (Bld) [#/Vol] 0.95 10*3/uL Low 1.10-3.70 [facility] Comment on above: Performed By: #### T SH, VD25, ALB, B12, ECENZ, GLYHGB, ERTPF, FT4 #### [place] [address] [employer]: Jonathan Mckee MD Lymphocytes/100 WBC (Bld) 14 % Low 24-43 [facility] Comment on above: Performed By: #### T SH, VD25, ALB, B12, ECENZ, GLYHGB, ERTPF, FT4 #### [place] [address] [employer]: Jonathan Mckee MD MCH (RBC) [Entitic mass] 30.4 pg Normal 25.2-33.5 [facility] Comment on above: Performed By: #### T SH, VD25, ALB, B12, ECENZ, GLYHGB, ERTPF, FT4 #### [address] [address] [employer]: Jonathan Mckee MD MCHC (RBC) [Mass/Vol] 33.8 g/dL Normal 28.4-34.8 [facility] Comment on above: Performed By: #### T SH, VD25, ALB, B12, ECENZ, GLYHGB, ERTPF, FT4 #### [address] [address] [employer]: Jonatahn Mckee MD MCV (RBC) [Entitic vol] 89.8 fL Normal 82.6-102.9 [facility] Comment on above: Performed By: #### T SH, VD25, ALB, B12, ECENZ, GLYHGB, ERTPF, FT4 #### [address] [address] [employer]: Jonathan Mckee MD Monocytes (Bld) [#/Vol] 0.78 10*3/uL Normal 0.10-1.20 [facility] Comment on above: Performed By: #### T SH, VD25, ALB, B12, ECENZ, GLYHGB, ERTPF, FT4 #### [address] [address] [employer]: Jonathan Mckee MD Monocytes/100 WBC (Bld) 11 % Normal 3-12 [facility] Comment on above: Performed By: #### T SH, VD25, ALB, B12, ECENZ, GLYHGB, ERTPF, FT4 #### [address] [phone] [employer]: Jonathan Mckee MD Neutrophil (Seg) 72 % High 36-65 [facility] Comment on above: Performed By: #### T SH, VD25, ALB, B12, ECENZ, GLYHGB, ERTPF, FT4 #### [address] [address] [employer]: Jonathan Mckee MD NRBC Automated 0.0 per 100 WBC Normal 0.0 [facility] Comment on above: Performed By: #### T SH, VD25, ALB, B12, ECENZ, GLYHGB, ERTPF, FT4 #### [address] [address] [employer]: Jonathan Mckee MD Platelet mean volume (Bld) [Entitic vol] 10.3 fL Normal 8.1-13.5 [facility] Comment on above: Performed By: #### T SH, VD25, ALB, B12, ECENZ, GLYHGB, ERTPF, FT4 #### [address] [address] [employer]: Jonathan Mckee MD Platelets (Bld) [#/Vol] 201 10*3/uL Normal 138-453 [facility] Comment on above: Performed By: #### T SH, VD25, ALB, B12, ECENZ, GLYHGB, ERTPF, FT4 #### [address] [address] [employer]: Jonathan Mckee MD RBC (Bld) [#/Vol] 3.62 10*6/uL Low 4.21-5.77 [facility] Comment on above: Performed By: #### T SH, VD25, ALB, B12, ECENZ, GLYHGB, ERTPF, FT4 #### [address] [address] [employer]: Jonathan Mckee MD WBC (Bld) [#/Vol] 7.0 10*3/uL Normal 3.5-11.3 [facility] Comment on above: Performed By: #### T SH, VD25, ALB, B12, ECENZ, GLYHGB, ERTPF, FT4 #### [address] [id number] [employer]: Jonathan Mckee MD XR SHOULDER RIGHT (MIN [...] Inder Pulliam MD 01/22/23 Final result Normal [facility] Albuminon 01-21-2023 Albumin [Mass/Vol] 3.6 g/dL Normal 3.5-5.2 [facility] Comment on above: Performed By: #### T SH, VD25, ALB, B12, ECENZ, GLYHGB, ERTPF, FT4 #### [address] [address] [employer]: Jonathan Mckee MD Basic Metabolic Profon 01-21 Anion gap [Moles/Vol] 9 mmol/L Normal 9-17 [facility] Comment on above: Performed By: #### B MP, CDP, LISBETH, TROPI #### [facility] [address] [place] [phone] [employer]: Jonathan Mckee MD Calcium [Mass/Vol] 8.6 mg/dL Normal 8.6-10.4 [facility] Comment on above: Performed By: #### B MP, CDP, LISBETH, TROPI #### [facility] [address] [place] [address] [employer]: Jonathan Mckee MD Chloride [Moles/Vol] 101 mmol/L Normal 98-107 [facility] Comment on above: Performed By: #### B MP, CDP, LISBETH, TROPI #### [facility] [address] [place] [address] [employer] Operator: Jonathan Mckee MD CO2 [Moles/Vol] 21 mmol/L Normal 20-31 [facility] Comment on above: Performed By: #### B MP, CDP, LISBETH, TROPI #### [facility] [address] [place] [address] [employer]: Jonathan Mckee MD Creatinine [Mass/Vol] 0.9 mg/dL Normal 0.7-1.2 [facility] Comment on above: Performed By: #### B MP, CDP, LISBETH, TROPI #### [facility] [address] [place] [address] [employer]: Jonathan Mckee MD GFR/1.73 sq M.predicted among non-blacks MDRD (S/P/Bld) [Vol rate/Area] mL/min/{1.73_m2} Normal >60 [facility] Comment on above: Result Comment: These [...] #### B MP, CDP, LISBETH, TROPI #### [facility] [address] [place] [address] [employer]: Jonathan Mckee MD Glucose [Mass/Vol] 113 mg/dL High 70-99 [facility] Comment on above: Performed By: #### B MP, CDP, LISBETH, TROPI #### [facility] [address] [place] [address] [employer]: Jonathan Mckee MD Potassium [Moles/Vol] 3.7 mmol/L Normal 3.7-5.3 [facility] Comment on above: Performed By: #### B MP, CDP, LISBETH, TROPI #### [facility] [address] [place] [address] [employer]: Jonathan Mckee MD Sodium [Moles/Vol] 131 mmol/L Low 135-144 [facility] Comment on above: Performed By: #### B MP, CDP, LISBETH, TROPI #### [facility] [address] [place] [address] [employer]: Jonathan Mckee MD Urea nitrogen [Mass/Vol] 30 mg/dL High 8-23 [facility] Comment on above: Performed By: #### B MP, CDP, LISBETH, TROPI #### [facility] [address] [place] [address] [employer]: Jonathan Mckee MD CBC with Diffon 01-21-2023 Abs. Basophil 0.03 k/uL Normal 0.00-0.20 [facility] Comment on above: Performed By: #### B MP, CDP, LISBETH, TROPI #### [facility] [address] [place] [address] [employer]: Jonathan Mckee MD Abs.Imm.Granulocyte 0.10 k/uL Normal 0.00-0.30 [facility] Comment on above: Performed By: #### B MP, CDP, LISBETH, TROPI #### [facility] [address] [place] [address] [employer]: Jonathan Mckee MD Abs.Neutrophil (Seg) 9.58 k/uL High 1.50-8.10 [facility] Comment on above: Performed By: #### B MP, CDP, LISBETH, TROPI #### [address] [address] [employer]: Jonathan Mckee MD Basophils/100 WBC (Bld) 0 % Normal 0-2 [facility] Comment on above: Performed By: #### B MP, CDP, LISBETH, TROPI #### [address] [address] [employer]: Jonathan Mckee MD Eosinophils (Bld) [#/Vol] 0.04 10*3/uL Normal 0.00-0.44 [facility] Comment on above: Performed By: #### B MP, CDP, LISBETH, TROPI #### [address] [address] [employer]: Jonathan Mckee MD Eosinophils/100 WBC (Bld) 0 % Low 1-4 [facility] Comment on above: Performed By: #### B MP, CDP, LISBETH, TROPI #### [address] [address] [employer]: Jonathan Mckee MD Erythrocyte distribution width (RBC) [Ratio] 13.5 % Normal 11.8-14.4 [facility] Comment on above: Performed By: #### B MP, CDP, LISBETH, TROPI #### [address] [address] [employer] Operator: Jonathan Mckee MD Hematocrit (Bld) [Volume fraction] 31.5 % Low 40.7-50.3 [facility] Comment on above: Performed By: #### B MP, CDP, LISBETH, TROPI #### [facility] [address] [place] [address] [employer]: Jonathan Mckee MD Hemoglobin (Bld) [Mass/Vol] 10.7 g/dL Low 13.0-17.0 [facility] Comment on above: Performed By: #### B MP, CDP, LISBETH, TROPI #### [address] [address] [employer]: Jonathan Mckee MD Immature granulocytes/100 WBC (Bld) 1 % High 0 [facility] Comment on above: Performed By: #### B MP, CDP, LISBETH, TROPI #### [address] [address] [employer]: Jonathan Mckee MD Lymphocytes (Bld) [#/Vol] 0.90 10*3/uL Low 1.10-3.70 [facility] Comment on above: Performed By: #### B MP, CDP, LISBETH, TROPI #### [address] [address] [employer]: Jonathan Mckee MD Lymphocytes/100 WBC (Bld) 8 % Low 24-43 [facility] Comment on above: Performed By: #### B MP, CDP, LISBETH, TROPI #### [address] [address] [employer]: Jonathan Mckee MD MCH (RBC) [Entitic mass] 30.3 pg Normal 25.2-33.5 [facility] Comment on above: Performed By: #### B MP, CDP, LISBETH, TROPI #### [place] [address] [employer]: Jonathan Mckee MD MCHC (RBC) [Mass/Vol] 34.0 g/dL Normal 28.4-34.8 [facility] Comment on above: Performed By: #### B MP, CDP, LISBETH, TROPI #### [address] [address] [employer]: Jonathan Mckee MD MCV (RBC) [Entitic vol] 89.2 fL Normal 82.6-102.9 [facility] Comment on above: Performed By: #### B MP, CDP, LISBETH, TROPI #### [id number] [place] [address] [employer]: Jonathan Mckee MD Monocytes (Bld) [#/Vol] 1.19 10*3/uL Normal 0.10-1.20 [facility] Comment on above: Performed By: #### B MP, CDP, LISBETH, TROPI #### [address] [address] [employer]: Jonathan Mckee MD Monocytes/100 WBC (Bld) 10 % Normal 3-12 [facility] Comment on above: Performed By: #### B MP, CDP, LISBETH, TROPI #### [address] [address] [employer]: Jonathan Mckee MD Neutrophil (Seg) 81 % High 36-65 [facility] Comment on above: Performed By: #### B MP, CDP, LISBETH, TROPI #### [facility] [address] [place] [address] [employer]: Jonathan Mckee MD NRBC Automated 0.0 per 100 WBC Normal 0.0 [facility] Comment on above: Performed By: #### B MP, CDP, LISBETH, TROPI #### [address] [address] [employer]: Jonathan Mckee MD Platelet mean volume (Bld) [Entitic vol] 9.9 fL Normal 8.1-13.5 [facility] Comment on above: Performed By: #### B MP, CDP, LISBETH, TROPI #### [address] [address] [employer]: Jonathan Mckee MD Platelets (Bld) [#/Vol] 186 10*3/uL Normal 138-453 [facility] Comment on above: Performed By: #### B MP, CDP, LISBETH, TROPI #### [address] [place], [place] [phone] [employer]: Jonathan Mckee MD RBC (Bld) [#/Vol] 3.53 10*6/uL Low 4.21-5.77 [facility] Comment on above: Performed By: #### B MP, CDP, LISBETH, TROPI #### [facility] [address] [place], [place] [phone] [employer]: Jonathan Mckee MD WBC (Bld) [#/Vol] 11.8 10*3/uL High 3.5-11.3 [facility] Comment on above: Performed By: #### B MP, CDP, LISBETH, TROPI #### [facility] [address] [place], [place] [phone] [employer] Operator: Jonathan Mckee MD CT CHEST ABDOMEN PELVIS [...] Moe Waters MD 01/20/23 Final result Normal [facility] CT HEAD WO CONTRASTon 2022 CT [...] Myron Rizo MD 01/21/23 Final result Normal [facility] CT HEAD WO CONTRAST EXAMINATION: CT [...] Darrell Hubbard DO 01/21/23 Final result Normal [facility] CT LUMBAR SPINE BONY RECONST RUCTIONon [...] Saroj Franklin MD 01/20/23 Final result Normal [facility] CT THORACIC SPINE BONY RECON STRUCTIONon [...] Saroj Franklin MD 01/20/23 Final result Normal [facility] Drug Scr, Abuse, Uron 2022 Amphetamine(s),Ur Negative Normal NEG [facility] Comment on above: Result Comment: (Positive cutoff 1000 ng/mL) Performed By: #### T SH, VD25, ALB, B12, ECENZ, GLYHGB, ERTPF, FT4 #### [facility] [address] [place] [address] [phone] [employer]: Jonathan Mckee MD Barbiturate(s),Ur Negative Normal NEG [facility] Comment on above: Result Comment: (Positive cutoff 200 ng/mL) Performed By: #### T SH, VD25, ALB, B12, ECENZ, GLYHGB, ERTPF, FT4 #### [facility] [address] [place] [address] [phone] [employer]: Jonathan Mckee MD Benzodiazepine(s) Negative Normal NEG [facility] Comment on above: Result Comment: (Positive cutoff 200 ng/mL) Performed By: #### T SH, VD25, ALB, B12, ECENZ, GLYHGB, ERTPF, FT4 #### [facility] [address] [place] [address] [id number] [employer] Operator: Jonathan Mckee MD Cannabinoid(s),Ur Negative Normal NEG [facility] Comment on above: Result Comment: (Positive cutoff 50 ng/mL) Performed By: #### T SH, VD25, ALB, B12, ECENZ, GLYHGB, ERTPF, FT4 #### [facility] [address] [place] [address] [employer]: Jonathan Mckee MD Cocaine Metabolite Negative Normal NEG [facility] Comment on above: Result Comment: (Positive cutoff 300 ng/mL) Performed By: #### T SH, VD25, ALB, B12, ECENZ, GLYHGB, ERTPF, FT4 #### [facility] [address] [place] [address] [employer]: Jonathan Mckee MD Fentanyl, Urine Negative Normal NEG [facility] Comment on above: Result Comment: (Positive cutoff 5 ng/ml) Performed By: #### T SH, VD25, ALB, B12, ECENZ, GLYHGB, ERTPF, FT4 #### [facility] [address] [place] [address] [employer]: Jonathan Mckee MD Interpretive Info Assay provides medic al screening only. The absence of expected drug(s) and/or Normal [facility] Comment on above: Result Comment: meta bolite(s) may indicate diluted or adulterated urine, limitations of testing or timing of collection. Testing for legal purposes should be confirmed by another method. To request confirmation of test result, please call the lab within 7 days of sample submission. Performed By: #### T SH, VD25, ALB, B12, ECENZ, GLYHGB, ERTPF, FT4 #### [facility] [address] [place] [address] [employer]: Jonathan Mckee MD Methadone Ql (U) Negative Normal NEG [facility] Comment on above: Result Comment: (Positive cutoff 300 ng/mL) Performed By: #### T SH, VD25, ALB, B12, ECENZ, GLYHGB, ERTPF, FT4 #### [facility] [address] [place] [address] [employer]: Jonathan Mckee MD Opiate(s), Ur Negative Normal NEG [facility] Comment on above: Result Comment: (Positive cutoff 300 ng/mL) Performed By: #### T SH, VD25, ALB, B12, ECENZ, GLYHGB, ERTPF, FT4 #### [address] [address] [employer] Operator: Jonathan Mckee MD Oxycodone, Urine Negative Normal NEG [facility] Comment on above: Result Comment: (Positive cutoff 100 ng/mL) Performed By: #### T SH, VD25, ALB, B12, ECENZ, GLYHGB, ERTPF, FT4 #### [address] [address] [employer] Operator: Jonathan Mckee MD Phencyclidine, Ur Negative Normal NEG [facility] Comment on above: Result Comment: (Positive cutoff 25 ng/mL) Performed By: #### T SH, VD25, ALB, B12, ECENZ, GLYHGB, ERTPF, FT4 #### [address] [address] [employer] Operator: Jonathan Mckee MD Hemoglobin A1Con 01-21-2023 Glucose [Mass/Vol] 97 mg/dL Normal [facility] Comment on above: Result Comment: The ADA and AACC recommend providing the estimated average glucose result to permit better patient understanding of their HBA1c result. Performed By: #### T SH, VD25, ALB, B12, ECENZ, GLYHGB, ERTPF, FT4 #### [facility] [employer] [address] [place] [address] [employer] Operator: Jonathan Mckee MD HbA1c (Bld) [Mass fraction] 5.0 % Normal 4.0-6.0 [facility] Comment on above: Performed By: #### T SH, VD25, ALB, B12, ECENZ, GLYHGB, ERTPF, FT4 #### [address] [id number] [employer] Operator: Jonathan Mckee MD Myoglobinon 01-21-2023 Myoglobin [Mass/Vol] 888 ng/mL High 28-72 [facility] Comment on above: Performed By: #### T SH, VD25, ALB, B12, ECENZ, GLYHGB, ERTPF, FT4 #### [address] [phone] [employer] Operator: Jonathan Mckee MD Thyroid Stim. Horm.on 2022 Thyroid Stim. Horm. 4.37 uIU/mL Normal 0.30-5.00 [facility] Comment on above: Performed By: #### T SH, VD25, ALB, B12, ECENZ, GLYHGB, ERTPF, FT4 #### [address] [id number] [employer] Operator: Jonathan Mckee MD Thyroxine, Freeon 01-21-2023 Thyroxine, Free 1.4 ng/dL Normal 0.9-1.7 [facility] Comment on above: Performed By: #### T SH, VD25, ALB, B12, ECENZ, GLYHGB, ERTPF, FT4 #### [address] [phone] [employer]: Jonathan Mckee MD Trauma Profileon 01-21-2023 Anion gap [Moles/Vol] 15 mmol/L Normal 9-17 [facility] Comment on above: Performed By: #### T SH, VD25, ALB, B12, ECENZ, GLYHGB, ERTPF, FT4 #### [address] [phone] [employer] Operator: Jonathan Mckee MD Chloride [Moles/Vol] 98 mmol/L Normal 98-107 [facility] Comment on above: Performed By: #### T SH, VD25, ALB, B12, ECENZ, GLYHGB, ERTPF, FT4 #### [address] [address] [employer] Operator: Jonathan Mckee MD CO2 [Moles/Vol] 19 mmol/L Low 20-31 [facility] Comment on above: Performed By: #### T SH, VD25, ALB, B12, ECENZ, GLYHGB, ERTPF, FT4 #### [address] [address] [employer] Operator: Jonathan Mckee MD Creatinine [Mass/Vol] 0.9 mg/dL Normal 0.7-1.2 [facility] Comment on above: Performed By: #### T SH, VD25, ALB, B12, ECENZ, GLYHGB, ERTPF, FT4 #### [address] [address] [employer] Operator: Jonathan Mckee MD Ethanol [Mass/Vol] mg/dL Normal <10 [facility] Comment on above: Performed By: #### T SH, VD25, ALB, B12, ECENZ, GLYHGB, ERTPF, FT4 #### [address] [address] [employer] Operator: Jonathan Mckee MD Ethanol percent <0.010 Normal <0.010 [facility] Comment on above: Performed By: #### T SH, VD25, ALB, B12, ECENZ, GLYHGB, ERTPF, FT4 #### [address] [address] [employer] Operator: Jonathan Mckee MD GFR/1.73 sq M.predicted among non-blacks MDRD (S/P/Bld) [Vol rate/Area] 58 mL/min/{1.73_m2} Low >60 [facility] Comment on above: Result Comment: These [...] ALB, B12, ECENZ, GLYHGB, ERTPF, FT4 #### [address] [address] [employer] Operator: Jonathan Mckee MD Glucose [Mass/Vol] 111 mg/dL High 70-99 [facility] Comment on above: Performed By: #### T SH, VD25, ALB, B12, ECENZ, GLYHGB, ERTPF, FT4 #### [address] [address] [employer] Operator: Jonathan Mckee MD Potassium [Moles/Vol] 3.7 mmol/L Normal 3.7-5.3 [facility] Comment on above: Performed By: #### T SH, VD25, ALB, B12, ECENZ, GLYHGB, ERTPF, FT4 #### [address] [address] [employer] Operator: Jonathan Mckee MD Sodium [Moles/Vol] 132 mmol/L Low 135-144 [facility] Comment on above: Performed By: #### T SH, VD25, ALB, B12, ECENZ, GLYHGB, ERTPF, FT4 #### [address] [address] [employer] Operator: Jonathan Mckee MD Urea nitrogen [Mass/Vol] 31 mg/dL High 8-23 [facility] Comment on above: Performed By: #### T SH, VD25, ALB, B12, ECENZ, GLYHGB, ERTPF, FT4 #### [address] [address] [employer] Operator: Jonathan Mckee MD HCG Screen, Blood Negative Normal [facility] Comment on above: Result Comment: Spec imens with hCG levels near the threshold of the test (25 mIU/mL) may give a negative or indeterminate result. In such cases, another test should be performed with a new specimen in 48-72 hours. If early is suspected clinically in this setting, correlation with quantitative serum b-hCG level is suggested. [facility] has confirmed the use of plasma for this test. This has not been cleared or approved by the U.S. Food and Drug Administration. The FDA has determined that such clearance is not necessary. Performed By: #### T SH, VD25, ALB, B12, ECENZ, GLYHGB, ERTPF, FT4 #### [address] [address] [employer] Operator: Jonathan Mckee MD aPTT Coag (Bld) [Time] 28.4 s Normal 23.0-36.5 [facility] Comment on above: Result Comment: IV Heparin Therapy Range: 66.0-92.0 sec Performed By: #### T SH, VD25, ALB, B12, ECENZ, GLYHGB, ERTPF, FT4 #### [address] [address] [employer] Operator: Jonathan Mckee MD INR Coag (PPP) [Relative time] 1.1 {INR} Normal [facility] Comment on above: Result Comment: Therapeutic Range: Moderate Anticoagulant Intensity: INR = 2.0-3.0 High Anticoagulant Intensity: INR = 2.5-3.5 Performed By: #### T SH, VD25, ALB, B12, ECENZ, GLYHGB, ERTPF, FT4 #### [address] [address] [employer] Operator: Jonathan Mckee MD PT Coag (PPP) [Time] 14.3 s Normal 11.7-14.9 [facility] Comment on above: Performed By: #### T SH, VD25, ALB, B12, ECENZ, GLYHGB, ERTPF, FT4 #### [address] [phone] [employer] Operator: Jonathan Mckee MD Erythrocyte distribution width (RBC) [Ratio] 13.4 % Normal 11.8-14.4 [facility] Comment on above: Performed By: #### T SH, VD25, ALB, B12, ECENZ, GLYHGB, ERTPF, FT4 #### [address] [address] [employer]: Jonathan Mckee MD Hematocrit (Bld) [Volume fraction] 35.3 % Low 40.7-50.3 [facility] Comment on above: Performed By: #### T SH, VD25, ALB, B12, ECENZ, GLYHGB, ERTPF, FT4 #### [place] [address] [employer] Operator: Jonathan Mckee MD Hemoglobin (Bld) [Mass/Vol] 12.1 g/dL Low 13.0-17.0 [facility] Comment on above: Performed By: #### T SH, VD25, ALB, B12, ECENZ, GLYHGB, ERTPF, FT4 #### [address] [address] [employer] Operator: Jonathan Mckee MD MCH (RBC) [Entitic mass] 30.4 pg Normal 25.2-33.5 [facility] Comment on above: Performed By: #### T SH, VD25, ALB, B12, ECENZ, GLYHGB, ERTPF, FT4 #### [place] [address] [employer]: Jonathan Mckee MD MCHC (RBC) [Mass/Vol] 34.3 g/dL Normal 28.4-34.8 [facility] Comment on above: Performed By: #### T SH, VD25, ALB, B12, ECENZ, GLYHGB, ERTPF, FT4 #### [address] [address] [employer]: Jonathan Mckee MD MCV (RBC) [Entitic vol] 88.7 fL Normal 82.6-102.9 [facility] Comment on above: Performed By: #### T SH, VD25, ALB, B12, ECENZ, GLYHGB, ERTPF, FT4 #### [address] [address] [employer] Operator: Jonathan Mckee MD NRBC Automated 0.0 per 100 WBC Normal 0.0 [facility] Comment on above: Performed By: #### T SH, VD25, ALB, B12, ECENZ, GLYHGB, ERTPF, FT4 #### [place] [address] [employer] Operator: Jonathan Mckee MD Platelet mean volume (Bld) [Entitic vol] 10.4 fL Normal 8.1-13.5 [facility] Comment on above: Performed By: #### T SH, VD25, ALB, B12, ECENZ, GLYHGB, ERTPF, FT4 #### [address] [address] [employer] Operator: Jonathan Mckee MD Platelets (Bld) [#/Vol] 212 10*3/uL Normal 138-453 [facility] Comment on above: Performed By: #### T SH, VD25, ALB, B12, ECENZ, GLYHGB, ERTPF, FT4 #### [place] [address] [employer]: Jonathan Mckee MD RBC (Bld) [#/Vol] 3.98 10*6/uL Low 4.21-5.77 [facility] Comment on above: Performed By: #### T SH, VD25, ALB, B12, ECENZ, GLYHGB, ERTPF, FT4 #### [address] [address] [employer] Operator: Jonathan Mckee MD WBC (Bld) [#/Vol] 14.3 10*3/uL High 3.5-11.3 [facility] Comment on above: Performed By: #### T SH, VD25, ALB, B12, ECENZ, GLYHGB, ERTPF, FT4 #### [address] [address] [employer] Operator: Jonathan Mckee MD Body Temp. 37.0 Normal [facility] Comment on above: Performed By: #### T SH, VD25, ALB, B12, ECENZ, GLYHGB, ERTPF, FT4 #### [address] [address] [employer]: Jonathan Mckee MD Carboxy Hgb 1.1 % Normal 0-5 [facility] Comment on above: Result Comment: Reference Range: Non-Smokers 0-2% Average Smoker 2-4% Heavy Smoker <10% Performed By: #### T SH, VD25, ALB, B12, ECENZ, GLYHGB, ERTPF, FT4 #### [address] [address] [employer] Operator: Jonathan Mckee MD FIO2 INFORMATION NOT PROVIDED Normal [facility] Comment on above: Performed By: #### T SH, VD25, ALB, B12, ECENZ, GLYHGB, ERTPF, FT4 #### [address] [address] [employer] Operator: Jonathan Mckee MD HCO3 (Bld) [Moles/Vol] 24.1 mmol/L Normal 24-30 [facility] Comment on above: Performed By: #### T SH, VD25, ALB, B12, ECENZ, GLYHGB, ERTPF, FT4 #### [address] [address] [employer] Operator: Jonathan Mckee MD Oxygen saturation in Blood 46.4 % Low 60.0-85.0 [facility] Comment on above: Performed By: #### T SH, VD25, ALB, B12, ECENZ, GLYHGB, ERTPF, FT4 #### [address] [address] [employer] Operator: Jonathan Mckee MD pCO2 37.1 mm Hg Low 39-55 [facility] Comment on above: Performed By: #### T SH, VD25, ALB, B12, ECENZ, GLYHGB, ERTPF, FT4 #### [address] [address] [employer] Operator: Jonathan Mckee MD pH (Bld) 7.428 [pH] High 7.320-7.420 [facility] Comment on above: Performed By: #### T SH, VD25, ALB, B12, ECENZ, GLYHGB, ERTPF, FT4 #### [address] [address] [employer] Operator: Jonathan Mckee MD pO2 28.2 mm Hg Low 30-50 [facility] Comment on above: Performed By: #### T SH, VD25, ALB, B12, ECENZ, GLYHGB, ERTPF, FT4 #### [address] [address] [employer] Operator: Jonathan Mckee MD Positive Base Excess 0.5 mmol/L Normal 0.0-2.0 [facility] Comment on above: Performed By: #### T SH, VD25, ALB, B12, ECENZ, GLYHGB, ERTPF, FT4 #### [address] [address] [employer] Operator: Jonathan Mckee MD Blood Bank BILL FOR SERVICES PERFORMED Normal [facility] Comment on above: Performed By: #### T SH, VD25, ALB, B12, ECENZ, GLYHGB, ERTPF, FT4 #### [address] [phone] [employer]: Jonathan Mckee MD Trop/Myoglobinon 01-21-2023 Myoglobin [Mass/Vol] 1084 ng/mL High 28-72 [facility] Comment on above: Performed By: #### T SH, VD25, ALB, B12, ECENZ, GLYHGB, ERTPF, FT4 #### [address] [phone] [employer] Operator: Jonathan Mckee MD Troponin, High Sens 49 ng/L High 0-22 [facility] Comment on above: Result Comment: High Sensitivity Troponin values cannot be compared with other Troponin methodologies. Performed By: #### T SH, VD25, ALB, B12, ECENZ, GLYHGB, ERTPF, FT4 #### [address] [address] [employer]: Jonathan Mckee MD Troponinon 01-21-2023 Troponin, High Sens 48 ng/L High 0-22 [facility] Comment on above: Result Comment: High Sensitivity Troponin values cannot be compared with other Troponin methodologies. Performed By: #### T SH, VD25, ALB, B12, ECENZ, GLYHGB, ERTPF, FT4 #### [facility] [employer] [address] [place] [address] [employer] Operator: Jonathan Mckee MD Type + Screenon 01-21-2023 Type + Screen Sample Expiration 01/23/2023,2359 Arm Band Number BE [id number] ABO/Rh(D) O POSITIVE Antibody Screen NEGATIVE Normal [facility] Comment on above: Performed By: #### T SH, VD25, ALB, B12, ECENZ, GLYHGB, ERTPF, FT4 #### [facility] [address] [place] [address] [employer] Operator: Jonathan Mckee MD Urinalysis, Routineon 2022 Bilirubin, SemiQt,Ur Negative Normal NEG [facility] Comment on above: Performed By: #### T SH, VD25, ALB, B12, ECENZ, GLYHGB, ERTPF, FT4 #### [address] [address] [employer] Operator: Jonathan Mckee MD Blood, Urine Negative Normal NEG [facility] Comment on above: Performed By: #### T SH, VD25, ALB, B12, ECENZ, GLYHGB, ERTPF, FT4 #### [address] [address] [employer] Operator: Jonathan Mckee MD Clarity (U) Clear Normal CLEAR [facility] Comment on above: Performed By: #### T SH, VD25, ALB, B12, ECENZ, GLYHGB, ERTPF, FT4 #### [address] [address] [employer] Operator: Jonathan Mckee MD Color (U) Yellow Normal YEL [facility] Comment on above: Performed By: #### T SH, VD25, ALB, B12, ECENZ, GLYHGB, ERTPF, FT4 #### [address] [address] [employer] Operator: Jonathan Mckee MD Glucose Ql (U) Negative Normal NEG [facility] Comment on above: Performed By: #### T SH, VD25, ALB, B12, ECENZ, GLYHGB, ERTPF, FT4 #### [address] [address] [employer] Operator: Jonathan Mckee MD Ketones Ql (U) SMALL Abnormal NEG [facility] Comment on above: Performed By: #### T SH, VD25, ALB, B12, ECENZ, GLYHGB, ERTPF, FT4 #### [address] [address] [employer]: Jonathan Mckee MD Leukocyte esterase Test strip Ql (U) TRACE Abnormal NEG [facility] Comment on above: Performed By: #### T SH, VD25, ALB, B12, ECENZ, GLYHGB, ERTPF, FT4 #### [address] [address] [employer] Operator: Jonathan Mckee MD Nitrite,Ur Negative Normal NEG [facility] Comment on above: Performed By: #### T SH, VD25, ALB, B12, ECENZ, GLYHGB, ERTPF, FT4 #### [address] [address] [employer] Operator: Jonathan Mckee MD PH,Ur 8.0 Normal 5.0-8.0 [facility] Comment on above: Performed By: #### T SH, VD25, ALB, B12, ECENZ, GLYHGB, ERTPF, FT4 #### [address] [address] [employer] Operator: Jonathan Mckee MD Protein Ql (U) Negative Normal NEG [facility] Comment on above: Performed By: #### T SH, VD25, ALB, B12, ECENZ, GLYHGB, ERTPF, FT4 #### [address] [address] [employer] Operator: Jonathan Mckee MD Spec. [place],Ur 1.018 Normal 1.005-1.030 [facility] Comment on above: Performed By: #### T SH, VD25, ALB, B12, ECENZ, GLYHGB, ERTPF, FT4 #### [address] [address] [employer] Operator: Jonathan Mckee MD Urobilinogen,Ur Normal Normal 0.0-1.0 [facility] Comment on above: Performed By: #### T SH, VD25, ALB, B12, ECENZ, GLYHGB, ERTPF, FT4 #### [facility] [address] [place] [address] [employer] Operator: Jonathan Mckee MD Urinalysis,Microon 3 Bacteria None Normal NONE [facility] Comment on above: Performed By: #### T SH, VD25, ALB, B12, ECENZ, GLYHGB, ERTPF, FT4 #### [address] [address] [employer] Operator: Jonathan Mckee MD Casts 0 TO 2 HYALINE Normal 0-8 [facility] Comment on above: Result Comment: Refe rence range defined for non-centrifuged specimen. Performed By: #### T SH, VD25, ALB, B12, ECENZ, GLYHGB, ERTPF, FT4 #### [facility] [address] [place] [address] [employer]: Jonathan Mckee MD Epithelial cells LM Ql (Urine sed) 0 TO 2 Normal 0-5 [facility] Comment on above: Performed By: #### T SH, VD25, ALB, B12, ECENZ, GLYHGB, ERTPF, FT4 #### [facility] [address] [place] [address] [employer] Operator: Jonathan Mckee MD Urine RBC's 0 TO 2 Normal 0-4 [facility] Comment on above: Result Comment: Refe rence range defined for non-centrifuged specimen. Performed By: #### T SH, VD25, ALB, B12, ECENZ, GLYHGB, ERTPF, FT4 #### [facility] [employer] [address] [place] [address] [employer] Operator: Jonathan Mckee MD Urine WBC's 2 TO 5 Normal 0-5 [facility] Comment on above: Performed By: #### T SH, VD25, ALB, B12, ECENZ, GLYHGB, ERTPF, FT4 #### [address] [phone] [employer]: Jonathan Mckee MD Vitamin B12on 01-21-2023 Cobalamin (Vitamin B12) [Mass/Vol] 544 pg/mL Normal 232-1245 [facility] Comment on above: Performed By: #### T SH, VD25, ALB, B12, ECENZ, GLYHGB, ERTPF, FT4 #### [address] [phone] [employer]: Jonathan Mckee MD Vitamin D 25 OHon 01-21-2023 Vitamin D 25 OH 37.4 ng/mL Normal >29.9 [facility] Comment on above: Result Comment: Reference Range: Vitamin D status Range Deficiency <20 ng/mL Mild Deficiency 20-30 ng/mL Sufficiency 30-100 ng/mL Toxicity >100 ng/mL Performed By: #### T SH, VD25, ALB, B12, ECENZ, GLYHGB, ERTPF, FT4 #### [address] [phone] [employer]: Jonathan Mckee MD XR WRIST LEFT (MIN [...] Moe Waters MD 01/20/23 Final result Normal [facility] Basic Metabolic Panelon 03-0 Calcium [Mass/Vol] 9.4 mg/dL Normal 8.2-10.2 [facility] Comment on above: Order Comment: Reaso n for Exam Blood tests prior to treatment or procedure Result Comment: PERF ORMED BY: [place] [address] PATHOLOGIST CAR SALESPERSON MAXI BENNETT M.D. Performed By: #### C BC, BMP #### [facility] [address] [place] [address] Chloride [Moles/Vol] 97 mmol/L Normal 95-114 [facility] Comment on above: Order Comment: Reaso n for Exam Blood tests prior to treatment or procedure Performed By: #### C BC, BMP #### [facility] [address] [place] [address] CO2 [Moles/Vol] 25.9 mmol/L Normal 22.0-30.0 [facility] Comment on above: Order Comment: Reaso n for Exam Blood tests prior to treatment or procedure Performed By: #### C BC, BMP #### [facility] [address] [place] [address] Creatinine [Mass/Vol] 1.13 mg/dL Normal 0.64-1.27 [facility] Comment on above: Order Comment: Reaso n for Exam Blood tests prior to treatment or procedure Performed By: #### C BC, BMP #### [facility] [address] [place] [address] Estimated GFR ( [place] > 60 [facility] Comment on above: Order Comment: Reaso n for Exam Blood tests prior to treatment or procedure Result Comment: GFR estimated reference range: According to KDOQI guidelines, <60 ml/min/1.73m2 is sufficient to diagnose a patient with chronic kidney disease. Performed By: #### C BC, BMP #### [facility] [address] [place] [address] [place] Estimated GFR (Non- Am > 60 [facility] Comment on above: Order Comment: Reaso n for Exam Blood tests prior to treatment or procedure Performed By: #### C BC, BMP #### [facility] [address] [place] [address] [place] Glucose [Mass/Vol] 83 mg/dL Normal 70-100 [facility] Comment on above: Order Comment: Reaso n for Exam Blood tests prior to treatment or procedure Result Comment: [place] Glucose Reference Range is dependent on time and content of last meal. Glucose of more than 200 mg/dL in a nonstressed, ambulatory subject supports the diagnosis of Diabetes Mellitus. ADA recommended reference range Performed By: #### C BC, BMP #### [address] Potassium [Moles/Vol] 4.5 mmol/L Normal 3.5-5.1 [facility] Comment on above: Order Comment: Reaso n for Exam Blood tests prior to treatment or procedure Performed By: #### C BC, BMP #### [address] Sodium [Moles/Vol] 131 mmol/L Low 136-146 [facility] Comment on above: Order Comment: Reaso n for Exam Blood tests prior to treatment or procedure Performed By: #### C BC, BMP #### [address] Urea nitrogen [Mass/Vol] 20 mg/dL Normal 9-23 [facility] Comment on above: Order Comment: Reaso n for Exam Blood tests prior to treatment or procedure Performed By: #### C BC, BMP #### [address] Complete Blood Count Auto Di ffon 04-22-2021 Basophils (Bld) [#/Vol] 0.1 10*3/uL Normal 0.0-0.2 [facility] Comment on above: Order Comment: Reaso n for Exam Blood tests prior to treatment or procedure Result Comment: PERF ORMED BY: [place] [address] PATHOLOGIST [employer] SALESPERSON MAXI BENNETT M.D. Performed By: #### C BC, BMP #### [place] [address] [place] Basophils/100 WBC (Bld) 1.0 % Normal . [facility] Comment on above: Order Comment: Reaso n for Exam Blood tests prior to treatment or procedure Performed By: #### C BC, BMP #### [address] Eosinophils (Bld) [#/Vol] 0.2 10*3/uL Normal 0.0-0.45 [facility] Comment on above: Order Comment: Reaso n for Exam Blood tests prior to treatment or procedure Performed By: #### C BC, BMP #### [place] [address] [place] Eosinophils/100 WBC (Bld) 2.5 % Normal . [facility] Comment on above: Order Comment: Reaso n for Exam Blood tests prior to treatment or procedure Performed By: #### C BC, BMP #### [address] Erythrocyte distribution width (RBC) [Ratio] 14.2 % Normal 12.0-14.8 [facility] Comment on above: Order Comment: Reaso n for Exam Blood tests prior to treatment or procedure Performed By: #### C BC, BMP #### [address] Hematocrit (Bld) [Volume fraction] 41.9 % Normal 38.8-50.0 [facility] Comment on above: Order Comment: Reaso n for Exam Blood tests prior to treatment or procedure Performed By: #### C BC, BMP #### [address] Hemoglobin (Bld) [Mass/Vol] 14.3 g/dL Normal 13.0-17.0 [facility] Comment on above: Order Comment: Reaso n for Exam Blood tests prior to treatment or procedure Performed By: #### C BC, BMP #### [place] [address] [place] Lymphocytes (Bld) [#/Vol] 1.1 10*3/uL Normal 1.00-4.8 [facility] Comment on above: Order Comment: Reaso n for Exam Blood tests prior to treatment or procedure Performed By: #### C BC, BMP #### [place] [address] [place] Lymphocytes/100 WBC (Bld) 14.2 % Normal . [facility] Comment on above: Order Comment: Reaso n for Exam Blood tests prior to treatment or procedure Performed By: #### C BC, BMP #### [address] MCH (RBC) [Entitic mass] 29.7 pg Normal 27.5-35.2 [facility] Comment on above: Order Comment: Reaso n for Exam Blood tests prior to treatment or procedure Performed By: #### C BC, BMP #### [address] MCV (RBC) [Entitic vol] 87.1 fL Normal 83.5-101 [facility] Comment on above: Order Comment: Reaso n for Exam Blood tests prior to treatment or procedure Performed By: #### C BC, BMP #### [address] Mean Corpuscular HGB Conc 34.0 g/dL Normal 32.5-35.6 [facility] Comment on above: Order Comment: Reaso n for Exam Blood tests prior to treatment or procedure Performed By: #### C BC, BMP #### [address] Monocytes (Bld) [#/Vol] 0.7 10*3/uL Normal 0.0-0.8 [facility] Comment on above: Order Comment: Reaso n for Exam Blood tests prior to treatment or procedure Performed By: #### C BC, BMP #### [address] Monocytes/100 WBC (Bld) 8.7 % Normal . [facility] Comment on above: Order Comment: Reaso n for Exam Blood tests prior to treatment or procedure Performed By: #### C BC, BMP #### [address] Neutrophils (Bld) [#/Vol] 5.6 10*3/uL Normal 1.8-7.7 [facility] Comment on above: Order Comment: Reaso n for Exam Blood tests prior to treatment or procedure Performed By: #### C BC, BMP #### [facility] [address] [place] [address] [place] Neutrophils/100 WBC (Bld) 73.6 % Normal . [facility] Comment on above: Order Comment: Reaso n for Exam Blood tests prior to treatment or procedure Performed By: #### C BC, BMP #### [facility] [address] [place] [address] [place] Nucleated RBC/100 WBC (Bld) [Ratio] 0.1 % Normal 0-0.5 [facility] Comment on above: Order Comment: Reaso n for Exam Blood tests prior to treatment or procedure Performed By: #### C BC, BMP #### [facility] [address] Platelet mean volume (Bld) [Entitic vol] 9.8 fL Normal 6.6-10.1 [facility] Comment on above: Order Comment: Reaso n for Exam Blood tests prior to treatment or procedure Performed By: #### C BC, BMP #### [facility] [address] [place] [address] [place] Platelets (Bld) [#/Vol] 200 10*3/uL Normal 150-450 [facility] Comment on above: Order Comment: Reaso n for Exam Blood tests prior to treatment or procedure Performed By: #### C BC, BMP #### [place] [address] [place] RBC (Bld) [#/Vol] 4.81 10*6/uL Normal 3.90-5.60 [facility] Comment on above: Order Comment: Reaso n for Exam Blood tests prior to treatment or procedure Performed By: #### C BC, BMP #### [facility] [address] [place] [address] [place] WBC (Bld) [#/Vol] 7.6 10*3/uL Normal 4.5-11.0 [facility] Comment on above: Order Comment: Reaso n for Exam Blood tests prior to treatment or procedure Performed By: #### C BC, BMP #### [address] ECG 12 lead ECGon 04-22-2021 ECG 12 lead ECG [facility] Main [place] [id number] Electrocardiograph Report Signed Patient: Garth Torres MR#: [id number] 25 : 1935 Acct:[id number] Age/Sex: 86 / M ADM Date: 04/22/21 Loc: Room: Type: [facility] Attending Dr: Vlad Denis DO Ordering Provider: [...] MUS Signed By Mitesh Wei DO 04/22 [facility] Ambulatory Clinical Summaryo n 02-11-2021 Ambulatory Clinical Summary {[id number]}CD:[id number] [facility] Patient Educationon 02-12-20 21 Patient Education [...] Follow these instructions at home: ? Take wlox-nwy-jwjcgnf and prescription medicines only as told by [...] d (more content not included)... Normal [facility] Urology Office/Clinic Noteon 02-11-2021 Urology Office/Clinic Note [...] Urnls Dip Stick Auto w/o Microscopy POC 90276 3. Urgency of urination (R39.15: Urgency of [...] [facility] [address], [place] [address]- Additional Instructions: Patient Education Benign Prostatic Hyperplasia [...] t (more content not included)... Normal [facility] Comment on above: Result Comment: Elec tronically Signed By: Herb Dutton MD, Terrance Bal\.br\Date and Time Signed: 02/11/21 12:57 EST\.br\Electronically Co-Signed By: Saritha TORRES, Ling Cartagena\.br\Date and Time Co-Signed: 02/11/21 12:33 EST Comprehensive Metabolic Pane daniela 02-10-2021 Albumin [Mass/Vol] 3.8 g/dL Normal 3.6-5.1 [facility] Comment on above: Performed By: #### L IPD, CMP #### [facility] [address] [place], [place] [id number] Albumin/Globulin [Mass ratio] 1.7 {ratio} Normal 1.0-2.5 [facility] Comment on above: Performed By: #### L IPD, CMP #### [facility] [address] [place], [place] [id number] ALP [Catalytic activity/Vol] 119 U/L Normal 40-129 [facility] Comment on above: Performed By: #### L IPD, CMP #### [facility] [address] [place], [place] [id number] ALT [Catalytic activity/Vol] 12 U/L Normal 9-46 [facility] Comment on above: Result Comment: 01/15 Female reference range changed. Performed By: #### L IPD, CMP #### [facility] [address] [place], [place] [id number] Anion gap [Moles/Vol] 14 mmol/L Normal 12-20 [facility] Comment on above: Result Comment: Effe ctive 02/20/2019 reference range changed. Performed By: #### L IPD, CMP #### [facility] [address] [place], [place] [id number] AST [Catalytic activity/Vol] 17 U/L Normal 10-[address] [facility] Comment on above: Performed By: #### L IPD, CMP #### [facility] [address] [place], [place] [id number] Bilirubin [Mass/Vol] 0.50 mg/dL Normal 0.30-1.20 [facility] Comment on above: Performed By: #### L IPD, CMP #### [facility] [address] [place], [place] [id number] BUN/CREA 20 Ratio Normal 6-[address] [facility] Comment on above: Performed By: #### L IPD, CMP #### [facility] [address] [place], [place] [id number] Calcium [Mass/Vol] 9.4 mg/dL Normal 8.6-10.2 [facility] Comment on above: Performed By: #### L IPD, CMP #### [facility] [address] [place], [place] [id number] Chloride [Moles/Vol] 101 mmol/L Normal 98-107 [facility] Comment on above: Performed By: #### L IPD, CMP #### [facility] [address] [place], [place] [id number] CO2 [Moles/Vol] 26 mmol/L Normal 20-[address] [facility] Comment on above: Performed By: #### L IPD, CMP #### [facility] [address] [place], [place] [id number] Creatinine [Mass/Vol] 1.1 mg/dL Normal 0.7-1.[address] [facility] Comment on above: Performed By: #### L IPD, CMP #### [facility] [address] [place], [place] [id number] eGFRAA 78 mL/min/1.73m2 Normal >[address] [facility] Comment on above: Performed By: #### L IPD, CMP #### [facility] [address] [place], [place] [id number] eGFRNAA 64 mL/min/1.73m2 Normal >[address] [facility] Comment on above: Performed By: #### L IPD, CMP #### [facility] [address] [place], [place] [id number] Globulin (S) [Mass/Vol] 2.3 g/dL Normal 1.9-3.7 [facility] Comment on above: Performed By: #### L IPD, CMP #### [facility] [address] [place], [place] [id number] Glucose [Mass/Vol] 85 mg/dL Normal 65-99 [facility] Comment on above: Result Comment: For FASTING Glucose --- ADA reference ranges: Normal 65-99 mg/dl Prediabetes 100-125 Diabetes >/= 126 Performed By: #### L IPD, CMP #### [facility] [address] [place], [place] [id number] Potassium [Moles/Vol] 4.1 mmol/L Normal 3.5-5.5 [facility] Comment on above: Performed By: #### L IPD, CMP #### [facility] [address] [place], [place] [id number] Protein [Mass/Vol] 6.1 g/dL Normal 6.1-8.1 [facility] Comment on above: Performed By: #### L IPD, CMP #### [facility] [address] [place], [place] [id number] Sodium [Moles/Vol] 137 mmol/L Normal 135-146 [facility] Comment on above: Performed By: #### L IPD, CMP #### [facility] [address] [place], [place] [id number] Urea nitrogen [Mass/Vol] 22 mg/dL Normal 7-25 [facility] Comment on above: Performed By: #### L IPD, CMP #### [facility] [address] [place], [place] [id number] Hemoglobin A1Con 02-10-2021 EAG 114.02 Normal [facility] Comment on above: Performed By: #### A 1C #### [facility] [address] [place], [place] [id number] HbA1c (Bld) [Mass fraction] 5.6 % Normal 4.0-6.0 [facility] Comment on above: Performed By: #### A 1C #### [facility] [address] [place], [place] [id number] Lipid Panelon 02-10-2021 Cholesterol [Mass/Vol] 138 mg/dL Normal 125-200 [facility] Comment on above: Result Comment: Low risk < 200mg/dL Borderline risk 201-239 mg/dl High risk > or equal to 240 Performed By: #### L IPD, CMP #### [facility] [address] [place], [place] [id number] Cholesterol in HDL [Mass/Vol] 53 mg/dL Normal >40 [facility] Comment on above: Result Comment: High Cardiovascular Risk HDL <40 mg/dL Low Cardiovascular Risk HDL > or equal to 60 mg/dl Performed By: #### L IPD, CMP #### [facility] [address] [place], [place] [id number] Cholesterol in LDL [Mass/Vol] 65 mg/dL Normal [facility] Comment on above: Result Comment: LDL ATP III CLASSIFICATION LDL less than 100 mg/dl Optimal LDL 100-129 mg/dl Near or above optimal LDL 130-159 Borderline high LDL 160-189 High LDL greater than 189 mg/dl Very High Performed By: #### L IPD, CMP #### [facility] [address] [place], [place] [id number] Cholesterol in VLDL [Mass/Vol] 20 mg/dL Normal [facility] Comment on above: Performed By: #### L IPD, CMP #### [facility] [address] [place], [place] [id number] Cholesterol.total/Ch olesterol in HDL [Mass ratio] 3 {ratio} Normal [facility] Comment on above: Performed By: #### L IPD, CMP #### [facility] [address] [place], [place] [id number] Triglyceride [Mass/Vol] 98 mg/dL Normal 30-150 [facility] Comment on above: Result Comment: TRIG ATPIII CLASSIFICATIONS TRIG less than 150 mg/dl Normal TRIG 150-199 mg/dl Borderline High TRIG 200-500 mg/dl High TRIG greather than 500 mg/dl Very High Performed By: #### L IPD, CMP #### [facility] [address] [place], [place] [id number] Encounters Encounter Date Encounter Type Care Provider Facility Start: 12-01-2023 End: 12-01-2023 ambulatory EHAB JAISON [facility] Start: 07-28-2023 End: 07-28-2023 ambulatory JANAK Cartagena PETRHONAI Not Available Start: 05-31-2023 End: 05-31-2023 ambulatory JANAK A PETITTI Not Available Start: 05-05-2023 End: 05-05-2023 ambulatory GUIDO MCGREGOR Not Available Start: 04-23-2023 End: 04-23-2023 ambulatory EMANUEL AGATA [facility] Start: 01-20-2023 End: 01-25-2023 Evaluation and management of inpatient CARROL Lazaro JIMENEZSTEPHEN [facility] Start: 04-22-2021 End: 04-22-2021 ambulatory Vlad Cira Facility:[facility] Start: 04-22-2021 Encounter for preprocedural laboratory examination Vlad Denis [facility] Start: 04-03-2020 End: 04-04-2020 Patient encounter procedure GUIDO MCGREGOR Facility: Start: 03-11-2020 End: 03-12-2020 Patient encounter procedure NONE LISTED REQUEST Facility: Payers Date Payer Category Payer Private Health Insurance [id number] 1999 Medicare [id number] 1959 Self-pay 1935 Unknown [id number] 1934 Unknown [id number] .[id number] [id number] 1934 Unknown [id number] .16.84 [id number] 1934 Unknown [id number] 2.16.84 [id number] Unknown [id number] 2.16.84 [id number] Unknown [id number] 2.16.84 [id number] Unknown [id number] 2.16.8 [id number] Progress note 12-01-2023 Note Date & Type Note Facility 12-01-2023 Note [facility] Cardiology Clinic Note Chief Complaint: Patient here for 6 mo follow up hypertension, aortic valve stenosis, and PSVT. Had routine echo performed 2 weeks ago at [facility]. He denies chest pain, SOB, palpitations, and lightheadedness/syncope. No recent labs. HPI: Garth Torres is a 88 y.o. male With a history of aortic valve stenosis, hypertension, and paroxysmal supraventricular tachycardia He has been doing fairly well; he denies chest pain, he has had no shortness of breath, he denies palpitations, lightheadedness dizziness or syncope. He has had no orthopnea or paroxysmal nocturnal dyspnea. He denies lower extremity edema. Cardiology ROS: Review of Systems Constitutional: Positive for decreased appetite and weight loss. Musculoskeletal: Positive for muscle weakness. All other systems reviewed and are negative. Past Medical History He has no past medical history on file. Surgical History He has no past surgical history on file. Social History He reports that he has never smoked. He has never used smokeless tobacco. No history on file for alcohol use and drug use. Family History No family history on file. Allergies Patient has no known allergies. Medications Current Outpatient Medications: atorvastatin (Lipitor) 20 mg tablet, Take 20 mg by mouth every other day., Disp: , Rfl: donepezil (Aricept) 10 mg tablet, Take 10 mg by mouth at bedtime., Disp: , Rfl: metoprolol succinate XL (Toprol-XL) 50 mg 24 hr tablet, Take 1 tablet by mouth in the morning., Disp: , Rfl: olmesartan-hydrochlorothiazide (BENIcar HCT) 20-12.5 mg tablet, Take 1 tablet by mouth in the morning., Disp: , Rfl: Last Recorded Vitals BP 160/59 (BP Location: Right arm, Patient Position: Sitting) Pulse 58 Ht 1.778 m (5' 10 ) Wt 70.3 kg (155 lb) SpO2 99% BMI 22.24 kg/m??? Physical Examination: GENERAL: alert and oriented x3, well developed, in no acute distress. HEAD: atraumatic, normocephalic. EYES: WHIT, EOMI. NECK: trachea midline, no JVD present, no carotid bruits present. CARDIAC: S1, S2 present. RRR. No murmur, rubs, or gallops. RESPIRATORY: CTAB, no increased effort of breathing, no rales, rhonchi, or wheezing. ABDOMEN: soft, nontender, nondistended. EXTREMITIES: no lower extremity edema, peripheral pulses are 2+ bilaterally. No rash/skin discoloration present. NEURO: strength/sensation equal and symmetric in bilateral upper and lower extremities. PSYCH: appropriate mood, affect, and judgement. INVESTIGATIONS: Echocardiogram 11/17/2023: Global left ventricular systolic function is normal; visually estimated ejection fraction is 60% Normal right ventricular size and systolic function Biatrial dilatation Grade 1 diastolic dysfunction Mild to moderate aortic valve stenosis; mean gradient of 15 mmHg, aortic valve area of 1.3 cm???. DVI appears to be erroneous and measured at 0.25. Mild aortic regurgitation 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 Assessment: Nonrheumatic aortic valve stenosis - Transthoracic echo (TTE) complete; Future Primary hypertension Mixed hyperlipidemia Sinus bradycardia Nonrheumatic aortic valve insufficiency - Transthoracic echo (TTE) complete; Future Plan: The patient is stable from a symptom standpoint; would not recommend further investigations of his aortic stenosis at this juncture. The majority of his echocardiographic measurements are consistent with moderate aortic valve stenosis. The DVI is likely erroneous. Will repeat an echocardiogram 6 months from his prior echocardiogram Given his elevated blood pressure, and low heart rates, May consider switching Toprol to Coreg. It appears that his retirement has been holding his Benicar HCT when his heart rate is low. We have instructed them not to do this. He is to follow-up with Emanuel Parmar CNP and/or Brooks Senior MD in 4 to 6 months Carol Guardado MD, MPH, [facility], [facility] Interventional Cardiology Pager Email: [email or web address] Progress note 04-23-2023 Note Date & Type Note Facility 04-23-2023 Note will monitor with echocardiogram [facility] Progress note 04-23-2023 Note Date & Type Note Facility 04-23-2023 Note Hypertension is well controlled Continue olmesartan/ hydrochlorothiazide 20-12.5 mg daily [facility] Progress note 04-23-2023 Note Date & Type Note Facility 04-23-2023 Note Continue toprol 50 m g daily Denied any lightheadedness/dizziness or syncope [facility] Progress note 04-23-2023 Note Date & Type Note Facility 04-23-2023 Note [facility] PROGR ESS NOTE HPI: Garth Torres is a 88 y.o. male here for AO stensosis, HTN, HPL HPI 04/10/23 [facility] recent admission- 04/10/23 Admitted for Syncope, bradycardia, [...] are negative. 10/02/[address] Senior HPI Garth is seen in follow-up. I met [...] will monitor with echocardiogram RTC 3-6 months [facility] Consultation note 01-21-2023 Note Date & Type Note Facility 01-21-[address] [address] CONSULTATION PATIENT NAME: GARTH TORRES : 1935 MED REC NO: [id number] ROOM: 1006 ACCOUNT NO: [id number] ADMIT DATE: 01/20/2023 PROVIDER: Kobe Tran CONSULT DATE: 01/21/2023 PLASTIC SURGICAL CONSULTATION He was seen earlier today by myself at the bedside in the Trauma ICU. HISTORY OF PRESENT ILLNESS: This is an 87-year-old gentleman, who was transferred from [facility] for intracranial bleed, left maxillary sinus fracture, left inferior orbital fracture, left orbital wall fracture, nondisplaced left zygomatic arch fracture, and left mandibular ramus fracture. The gentleman apparently was walking out a step to his front door and fell. He did not remember very much of what happened. He was brought to [facility] for evaluation and transferred to [facility]. He has been treated for intracranial hemorrhage [...] sign off of this consultation. KOBE [id number] [id number] Doc#: [id number] CC: [facility] Summary Purpose Family History No Family History [...] and content) DATE CREATED AUTHOR 04/02/2020 [facility] DATE CREATED AUTHOR AUTHOR'S ORGANIZ ATION 02/10/2021 [facility] dical Specialist DATE CREATED AUTHOR AUTHOR'S ORGANIZ ATION 05/08/2021 [facility] DATE CREATED AUTHOR AUTHOR'S ORGANIZ ATION 03/21/2022 [facility] DATE CREATED AUTHOR AUTHOR'S ORGANIZ ATION 01/31/2023 [facility] DATE CREATED AUTHOR AUTHOR'S ORGANIZ ATION 07/29/2023 [facility] dical Specialists [facility] DATE CREATED AUTHOR AUTHOR'S ORGANIZ ATION 12/03/2023 [facility] FOR RECORDS PERTAINING TO PATIENTS WHO ARE [...] BE BASED ON THE PRIMARY CLINICAL RECORDS. [facility] provides no warranty or guarantee of the accuracy or completeness of information in this document.
--- NOTE | 2024-02-15 08:21 | ED.GENADUL1 ---
HPI HPI - General Adult General Chief complaint: Weakness Stated complaint: GENERAL WEAKNESS Time Seen by Provider: 02/15/24 08:12 Source: patient Mode of arrival: ambulance Limitations: no limitations History of Present Illness HPI narrative: 88-year-old male presents to the emergency department for generalized weakness. He could not get himself out of bed today. He is complaining of some pain in his left leg but there was no injury. He was recently diagnosed with COVID and he lives in an F. He is not complaining of chest pain or shortness of breath or abdominal pain or vomiting. Related Data Home Medications ?Medication ?Instructions ?Recorded ?Confirmed atorvastatin 20 mg tablet 20 mg PO QDAY 01/20/23 04/10/23 donepezil 10 mg tablet 10 mg PO QDAY 01/20/23 04/10/23 metoprolol succinate 25 mg 50 mg PO QDAY 01/20/23 04/10/23 tablet,extended release 24 hr Previous Rx's ?Medication ?Instructions ?Recorded olmesartan 20 1 tab PO DAILY #30 tabs 04/11/23 mg-hydrochlorothiazide 12.5 mg tablet Allergies Allergy/AdvReac Type Severity Reaction Status Date / Time No Known Drug Allergies Allergy Verified 01/20/23 16:31 Opioid HPI Opioid Management Most Recent Opioid Data: Last Pain Scale 8 02/15/24 09:31 02/15/24 Last MAR Pain Assessment 02/15/24 09:31 Review of Systems ROS Narrative A ten point review of systems is negative except as noted above. PFSH PFSH Medical History Bradycardia ?R00.1 - Bradycardia, unspecified (ICD-10) Hypertension ?I10 - Essential (primary) hypertension (ICD-10) Alzheimers disease ?G30.9 - Alzheimer's disease, unspecified (ICD-10) ?F02.80 - Dementia in other diseases classified elsewhere, unspecified severity, without behavioral disturbance, psychotic disturbance, mood disturbance, and anxiety (ICD-10) Intracranial bleed ?I62.9 - Nontraumatic intracranial hemorrhage, unspecified (ICD-10) Aortic valve disorder ?I35.9 - Nonrheumatic aortic valve disorder, unspecified (ICD-10) Social History Smoking status: Never smoker Little interest or pleasure in doing things: not at all Feeling down, depressed, or hopeless: not at all Gender Identity: male Exam Narrative Exam Narrative: Nurses note and vital signs reviewed and patient is not hypoxic. General: The patient appears well and in no apparent distress. Patient is resting comfortably on cart. Skin: Warm, dry, no pallor noted. There is no rash noted. Head: Normocephalic, atraumatic Eye: Normal conjunctiva, no drainage Ears, Nose, Mouth, and Throat: oral mucosa is slightly dry. Nares patent. Cardiovascular: Regular Rate and Rhythm Respiratory: Patient is in no distress, no accessory muscle use, lungs are clear to auscultation, no wheezing, rales or rhonchi Back: non-tender GI: Soft and nontender Musculoskeletal: No palpable tenderness to his legs. No bruising or abrasions Neurological: A&O, normal speech Psychiatric: Cooperative Constitutional Vital Signs, click to edit/add: Last Vital Signs Temp 99.5 F 02/15/24 08:13 Pulse 62 02/15/24 08:13 Resp 18 02/15/24 08:13 BP 137/72 02/15/24 08:13 Pulse Ox 99 02/15/24 08:13 O2 Del Method Room Air 02/15/24 08:13 Course Vital Signs Vital signs: Vital Signs Temperature 99.5 F 02/15/24 08:13 Pulse Rate 62 02/15/24 08:13 Respiratory Rate 18 02/15/24 08:13 Blood Pressure 137/72 02/15/24 08:13 Pulse Oximetry 99 02/15/24 08:13 Oxygen Delivery Method Room Air 02/15/24 08:13 Temperature 99.5 F 02/15/24 08:13 Pulse Rate 62 02/15/24 08:13 Respiratory Rate 18 02/15/24 08:13 Blood Pressure 137/72 02/15/24 08:13 Pulse Oximetry 99 02/15/24 08:13 Oxygen Delivery Method Room Air 02/15/24 08:13 Medical Decision Making MDM Narrative Medical decision making narrative: The patient is COVID-19 positive and has generalized weakness. His workup here is negative and he was given IV fluids. He is unable to walk and will be admitted. Findings are discussed with the patient and his daughter. Differential Diagnosis Differential Diagnosis: COVID, UTI, dehydration, anemia Lab Data Lab results reviewed: Yes I reviewed the patient's lab results Labs: Lab Results 02/15/24 02/15/24 Range/Units 09:16 09:20 WBC 7.6 (4.0-11.0) 10^3/uL RBC 4.17 L (4.70-6.10) 10^6/uL Hgb 12.4 L (14.0-18.0) g/dL Hct 37.4 L (42.0-54.0) % MCV 89.7 (80.0-94.0) fL MCH 29.7 (25.9-34.0) pg MCHC 33.2 (29.9-35.2) g/dL RDW 14.0 (11.0-15.0) % Plt Count 182 (150-450) 10^3/uL MPV 11.1 (9.5-13.5) fL Sodium 137 (136-145) mmol/L Potassium 4.1 (3.5-5.1) mmol/L Chloride 101 (98-107) mmol/L Carbon Dioxide 28.2 (21.0-32.0) mmol/L Anion Gap 11.9 BUN 26.0 H (7.0-18.0) mg/dL Creatinine 1.11 (0.70-1.30) mg/dL Est GFR ( Amer) >60 (>=60 mL/min/1.73m^2) Est GFR (Non-Af Amer) >60 (>=60 mL/min/1.73m^2) BUN/Creatinine Ratio 23.4 Glucose 90 (74-106) mg/dL Calcium 9.0 (8.5-10.1) mg/dL Troponin I High Sens 51.9 (4.0-76.1) pg/mL Urine Color Lt. yellow (YELLOW) Urine Clarity Clear (CLEAR) Urine pH 6.5 (5.0-9.0) Ur Specific [place] 1.020 (1.005-1.025) Urine Protein Trace (NEG/TRACE) mg/dL Urine Glucose (UA) Negative (NEGATIVE) mg/dL Urine Ketones Negative (NEGATIVE) mg/dL Urine Occult Blood Trace-i (NEGATIVE) Urine Nitrite Negative (NEGATIVE) Urine Bilirubin Negative (NEGATIVE) Urine Urobilinogen 1.0 (0.2-1.0) EU/dL Ur Leukocyte Esterase Trace A (NEGATIVE) Urine RBC 0-2 (0-2) #/HPF Urine WBC 2-5 A (NONE SEEN) #/HPF Ur Squamous Epith Cells Few A (NONE/RARE) #/LPF Urine Bacteria None seen (NONE SEEN) #/HPF Urine Mucus None seen (NONE SEEN) Imaging Data Chest x-ray: Radiologist's impression: ITS Impressions Chest X-Ray 02/15/24 08:50 IMPRESSION: Interval change in heart size, consider pericardial effusion Clear lungs Electronically authenticated by: TIGIST SEVERINO Date: 02/15/2024 09:14 ECG Data Attestation: I personally reviewed and interpreted this ECG as follows: (EKG on my interpretation shows sinus rhythm without acute change) Discharge Plan Discharge Chief Complaint: Weakness Clinical Impression: Generalized weakness, COVID-19 Patient Disposition: Admitted as Observation Time of Disposition Decision: 10:06 Condition: Good
--- NOTE | 2024-02-15 08:50 | XR_ITS ---
The [address] [address] Patient Name: SHANE IRWIN MRN: [id number] date: 1935 Sex: M Assigned Patient Location: ER Current Patient Location: ER Accession/Order Number: [id number] Exam Date: 02/15/2024 08:55 Report Date: 02/15/2024 09:14 At the request of: SÁNCHEZ VARNER Procedure: XR chest 1V EXAMINATION: XR chest 1V HISTORY: Weakness, recent COVID COMPARISON: 04/10/2023 TECHNIQUE: AP portable FINDINGS: LUNGS: No significant pulmonary parenchymal abnormalities. VASCULATURE: No increased pulmonary vasculature. PLEURA: No pneumothorax, effusion, or pleural thickening. CARDIAC: Mild cardiomegaly. MEDIASTINUM: Calcifications consistent with old granulomatous disease. Aortic atherosclerosis BONES: No fracture or visible bone lesion. OTHER: Negative. XR/XR chest 1V IMPRESSION: Interval change in heart size, consider pericardial effusion Clear lungs Electronically authenticated by: TIGIST SEVERINO Date: 02/15/2024 09:14
--- NOTE | 2024-02-15 08:50 | ECG_ITS ---
The [facility] Test Date: 2024-02-15 Pat Name: SHANE IRWIN Department: Room: - Gender: Male Platform Supervisor: : 1935 Requested By: RYLIE HENRY Order Number: [id number] Reading MD: RAI FINN Measurements Intervals [place] Rate: 59 P: 60 OK: 214 QRS: 15 QRSD: 100 T: 72 QT: 428 QTc: 428 Interpretive Statements 1100 Sinus rhythm 1470 with occasional supraventricular premature complexes 2231 First degree AV block [address] depression [address] & Twave abnormality, lateral ischemia can't be excluded 9150 abnormal ECG Electronically Signed On 02-17-2024 16:28:36 EST by RAI FINN
[2024-02-15] MEDS: 0.9 % SODIUM CHLORIDE 500 ML IV (08:51)
[2024-02-15] MEDS: KETOROLAC TROMETHAMINE 30 MG/ML VIAL IVP (09:31)
[2024-02-15 09:38] LABS: Bilirubin Urine NEGATIVE (NEGATIVE); Blood Urine TRACE-I (NEGATIVE); Clarity Urine CLEAR (CLEAR); Color Urine LT. YELLOW (YELLOW); Glucose Urine UA NEGATIVE (NEGATIVE); Ketones Urine NEGATIVE (NEGATIVE); Leukocyte Esterase Urine TRACE (NEGATIVE); Nitrite Urine NEGATIVE (NEGATIVE); Protein Urine TRACE mg/dL (NEG/TRACE); pH Urine 6.5 (5.0-9.0)
[2024-02-15 09:40] LABS: Hematocrit 37.4 % (42.0-54.0); Hemoglobin 12.4 g/dL (14.0-18.0); Mean Corpuscular HGB Conc 33.2 g/dL (29.9-35.2); Mean Corpuscular Hemoglobin 29.7 pg (25.9-34.0); Mean Corpuscular Volume 89.7 fL (80.0-94.0); Mean Platelet Volume 11.1 fL (9.5-13.5); Platelet Count 182 10^3/uL (150-450); Red Blood Count 4.17 10^6/uL (4.70-6.10); White Blood Count 7.6 10^3/uL (4.0-11.0)
[2024-02-15 09:48] LABS: Bacteria Urine NONE SEEN #/HPF (NONE SEEN); Mucus Urine NONE SEEN (NONE SEEN); RBC Urine 0-2 #/HPF (0-2); Squamous Epithelial Cell Urine FEW #/LPF (NONE/RARE)
[2024-02-15 09:52] LABS: Anion Gap 11.9; BUN Creatinine Ratio 23.4; Carbon Dioxide 28.2 mmol/L (21.0-32.0); Chloride 101 mmol/L (98-107); Estimated GFR (African America >60 (>=60 mL/min/1.73m^2); Estimated GFR (Non-African Ame >60 (>=60 mL/min/1.73m^2); Glucose 90 mg/dL (74-106); Potassium 4.1 mmol/L (3.5-5.1); Sodium 137 mmol/L (136-145); Troponin I High Sensitivity 51.9 pg/mL (4.0-76.1)
[2024-02-15 10:13] LABS: Band Neutrophils Absolute 0.1 10^3/uL (0.0-0.3); Basophils Abs Manual 0.07 10^3/uL (0.00-0.10); Monocytes Absolute Manual 1.14 10^3/uL (0.30-0.80)
[2024-02-15 10:14] LABS: Ovalocytes 1+; Poikilocytosis 1+; Tear Drop Cells 1+
--- NOTE | 2024-02-15 10:30 | CA_ITS ---
Patient Name: SHANE IRWIN MR#: [id number] : 1935 Exam Date: 02/15/2024 Ordering Doctor: DR. SÁNCHEZ VARNER M.D. ECHOCARDIOGRAM REPORT PROCEDURE: CA ECHO LIMITED INDICATIONS: Mild cardiomegaly COMPARISON: None. DESCRIPTION: Limited ECHOCARDIOGRAM Real-time transthoracic echocardiography with 2D and M-mode performed. QUALITY: Technical quality was good. LEFT VENTRICLE: Normal chamber size. Moderately increased left ventricular wall thickness. LV EF: Global left ventricular systolic function is normal. Calculated left ventricular ejection fraction is 67%. LEFT ATRIUM: Severe dilatation. RIGHT ATRIUM: Moderate dilatation. RIGHT VENTRICLE: Normal chamber size. Normal right ventricular systolic function. TRICUSPID VALVE: Normal mobility and thickness. MITRAL VALVE: Normal mobility and thickness. AORTIC VALVE: Normal trileaflet appearance. Severely calcified aortic valve. AORTIC ROOT: Normal diameter and appearance. PULMONIC VALVE: Normal thickness and mobility. PERICARDIUM: No evidence of pericardial effusion. IVC: Not well visualized. CONCLUSION: 1. Global left ventricular systolic function is normal; visually estimated ejection fraction is 60 to 65% 2. The right ventricle is normal in size and systolic function 3. Biatrial dilatation 4. Moderately increased left ventricular wall thickness A limited echocardiogram was performed Adult Echocardiography Procedure Report Left Ventricle LVEDD (3.7 - 5.6 cm): 4.63 cm LVESD (2.2 - 4.0 cm): 3.20 cm LVIVS thickness (0.6 - 1.2 cm): 1.44 cm LVPW thickness (0.5 - 1.0 cm): 1.33 cm LVOT Diameter 2.30 cm Left Ventricular Ejection Fraction: 66.63 % Left Atrium LA Volume Index (2D A2C): 73.46 ml/m2 Left Atrium Systolic Dimension: 3.73 cm Mitral Valve Right Ventricle RV Internal Diastolic Dimension: 3.76 cm Aorta AO Root Diam: 3.80 cm Aortic Valve Tricuspid Valve Pulmonic Valve Right Atrium Right Atrium Systolic Pressure: 69.31 ml, 69.31 ml Dictated by: Carol Guardado M.D. on 02/21/2024 at 15:32 Approved by: Carol Guardado M.D. on 02/21/2024 at 15:35
--- OUTSIDE RECORDS SUMMARY | 2024-02-15 11:56 | XMS_ITS | CCD ---
Author Organization [facility] Care Team Providers Care Dye Feeder Name Role Phone GUIDO MCGREGOR Primary Care [...] Range Facility Office Visiton 12-01-2023 Follow-up visit [id number] Tal Torres W 1935 M Date Provider Department Center 12/01/2023 Danis-CHRISVINNIEMARILEELanieCAROL BRIANDA [facility] Family History Family history unknown: Yes Level of Service:40604 [facility] OFFICE/OUTPATIENT ESTABLISHED LOW MDM 20 MIN Normal [facility] Office Visiton 04-23-2023 Follow-up visit [id number] Tal Torres 1935 M Date Provider Department Center 04/23/2023 120EMANUEL FINCH BRIANDA [facility] No family history on file Level of Service:31212 [facility] OFFICE/OUTPATIENT ESTABLISHED MOD MDM 30 MIN Reason for Visit and Comments: Follow-up [645465] - ER follow up Normal [facility] Basic Metabolic Profon 01-25 Anion gap [Moles/Vol] 8 mmol/L Low 9-[address] [facility] Comment on above: Performed By: #### T SH, VD25, ALB, B12, ECENZ, GLYHGB, ERTPF, FT4 #### [facility] [address] [place] [address] [id number] Career Development Manager: Jonathan Mckee MD Calcium [Mass/Vol] 8.7 mg/dL Normal 8.6-10.[address] [facility] Comment on above: Performed By: #### T SH, VD25, ALB, B12, ECENZ, GLYHGB, ERTPF, FT4 #### [facility] [address] [place] [address] [phone] Career Development Manager: Jonathan Mckee MD Chloride [Moles/Vol] 100 mmol/L Normal 98-107 [facility] Comment on above: Performed By: #### T SH, VD25, ALB, B12, ECENZ, GLYHGB, ERTPF, FT4 #### [address] [address] Career Development Manager: Jonathan Mckee MD CO2 [Moles/Vol] 23 mmol/L Normal 20-[address] [facility] Comment on above: Performed By: #### T SH, VD25, ALB, B12, ECENZ, GLYHGB, ERTPF, FT4 #### [address] [phone] Career Development Manager: Jonathan Mckee MD Creatinine [Mass/Vol] 0.7 mg/dL Normal 0.7-1.[address] [facility] Comment on above: Performed By: #### T SH, VD25, ALB, B12, ECENZ, GLYHGB, ERTPF, FT4 #### [address] [phone] Career Development Manager: Jonathan Mckee MD GFR/1.73 sq M.predicted among non-blacks MDRD (S/P/Bld) [Vol rate/Area] mL/min/{1.73_m2} Normal >[address] [facility] Comment on above: Result Comment: These [...] ALB, B12, ECENZ, GLYHGB, ERTPF, FT4 #### [address] [phone] Career Development Manager: Jonathan Mckee MD Glucose [Mass/Vol] 98 mg/dL Normal 70-[address] [facility] Comment on above: Performed By: #### T SH, VD25, ALB, B12, ECENZ, GLYHGB, ERTPF, FT4 #### [address] [address] Career Development Manager: Jonathan Mckee MD Potassium [Moles/Vol] 4.1 mmol/L Normal 3.7-5.[address] [facility] Comment on above: Performed By: #### T SH, VD25, ALB, B12, ECENZ, GLYHGB, ERTPF, FT4 #### [place] [address] Career Development Manager: Jonathan Mckee MD Sodium [Moles/Vol] 131 mmol/L Low 135-[address] [facility] Comment on above: Performed By: #### T SH, VD25, ALB, B12, ECENZ, GLYHGB, ERTPF, FT4 #### [place] [address] Career Development Manager: Jonathan Mckee MD Urea nitrogen [Mass/Vol] 27 mg/dL High 8-[address] [facility] Comment on above: Performed By: #### T SH, VD25, ALB, B12, ECENZ, GLYHGB, ERTPF, FT4 #### [place] [address] Career Development Manager: Jonathan Mckee MD CBC with Diffon 01-25-2023 Abs. Basophil 0.05 k/uL Normal 0.00-0.[address] [facility] Comment on above: Performed By: #### T SH, VD25, ALB, B12, ECENZ, GLYHGB, ERTPF, FT4 #### [place] [address] Career Development Manager: Jonathan Mckee MD Abs.Imm.Granulocyte 0.11 k/uL Normal 0.00-0.[address] [facility] Comment on above: Performed By: #### T SH, VD25, ALB, B12, ECENZ, GLYHGB, ERTPF, FT4 #### [address] [address] Career Development Manager: Jonathan Mckee MD Abs.Neutrophil (Seg) 4.47 k/uL Normal 1.50-8.10 [facility] Comment on above: Performed By: #### T SH, VD25, ALB, B12, ECENZ, GLYHGB, ERTPF, FT4 #### [address] [address] Career Development Manager: Jonathan Mckee MD Basophils/100 WBC (Bld) 1 % Normal 0-[address] [facility] Comment on above: Performed By: #### T SH, VD25, ALB, B12, ECENZ, GLYHGB, ERTPF, FT4 #### [place] [address] Career Development Manager: Jonathan Mckee MD Eosinophils (Bld) [#/Vol] 0.31 10*3/uL Normal 0.00-0.[address] [facility] Comment on above: Performed By: #### T SH, VD25, ALB, B12, ECENZ, GLYHGB, ERTPF, FT4 #### [place] [address] Career Development Manager: Jonathan Mckee MD Eosinophils/100 WBC (Bld) 5 % High 1-[address] [facility] Comment on above: Performed By: #### T SH, VD25, ALB, B12, ECENZ, GLYHGB, ERTPF, FT4 #### [place] [address] Career Development Manager: Jonathan Mckee MD Erythrocyte distribution width (RBC) [Ratio] 14.0 % Normal 11.8-14.[address] [facility] Comment on above: Performed By: #### T SH, VD25, ALB, B12, ECENZ, GLYHGB, ERTPF, FT4 #### [address] [address] Career Development Manager: Jonathan Mckee MD Hematocrit (Bld) [Volume fraction] 29.0 % Low 40.7-50.[address] [facility] Comment on above: Performed By: #### T SH, VD25, ALB, B12, ECENZ, GLYHGB, ERTPF, FT4 #### [place] [address] Career Development Manager: Jonathan Mckee MD Hemoglobin (Bld) [Mass/Vol] 10.1 g/dL Low 13.0-17.[address] [facility] Comment on above: Performed By: #### T SH, VD25, ALB, B12, ECENZ, GLYHGB, ERTPF, FT4 #### [place] [address] Career Development Manager: Jonathan Mckee MD Immature granulocytes/100 WBC (Bld) 2 % High [address] [facility] Comment on above: Performed By: #### T SH, VD25, ALB, B12, ECENZ, GLYHGB, ERTPF, FT4 #### [place] [address] Career Development Manager: Jonathan Mckee MD Lymphocytes (Bld) [#/Vol] 0.94 10*3/uL Low 1.10-3.[address] [facility] Comment on above: Performed By: #### T SH, VD25, ALB, B12, ECENZ, GLYHGB, ERTPF, FT4 #### [place] [address] Career Development Manager: Jonathan Mckee MD Lymphocytes/100 WBC (Bld) 14 % Low 24-[address] [facility] Comment on above: Performed By: #### T SH, VD25, ALB, B12, ECENZ, GLYHGB, ERTPF, FT4 #### [place] [address] Career Development Manager: Jonathan Mckee MD MCH (RBC) [Entitic mass] 30.8 pg Normal 25.2-33.[address] [facility] Comment on above: Performed By: #### T SH, VD25, ALB, B12, ECENZ, GLYHGB, ERTPF, FT4 #### [address] [address] Career Development Manager: Jonathan Mckee MD MCHC (RBC) [Mass/Vol] 34.8 g/dL Normal 28.4-34.[address] [facility] Comment on above: Performed By: #### T SH, VD25, ALB, B12, ECENZ, GLYHGB, ERTPF, FT4 #### [address] [address] Career Development Manager: Jonathan Mckee MD MCV (RBC) [Entitic vol] 88.4 fL Normal 82.6-102.[address] [facility] Comment on above: Performed By: #### T SH, VD25, ALB, B12, ECENZ, GLYHGB, ERTPF, FT4 #### [place] [address] Career Development Manager: Jonathan Mckee MD Monocytes (Bld) [#/Vol] 0.70 10*3/uL Normal 0.10-1.[address] [facility] Comment on above: Performed By: #### T SH, VD25, ALB, B12, ECENZ, GLYHGB, ERTPF, FT4 #### [place] [address] Career Development Manager: Jonathan Mckee MD Monocytes/100 WBC (Bld) 11 % Normal 3-[address] [facility] Comment on above: Performed By: #### T SH, VD25, ALB, B12, ECENZ, GLYHGB, ERTPF, FT4 #### [place] [address] Career Development Manager: Jonathan Mckee MD Neutrophil (Seg) 68 % High 36-65 [facility] Comment on above: Performed By: #### T SH, VD25, ALB, B12, ECENZ, GLYHGB, ERTPF, FT4 #### [address] [address] Career Development Manager: Jonathan Mckee MD NRBC Automated 0.0 per 100 WBC Normal 0.[address] [facility] Comment on above: Performed By: #### T SH, VD25, ALB, B12, ECENZ, GLYHGB, ERTPF, FT4 #### [address] [address] Career Development Manager: Jonathan Mckee MD Platelet mean volume (Bld) [Entitic vol] 11.6 fL Normal 8.1-13.[address] [facility] Comment on above: Performed By: #### T SH, VD25, ALB, B12, ECENZ, GLYHGB, ERTPF, FT4 #### [address] [address] Career Development Manager: Jonathan Mckee MD Platelets (Bld) [#/Vol] 283 10*3/uL Normal 138-[address] [facility] Comment on above: Performed By: #### T SH, VD25, ALB, B12, ECENZ, GLYHGB, ERTPF, FT4 #### [address] [address] Career Development Manager: Jonathan Mckee MD RBC (Bld) [#/Vol] 3.28 10*6/uL Low 4.21-5.[address] [facility] Comment on above: Performed By: #### T SH, VD25, ALB, B12, ECENZ, GLYHGB, ERTPF, FT4 #### [address] [address] Career Development Manager: Jonathan Mckee MD WBC (Bld) [#/Vol] 6.6 10*3/uL Normal 3.5-11.[address] [facility] Comment on above: Performed By: #### T SH, VD25, ALB, B12, ECENZ, GLYHGB, ERTPF, FT4 #### [address] [address] Career Development Manager: Jonathan Mckee MD Basic Metabolic Profon 01-24 Anion gap [Moles/Vol] 9 mmol/L Normal 9-[address] [facility] Comment on above: Performed By: #### T SH, VD25, ALB, B12, ECENZ, GLYHGB, ERTPF, FT4 #### [address] [address] Career Development Manager: Jonathan Mckee MD Calcium [Mass/Vol] 8.8 mg/dL Normal 8.6-10.[address] [facility] Comment on above: Performed By: #### T SH, VD25, ALB, B12, ECENZ, GLYHGB, ERTPF, FT4 #### [facility] [address] [place] [address] Career Development Manager: Jonathan Mckee MD Chloride [Moles/Vol] 102 mmol/L Normal 98-107 [facility] Comment on above: Performed By: #### T SH, VD25, ALB, B12, ECENZ, GLYHGB, ERTPF, FT4 #### [facility] [address] [place] [phone] Career Development Manager: Jonathan Mckee MD CO2 [Moles/Vol] 23 mmol/L Normal 20-[address] [facility] Comment on above: Performed By: #### T SH, VD25, ALB, B12, ECENZ, GLYHGB, ERTPF, FT4 #### [facility] [address] [place] [address] Career Development Manager: Jonathan Mckee MD Creatinine [Mass/Vol] 0.7 mg/dL Normal 0.7-1.[address] [facility] Comment on above: Performed By: #### T SH, VD25, ALB, B12, ECENZ, GLYHGB, ERTPF, FT4 #### [address] [phone] Career Development Manager: Jonathan Mckee MD GFR/1.73 sq M.predicted among non-blacks MDRD (S/P/Bld) [Vol rate/Area] mL/min/{1.73_m2} Normal >[address] [facility] Comment on above: Result Comment: These [...] ALB, B12, ECENZ, GLYHGB, ERTPF, FT4 #### [address] [address] Career Development Manager: Jonathan Mckee MD Glucose [Mass/Vol] 122 mg/dL High 70-[address] [facility] Comment on above: Performed By: #### T SH, VD25, ALB, B12, ECENZ, GLYHGB, ERTPF, FT4 #### [address] [phone] Career Development Manager: Jonathan Mckee MD Potassium [Moles/Vol] 3.7 mmol/L Normal 3.7-5.[address] [facility] Comment on above: Performed By: #### T SH, VD25, ALB, B12, ECENZ, GLYHGB, ERTPF, FT4 #### [address] [phone] Career Development Manager: Jonathan Mckee MD Sodium [Moles/Vol] 134 mmol/L Low 135-[address] [facility] Comment on above: Performed By: #### T SH, VD25, ALB, B12, ECENZ, GLYHGB, ERTPF, FT4 #### [address] [address] Career Development Manager: Jonathan Mckee MD Urea nitrogen [Mass/Vol] 27 mg/dL High 8-[address] [facility] Comment on above: Performed By: #### T SH, VD25, ALB, B12, ECENZ, GLYHGB, ERTPF, FT4 #### [address] [address] Career Development Manager: Jonathan Mckee MD CBC with Diffon 01-24-2023 Abs. Basophil 0.05 k/uL Normal 0.00-0.[address] [facility] Comment on above: Performed By: #### T SH, VD25, ALB, B12, ECENZ, GLYHGB, ERTPF, FT4 #### [address] [address] Career Development Manager: Jonathan Mckee MD Abs.Imm.Granulocyte 0.08 k/uL Normal 0.00-0.[address] [facility] Comment on above: Performed By: #### T SH, VD25, ALB, B12, ECENZ, GLYHGB, ERTPF, FT4 #### [address] [address] Career Development Manager: Jonathan Mckee MD Abs.Neutrophil (Seg) 4.05 k/uL Normal 1.50-8.10 [facility] Comment on above: Performed By: #### T SH, VD25, ALB, B12, ECENZ, GLYHGB, ERTPF, FT4 #### [address] [address] Career Development Manager: Jonathan Mckee MD Basophils/100 WBC (Bld) 1 % Normal 0-[address] [facility] Comment on above: Performed By: #### T SH, VD25, ALB, B12, ECENZ, GLYHGB, ERTPF, FT4 #### [place] [address] Career Development Manager: Jonathan Mckee MD Eosinophils (Bld) [#/Vol] 0.26 10*3/uL Normal 0.00-0.[address] [facility] Comment on above: Performed By: #### T SH, VD25, ALB, B12, ECENZ, GLYHGB, ERTPF, FT4 #### [place] [address] Career Development Manager: Jonathan Mckee MD Eosinophils/100 WBC (Bld) 5 % High 1-[address] [facility] Comment on above: Performed By: #### T SH, VD25, ALB, B12, ECENZ, GLYHGB, ERTPF, FT4 #### [place] [address] Career Development Manager: Jonathan Mckee MD Erythrocyte distribution width (RBC) [Ratio] 13.7 % Normal 11.8-14.[address] [facility] Comment on above: Performed By: #### T SH, VD25, ALB, B12, ECENZ, GLYHGB, ERTPF, FT4 #### [place] [address] Career Development Manager: Jonathan Mckee MD Hematocrit (Bld) [Volume fraction] 30.9 % Low 40.7-50.[address] [facility] Comment on above: Performed By: #### T SH, VD25, ALB, B12, ECENZ, GLYHGB, ERTPF, FT4 #### [place] [address] Career Development Manager: Jonathan Mckee MD Hemoglobin (Bld) [Mass/Vol] 10.4 g/dL Low 13.0-17.[address] [facility] Comment on above: Performed By: #### T SH, VD25, ALB, B12, ECENZ, GLYHGB, ERTPF, FT4 #### [address] [address] Career Development Manager: Jonathan Mckee MD Immature granulocytes/100 WBC (Bld) 1 % High [address] [facility] Comment on above: Performed By: #### T SH, VD25, ALB, B12, ECENZ, GLYHGB, ERTPF, FT4 #### [address] [address] Career Development Manager: Jonathan Mckee MD Lymphocytes (Bld) [#/Vol] 0.70 10*3/uL Low 1.10-3.[address] [facility] Comment on above: Performed By: #### T SH, VD25, ALB, B12, ECENZ, GLYHGB, ERTPF, FT4 #### [place] [address] Career Development Manager: Jonathan Mckee MD Lymphocytes/100 WBC (Bld) 12 % Low 24-[address] [facility] Comment on above: Performed By: #### T SH, VD25, ALB, B12, ECENZ, GLYHGB, ERTPF, FT4 #### [address] [address] Career Development Manager: Jonathan Mckee MD MCH (RBC) [Entitic mass] 30.1 pg Normal 25.2-33.[address] [facility] Comment on above: Performed By: #### T SH, VD25, ALB, B12, ECENZ, GLYHGB, ERTPF, FT4 #### [place] [address] Career Development Manager: Jonathan Mckee MD MCHC (RBC) [Mass/Vol] 33.7 g/dL Normal 28.4-34.[address] [facility] Comment on above: Performed By: #### T SH, VD25, ALB, B12, ECENZ, GLYHGB, ERTPF, FT4 #### [address] [address] Career Development Manager: Jonathan Mckee MD MCV (RBC) [Entitic vol] 89.3 fL Normal 82.6-102.[address] [facility] Comment on above: Performed By: #### T SH, VD25, ALB, B12, ECENZ, GLYHGB, ERTPF, FT4 #### [address] [address] Career Development Manager: Jonathan Mckee MD Monocytes (Bld) [#/Vol] 0.62 10*3/uL Normal 0.10-1.[address] [facility] Comment on above: Performed By: #### T SH, VD25, ALB, B12, ECENZ, GLYHGB, ERTPF, FT4 #### [place] [address] Career Development Manager: Jonathan Mckee MD Monocytes/100 WBC (Bld) 11 % Normal 3-[address] [facility] Comment on above: Performed By: #### T SH, VD25, ALB, B12, ECENZ, GLYHGB, ERTPF, FT4 #### [address] [address] Career Development Manager: Jonathan Mckee MD Neutrophil (Seg) 70 % High 36-65 [facility] Comment on above: Performed By: #### T SH, VD25, ALB, B12, ECENZ, GLYHGB, ERTPF, FT4 #### [address] [address] Career Development Manager: Jonathan Mckee MD NRBC Automated 0.0 per 100 WBC Normal 0.[address] [facility] Comment on above: Performed By: #### T SH, VD25, ALB, B12, ECENZ, GLYHGB, ERTPF, FT4 #### [address] [address] Career Development Manager: Jonathan Mckee MD Platelet mean volume (Bld) [Entitic vol] 10.4 fL Normal 8.1-13.[address] [facility] Comment on above: Performed By: #### T SH, VD25, ALB, B12, ECENZ, GLYHGB, ERTPF, FT4 #### [address] [address] Career Development Manager: Jonathan Mckee MD Platelets (Bld) [#/Vol] 166 10*3/uL Normal 138-[address] [facility] Comment on above: Performed By: #### T SH, VD25, ALB, B12, ECENZ, GLYHGB, ERTPF, FT4 #### [facility] [address] [place] [address] Career Development Manager: Jonathan Mckee MD RBC (Bld) [#/Vol] 3.46 10*6/uL Low 4.21-5.[address] [facility] Comment on above: Performed By: #### T SH, VD25, ALB, B12, ECENZ, GLYHGB, ERTPF, FT4 #### [facility] [address] [place] [address] Career Development Manager: Jonathan Mckee MD WBC (Bld) [#/Vol] 5.8 10*3/uL Normal 3.5-11.[address] [facility] Comment on above: Performed By: #### T SH, VD25, ALB, B12, ECENZ, GLYHGB, ERTPF, FT4 #### [facility] [address] [place] [address] Career Development Manager: Jonathan Mckee MD Basic Metabolic Profon 01-23 Anion gap [Moles/Vol] 9 mmol/L Normal 9-[address] [facility] Comment on above: Performed By: #### T SH, VD25, ALB, B12, ECENZ, GLYHGB, ERTPF, FT4 #### [address] [address] Career Development Manager: Jonathan Mckee MD Calcium [Mass/Vol] 8.9 mg/dL Normal 8.6-10.[address] [facility] Comment on above: Performed By: #### T SH, VD25, ALB, B12, ECENZ, GLYHGB, ERTPF, FT4 #### [address] [address] Career Development Manager: Jonathan Mckee MD Chloride [Moles/Vol] 103 mmol/L Normal 98-107 [facility] Comment on above: Performed By: #### T SH, VD25, ALB, B12, ECENZ, GLYHGB, ERTPF, FT4 #### [address] [address] Career Development Manager: Jonathan Mckee MD CO2 [Moles/Vol] 21 mmol/L Normal 20-[address] [facility] Comment on above: Performed By: #### T SH, VD25, ALB, B12, ECENZ, GLYHGB, ERTPF, FT4 #### [address] [address] Career Development Manager: Jonathan Mckee MD Creatinine [Mass/Vol] 0.7 mg/dL Normal 0.7-1.[address] [facility] Comment on above: Performed By: #### T SH, VD25, ALB, B12, ECENZ, GLYHGB, ERTPF, FT4 #### [address] [address] Career Development Manager: Jonathan Mckee MD GFR/1.73 sq M.predicted among non-blacks MDRD (S/P/Bld) [Vol rate/Area] mL/min/{1.73_m2} Normal >[address] [facility] Comment on above: Result Comment: These [...] ALB, B12, ECENZ, GLYHGB, ERTPF, FT4 #### [address] [address] Career Development Manager: Jonathan Mckee MD Glucose [Mass/Vol] 105 mg/dL High 70-[address] [facility] Comment on above: Performed By: #### T SH, VD25, ALB, B12, ECENZ, GLYHGB, ERTPF, FT4 #### [address] [address] Career Development Manager: Jonathan Mckee MD Potassium [Moles/Vol] 3.7 mmol/L Normal 3.7-5.[address] [facility] Comment on above: Performed By: #### T SH, VD25, ALB, B12, ECENZ, GLYHGB, ERTPF, FT4 #### [address] [address] Career Development Manager: Jonathan Mckee MD Sodium [Moles/Vol] 133 mmol/L Low 135-[address] [facility] Comment on above: Performed By: #### T SH, VD25, ALB, B12, ECENZ, GLYHGB, ERTPF, FT4 #### [address] [address] Career Development Manager: Jonathan Mckee MD Urea nitrogen [Mass/Vol] 28 mg/dL High 8-[address] [facility] Comment on above: Performed By: #### T SH, VD25, ALB, B12, ECENZ, GLYHGB, ERTPF, FT4 #### [address] [address] Career Development Manager: Jonathan Mckee MD CBC with Diffon 12-09-2023 Abs. Basophil 0.05 k/uL Normal 0.00-0.[address] [facility] Comment on above: Performed By: #### T SH, VD25, ALB, B12, ECENZ, GLYHGB, ERTPF, FT4 #### [place] [address] Career Development Manager: Jonathan Mckee MD Abs.Imm.Granulocyte 0.05 k/uL Normal 0.00-0.[address] [facility] Comment on above: Performed By: #### T SH, VD25, ALB, B12, ECENZ, GLYHGB, ERTPF, FT4 #### [place] [address] Career Development Manager: Jonathan Mckee MD Abs.Neutrophil (Seg) 4.18 k/uL Normal 1.50-8.10 [facility] Comment on above: Performed By: #### T SH, VD25, ALB, B12, ECENZ, GLYHGB, ERTPF, FT4 #### [place] [address] Career Development Manager: Jonathan Mckee MD Basophils/100 WBC (Bld) 1 % Normal 0-[address] [facility] Comment on above: Performed By: #### T SH, VD25, ALB, B12, ECENZ, GLYHGB, ERTPF, FT4 #### [place] [address] Career Development Manager: Jonathan Mckee MD Eosinophils (Bld) [#/Vol] 0.21 10*3/uL Normal 0.00-0.[address] [facility] Comment on above: Performed By: #### T SH, VD25, ALB, B12, ECENZ, GLYHGB, ERTPF, FT4 #### [place] [address] Career Development Manager: Jonathan Mckee MD Eosinophils/100 WBC (Bld) 4 % Normal 1-[address] [facility] Comment on above: Performed By: #### T SH, VD25, ALB, B12, ECENZ, GLYHGB, ERTPF, FT4 #### [address] [address] Career Development Manager: Jonathan Mckee MD Erythrocyte distribution width (RBC) [Ratio] 13.8 % Normal 11.8-14.[address] [facility] Comment on above: Performed By: #### T SH, VD25, ALB, B12, ECENZ, GLYHGB, ERTPF, FT4 #### [place] [address] Career Development Manager: Jonathan Mckee MD Hematocrit (Bld) [Volume fraction] 31.5 % Low 40.7-50.[address] [facility] Comment on above: Performed By: #### T SH, VD25, ALB, B12, ECENZ, GLYHGB, ERTPF, FT4 #### [place] [address] Career Development Manager: Jonathan Mckee MD Hemoglobin (Bld) [Mass/Vol] 10.6 g/dL Low 13.0-17.[address] [facility] Comment on above: Performed By: #### T SH, VD25, ALB, B12, ECENZ, GLYHGB, ERTPF, FT4 #### [place] [address] Career Development Manager: Jonathan Mckee MD Immature granulocytes/100 WBC (Bld) 1 % High [address] [facility] Comment on above: Performed By: #### T SH, VD25, ALB, B12, ECENZ, GLYHGB, ERTPF, FT4 #### [address] [id number] Career Development Manager: Jonathan Mckee MD Lymphocytes (Bld) [#/Vol] 0.71 10*3/uL Low 1.10-3.[address] [facility] Comment on above: Performed By: #### T SH, VD25, ALB, B12, ECENZ, GLYHGB, ERTPF, FT4 #### [address] [address] Career Development Manager: Jonathan Mckee MD Lymphocytes/100 WBC (Bld) 12 % Low 24-[address] [facility] Comment on above: Performed By: #### T SH, VD25, ALB, B12, ECENZ, GLYHGB, ERTPF, FT4 #### [place] [address] Career Development Manager: Jonathan Mckee MD MCH (RBC) [Entitic mass] 30.3 pg Normal 25.2-33.[address] [facility] Comment on above: Performed By: #### T SH, VD25, ALB, B12, ECENZ, GLYHGB, ERTPF, FT4 #### [place] [address] Career Development Manager: Jonathan Mckee MD MCHC (RBC) [Mass/Vol] 33.7 g/dL Normal 28.4-34.[address] [facility] Comment on above: Performed By: #### T SH, VD25, ALB, B12, ECENZ, GLYHGB, ERTPF, FT4 #### [place] [address] Career Development Manager: Jonathan Mckee MD MCV (RBC) [Entitic vol] 90.0 fL Normal 82.6-102.[address] [facility] Comment on above: Performed By: #### T SH, VD25, ALB, B12, ECENZ, GLYHGB, ERTPF, FT4 #### [address] [address] Career Development Manager: Jonathan Mckee MD Monocytes (Bld) [#/Vol] 0.73 10*3/uL Normal 0.10-1.[address] [facility] Comment on above: Performed By: #### T SH, VD25, ALB, B12, ECENZ, GLYHGB, ERTPF, FT4 #### [address] [address] Career Development Manager: Jonathan Mckee MD Monocytes/100 WBC (Bld) 12 % Normal 3-[address] [facility] Comment on above: Performed By: #### T SH, VD25, ALB, B12, ECENZ, GLYHGB, ERTPF, FT4 #### [address] [address] Career Development Manager: Jonathan Mckee MD Neutrophil (Seg) 70 % High 36-65 [facility] Comment on above: Performed By: #### T SH, VD25, ALB, B12, ECENZ, GLYHGB, ERTPF, FT4 #### [address] [address] Career Development Manager: Jonathan Mckee MD NRBC Automated 0.0 per 100 WBC Normal 0.[address] [facility] Comment on above: Performed By: #### T SH, VD25, ALB, B12, ECENZ, GLYHGB, ERTPF, FT4 #### [address] [address] Career Development Manager: Jonathan Mckee MD Platelet mean volume (Bld) [Entitic vol] 10.1 fL Normal 8.1-13.[address] [facility] Comment on above: Performed By: #### T SH, VD25, ALB, B12, ECENZ, GLYHGB, ERTPF, FT4 #### [address] [address] Career Development Manager: Jonathan Mckee MD Platelets (Bld) [#/Vol] 178 10*3/uL Normal 138-[address] [facility] Comment on above: Performed By: #### T SH, VD25, ALB, B12, ECENZ, GLYHGB, ERTPF, FT4 #### [address] [address] Career Development Manager: Jonathan Mckee MD RBC (d) [#/Vol] 3.50 10*6/uL Low 4.21-5.[address] [facility] Comment on above: Performed By: #### T SH, VD25, ALB, B12, ECENZ, GLYHGB, ERTPF, FT4 #### [address] [address] Career Development Manager: Jonathan Mckee MD WBC (Bld) [#/Vol] 5.9 10*3/uL Normal 3.5-11.[address] [facility] Comment on above: Performed By: #### T SH, VD25, ALB, B12, ECENZ, GLYHGB, ERTPF, FT4 #### [address] [phone] Career Development Manager: Jonathan Mckee MD Basic Metabolic Profon 01-22 Anion gap [Moles/Vol] 15 mmol/L Normal 9-[address] [facility] Comment on above: Performed By: #### T SH, VD25, ALB, B12, ECENZ, GLYHGB, ERTPF, FT4 #### [address] [address] Career Development Manager: Jonathan Mckee MD Calcium [Mass/Vol] 8.9 mg/dL Normal 8.6-10.[address] [facility] Comment on above: Performed By: #### T SH, VD25, ALB, B12, ECENZ, GLYHGB, ERTPF, FT4 #### [address] [address] Career Development Manager: Jonathan Mckee MD Chloride [Moles/Vol] 99 mmol/L Normal 98-107 [facility] Comment on above: Performed By: #### T SH, VD25, ALB, B12, ECENZ, GLYHGB, ERTPF, FT4 #### [address] [phone] Career Development Manager: Jonathan Mckee MD CO2 [Moles/Vol] 17 mmol/L Low 20-[address] [facility] Comment on above: Performed By: #### T SH, VD25, ALB, B12, ECENZ, GLYHGB, ERTPF, FT4 #### [address] [phone] Career Development Manager: Jonathan Mckee MD Creatinine [Mass/Vol] 0.8 mg/dL Normal 0.7-1.[address] [facility] Comment on above: Performed By: #### T SH, VD25, ALB, B12, ECENZ, GLYHGB, ERTPF, FT4 #### [address] [phone] Career Development Manager: Jonathan Mckee MD GFR/1.73 sq M.predicted among non-blacks MDRD (S/P/Bld) [Vol rate/Area] mL/min/{1.73_m2} Normal >[address] [facility] Comment on above: Result Comment: These [...] ALB, B12, ECENZ, GLYHGB, ERTPF, FT4 #### [address] [phone] Career Development Manager: Jonathan Mckee MD Glucose [Mass/Vol] 90 mg/dL Normal 70-[address] [facility] Comment on above: Performed By: #### T SH, VD25, ALB, B12, ECENZ, GLYHGB, ERTPF, FT4 #### [facility] [address] [place] [address] Career Development Manager: Jonathan Mckee MD Potassium [Moles/Vol] 3.7 mmol/L Normal 3.7-5.[address] [facility] Comment on above: Performed By: #### T SH, VD25, ALB, B12, ECENZ, GLYHGB, ERTPF, FT4 #### [facility] [address] [place] [address] Career Development Manager: Jonathan Mckee MD Sodium [Moles/Vol] 131 mmol/L Low 135-[address] [facility] Comment on above: Performed By: #### T SH, VD25, ALB, B12, ECENZ, GLYHGB, ERTPF, FT4 #### [place] [address] Career Development Manager: Jonathan Mckee MD Urea nitrogen [Mass/Vol] 28 mg/dL High 8-[address] [facility] Comment on above: Performed By: #### T SH, VD25, ALB, B12, ECENZ, GLYHGB, ERTPF, FT4 #### [facility] [address] [place] [address] Career Development Manager: Jonathan Mckee MD CBC with Diffon 01-22-2023 Abs. Basophil 0.03 k/uL Normal 0.00-0.[address] [facility] Comment on above: Performed By: #### T SH, VD25, ALB, B12, ECENZ, GLYHGB, ERTPF, FT4 #### [address] [address] Career Development Manager: Jonathan Mckee MD Abs.Imm.Granulocyte 0.05 k/uL Normal 0.00-0.[address] [facility] Comment on above: Performed By: #### T SH, VD25, ALB, B12, ECENZ, GLYHGB, ERTPF, FT4 #### [address] [address] Career Development Manager: Jonathan Mckee MD Abs.Neutrophil (Seg) 4.98 k/uL Normal 1.50-8.10 [facility] Comment on above: Performed By: #### T SH, VD25, ALB, B12, ECENZ, GLYHGB, ERTPF, FT4 #### [place] [address] Career Development Manager: Jonathan Mckee MD Basophils/100 WBC (Bld) 0 % Normal 0-[address] [facility] Comment on above: Performed By: #### T SH, VD25, ALB, B12, ECENZ, GLYHGB, ERTPF, FT4 #### [place] [address] Career Development Manager: Jonathan Mckee MD Eosinophils (Bld) [#/Vol] 0.18 10*3/uL Normal 0.00-0.[address] [facility] Comment on above: Performed By: #### T SH, VD25, ALB, B12, ECENZ, GLYHGB, ERTPF, FT4 #### [place] [address] Career Development Manager: Jonathan Mckee MD Eosinophils/100 WBC (Bld) 3 % Normal 1-[address] [facility] Comment on above: Performed By: #### T SH, VD25, ALB, B12, ECENZ, GLYHGB, ERTPF, FT4 #### [place] [address] Career Development Manager: Jonathna Mckee MD Erythrocyte distribution width (RBC) [Ratio] 13.7 % Normal 11.8-14.[address] [facility] Comment on above: Performed By: #### T SH, VD25, ALB, B12, ECENZ, GLYHGB, ERTPF, FT4 #### [place] [address] Career Development Manager: Jonathan Mckee MD Hematocrit (Bld) [Volume fraction] 32.5 % Low 40.7-50.[address] [facility] Comment on above: Performed By: #### T SH, VD25, ALB, B12, ECENZ, GLYHGB, ERTPF, FT4 #### [address] [address] Career Development Manager: Jonathan Mckee MD Hemoglobin (Bld) [Mass/Vol] 11.0 g/dL Low 13.0-17.[address] [facility] Comment on above: Performed By: #### T SH, VD25, ALB, B12, ECENZ, GLYHGB, ERTPF, FT4 #### [place] [address] Career Development Manager: Jonathan Mckee MD Immature granulocytes/100 WBC (Bld) 1 % High [address] [facility] Comment on above: Performed By: #### T SH, VD25, ALB, B12, ECENZ, GLYHGB, ERTPF, FT4 #### [place] [address] Career Development Manager: Jonathan Mckee MD Lymphocytes (Bld) [#/Vol] 0.95 10*3/uL Low 1.10-3.[address] [facility] Comment on above: Performed By: #### T SH, VD25, ALB, B12, ECENZ, GLYHGB, ERTPF, FT4 #### [place] [address] Career Development Manager: Jonathan Mckee MD Lymphocytes/100 WBC (Bld) 14 % Low 24-[address] [facility] Comment on above: Performed By: #### T SH, VD25, ALB, B12, ECENZ, GLYHGB, ERTPF, FT4 #### [place] [address] Career Development Manager: Jonathan Mckee MD MCH (RBC) [Entitic mass] 30.4 pg Normal 25.2-33.[address] [facility] Comment on above: Performed By: #### T SH, VD25, ALB, B12, ECENZ, GLYHGB, ERTPF, FT4 #### [address] [address] Career Development Manager: Jonathan Mckee MD MCHC (RBC) [Mass/Vol] 33.8 g/dL Normal 28.4-34.[address] [facility] Comment on above: Performed By: #### T SH, VD25, ALB, B12, ECENZ, GLYHGB, ERTPF, FT4 #### [address] [address] Career Development Manager: Jonathan Mckee MD MCV (RBC) [Entitic vol] 89.8 fL Normal 82.6-102.[address] [facility] Comment on above: Performed By: #### T SH, VD25, ALB, B12, ECENZ, GLYHGB, ERTPF, FT4 #### [address] [address] Career Development Manager: Jonathan Mckee MD Monocytes (Bld) [#/Vol] 0.78 10*3/uL Normal 0.10-1.[address] [facility] Comment on above: Performed By: #### T SH, VD25, ALB, B12, ECENZ, GLYHGB, ERTPF, FT4 #### [address] [address] Career Development Manager: Jonathan Mckee MD Monocytes/100 WBC (Bld) 11 % Normal 3-[address] [facility] Comment on above: Performed By: #### T SH, VD25, ALB, B12, ECENZ, GLYHGB, ERTPF, FT4 #### [address] [phone] Career Development Manager: Jonathan Mckee MD Neutrophil (Seg) 72 % High 36-65 [facility] Comment on above: Performed By: #### T SH, VD25, ALB, B12, ECENZ, GLYHGB, ERTPF, FT4 #### [address] [address] Career Development Manager: Jonathan Mckee MD NRBC Automated 0.0 per 100 WBC Normal 0.[address] [facility] Comment on above: Performed By: #### T SH, VD25, ALB, B12, ECENZ, GLYHGB, ERTPF, FT4 #### [address] [address] Career Development Manager: Jonathan Mckee MD Platelet mean volume (Bld) [Entitic vol] 10.3 fL Normal 8.1-13.[address] [facility] Comment on above: Performed By: #### T SH, VD25, ALB, B12, ECENZ, GLYHGB, ERTPF, FT4 #### [address] [address] Career Development Manager: Jonathan Mckee MD Platelets (Bld) [#/Vol] 201 10*3/uL Normal 138-[address] [facility] Comment on above: Performed By: #### T SH, VD25, ALB, B12, ECENZ, GLYHGB, ERTPF, FT4 #### [address] [address] Career Development Manager: Jonathan Mckee MD RBC (Bld) [#/Vol] 3.62 10*6/uL Low 4.21-5.[address] [facility] Comment on above: Performed By: #### T SH, VD25, ALB, B12, ECENZ, GLYHGB, ERTPF, FT4 #### [address] [address] Career Development Manager: Jonathan Mckee MD WBC (Bld) [#/Vol] 7.0 10*3/uL Normal 3.5-11.[address] [facility] Comment on above: Performed By: #### T SH, VD25, ALB, B12, ECENZ, GLYHGB, ERTPF, FT4 #### [address] [phone] Career Development Manager: Jonathan Mckee MD XR SHOULDER RIGHT (MIN [...] MD 01/22/23 Final result Normal [facility] Albuminon 01-21-2023 Albumin [Mass/Vol] 3.6 g/dL Normal 3.5-5.[address] [facility] Comment on above: Performed By: #### T SH, VD25, ALB, B12, ECENZ, GLYHGB, ERTPF, FT4 #### [address] [address] Career Development Manager: Jonathan Mckee MD Basic Metabolic Profon 01-21 Anion gap [Moles/Vol] 9 mmol/L Normal 9-[address] [facility] Comment on above: Performed By: #### B MP, CDP, LISBETH, TROPI #### [facility] [address] [place] [address] [phone] Career Development Manager: Jonathan Mckee MD Calcium [Mass/Vol] 8.6 mg/dL Normal 8.6-10.[address] [facility] Comment on above: Performed By: #### B MP, CDP, LISBETH, TROPI #### [facility] [address] [place] [address] Career Development Manager: Jonathan Mckee MD Chloride [Moles/Vol] 101 mmol/L Normal 98-107 [facility] Comment on above: Performed By: #### B MP, CDP, LISBETH, TROPI #### [facility] [address] [place] [address] Career Development Manager: Jonathan Mckee MD CO2 [Moles/Vol] 21 mmol/L Normal 20-[address] [facility] Comment on above: Performed By: #### B MP, CDP, LISBETH, TROPI #### [facility] [address] [place] [address] Career Development Manager: Jonathan Mckee MD Creatinine [Mass/Vol] 0.9 mg/dL Normal 0.7-1.[address] [facility] Comment on above: Performed By: #### B MP, CDP, LISBETH, TROPI #### [facility] [address] [place] [address] Career Development Manager: Jonathan Mckee MD GFR/1.73 sq M.predicted among non-blacks MDRD (S/P/Bld) [Vol rate/Area] mL/min/{1.73_m2} Normal >[address] [facility] Comment on above: Result Comment: These [...] #### B MP, CDP, LISBETH, TROPI #### [facility] [address] [place] [address] Career Development Manager: Jonathan Mckee MD Glucose [Mass/Vol] 113 mg/dL High 70-[address] [facility] Comment on above: Performed By: #### B MP, CDP, LISBETH, TROPI #### [facility] [address] [place] [address] Career Development Manager: Jonathan Mckee MD Potassium [Moles/Vol] 3.7 mmol/L Normal 3.7-5.[address] [facility] Comment on above: Performed By: #### B MP, CDP, LISBETH, TROPI #### [facility] [address] [place] [address] Career Development Manager: Jonathan Mckee MD Sodium [Moles/Vol] 131 mmol/L Low 135-[address] [facility] Comment on above: Performed By: #### B MP, CDP, LISBETH, TROPI #### [facility] [address] [place] [address] Career Development Manager: Jonathan Mckee MD Urea nitrogen [Mass/Vol] 30 mg/dL High 8-[address] [facility] Comment on above: Performed By: #### B MP, CDP, LISBETH, TROPI #### [facility] [address] [place] [address] Career Development Manager: Jonathan Mckee MD CBC with Diffon 01-21-2023 Abs. Basophil 0.03 k/uL Normal 0.00-0.[address] [facility] Comment on above: Performed By: #### B MP, CDP, LISBETH, TROPI #### [facility] [address] [place] [address] Career Development Manager: Jonathan Mckee MD Abs.Imm.Granulocyte 0.10 k/uL Normal 0.00-0.[address] [facility] Comment on above: Performed By: #### B MP, CDP, LISBETH, TROPI #### [facility] [address] [place] [address] Career Development Manager: Jonathan Mckee MD Abs.Neutrophil (Seg) 9.58 k/uL High 1.50-8.10 [facility] Comment on above: Performed By: #### B MP, CDP, LISBETH, TROPI #### [address] [address] Career Development Manager: Jonathan Mckee MD Basophils/100 WBC (Bld) 0 % Normal 0-[address] [facility] Comment on above: Performed By: #### B MP, CDP, LISBETH, TROPI #### [address] [address] Career Development Manager: Jonathan Mckee MD Eosinophils (Bld) [#/Vol] 0.04 10*3/uL Normal 0.00-0.[address] [facility] Comment on above: Performed By: #### B MP, CDP, LISBETH, TROPI #### [address] [address] Career Development Manager: Jonathan Mckee MD Eosinophils/100 WBC (Bld) 0 % Low 1-[address] [facility] Comment on above: Performed By: #### B MP, CDP, LISBETH, TROPI #### [address] [address] Career Development Manager: Jonathan Mckee MD Erythrocyte distribution width (RBC) [Ratio] 13.5 % Normal 11.8-14.[address] [facility] Comment on above: Performed By: #### B MP, CDP, LISBETH, TROPI #### [address] [address] Career Development Manager: Jonathan Mckee MD Hematocrit (Bld) [Volume fraction] 31.5 % Low 40.7-50.[address] [facility] Comment on above: Performed By: #### B MP, CDP, LISBETH, TROPI #### [facility] [address] [place] [address] Career Development Manager: Jonathna Mckee MD Hemoglobin (Bld) [Mass/Vol] 10.7 g/dL Low 13.0-17.[address] [facility] Comment on above: Performed By: #### B MP, CDP, LISBETH, TROPI #### [address] [address] Career Development Manager: Jonathan Mckee MD Immature granulocytes/100 WBC (Bld) 1 % High [address] [facility] Comment on above: Performed By: #### B MP, CDP, LISBETH, TROPI #### [address] [address] Career Development Manager: Jonathan Mckee MD Lymphocytes (Bld) [#/Vol] 0.90 10*3/uL Low 1.10-3.[address] [facility] Comment on above: Performed By: #### B MP, CDP, LISBETH, TROPI #### [address] [address] Career Development Manager: Jonathan Mckee MD Lymphocytes/100 WBC (Bld) 8 % Low 24-[address] [facility] Comment on above: Performed By: #### B MP, CDP, LISBETH, TROPI #### [address] [address] Career Development Manager: Jonathan Mckee MD MCH (RBC) [Entitic mass] 30.3 pg Normal 25.2-33.[address] [facility] Comment on above: Performed By: #### B MP, CDP, LISBETH, TROPI #### [place] [address] Career Development Manager: Jonathan Mckee MD MCHC (RBC) [Mass/Vol] 34.0 g/dL Normal 28.4-34.[address] [facility] Comment on above: Performed By: #### B MP, CDP, LISBETH, TROPI #### [address] [address] Career Development Manager: Jonathan Mckee MD MCV (RBC) [Entitic vol] 89.2 fL Normal 82.6-102.[address] [facility] Comment on above: Performed By: #### B MP, CDP, LISBETH, TROPI #### [id number] [place] [address] Career Development Manager: Jonathan Mckee MD Monocytes (Bld) [#/Vol] 1.19 10*3/uL Normal 0.10-1.[address] [facility] Comment on above: Performed By: #### B MP, CDP, LISBETH, TROPI #### [address] [address] Career Development Manager: Jonathan Mckee MD Monocytes/100 WBC (Bld) 10 % Normal 3-[address] [facility] Comment on above: Performed By: #### B MP, CDP, LISBETH, TROPI #### [address] [address] Career Development Manager: Jonathan Mckee MD Neutrophil (Seg) 81 % High 36-65 [facility] Comment on above: Performed By: #### B MP, CDP, LISBETH, TROPI #### [facility] [address] [place] [address] Career Development Manager: Jonathan Mckee MD NRBC Automated 0.0 per 100 WBC Normal 0.[address] [facility] Comment on above: Performed By: #### B MP, CDP, LISBETH, TROPI #### [address] [address] Career Development Manager: Jonathan Mckee MD Platelet mean volume (Bld) [Entitic vol] 9.9 fL Normal 8.1-13.[address] [facility] Comment on above: Performed By: #### B MP, CDP, LISBETH, TROPI #### [address] [address] Career Development Manager: Jonathan Mckee MD Platelets (Bld) [#/Vol] 186 10*3/uL Normal 138-[address] [facility] Comment on above: Performed By: #### B MP, CDP, LISBETH, TROPI #### [place] [place], [place] [phone] Career Development Manager: Jonathan Mckee MD RBC (Bld) [#/Vol] 3.53 10*6/uL Low 4.21-5.[address] [facility] Comment on above: Performed By: #### B MP, CDP, LISBETH, TROPI #### [facility] [address] [place], [place] [phone] Career Development Manager: Jonathan Mckee MD WBC (Bld) [#/Vol] 11.8 10*3/uL High 3.5-11.[address] [facility] Comment on above: Performed By: #### B MP, CDP, LISBETH, TROPI #### [facility] [address] [place], [place] [phone] Career Development Manager: Jonathan Mckee MD CT CHEST ABDOMEN PELVIS [...] MD 01/20/23 Final result Normal [facility] CT HEAD WO CONTRASTon 2022 CT [...] MD 01/21/23 Final result Normal [facility] CT HEAD WO CONTRAST EXAMINATION: CT [...] DO 01/21/23 Final result Normal [facility] CT LUMBAR SPINE BONY RECONST RUCTIONon [...] MD 01/20/23 Final result Normal [facility] CT THORACIC SPINE BONY RECON STRUCTIONon [...] MD 01/20/23 Final result Normal [facility] Drug Scr, Abuse, Uron 2022 Amphetamine(s),Ur Negative Normal [facility] Comment on above: Result Comment: (Positive cutoff 1000 ng/mL) Performed By: #### T SH, VD25, ALB, B12, ECENZ, GLYHGB, ERTPF, FT4 #### [facility] [address] [place] [address] [phone] Career Development Manager: Jonathan Mckee MD Barbiturate(s),Ur Negative Normal [facility] Comment on above: Result Comment: (Positive cutoff 200 ng/mL) Performed By: #### T SH, VD25, ALB, B12, ECENZ, GLYHGB, ERTPF, FT4 #### [facility] [address] [place] [address] [phone] Career Development Manager: Jonathan Mckee MD Benzodiazepine(s) Negative Normal [facility] Comment on above: Result Comment: (Positive cutoff 200 ng/mL) Performed By: #### T SH, VD25, ALB, B12, ECENZ, GLYHGB, ERTPF, FT4 #### [facility] [address] [place] [address] [phone] Career Development Manager: Jonathan Mckee MD Cannabinoid(s),Ur Negative Normal [facility] Comment on above: Result Comment: (Positive cutoff 50 ng/mL) Performed By: #### T SH, VD25, ALB, B12, ECENZ, GLYHGB, ERTPF, FT4 #### [facility] [address] [place] [address] Career Development Manager: Jonathan Mckee MD Cocaine Metabolite Negative Normal NEG [facility] Comment on above: Result Comment: (Positive cutoff 300 ng/mL) Performed By: #### T SH, VD25, ALB, B12, ECENZ, GLYHGB, ERTPF, FT4 #### [facility] [address] [place] [address] Career Development Manager: Jonathan Mckee MD Fentanyl, Urine Negative Normal NEG [facility] Comment on above: Result Comment: (Positive cutoff 5 ng/ml) Performed By: #### T SH, VD25, ALB, B12, ECENZ, GLYHGB, ERTPF, FT4 #### [facility] [address] [place] [address] Career Development Manager: Jonathan Mckee MD Interpretive Info Assay provides medic al screening only. The absence of expected drug(s) and/or Normal [facility] Comment on above: Result Comment: meta bolite(s) may indicate diluted or adulterated urine, limitations of testing or timing of collection. Testing for legal purposes should be confirmed by another method. To request confirmation of test result, please call the lab within 7 days of sample submission. Performed By: #### T SH, VD25, ALB, B12, ECENZ, GLYHGB, ERTPF, FT4 #### [facility] [address] [place] [address] Career Development Manager: Jonathan Mckee MD Methadone Ql (U) Negative Normal NEG [facility] Comment on above: Result Comment: (Positive cutoff 300 ng/mL) Performed By: #### T SH, VD25, ALB, B12, ECENZ, GLYHGB, ERTPF, FT4 #### [facility] [address] [place] [address] Career Development Manager: Jonathan Mckee MD Opiate(s), Ur Negative Normal NEG [facility] Comment on above: Result Comment: (Positive cutoff 300 ng/mL) Performed By: #### T SH, VD25, ALB, B12, ECENZ, GLYHGB, ERTPF, FT4 #### [address] [address] Career Development Manager: Jonathan Mckee MD Oxycodone, Urine Negative Normal NEG [facility] Comment on above: Result Comment: (Positive cutoff 100 ng/mL) Performed By: #### T SH, VD25, ALB, B12, ECENZ, GLYHGB, ERTPF, FT4 #### [address] [address] Career Development Manager: Jonathan Mckee MD Phencyclidine, Ur Negative Normal [facility] Comment on above: Result Comment: (Positive cutoff 25 ng/mL) Performed By: #### T SH, VD25, ALB, B12, ECENZ, GLYHGB, ERTPF, FT4 #### [address] [address] Career Development Manager: Jonathan Mckee MD Hemoglobin A1Con 01-21-2023 Glucose [Mass/Vol] 97 mg/dL Normal [facility] Comment on above: Result Comment: The ADA and AACC recommend providing the estimated average glucose result to permit better patient understanding of their HBA1c result. Performed By: #### T SH, VD25, ALB, B12, ECENZ, GLYHGB, ERTPF, FT4 #### [facility] [address] [place] [address] Career Development Manager: Jonathan Mckee MD HbA1c (Bld) [Mass fraction] 5.0 % Normal 4.0-6.[address] [facility] Comment on above: Performed By: #### T SH, VD25, ALB, B12, ECENZ, GLYHGB, ERTPF, FT4 #### [address] [phone] Career Development Manager: Jonathan Mckee MD Myoglobinon 01-21-2023 Myoglobin [Mass/Vol] 888 ng/mL High 28-72 [facility] Comment on above: Performed By: #### T SH, VD25, ALB, B12, ECENZ, GLYHGB, ERTPF, FT4 #### [address] [phone] Career Development Manager: Jonathan Mckee MD Thyroid Stim. Horm.on 2022 Thyroid Stim. Horm. 4.37 uIU/mL Normal 0.30-5.00 [facility] Comment on above: Performed By: #### T SH, VD25, ALB, B12, ECENZ, GLYHGB, ERTPF, FT4 #### [address] [phone] Career Development Manager: Jonathan Mckee MD Thyroxine, Freeon 01-21-2023 Thyroxine, Free 1.4 ng/dL Normal 0.9-1.[address] [facility] Comment on above: Performed By: #### T SH, VD25, ALB, B12, ECENZ, GLYHGB, ERTPF, FT4 #### [address] [phone] Career Development Manager: Jonathan Mckee MD Trauma Profileon 01-21-2023 Anion gap [Moles/Vol] 15 mmol/L Normal 9-[address] [facility] Comment on above: Performed By: #### T SH, VD25, ALB, B12, ECENZ, GLYHGB, ERTPF, FT4 #### [address] [phone] Career Development Manager: Jonathan Mckee MD Chloride [Moles/Vol] 98 mmol/L Normal 98-107 [facility] [facility] Comment on above: Performed By: #### T SH, VD25, ALB, B12, ECENZ, GLYHGB, ERTPF, FT4 #### [address] [address] Career Development Manager: Jonathan Mckee MD CO2 [Moles/Vol] 19 mmol/L Low 20-[address] [facility] Comment on above: Performed By: #### T SH, VD25, ALB, B12, ECENZ, GLYHGB, ERTPF, FT4 #### [address] [address] Career Development Manager: Jonathan Mckee MD Creatinine [Mass/Vol] 0.9 mg/dL Normal 0.7-1.[address] [facility] Comment on above: Performed By: #### T SH, VD25, ALB, B12, ECENZ, GLYHGB, ERTPF, FT4 #### [address] [address] Career Development Manager: Jonathan Mckee MD Ethanol [Mass/Vol] mg/dL Normal <[address] [facility] Comment on above: Performed By: #### T SH, VD25, ALB, B12, ECENZ, GLYHGB, ERTPF, FT4 #### [address] [address] Career Development Manager: Jonathan Mckee MD Ethanol percent <0.010 Normal <0.[address] [facility] Comment on above: Performed By: #### T SH, VD25, ALB, B12, ECENZ, GLYHGB, ERTPF, FT4 #### [address] [address] Career Development Manager: Jonathan Mckee MD GFR/1.73 sq M.predicted among non-blacks MDRD (S/P/Bld) [Vol rate/Area] 58 mL/min/{1.73_m2} Low >[address] [facility] Comment on above: Result Comment: These [...] ALB, B12, ECENZ, GLYHGB, ERTPF, FT4 #### [address] [address] Career Development Manager: Jonathan Mckee MD Glucose [Mass/Vol] 111 mg/dL High 70-[address] [facility] Comment on above: Performed By: #### T SH, VD25, ALB, B12, ECENZ, GLYHGB, ERTPF, FT4 #### [address] [address] Career Development Manager: Jonathan Mckee MD Potassium [Moles/Vol] 3.7 mmol/L Normal 3.7-5.[address] [facility] Comment on above: Performed By: #### T SH, VD25, ALB, B12, ECENZ, GLYHGB, ERTPF, FT4 #### [address] [address] Career Development Manager: Jonathan Mckee MD Sodium [Moles/Vol] 132 mmol/L Low 135-[address] [facility] Comment on above: Performed By: #### T SH, VD25, ALB, B12, ECENZ, GLYHGB, ERTPF, FT4 #### [address] [address] Career Development Manager: Jonathan Mckee MD Urea nitrogen [Mass/Vol] 31 mg/dL High 8-[address] [facility] Comment on above: Performed By: #### T SH, VD25, ALB, B12, ECENZ, GLYHGB, ERTPF, FT4 #### [address] [address] Career Development Manager: Jonathan Mckee MD HCG Screen, Blood Negative Normal [facility] Comment on above: Result Comment: Spec imens with hCG levels near the threshold of the test (25 mIU/mL) may give a negative or indeterminate result. In such cases, another test should be performed with a new specimen in 48-72 hours. If early is suspected clinically in this setting, correlation with quantitative serum b-hCG level is suggested. [facility] has confirmed the use of plasma for this test. This has not been cleared or approved by the U.[place]. Food and Drug Administration. The FDA has determined that such clearance is not necessary. Performed By: #### T SH, VD25, ALB, B12, ECENZ, GLYHGB, ERTPF, FT4 #### [address] [address] Career Development Manager: Jonathan Mckee MD aPTT Coag (Bld) [Time] 28.4 s Normal 23.0-36.[address] [facility] Comment on above: Result Comment: IV Heparin Therapy Range: 66.0-92.0 sec Performed By: #### T SH, VD25, ALB, B12, ECENZ, GLYHGB, ERTPF, FT4 #### [address] [address] Career Development Manager: Jonathan Mckee MD INR Coag (PPP) [Relative time] 1.1 {INR} Normal [facility] Comment on above: Result Comment: Therapeutic Range: Moderate Anticoagulant Intensity: INR = 2.0-3.0 High Anticoagulant Intensity: INR = 2.5-3.5 Performed By: #### T SH, VD25, ALB, B12, ECENZ, GLYHGB, ERTPF, FT4 #### [address] [address] Career Development Manager: Jonathan Mckee MD PT Coag (PPP) [Time] 14.3 s Normal 11.7-14.9 [facility] Comment on above: Performed By: #### T SH, VD25, ALB, B12, ECENZ, GLYHGB, ERTPF, FT4 #### [address] [id number] Career Development Manager: Jonathan Mckee MD Erythrocyte distribution width (RBC) [Ratio] 13.4 % Normal 11.8-14.[address] [facility] Comment on above: Performed By: #### T SH, VD25, ALB, B12, ECENZ, GLYHGB, ERTPF, FT4 #### [address] [address] Career Development Manager: Jonathan Mckee MD Hematocrit (Bld) [Volume fraction] 35.3 % Low 40.7-50.[address] [facility] Comment on above: Performed By: #### T SH, VD25, ALB, B12, ECENZ, GLYHGB, ERTPF, FT4 #### [place] [address] Career Development Manager: Jonathan Mckee MD Hemoglobin (Bld) [Mass/Vol] 12.1 g/dL Low 13.0-17.[address] [facility] Comment on above: Performed By: #### T SH, VD25, ALB, B12, ECENZ, GLYHGB, ERTPF, FT4 #### [address] [address] Career Development Manager: Jonathan Mckee MD MCH (RBC) [Entitic mass] 30.4 pg Normal 25.2-33.[address] [facility] Comment on above: Performed By: #### T SH, VD25, ALB, B12, ECENZ, GLYHGB, ERTPF, FT4 #### [place] [address] Career Development Manager: Jonathan Mckee MD MCHC (RBC) [Mass/Vol] 34.3 g/dL Normal 28.4-34.[address] [facility] Comment on above: Performed By: #### T SH, VD25, ALB, B12, ECENZ, GLYHGB, ERTPF, FT4 #### [address] [address] Career Development Manager: Jonathan Mckee MD MCV (RBC) [Entitic vol] 88.7 fL Normal 82.6-102.[address] [facility] Comment on above: Performed By: #### T SH, VD25, ALB, B12, ECENZ, GLYHGB, ERTPF, FT4 #### [address] [address] Career Development Manager: Jonathan Mckee MD NRBC Automated 0.0 per 100 WBC Normal 0.[address] [facility] Comment on above: Performed By: #### T SH, VD25, ALB, B12, ECENZ, GLYHGB, ERTPF, FT4 #### [place] [address] Career Development Manager: Jonathan Mckee MD Platelet mean volume (Bld) [Entitic vol] 10.4 fL Normal 8.1-13.[address] [facility] Comment on above: Performed By: #### T SH, VD25, ALB, B12, ECENZ, GLYHGB, ERTPF, FT4 #### [address] [address] Career Development Manager: Jonathan Mckee MD Platelets (Bld) [#/Vol] 212 10*3/uL Normal 138-[address] [facility] Comment on above: Performed By: #### T SH, VD25, ALB, B12, ECENZ, GLYHGB, ERTPF, FT4 #### [place] [address] Career Development Manager: Jonathan Mckee MD RBC (Bld) [#/Vol] 3.98 10*6/uL Low 4.21-5.[address] [facility] Comment on above: Performed By: #### T SH, VD25, ALB, B12, ECENZ, GLYHGB, ERTPF, FT4 #### [address] [address] Career Development Manager: Jonathan Mckee MD WBC (Bld) [#/Vol] 14.3 10*3/uL High 3.5-11.[address] [facility] Comment on above: Performed By: #### T SH, VD25, ALB, B12, ECENZ, GLYHGB, ERTPF, FT4 #### [address] [address] Career Development Manager: Jonathan Mckee MD Body Temp. 37.[address] [facility] Comment on above: Performed By: #### T SH, VD25, ALB, B12, ECENZ, GLYHGB, ERTPF, FT4 #### [address] [address] Career Development Manager: Jonathan Mckee MD Carboxy Hgb 1.1 % Normal 0-[address] [facility] Comment on above: Result Comment: Reference Range: Non-Smokers 0-2% Average Smoker 2-4% Heavy Smoker <10% Performed By: #### T SH, VD25, ALB, B12, ECENZ, GLYHGB, ERTPF, FT4 #### [address] [address] Career Development Manager: Jonathan Mckee MD FIO2 INFORMATION NOT PROVIDED Normal [facility] Comment on above: Performed By: #### T SH, VD25, ALB, B12, ECENZ, GLYHGB, ERTPF, FT4 #### [address] [address] Career Development Manager: Jonathan Mckee MD HCO3 (Bld) [Moles/Vol] 24.1 mmol/L Normal 24-[address] [facility] Comment on above: Performed By: #### T SH, VD25, ALB, B12, ECENZ, GLYHGB, ERTPF, FT4 #### [address] [address] Career Development Manager: Jonathan Mckee MD Oxygen saturation in Blood 46.4 % Low 60.0-85.[address] [facility] Comment on above: Performed By: #### T SH, VD25, ALB, B12, ECENZ, GLYHGB, ERTPF, FT4 #### [address] [address] Career Development Manager: Jonathan Mckee MD pCO2 37.1 mm Hg Low 39-[address] [facility] Comment on above: Performed By: #### T SH, VD25, ALB, B12, ECENZ, GLYHGB, ERTPF, FT4 #### [address] [address] Career Development Manager: Jonathan Mckee MD pH (Bld) 7.428 [pH] High 7.320-7.[address] [facility] Comment on above: Performed By: #### T SH, VD25, ALB, B12, ECENZ, GLYHGB, ERTPF, FT4 #### [address] [address] Career Development Manager: Jonathan Mckee MD pO2 28.2 mm Hg Low 30-[address] [facility] Comment on above: Performed By: #### T SH, VD25, ALB, B12, ECENZ, GLYHGB, ERTPF, FT4 #### [address] [address] Career Development Manager: Jonathan Mckee MD Positive Base Excess 0.5 mmol/L Normal 0.0-2.0 [facility] Comment on above: Performed By: #### T SH, VD25, ALB, B12, ECENZ, GLYHGB, ERTPF, FT4 #### [address] [address] Career Development Manager: Jonathan Mckee MD Blood Bank BILL FOR SERVICES PERFORMED Normal [facility] Comment on above: Performed By: #### T SH, VD25, ALB, B12, ECENZ, GLYHGB, ERTPF, FT4 #### [address] [id number] Career Development Manager: Jonathan Mckee MD Trop/Myoglobinon 01-21-2023 Myoglobin [Mass/Vol] 1084 ng/mL High 28-72 [facility] Comment on above: Performed By: #### T SH, VD25, ALB, B12, ECENZ, GLYHGB, ERTPF, FT4 #### [address] [id number] Career Development Manager: Jonathan Mckee MD Troponin, High Sens 49 ng/L High 0-[address] [facility] Comment on above: Result Comment: High Sensitivity Troponin values cannot be compared with other Troponin methodologies. Performed By: #### T SH, VD25, ALB, B12, ECENZ, GLYHGB, ERTPF, FT4 #### [address] [address] Career Development Manager: Jonathan Mckee MD Troponinon 01-21-2023 Troponin, High Sens 48 ng/L High 0-[address] [facility] Comment on above: Result Comment: High Sensitivity Troponin values cannot be compared with other Troponin methodologies. Performed By: #### T SH, VD25, ALB, B12, ECENZ, GLYHGB, ERTPF, FT4 #### [facility] [address] [place] [address] Career Development Manager: Jonathan Mckee MD Type + Screenon 01-21-2023 Type + Screen Sample Expiration 01/23/2023,2359 Arm Band Number BE [id number] ABO/Rh(D) O POSITIVE Antibody Screen NEGATIVE Normal [facility] Comment on above: Performed By: #### T SH, VD25, ALB, B12, ECENZ, GLYHGB, ERTPF, FT4 #### [facility] [address] [place] [address] Career Development Manager: Jonathan Mckee MD Urinalysis, Routineon 2022 Bilirubin, SemiQt,Ur Negative Normal NEG [facility] Comment on above: Performed By: #### T SH, VD25, ALB, B12, ECENZ, GLYHGB, ERTPF, FT4 #### [address] [address] Career Development Manager: Jonathan Mckee MD Blood, Urine Negative Normal NEG [facility] Comment on above: Performed By: #### T SH, VD25, ALB, B12, ECENZ, GLYHGB, ERTPF, FT4 #### [address] [address] Career Development Manager: Jonathan Mckee MD Clarity (U) Clear Normal CLEAR [facility] Comment on above: Performed By: #### T SH, VD25, ALB, B12, ECENZ, GLYHGB, ERTPF, FT4 #### [address] [address] Career Development Manager: Jonathan Mckee MD Color (U) Yellow Normal YEL [facility] Comment on above: Performed By: #### T SH, VD25, ALB, B12, ECENZ, GLYHGB, ERTPF, FT4 #### [address] [address] Career Development Manager: Jonathan Mckee MD Glucose Ql (U) Negative Normal NEG [facility] Comment on above: Performed By: #### T SH, VD25, ALB, B12, ECENZ, GLYHGB, ERTPF, FT4 #### [address] [address] Career Development Manager: Jonathan Mckee MD Ketones Ql (U) SMALL Abnormal NEG [facility] Comment on above: Performed By: #### T SH, VD25, ALB, B12, ECENZ, GLYHGB, ERTPF, FT4 #### [address] [address] Career Development Manager: Jonathan Mckee MD Leukocyte esterase Test strip Ql (U) TRACE Abnormal NEG [facility] Comment on above: Performed By: #### T SH, VD25, ALB, B12, ECENZ, GLYHGB, ERTPF, FT4 #### [address] [address] Career Development Manager: Jonathan Mckee MD Nitrite,Ur Negative Normal NEG [facility] Comment on above: Performed By: #### T SH, VD25, ALB, B12, ECENZ, GLYHGB, ERTPF, FT4 #### [address] [address] Career Development Manager: Jonathan Mckee MD PH,Ur 8.0 Normal 5.0-8.[address] [facility] Comment on above: Performed By: #### T SH, VD25, ALB, B12, ECENZ, GLYHGB, ERTPF, FT4 #### [address] [address] Career Development Manager: Jonathan Mckee MD Protein Ql (U) Negative Normal NEG [facility] Comment on above: Performed By: #### T SH, VD25, ALB, B12, ECENZ, GLYHGB, ERTPF, FT4 #### [address] [address] Career Development Manager: Jonathan Mckee MD Spec. [place],Ur 1.018 Normal 1.005-1.030 [facility] Comment on above: Performed By: #### T SH, VD25, ALB, B12, ECENZ, GLYHGB, ERTPF, FT4 #### [address] [address] Career Development Manager: Jonathan Mckee MD Urobilinogen,Ur Normal Normal 0.0-1.[address] [facility] Comment on above: Performed By: #### T SH, VD25, ALB, B12, ECENZ, GLYHGB, ERTPF, FT4 #### [facility] [address] [place] [address] Career Development Manager: Jonathan Mckee MD Urinalysis,Microon 3 Bacteria None Normal NONE [facility] Comment on above: Performed By: #### T SH, VD25, ALB, B12, ECENZ, GLYHGB, ERTPF, FT4 #### [address] [address] Career Development Manager: Jonathan Mckee MD Casts 0 TO 2 HYALINE Normal 0-[address] [facility] Comment on above: Result Comment: Refe rence range defined for non-centrifuged specimen. Performed By: #### T SH, VD25, ALB, B12, ECENZ, GLYHGB, ERTPF, FT4 #### [facility] [address] [place] [address] Career Development Manager: Jonathan Mckee MD Epithelial cells LM Ql (Urine sed) 0 TO 2 Normal 0-[address] [facility] Comment on above: Performed By: #### T SH, VD25, ALB, B12, ECENZ, GLYHGB, ERTPF, FT4 #### [facility] [address] [place] [address] Career Development Manager: Jonathan Mckee MD Urine RBC's 0 TO 2 Normal 0-[address] [facility] Comment on above: Result Comment: Refe rence range defined for non-centrifuged specimen. Performed By: #### T SH, VD25, ALB, B12, ECENZ, GLYHGB, ERTPF, FT4 #### [facility] [address] [place] [address] Career Development Manager: Jonathan Mckee MD Urine WBC's 2 TO 5 Normal 0-[address] [facility] Comment on above: Performed By: #### T SH, VD25, ALB, B12, ECENZ, GLYHGB, ERTPF, FT4 #### [address] [id number] Career Development Manager: Jonathan Mckee MD Vitamin B12on 01-21-2023 Cobalamin (Vitamin B12) [Mass/Vol] 544 pg/mL Normal 232-[address] [facility] Comment on above: Performed By: #### T SH, VD25, ALB, B12, ECENZ, GLYHGB, ERTPF, FT4 #### [address] [phone] Career Development Manager: Jonathan Mckee MD Vitamin D 25 OHon 01-21-2023 Vitamin D 25 OH 37.4 ng/mL Normal >29.[address] [facility] Comment on above: Result Comment: Reference Range: Vitamin D status Range Deficiency <20 ng/mL Mild Deficiency 20-30 ng/mL Sufficiency 30-100 ng/mL Toxicity >100 ng/mL Performed By: #### T SH, VD25, ALB, B12, ECENZ, GLYHGB, ERTPF, FT4 #### [address] [id number] Career Development Manager: Jonathan Mckee MD XR WRIST LEFT (MIN [...] MD 01/20/23 Final result Normal [facility] Basic Metabolic Panelon 03-0 Calcium [Mass/Vol] 9.4 mg/dL Normal 8.2-10.2 [facility] Comment on above: Order Comment: Reaso n for Exam Blood tests prior to treatment or procedure Result Comment: PERF ORMED BY: [place] [address] PATHOLOGIST [employer] REFINISHER MAXI BENNETT M.D. Performed By: #### C BC, BMP #### [facility] [address] [place] [address] Chloride [Moles/Vol] 97 mmol/L Normal 95-114 [facility] Comment on above: Order Comment: Reaso n for Exam Blood tests prior to treatment or procedure Performed By: #### C BC, BMP #### [facility] [address] [place] [address] CO2 [Moles/Vol] 25.9 mmol/L Normal 22.0-30.0 [facility] Comment on above: Order Comment: Reaso n for Exam Blood tests prior to treatment or procedure Performed By: #### C BC, BMP #### [facility] [address] [place] [address] Creatinine [Mass/Vol] 1.13 mg/dL Normal 0.64-1.27 [facility] Comment on above: Order Comment: Reaso n for Exam Blood tests prior to treatment or procedure Performed By: #### C BC, BMP #### [facility] [address] [place] [address] Estimated GFR ( [place] > [address] [facility] Comment on above: Order Comment: Reaso n for Exam Blood tests prior to treatment or procedure Result Comment: GFR estimated reference range: According to KDOQI guidelines, <60 ml/min/1.73m2 is sufficient to diagnose a patient with chronic kidney disease. Performed By: #### C BC, BMP #### [facility] [address] [place] [address] [place] Estimated GFR (Non- Am > [address] [facility] Comment on above: Order Comment: Reaso n for Exam Blood tests prior to treatment or procedure Performed By: #### C BC, BMP #### [facility] [address] [place] [address] [place] Glucose [Mass/Vol] 83 mg/dL Normal 70-100 [facility] Comment on above: Order Comment: Reaso n for Exam Blood tests prior to treatment or procedure Result Comment: [place] Glucose Reference Range is dependent on time and content of last meal. Glucose of more than 200 mg/dL in a nonstressed, ambulatory subject supports the diagnosis of Diabetes Mellitus. ADA recommended reference range Performed By: #### C BC, BMP #### [address] Potassium [Moles/Vol] 4.5 mmol/L Normal 3.5-5.1 [facility] Comment on above: Order Comment: Reaso n for Exam Blood tests prior to treatment or procedure Performed By: #### C BC, BMP #### [address] Sodium [Moles/Vol] 131 mmol/L Low 136-146 [facility] Comment on above: Order Comment: Reaso n for Exam Blood tests prior to treatment or procedure Performed By: #### C BC, BMP #### [address] Urea nitrogen [Mass/Vol] 20 mg/dL Normal 9-23 [facility] Comment on above: Order Comment: Reaso n for Exam Blood tests prior to treatment or procedure Performed By: #### C BC, BMP #### [address] Complete Blood Count Auto Di ffon 04-22-2021 Basophils (Bld) [#/Vol] 0.1 10*3/uL Normal 0.0-0.2 [facility] Comment on above: Order Comment: Reaso n for Exam Blood tests prior to treatment or procedure Result Comment: PERF ORMED BY: [place] [address] PATHOLOGIST [employer] REFINISHER MAXI BENNETT M.D. Performed By: #### C BC, BMP #### [place] [address] [place] Basophils/100 WBC (Bld) 1.0 % Normal . [facility] Comment on above: Order Comment: Reaso n for Exam Blood tests prior to treatment or procedure Performed By: #### C BC, BMP #### [address] Eosinophils (Bld) [#/Vol] 0.2 10*3/uL Normal 0.0-0.45 [facility] Comment on above: Order Comment: Reaso n for Exam Blood tests prior to treatment or procedure Performed By: #### C BC, BMP #### [place] [address] [place] Eosinophils/100 WBC (Bld) 2.5 % Normal . [facility] Comment on above: Order Comment: Reaso n for Exam Blood tests prior to treatment or procedure Performed By: #### C BC, BMP #### [address] Erythrocyte distribution width (RBC) [Ratio] 14.2 % Normal 12.0-14.8 [facility] Comment on above: Order Comment: Reaso n for Exam Blood tests prior to treatment or procedure Performed By: #### C BC, BMP #### [address] Hematocrit (Bld) [Volume fraction] 41.9 % Normal 38.8-50.0 [facility] Comment on above: Order Comment: Reaso n for Exam Blood tests prior to treatment or procedure Performed By: #### C BC, BMP #### [address] Hemoglobin (Bld) [Mass/Vol] 14.3 g/dL Normal 13.0-17.0 [facility] Comment on above: Order Comment: Reaso n for Exam Blood tests prior to treatment or procedure Performed By: #### C BC, BMP #### [place] [address] [place] Lymphocytes (Bld) [#/Vol] 1.1 10*3/uL Normal 1.00-4.8 [facility] Comment on above: Order Comment: Reaso n for Exam Blood tests prior to treatment or procedure Performed By: #### C BC, BMP #### [place] [address] [place] Lymphocytes/100 WBC (Bld) 14.2 % Normal . [facility] Comment on above: Order Comment: Reaso n for Exam Blood tests prior to treatment or procedure Performed By: #### C BC, BMP #### [address] MCH (RBC) [Entitic mass] 29.7 pg Normal 27.5-35.2 [facility] Comment on above: Order Comment: Reaso n for Exam Blood tests prior to treatment or procedure Performed By: #### C BC, BMP #### [address] MCV (RBC) [Entitic vol] 87.1 fL Normal 83.5-101 [facility] Comment on above: Order Comment: Reaso n for Exam Blood tests prior to treatment or procedure Performed By: #### C BC, BMP #### [address] Mean Corpuscular HGB Conc 34.0 g/dL Normal 32.5-35.6 [facility] Comment on above: Order Comment: Reaso n for Exam Blood tests prior to treatment or procedure Performed By: #### C BC, BMP #### [address] Monocytes (Bld) [#/Vol] 0.7 10*3/uL Normal 0.0-0.8 [facility] Comment on above: Order Comment: Reaso n for Exam Blood tests prior to treatment or procedure Performed By: #### C BC, BMP #### [address] Monocytes/100 WBC (Bld) 8.7 % Normal . [facility] Comment on above: Order Comment: Reaso n for Exam Blood tests prior to treatment or procedure Performed By: #### C BC, BMP #### [address] Neutrophils (Bld) [#/Vol] 5.6 10*3/uL Normal 1.8-7.7 [facility] Comment on above: Order Comment: Reaso n for Exam Blood tests prior to treatment or procedure Performed By: #### C BC, BMP #### [facility] [address] [place] [address] [place] Neutrophils/100 WBC (Bld) 73.6 % Normal . [facility] Comment on above: Order Comment: Reaso n for Exam Blood tests prior to treatment or procedure Performed By: #### C BC, BMP #### [facility] [address] [place] [address] [place] Nucleated RBC/100 WBC (Bld) [Ratio] 0.1 % Normal 0-0.5 [facility] Comment on above: Order Comment: Reaso n for Exam Blood tests prior to treatment or procedure Performed By: #### C BC, BMP #### [facility] [address] Platelet mean volume (Bld) [Entitic vol] 9.8 fL Normal 6.6-10.1 [facility] Comment on above: Order Comment: Reaso n for Exam Blood tests prior to treatment or procedure Performed By: #### C BC, BMP #### [facility] [address] [place] [address] [place] Platelets (Bld) [#/Vol] 200 10*3/uL Normal 150-450 [facility] Comment on above: Order Comment: Reaso n for Exam Blood tests prior to treatment or procedure Performed By: #### C BC, BMP #### [place] [address] [place] RBC (Bld) [#/Vol] 4.81 10*6/uL Normal 3.90-5.60 [facility] Comment on above: Order Comment: Reaso n for Exam Blood tests prior to treatment or procedure Performed By: #### C BC, BMP #### [facility] [address] [place] [address] [place] WBC (Bld) [#/Vol] 7.6 10*3/uL Normal 4.5-11.0 [facility] Comment on above: Order Comment: Reaso n for Exam Blood tests prior to treatment or procedure Performed By: #### C BC, BMP #### [address] ECG 12 lead ECGon 04-22-2021 ECG 12 lead ECG [facility] Main [place] [id number] Electrocardiograph Report Signed Patient: Garth Torres MR#: [id number] 25 : 1935 Acct:[id number] Age/Sex: 86 / M ADM Date: 04/22/21 Loc: Room: Type: [facility] Attending Dr: Vlad [...] MUS Signed By Mitesh Wei DO 04/[address] [facility] Ambulatory Clinical Summaryo n 02-11-2021 Ambulatory Clinical Summary {[id number] [facility] Patient Educationon 02-12-20 21 Patient Education [...] Follow these instructions at home: ? Take zjap-xcx-ulrbcpm and prescription medicines only as told by [...] You d (more content not included)... Normal [facility] Urology Office/Clinic Noteon 02-11-2021 Urology Office/Clinic [...] Urnls Dip Stick Auto w/o Microscopy POC 30185 3. Urgency of urination (R39.15: Urgency of [...] [facility] [address], [place] [address]- Additional Instructions: Patient Education Benign Prostatic Hyperplasia [...] more t (more content not included)... Normal [facility] Comment on above: Result Comment: Elec tronically Signed By: Herb Dutton MD, Terrance Bal\.br\Date and Time Signed: 02/11/21 12:57 EST\.br\Electronically Co-Signed By: Saritha TORRES, Ling Cartagena\.br\Date and Time Co-Signed: 02/11/21 12:33 EST Comprehensive Metabolic Pane daniela 02-10-2021 Albumin [Mass/Vol] 3.8 g/dL Normal 3.6-5.1 [facility] Comment on above: Performed By: #### L IPD, CMP #### [facility] [address] [place], [place] [id number] Albumin/Globulin [Mass ratio] 1.7 {ratio} Normal 1.0-2.5 [facility] Special[facility] Comment on above: Performed By: #### L IPD, CMP #### [facility] [address] [place], [place] [id number] ALP [Catalytic activity/Vol] 119 U/L Normal 40-129 [facility] Comment on above: Performed By: #### L IPD, CMP #### [facility] [address] [place], [place] [id number] ALT [Catalytic activity/Vol] 12 U/L Normal 9-46 [facility] Comment on above: Result Comment: 01/15 Female reference range changed. Performed By: #### L IPD, CMP #### [facility] [address], [place] [id number] Anion gap [Moles/Vol] 14 mmol/L Normal 12-20 [facility] Operator Comment on above: Result Comment: Effe ctive 02/20/2019 reference range changed. Performed By: #### L IPD, CMP #### [facility] [address] [place], [place] [id number] AST [Catalytic activity/Vol] 17 U/L Normal 10-40 [facility] Comment on above: Performed By: #### L IPD, CMP #### [facility] [address] [place], [place] [id number] Bilirubin [Mass/Vol] 0.50 mg/dL Normal 0.30-1.20 [facility] Comment on above: Performed By: #### L IPD, CMP #### [facility] [address] [place], [place] [id number] BUN/CREA 20 Ratio Normal 6-22 [facility] Comment on above: Performed By: #### L IPD, CMP #### [facility] [address] [place], [place] [id number] Calcium [Mass/Vol] 9.4 mg/dL Normal 8.6-10.2 [facility] Comment on above: Performed By: #### L IPD, CMP #### [facility] [address] [place], [place] [id number] Chloride [Moles/Vol] 101 mmol/L Normal 98-107 [facility] Comment on above: Performed By: #### L IPD, CMP #### [facility] [address] [place], [place] [id number] CO2 [Moles/Vol] 26 mmol/L Normal 20-31 [facility] Comment on above: Performed By: #### L IPD, CMP #### [facility] [address] [place], [place] [id number] Creatinine [Mass/Vol] 1.1 mg/dL Normal 0.7-1.4 [facility] Comment on above: Performed By: #### L IPD, CMP #### [facility] [address] [place], [place] [id number] eGFRAA 78 mL/min/1.73m2 Normal >60 [facility] Comment on above: Performed By: #### L IPD, CMP #### [facility] [address] [place], [place] [id number] eGFRNAA 64 mL/min/1.73m2 Normal >60 [facility] Comment on above: Performed By: #### L IPD, CMP #### [facility] [address] [place], [place] [id number] Globulin (S) [Mass/Vol] 2.3 g/dL Normal 1.9-3.7 [facility] Operator Comment on above: Performed By: #### L IPD, CMP #### [facility] [address] [place], [place] [id number] Glucose [Mass/Vol] 85 mg/dL Normal 65-99 [facility] Dec[facility] Control Operator Comment on above: Result Comment: For FASTING Glucose --- ADA reference ranges: Normal 65-99 mg/dl Prediabetes 100-125 Diabetes >/= 126 Performed By: #### L IPD, CMP #### [facility] [address] [place], [place] [id number] Potassium [Moles/Vol] 4.1 mmol/L Normal 3.5-5.5 [facility] Operator Comment on above: Performed By: #### L IPD, CMP #### [facility] [address] [place], [place] [id number] Protein [Mass/Vol] 6.1 g/dL Normal 6.1-8.1 [facility] Decay Control Operator Comment on above: Performed By: #### L IPD, CMP #### [facility] [address] [place], [place] [id number] Sodium [Moles/Vol] 137 mmol/L Normal 135-146 [facility] Decay Control Operator Comment on above: Performed By: #### L IPD, CMP #### [facility] [address] [place], [place] [id number] Urea nitrogen [Mass/Vol] 22 mg/dL Normal 7-25 [facility] Operator Comment on above: Performed By: #### L IPD, CMP #### [facility] [address] [place], [place] [id number] Hemoglobin A1Con 02-10-2021 EAG 114.02 Normal [facility] Dec[facility] Control Operator Comment on above: Performed By: #### A 1C #### [facility] [address], [place] [id number] HbA1c (Bld) [Mass fraction] 5.6 % Normal 4.0-6.0 [facility] Operator Comment on above: Performed By: #### A 1C #### [facility] [address] [place], [place] [id number] Lipid Panelon 02-10-2021 Cholesterol [Mass/Vol] 138 mg/dL Normal 125-200 [facility] Operator Comment on above: Result Comment: Low risk < 200mg/dL Borderline risk 201-239 mg/dl High risk > or equal to 240 Performed By: #### L IPD, CMP #### [facility] [address] [place], [place] [id number] Cholesterol in HDL [Mass/Vol] 53 mg/dL Normal >40 [facility] Operator Comment on above: Result Comment: High Cardiovascular Risk HDL <40 mg/dL Low Cardiovascular Risk HDL > or equal to 60 mg/dl Performed By: #### L IPD, CMP #### [facility] [address] [place], [place] [id number] Cholesterol in LDL [Mass/Vol] 65 mg/dL Normal [facility] Operator Comment on above: Result Comment: LDL ATP III CLASSIFICATION LDL less than 100 mg/dl Optimal LDL 100-129 mg/dl Near or above optimal LDL 130-159 Borderline high LDL 160-189 High LDL greater than 189 mg/dl Very High Performed By: #### L IPD, CMP #### [facility] [address] [place], [place] [id number] Cholesterol in VLDL [Mass/Vol] 20 mg/dL Normal [facility] Operator Comment on above: Performed By: #### L IPD, CMP #### [facility] [address], [place] [id number] Cholesterol.total/Ch olesterol in HDL [Mass ratio] 3 {ratio} Normal [facility] Operator Comment on above: Performed By: #### L IPD, CMP #### [facility] [address] [place], [place] [id number] Triglyceride [Mass/Vol] 98 mg/dL Normal 30-150 [facility] Operator Comment on above: Result Comment: TRIG ATPIII CLASSIFICATIONS TRIG less than 150 mg/dl Normal TRIG 150-199 mg/dl Borderline High TRIG 200-500 mg/dl High TRIG greather than 500 mg/dl Very High Performed By: #### L IPD, CMP #### [facility] [address] [place], [place] [id number] Encounters Encounter Date Encounter Type Care Provider Facility Start: 12-01-2023 End: 12-01-2023 ambulatory EHAB JAISON [facility] Start: 07-28-2023 End: 07-28-2023 ambulatory JANAK Cartagena PETRHONAI Not Available Start: 05-31-2023 End: 05-31-2023 ambulatory JANAK A PETITTI Not Available Start: 05-05-2023 End: 05-05-2023 ambulatory GUIDO MCGREGOR Not Available Start: 04-23-2023 End: 04-23-2023 ambulatory EMANUEL AGATA [facility] Start: 01-20-2023 End: 01-25-2023 Evaluation and management of inpatient CARROL Lazaro JIMENEZSTEPHEN [facility] Start: 04-22-2021 End: 04-22-2021 ambulatory Vlad Cira Facility:[facility] Start: 04-22-2021 Encounter for preprocedural laboratory examination Vlad Denis [facility] Start: 04-03-2020 End: 04-04-2020 Patient encounter procedure GUIDO MCGREGOR Facility: Start: 03-11-2020 End: 03-12-2020 Patient encounter procedure NONE LISTED REQUEST Facility: Payers Date Payer Category Payer Private Health Insurance [id number] 1999 Medicare [id number] 1959 Self-pay 1935 Unknown [id number] 1934 Unknown [id number] .16.84 [id number] 1934 Unknown [id number] .16.84 [id number] 1934 Unknown [id number] 2.16.84 [id number] Unknown [id number] 2.16.84 [id number] Unknown [id number] 2.16.84 [id number] Unknown [id number] 2.16.8 [id number] Progress note 12-01-2023 Note Date & Type Note Facility 12-01-2023 Note [facility] Cardiology Clinic Note Chief Complaint: Patient here for 6 mo follow up hypertension, aortic valve stenosis, and PSVT. Had routine echo performed 2 weeks ago at [facility]. He denies chest pain, SOB, palpitations, and [...] Toprol to Coreg. It appears that his fci has been holding his Benicar HCT when his heart rate is low. We have instructed them not to do this. He is to follow-up with Emanuel Parmar CNP and/or Brooks Senior MD in 4 to 6 months Carol Guardado MD, MPH, [facility], [facility], [facility] Interventional Cardiology Pager Email: [email or web address] Progress note 04-23-2023 Note Date & Type Note Facility 04-23-2023 Note will monitor with echocardiogram [facility] Progress note 04-23-2023 Note Date & Type Note Facility 04-23-2023 Note Hypertension is well controlled Continue olmesartan/ hydrochlorothiazide 20-12.5 mg daily [facility] Progress note 04-23-2023 Note Date & Type Note Facility 04-23-2023 Note Continue toprol 50 m g daily Denied any lightheadedness/dizziness or syncope [facility] Progress note 04-23-2023 Note Date & Type Note Facility 04-23-2023 Note [facility] PROGR ESS NOTE HPI: Garth Torres is a 88 y.o. male here for AO stensosis, HTN, HPL HPI 04/10/23 [facility] recent admission- 04/10/23 Admitted for Syncope, bradycardia, [...] will monitor with echocardiogram RTC 3-6 months [facility] Consultation note 01-21-2023 Note Date & Type Note Facility 01-21-[address] [address] CONSULTATION PATIENT NAME: GARTH TORRES : 1935 MED REC NO: [id number] ROOM: 1006 ACCOUNT NO: [id number] ADMIT DATE: 01/20/2023 PROVIDER: Kobe Tran CONSULT DATE: 01/21/2023 PLASTIC SURGICAL CONSULTATION He was seen earlier today by myself at the bedside in the Trauma ICU. HISTORY OF PRESENT ILLNESS: This is an 87-year-old gentleman, who was transferred from [facility] for intracranial bleed, left maxillary sinus fracture, left inferior orbital fracture, left orbital wall fracture, nondisplaced left zygomatic arch fracture, and left mandibular ramus fracture. The gentleman apparently was walking out a step to his front door and fell. He did not remember very much of what happened. He was brought to [facility] for evaluation and transferred to [facility]. He has been treated for intracranial [...] of this consultation. KOBE [id number] [id number] Doc#: [id number] CC: [facility] Summary Purpose Family History No Family [...] and content) DATE CREATED AUTHOR 04/02/2020 [facility] DATE CREATED AUTHOR AUTHOR'S ORGANIZ ATION 02/10/2021 [facility] dical Specialist DATE CREATED AUTHOR AUTHOR'S ORGANIZ ATION 05/08/2021 [facility] DATE CREATED AUTHOR AUTHOR'S ORGANIZ ATION 03/21/2022 [facility] DATE CREATED AUTHOR AUTHOR'S ORGANIZ ATION 01/31/2023 [facility] DATE CREATED AUTHOR AUTHOR'S ORGANIZ ATION 07/29/2023 [facility] dical Specialists [facility] DATE CREATED AUTHOR AUTHOR'S ORGANIZ ATION 12/03/2023 [facility] FOR RECORDS PERTAINING TO PATIENTS WHO [...] BE BASED ON THE PRIMARY CLINICAL RECORDS. [facility] provides no warranty or guarantee of the accuracy or completeness of information in this document.
--- NOTE | 2024-02-15 12:48 | SWNOTE1 ---
SW spoke to nurse and pt is from [facility]
--- NOTE | 2024-02-15 13:23 | SWNOTE1 ---
DAJA stopped in to speak with pt. Pt likes it at [facility] and he has been there since around March. Pt plans on returning at discharge and he does use a walker there. Pt's daughter just left. SW offered to review CARTER form with pt, but he voiced he would not understand anyway and prefers to wait until his daughter returns. SW to stop back. DAJA faxed updates to Hermila at [facility] to give to [facility].
--- NOTE | 2024-02-15 14:31 | SWNOTE1 ---
Medicare Outpatient Observation Notice reviewed and discussed with patient's daughter. Pt's daughter verbalized understanding and signed the form. Original placed in pt's room and copy placed in patient?s chart.
--- NOTE | 2024-02-15 14:56 | SWNOTE1 ---
DAJA did speak with OT and they are recommending SNF. Pt is in observation status now, doctor is coming to assess patient later today. DAJA spoke to daughter and let her know about SNF and it being out of pocket at this time, but if pt has qualifying diagnosis for inpt for 3 day stay then Medicare would pay. At this time pt is just in observation. DAJA asked daughter where she would like if pt does qualify to go SNF. She voiced [facility]. DAJA called Hermila at [facility] and she is not sure of the bed situation and unsure if they will have a bed. She will evaluate with Adriana once she returns and they will have a better idea on when everyone returns.
--- NOTE | 2024-02-15 15:11 | SWNOTE1 ---
Important Message from Medicare reviewed and discussed with patient's daughter. Pt's daughter verbalized understanding and signed the form. Original given to patient's daughter and copy placed in patient?s chart. Pt assessed by doctor and now inpatient. SW to re-assess situation on . Pt will need SNF at discharge and 1st choice is [facility], but unsure if they will have bed, will know more on .
--- NOTE | 2024-02-15 15:17 | CT_ITS ---
The [address] [address] Patient Name: SHANE IRWIN MRN: [id number] date: 1935 Sex: M Assigned Patient Location: [place] Current Patient Location: [place] Accession/Order Number: [id number] Exam Date: 02/15/2024 15:13 Report Date: 02/15/2024 15:47 At the request of: REN WORTHY Procedure: CT head/brain wo con EXAM: CT head/brain wo con HISTORY: ams COMPARISON: CT head 04/10/2023. TECHNIQUE: Axial noncontrast CT imaging of the head was performed with coronal and sagittal reformats. This CT exam was performed using one or more of the following dose reduction techniques: Automated exposure control, adjustment of the MA and/or kV according to patient size, or use of iterative reconstruction technique. FINDINGS: Calvarium/skull base: No evidence of acute fracture or destructive lesion. Bilateral intraocular lens replacement. Mastoid air cells are well aerated. Paranasal sinuses: No air fluid levels. Brain: No acute intracranial hemorrhage. No acute large vascular territory infarct. Stable parenchymal volume loss. Similar symmetric hypoattenuation involving the supratentorial white matter which is confluent in appearance and most commonly relates to sequela of small vessel disease. No mass lesion or mass effect. No hydrocephalus. CT/CT head/brain wo con IMPRESSION: No acute large vascular territory infarct or acute cranial hemorrhage. Chronic change described above which is not substantially progressed from 04/10/2023. Electronically authenticated by: ESME LUJAN Date: 02/15/2024 15:47
--- NOTE | 2024-02-15 15:22 | P.HP_ITS ---
HPI H&P: HPI History of Present Illness Chief complaint: GENERAL WEAKNESS COVID+ UNABLE TO AMBULATE Narrative: Patient presented to the emergency room, COVID-positive, increasing weakness and dyspnea with activity, also found to have acute UTI and bradycardia. I saw patient up on the medical surgical floor, he had some mild conversational dyspnea, cough throughout the evaluation Opioid HPI Opioid Management Most Recent Pain and Opioid Data: Last Pain Scale 4 02/16/24 11:20 02/16/24 Last Pain Intensity 6 02/15/24 16:44 02/15/24 Last Pain Assessment 02/16/24 11:20 Last MAR Pain Assessment 02/16/24 10:13 Last ORT Total Score 0 02/15/24 11:50 02/15/24 Last ORT Risk Category Low Risk 02/15/24 11:50 02/15/24 Review of Systems ROS Status of ROS 10 or more systems reviewed and unremark able except as noted in history and below PFSH PFSH Medical History (Updated 02/15/24 @ 11:17 by Dale Dailey MD) Bradycardia ?R00.1 - Bradycardia, unspecified (ICD-10) Hypertension ?I10 - Essential (primary) hypertension (ICD-10) Alzheimers disease ?G30.9 - Alzheimer's disease, unspecified (ICD-10) ?F02.80 - Dementia in other diseases classified elsewhere, unspecified severity, without behavioral disturbance, psychotic disturbance, mood disturbance, and anxiety (ICD-10) Intracranial bleed ?I62.9 - Nontraumatic intracranial hemorrhage, unspecified (ICD-10) Aortic valve disorder ?I35.9 - Nonrheumatic aortic valve disorder, unspecified (ICD-10) Surgical History (Updated 02/15/24 @ 12:24 by Yanira Tsai) History of hip replacement ?Z96.649 - Presence of unspecified artificial hip joint (ICD-10) Family History (Updated 02/15/24 @ 12:23 by Yanira Tsai) Son Family history of cancer Brother Family history of hypertension Sister Family history of hypertension Social History (Updated 02/15/24 @ 12:24 by Yanira Tsai) Within the past year, how often did you have a drink containing alcohol: never Score interpretation: A score less than 4 is consistent with normal alcohol consumption. 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 Highest level of school completed/degree received: high school graduate Little interest or pleasure in doing things: not at all Feeling down, depressed, or hopeless: not at all Gender Identity: male Meds Home Medications and Allergies Home Medications ?Medication ?Instructions ?Recorded ?Confirmed ?Type atorvastatin 20 mg tablet 20 mg PO QDAY 01/20/23 02/15/24 History donepezil 10 mg tablet 10 mg PO QDAY 01/20/23 02/15/24 History olmesartan 20 1 tab PO DAILY #30 tabs 04/11/23 02/15/24 Rx mg-hydrochlorothiazide 12.5 mg tablet metoprolol succinate 50 mg 50 mg PO .QD 02/15/24 02/15/24 History tablet,extended release 24 hr Allergies Allergy/AdvReac Type Severity Reaction Status Date / Time No Known Drug Allergies Allergy Verified 02/15/24 13:50 Exam Constitutional Vital Signs, click to edit/add: Last Vital Signs Temp 98.0 F 02/15/24 12:00 Pulse 54 L 02/15/24 12:00 Resp 18 02/15/24 12:00 BP 155/70 H 02/15/24 12:00 Pulse Ox 96 02/15/24 12:00 O2 Del Method Room Air 02/15/24 12:00 Documenting provider has reviewed patient's vital signs: yes Common normals: apparent distress (Mild conversational dyspnea with cough throughout the evaluation) Respiratory Common normals: normal respiratory effort and no retractions Auscultation: rhonchi (Mild diffuse rhonchi consistent with COVID 19) Cardio Common normals: regular rhythm; irregular rate Rate: bradycardic GI Common normals: Normal to inspection, nondistended, normoactive bowel sounds present and soft to palpation Extremity Common normals: normal to inspection and full ROM Neuro Common normals: CN's II-XII intact bilaterally, moves all extremities and no focal motor deficits Results Labs Labs: Short CBC 02/15/24 Range/Units 09:16 WBC 7.6 (4.0-11.0) 10^3/uL Hgb 12.4 L (14.0-18.0) g/dL Hct 37.4 L (42.0-54.0) % Plt Count 182 (150-450) 10^3/uL BMP 02/15/24 09:16 Sodium 137 Potassium 4.1 Chloride 101 Carbon Dioxide 28.2 BUN 26.0 H Creatinine 1.11 Glucose 90 Calcium 9.0 Urine 02/15/24 Range/Units 09:20 Urine Color Lt. yellow (YELLOW) Urine Clarity Clear (CLEAR) Urine pH 6.5 (5.0-9.0) Ur Specific [place] 1.020 (1.005-1.025) Urine Protein Trace (NEG/TRACE) mg/dL Urine Glucose (UA) Negative (NEGATIVE) mg/dL Assessment and Plan Assessment and Plan (1) COVID-19: (2) Bradycardia: (3) Hypertension: Qualifiers: Hypertension type: primary hypertension Qualified Code(s): I10 - Essential (primary) hypertension (4) Alzheimers disease: (5) History of hip replacement: Plan Admission findings: Bradycardia, generalized weakness and dyspnea secondary to acute COVID-19, positive UTI Acute [id number] hypoxic so we will hold off on remdesivir, will do the low- dose steroids and a Zithromax. Inhalers [id number]-[id number] Acute UTI-IV antibiotics, check on culture results in 2 days Bradycardia likely secondary to medication for hypertension-monitor daily Dementia-continue with home medications Hypercholesterolemia continue with home medications Admission status: Patient seen in ER with significant bradycardia weakness cough and dyspnea secondary to acute COVID-19, also acute UTI, medically necessary treatment will span 2 midnights. Inpatient status.
[2024-02-15 15:27] LABS: Lactate/Lactic Acid 1.2 mmol/L (0.4-2.0)
[2024-02-15] MEDS: ALBUTEROL SULFATE 200 PUFF/6.7 GM INHALER IH ×3 (15:53→22:56)
[2024-02-15] MEDS: DEXAMETHASONE 4 MG TABLET 6 MG PO (17:32)
[2024-02-15] MEDS: ACETAMINOPHEN 500 MG TABLET 1000 MG PO (17:33)
[2024-02-15] MEDS: CEFTRIAXONE 1,000 MG in 0.9 % SODIUM CHLORIDE 50 ML 100 MG IV (17:47)
[2024-02-15] MEDS: LEVOFLOXACIN IN DEXTROSE 5 % 750 MG/150 ML PREMIX 100 MG IV (18:20)
[2024-02-15 18:30] LABS: Thyroid Stimulating Hormone 4.365 uIU/mL (0.358-3.740); Troponin I High Sensitivity 69.5 pg/mL (4.0-76.1)
[2024-02-15] MEDS: ATORVASTATIN CALCIUM 20 MG TABLET PO (21:23)
[2024-02-15] MEDS: DONEPEZIL HCL 10 MG TABLET PO (21:23)
[2024-02-16] VITALS (19 sets, daily range): BP systolic 137–174; BP diastolic 50–71; PULSE 42–67; TEMP 36.4–37.1; O2SAT 95–98
[2024-02-16] MEDS: ALBUTEROL SULFATE 200 PUFF/6.7 GM INHALER IH ×2 (07:11→10:53)
[2024-02-16 07:30] LABS: Basophils Percent Auto 0.2 % (0.2-2.0); Hematocrit 36.1 % (42.0-54.0); Immature Granulocytes Abs Auto 0.03 10^3/uL (0.00-0.03); Immature Granulocytes Pct Auto 0.7 % (0.0-0.5); Lymphocytes Absolute Auto 0.5 10^3/uL (1.2-3.8); Lymphocytes Percent Auto 10.3 % (20.5-60.0); Mean Corpuscular HGB Conc 33.2 g/dL (29.9-35.2); Mean Corpuscular Hemoglobin 29.3 pg (25.9-34.0); Mean Corpuscular Volume 88.3 fL (80.0-94.0); Mean Platelet Volume 11.3 fL (9.5-13.5); Monocytes Absolute Auto 0.4 10^3/uL (0.3-0.8); Monocytes Percent Auto 8.1 % (1.7-12.0); Neutrophils Absolute Auto 3.6 10^3/uL (1.4-6.5); Neutrophils Percent Auto 80.7 % (43.0-75.0); Platelet Count 162 10^3/uL (150-450); Red Blood Count 4.09 10^6/uL (4.70-6.10); Red Cell Distribution Width 13.9 % (11.0-15.0); White Blood Count 4.5 10^3/uL (4.0-11.0)
[2024-02-16 07:42] LABS: Anion Gap 12.5; BUN Creatinine Ratio 31.9; Calcium 8.3 mg/dL (8.5-10.1); Carbon Dioxide 25.6 mmol/L (21.0-32.0); Chloride 103 mmol/L (98-107); Estimated GFR (African America >60 (>=60 mL/min/1.73m^2); Estimated GFR (Non-African Ame >60 (>=60 mL/min/1.73m^2); Glucose 96 mg/dL (74-106); Potassium 4.1 mmol/L (3.5-5.1); Sodium 137 mmol/L (136-145)
[2024-02-16 07:58] LABS: Troponin I High Sensitivity 49.6 pg/mL (4.0-76.1)
[2024-02-16] MEDS: ACETAMINOPHEN 500 MG TABLET 1000 MG PO ×2 (08:37→21:34)
[2024-02-16] MEDS: DEXAMETHASONE 4 MG TABLET 6 MG PO (08:37)
[2024-02-16] MEDS: METOPROLOL SUCCINATE 50 MG TAB.ER.24H PO (08:37)
[2024-02-16] MEDS: HYDROCHLOROTHIAZIDE 25 MG TABLET 12.5 MG PO (08:37)
[2024-02-16] MEDS: LOSARTAN POTASSIUM 50 MG TABLET PO (08:37)
--- NOTE | 2024-02-16 09:56 | P.PN_ITS ---
Progress Note: Subjective Subjective Interval history: Patient feels a little better today, less cough throughout the evaluation Exam Constitutional Vital Signs, click to edit/add: Last Vital Signs Temp 98.2 F 02/16/24 07:40 Pulse 58 L 02/16/24 09:54 Resp 18 02/16/24 07:40 BP 137/50 02/16/24 07:40 Pulse Ox 98 02/16/24 07:40 O2 Del Method Room Air 02/16/24 07:40 Documenting provider has reviewed patient's vital signs: yes Common normals: apparent distress (Min conversational dyspnea with min cough throughout the evaluation) Chest Common normals: inspection of chest normal Respiratory Common normals: normal respiratory effort (Minimal cough throughout evaluation) and no retractions Auscultation: rhonchi (Mild diffuse rhonchi consistent with COVID 19) Cardio Common normals: regular rhythm; irregular rate Rate: bradycardic GI Common normals: Normal to inspection, nondistended, normoactive bowel sounds present and soft to palpation Extremity Common normals: normal to inspection and full ROM Neuro Common normals: CN's II-XII intact bilaterally, moves all extremities and no focal motor deficits Progress Note: Objective Labs Labs: Short CBC 02/15/24 02/16/24 Range/Units 09:16 06:54 WBC 7.6 4.5 (4.0-11.0) 10^3/uL Hgb 12.4 L 12.0 L (14.0-18.0) g/dL Hct 37.4 L 36.1 L (42.0-54.0) % Plt Count 182 162 (150-450) 10^3/uL BMP 02/16/24 06:54 Sodium 137 Potassium 4.1 Chloride 103 Carbon Dioxide 25.6 BUN 36.0 H Creatinine 1.13 Glucose 96 Calcium 8.3 L Progress Note: A&P Assessment and Plan (1) COVID-19: (2) Bradycardia: (3) Hypertension: Qualifiers: Hypertension type: primary hypertension Qualified Code(s): I10 - Essential (primary) hypertension (4) Alzheimers disease: Plan Admission findings: Bradycardia, generalized weakness and dyspnea secondary to acute COVID-19, positive UTI Acute COVID-19-so far improving, less cough, maintain current treatment plan Acute UTI-IV antibiotics, check on culture results tomorrow Bradycardia likely secondary to medication for hypertension-monitor daily Dementia-continue with home medications Hypercholesterolemia continue with home medications Admission status: Patient seen in ER with significant bradycardia weakness cough and dyspnea secondary to acute COVID-19, also acute UTI, medically necessary treatment will span 2 midnights. Inpatient status., If continues to improve possible discharge tomorrow may need 1 additional day of IV antibiotics depending on culture results
[2024-02-16] MEDS: KETOROLAC TROMETHAMINE 30 MG/ML VIAL 15 MG IVP (10:13)
[2024-02-16] MEDS: CEFTRIAXONE 1,000 MG in 0.9 % SODIUM CHLORIDE 50 ML 100 MG IV (16:39)
[2024-02-16] MEDS: 0.9 % SODIUM CHLORIDE 250 ML 100 ML IV (16:40)
[2024-02-16] MEDS: DONEPEZIL HCL 10 MG TABLET PO (21:34)
[2024-02-16] MEDS: ATORVASTATIN CALCIUM 20 MG TABLET PO (21:34)
[2024-02-17] VITALS (18 sets, daily range): BP systolic 129–189; BP diastolic 62–83; PULSE 45–74; TEMP 36.3–36.9; O2SAT 95–99
[2024-02-17 05:46] LABS: Hematocrit 35.9 % (42.0-54.0); Hemoglobin 12.1 g/dL (14.0-18.0); Immature Granulocytes Abs Auto 0.02 10^3/uL (0.00-0.03); Immature Granulocytes Pct Auto 0.4 % (0.0-0.5); Lymphocytes Absolute Auto 0.6 10^3/uL (1.2-3.8); Lymphocytes Percent Auto 11.3 % (20.5-60.0); Mean Corpuscular HGB Conc 33.7 g/dL (29.9-35.2); Mean Corpuscular Hemoglobin 29.4 pg (25.9-34.0); Mean Corpuscular Volume 87.1 fL (80.0-94.0); Mean Platelet Volume 11.5 fL (9.5-13.5); Monocytes Absolute Auto 0.7 10^3/uL (0.3-0.8); Monocytes Percent Auto 12.5 % (1.7-12.0); Neutrophils Absolute Auto 4.2 10^3/uL (1.4-6.5); Neutrophils Percent Auto 75.8 % (43.0-75.0); Platelet Count 173 10^3/uL (150-450); Red Blood Count 4.12 10^6/uL (4.70-6.10); Red Cell Distribution Width 13.7 % (11.0-15.0); White Blood Count 5.6 10^3/uL (4.0-11.0)
[2024-02-17 05:55] LABS: Anion Gap 13.3; Calcium 8.6 mg/dL (8.5-10.1); Carbon Dioxide 24.7 mmol/L (21.0-32.0); Chloride 104 mmol/L (98-107); Estimated GFR (African America >60 (>=60 mL/min/1.73m^2); Estimated GFR (Non-African Ame >60 (>=60 mL/min/1.73m^2); Glucose 108 mg/dL (74-106); Sodium 138 mmol/L (136-145)
[2024-02-17 06:12] LABS: Troponin I High Sensitivity 40.3 pg/mL (4.0-76.1)
--- NOTE | 2024-02-17 08:58 | P.PN_ITS ---
Progress Note: Subjective Subjective Interval history: Patient feels a little better today, less cough throughout the evaluation Exam Constitutional Vital Signs, click to edit/add: Last Vital Signs Temp 97.4 F L 02/17/24 08:19 Pulse 45 L 02/17/24 08:19 Resp 18 02/17/24 08:19 BP 164/73 H 02/17/24 08:19 Pulse Ox 98 02/17/24 08:19 O2 Del Method Room Air 02/17/24 08:19 Documenting provider has reviewed patient's vital signs: yes Common normals: no apparent distress (Seems more comfortable with his breathing today) Chest Common normals: inspection of chest normal Respiratory Common normals: normal respiratory effort (Minimal cough throughout evaluation) and no retractions Auscultation: rhonchi (Minimal) Cardio Common normals: regular rhythm; irregular rate (Bradycardic) Rate: bradycardic GI Common normals: Normal to inspection, nondistended, normoactive bowel sounds present and soft to palpation Extremity Common normals: normal to inspection and full ROM Neuro Common normals: CN's II-XII intact bilaterally, moves all extremities and no focal motor deficits Progress Note: Objective Labs Labs: Short CBC 02/17/24 Range/Units 04:48 WBC 5.6 (4.0-11.0) 10^3/uL Hgb 12.1 L (14.0-18.0) g/dL Hct 35.9 L (42.0-54.0) % Plt Count 173 (150-450) 10^3/uL BMP 02/17/24 04:48 Sodium 138 Potassium 4.0 Chloride 104 Carbon Dioxide 24.7 BUN 47.0 H Creatinine 1.12 Glucose 108 H Calcium 8.6 Progress Note: A&P Assessment and Plan (1) COVID-19: (2) Bradycardia: (3) Hypertension: Qualifiers: Hypertension type: primary hypertension Qualified Code(s): I10 - Essential (primary) hypertension (4) Alzheimers disease: Plan Admission findings: Bradycardia, generalized weakness and dyspnea secondary to acute COVID-19, positive UTI Acute COVID-19-so far improving, less cough, maintain current treatment plan Acute UTI-IV antibiotics, check on culture results -not back today should be back tomorrow Bradycardia likely secondary to medication for hypertension-will cut back on his beta-mer, will discontinue altogether did have some junctional rhythms as well will discuss with cardiology tomorrow, patient completely asymptomatic and short episodes Dementia-continue with home medications Hypercholesterolemia continue with home medications Admission status: Patient seen in ER with significant bradycardia weakness cough and dyspnea secondary to acute COVID-19, also acute UTI, medically necessary treatment will span 2 midnights. Inpatient status., If continues to improve possible discharge tomorrow may need 1 additional day of IV antibiotics depending on culture results, with his lack of improvement in his bradycardia and lightheadedness, medically necessary treatment spanning 2 midnights maintain inpatient status
--- NOTE | 2024-02-17 09:45 | CM.NOTE ---
Rounds made with Dr. Conde, pt will discharge to [facility] for skilled therapy when medically stable for discharge.
[2024-02-17] MEDS: METOPROLOL SUCCINATE 50 MG TAB.ER.24H 25 MG PO (10:02)
[2024-02-17] MEDS: HYDROCHLOROTHIAZIDE 25 MG TABLET 12.5 MG PO (10:03)
[2024-02-17] MEDS: ACETAMINOPHEN 500 MG TABLET 1000 MG PO ×2 (10:03→21:59)
[2024-02-17] MEDS: DEXAMETHASONE 4 MG TABLET 6 MG PO (10:03)
[2024-02-17] MEDS: LOSARTAN POTASSIUM 50 MG TABLET PO (10:03)
--- NOTE | 2024-02-17 10:09 | CM.NOTE ---
2nd Important Message From Medicare discussed with pt, denies any questions or concerns.
--- NOTE | 2024-02-17 10:11 | SWNOTE1 ---
DAJA reached out to Adriana at [facility] and they do not have any beds available for pt to go there skilled. DAJA to speak with daughter.
--- NOTE | 2024-02-17 10:48 | SWNOTE1 ---
SW spoke to pt's daughter via the phone and let her know [facility] has no beds available. Pt's daughter would like SW to check in to the [facility]. Referral sent to [facility]. Referral included face sheet, ED note, H&P, provider notes, case management report, nursing notes, diagnostic imaging, med list, and PT/OT notes.
[2024-02-17] MEDS: CEFDINIR 300 MG CAPSULE 600 MG PO (11:25)
--- NOTE | 2024-02-17 14:23 | SWNOTE1 ---
[facility] is able to accept when pt is ready for dc. SW updated daughter.
[2024-02-17] MEDS: ATORVASTATIN CALCIUM 20 MG TABLET PO (21:59)
[2024-02-17] MEDS: DONEPEZIL HCL 10 MG TABLET PO (21:59)
[2024-02-18] VITALS (14 sets, daily range): BP systolic 141–169; BP diastolic 70–75; PULSE 43–85; TEMP 36.4–36.6; O2SAT 96–99
[2024-02-18 06:13] LABS: Hematocrit 35.2 % (42.0-54.0); Immature Granulocytes Abs Auto 0.02 10^3/uL (0.00-0.03); Immature Granulocytes Pct Auto 0.3 % (0.0-0.5); Lymphocytes Absolute Auto 0.9 10^3/uL (1.2-3.8); Lymphocytes Percent Auto 14.6 % (20.5-60.0); Mean Corpuscular HGB Conc 34.1 g/dL (29.9-35.2); Mean Corpuscular Hemoglobin 29.8 pg (25.9-34.0); Mean Corpuscular Volume 87.3 fL (80.0-94.0); Mean Platelet Volume 11.2 fL (9.5-13.5); Monocytes Absolute Auto 0.9 10^3/uL (0.3-0.8); Monocytes Percent Auto 14.9 % (1.7-12.0); Neutrophils Absolute Auto 4.3 10^3/uL (1.4-6.5); Neutrophils Percent Auto 70.2 % (43.0-75.0); Platelet Count 186 10^3/uL (150-450); Red Blood Count 4.03 10^6/uL (4.70-6.10); Red Cell Distribution Width 13.8 % (11.0-15.0); White Blood Count 6.2 10^3/uL (4.0-11.0)
[2024-02-18 06:25] LABS: Anion Gap 12.8; BUN Creatinine Ratio 43.7; Calcium 8.7 mg/dL (8.5-10.1); Carbon Dioxide 25.2 mmol/L (21.0-32.0); Chloride 103 mmol/L (98-107); Estimated GFR (African America >60 (>=60 mL/min/1.73m^2); Estimated GFR (Non-African Ame >60 (>=60 mL/min/1.73m^2); Glucose 98 mg/dL (74-106); Sodium 137 mmol/L (136-145)
[2024-02-18] MEDS: DEXAMETHASONE 4 MG TABLET 6 MG PO (08:10)
[2024-02-18] MEDS: HYDROCHLOROTHIAZIDE 25 MG TABLET PO (08:10)
[2024-02-18] MEDS: CEFDINIR 300 MG CAPSULE 600 MG PO (08:10)
[2024-02-18] MEDS: LOSARTAN POTASSIUM 25 MG TABLET 75 MG PO (08:16)
[2024-02-18] MEDS: ACETAMINOPHEN 500 MG TABLET 1000 MG PO (08:16)
--- NOTE | 2024-02-18 08:59 | SWNOTE1 ---
SW completed [facility] online. Pt is discharging to [facility] today for rehab.
--- NOTE | 2024-02-18 09:08 | CM.NOTE ---
Rounds made with Dr. Conde. Dr. Conde discussed discharge today and to wear Holter monitor x 1 week. Plan is for discharge today to [facility].
--- NOTE | 2024-02-18 09:40 | P.DS_ITS ---
DS: Providers Provider Date of admission: 02/15/24 15:22 Primary care physician: RYLIE HENRY Consults: 02/15/24 13:31 Consult to Pharmacy Routine Consulting Provider: Reason for consultation: Please Rogers me when Med Rec is Updated Has provider been notified: No Occupational Therapy Eval and Treat Routine Reason for consultation: Only if needed for Rehab Has provider been notified: No Physical Therapy Eval and Treat Routine Reason for consultation: Eval and Treat Has provider been notified: No DS: Diagnosis Discharge Diagnosis (1) COVID-19: (2) Bradycardia: (3) Hypertension: Qualifiers: Hypertension type: primary hypertension Qualified Code(s): I10 - Essential (primary) hypertension (4) Alzheimers disease: Plan Admission findings: Bradycardia, generalized weakness and dyspnea secondary to acute COVID-19, positive UTI Acute COVID-19-so far improving, less cough, maintain current treatment plan Acute UTI-IV antibiotics, check on culture results -not back today should be back tomorrow Bradycardia likely secondary to medication for hypertension-will cut back on his beta-mer, will discontinue altogether did have some junctional rhythms as well will discuss with cardiology tomorrow, patient completely asymptomatic and short episodes Dementia-continue with home medications Hypercholesterolemia continue with home medications Admission status: Patient seen in ER with significant bradycardia weakness cough and dyspnea secondary to acute COVID-19, also acute UTI, medically necessary treatment will span 2 midnights. Inpatient status., If continues to improve possible discharge tomorrow may need 1 additional day of IV antibiotics depending on culture results, with his lack of improvement in his bradycardia and lightheadedness, medically necessary treatment spanning 2 midnights maintain inpatient status DS: Summary Hospital Course Hospital Course: Patient with sign of acute COVID-19, did not have any hypoxia so not placed on remdesivir, we did use the other treatment protocols for COVID-19. Also found to have acute UTI and with his imbalance and frequent falls possibly related to bradycardia. His heart rate would go into the 40s. We did DC his beta-mer, and increased his ARB and diuretic, maintain on the oral antibiotics, at this point he has improved significantly will not require rehabilitation, he will be transferred back to his assisted care facility. Follow-up with his PCP, medication see list Time Spent with Patient Time attestation: Total time spent providing and/or coordinating discharge services: Exam Constitutional Vital Signs, click to edit/add: Last Vital Signs Temp 97.5 F L 02/18/24 08:53 Pulse 60 02/18/24 08:53 Resp 16 02/18/24 08:53 BP 143/75 H 02/18/24 08:53 Pulse Ox 96 02/18/24 08:53 O2 Del Method Room Air 02/18/24 08:53 Documenting provider has reviewed patient's vital signs: yes Common normals: no apparent distress (Seems more comfortable with his breathing today) Chest Common normals: inspection of chest normal Respiratory Common normals: normal respiratory effort (Minimal cough throughout evaluation) and no retractions Auscultation: rhonchi (Minimal) Cardio Common normals: regular rhythm; irregular rate (Bradycardic) Rate: bradycardic GI Common normals: Normal to inspection, nondistended, normoactive bowel sounds present and soft to palpation Extremity Common normals: normal to inspection and full ROM Neuro Common normals: CN's II-XII intact bilaterally, moves all extremities and no focal motor deficits DS: Data Data Completed and Pending Labs on day of discharge: Labs from last 24 hours 02/18/24 05:38 WBC 6.2 RBC 4.03 L Hgb 12.0 L Hct 35.2 L MCV 87.3 MCH 29.8 MCHC 34.1 RDW 13.8 Plt Count 186 MPV 11.2 Neut % (Auto) 70.2 Lymph % (Auto) 14.6 L Greene % (Auto) 14.9 H Eos % (Auto) 0.0 L Baso % (Auto) 0.0 L Neut # (Auto) 4.3 Lymph # (Auto) 0.9 L Greene # (Auto) 0.9 H Eos # (Auto) 0.0 Baso # (Auto) 0.0 Abs Immat Gran (auto) 0.02 Imm/Tot Granulo (auto) 0.3 Sodium 137 Potassium 4.0 Chloride 103 Carbon Dioxide 25.2 Anion Gap 12.8 BUN 45.0 H Creatinine 1.03 Est GFR ( Amer) >60 Est GFR (Non-Af Amer) >60 BUN/Creatinine Ratio 43.7 Glucose 98 Calcium 8.7 Preliminary micro results at discharge 02/15/24 09:16 Blood Culture Result 2 - Preliminary Blood - Right Antecubital NO GROWTH AT 36-48 HOURS. FINAL TO FOLLOW. 02/15/24 09:10 Blood Culture Result 1 - Preliminary Blood - Left Antecubital NO GROWTH AT 36-48 HOURS. FINAL TO FOLLOW. Discharge Plan Discharge Disposition: Home, Self-Care Condition: Good Plan of Treatment: out-pt physical therapyeval and treat Discharge Medications: New benzonatate 100 mg Capsule 200 mg PO Q8H PRN (Reason: Cough) Qty: 10 0RF cefdinir 300 mg Capsule 600 mg PO QD Qty: 20 0RF olmesartan-hydrochlorothiazide 40-25 mg tablet 1 tab PO DAILY Qty: 30 11RF olmesartan-hydrochlorothiazide [Benicar HCT] 40-25 mg tablet 1 tab PO DAILY Qty: 30 11RF cefdinir 300 mg capsule 300 mg PO BID Qty: 14 0RF benzonatate 200 mg capsule 200 mg PO TID PRN (Reason: cough) Qty: 20 0RF Continued atorvastatin 20 mg tablet 20 mg PO QDAY donepezil 10 mg tablet 10 mg PO QDAY Discontinued olmesartan-hydrochlorothiazide 20-12.5 mg tablet 1 tab PO DAILY Qty: 30 0RF metoprolol succinate 50 mg tablet extended release 24 hr 50 mg PO .QD Activity: increase activity as tolerated Activity Detail: PT -= eval and treat Diet: advance to your usual diet Print Language: Frisian Patient Instructions: COVID-19 (Coronavirus Disease 2019) (DC) Activity Restrictions/Additional Instructions: Physical therapy - eval and treat 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
--- NOTE | 2024-02-18 09:47 | SWNOTE1 ---
DAJA received a call from Niecy at [facility] and she reviewed pt's therapy notes from yesterday. She voiced that since pt just contact guard assist that they would be able to take him back. She stated he went 100 feet. She asked if therapy could see him again today and make sure he has not declined and then they will take him back. DAJA asked if she spoke to daughter? She stated yes and daughter is alright with plan. DAJA spoke to JUSTIN Healy, and she will work with pt next. DAJA called daughter and she is in agreement with plan and prefers pt returns back to his home at [facility]. DAJA updated Maddison and Moses at [facility].
--- NOTE | 2024-02-18 10:34 | PT.DAILY ---
Physical Therapy Daily Note PT Daily Note/Assess Start: 02/17/24 11:40 Freq: Status: Active Protocol: Document 02/18/24 10:22 YOLANDA (Rec: 02/18/24 10:34 YOLANDA [id number]) Physical Therapy Daily Note/Assessment Time In/Time Out Time In 09:50 Time Out 10:10 Pain In Pain N/A Pain Out Pain N/A Subjective Subjective Pt supine upon arrival. Agreeable to PT. Denies pain. Slept well. Mild cough. Therapeutic Exercise Time Therapeutic Exercise 4 Minutes (minutes) Therapeutic Exercise 0 Units Therapeutic Exercise Treatment Therapeutic Exercise Pt completes seated bilat LE strengthening ex with UE Treatment support on bed to maintain dynamic seated balance with ex. Therapeutic Activity Time Therapeutic Activity 9 Minutes (minutes) Therapeutic Activity 1 Units Therapeutic Activity Treatment Bed Mobility Ability Moderate Assist Chair Transfer Minimum Assist Ability Therapeutic Activity Pt performs supine>sit transfer with ModA to advance Comments upper body and L LE due to L hip pain. Sits EOB to perform seated ex but requires bilat UE support on bed to maintain upright seated balance due to posterior lean. Pt sit>stand with bracing LEs against bed to due posterior lean. Pt amb 80' with RW, Jamie due to occ unsteadiness and poor negotiation skills with RW. Pt takes increased time to make L turn around with RW, Jamie. Pt to BS chair to perform 5x sit>stands. Pt cont to require LE bracing to assist in standing and occ Jamie to due posterior lean. Pt wishes to return to bed at this time. Sit>stand CGA and stand pivot with RW to bed. Pt is able to perform sit>supine transfer SBA while leading with R LE. Reduced L hip pain upon completion. Remains supine with call light within reach and bed alarm activated. Total Physical Therapy Time Total Therapy 13 Minutes Total Physical 1 Therapy Units Summary Daily Note Summary Pt has decreased ability in transfers and gait stability. Requires ModA for bed mobility and Jamie with gait. Poor negotiation skills with RW. Would recommend SNF vs [facility] to regain strength and balance to return to PLOF.
[2024-02-18] MEDS: LEVOTHYROXINE SODIUM 25 MCG TABLET 50 MCG PO (11:17)
--- NOTE | 2024-02-18 12:30 | SWNOTE1 ---
DAJA called and spoke with Gianna at [facility]. Between her and the daughter they have decided pt will return to [facility] today. Gianna did receive the PT note and it was noted he was unsteady at times, but he will get therapy at [facility]. Gianna is checking to see if they have transport. DAJA called and spoke to daughter, Madeleine. She is in agreement with plan. DAJA did let her know about unsteadiness as well. She did voiced he did not have his steady shoes here or his rollator. Daughter in agreement with pt returning to [facility]. Gianna at [facility] called and said they will be here around 2:00 to transport. Daughter and nursing are aware of time. DAJA took packet to the floor.
--- NOTE | 2024-02-18 12:34 | SWNOTE1 ---
2nd notice of IMM was reviewed with daughter, Madeleine over the phone. No questions at this time.
--- NOTE | 2024-02-21 15:08 | CM.DCFOLLOWU ---
02/20-1st attempt. No answer
== END 2024-02-18 14:03 | disposition home or self-care (01) | DRG 689 ==
LOC: ER 10:07 → MS 11:43
PROVIDERS: Admitting Provider Family Medicine; Emergency Provider Emergency Medicine; PCP Internal Medicine; Visit Provider Family Medicine
DX: N39.0 Urinary tract infection, site not specified (principal); U07.1 COVID-19; I10 Essential (primary) hypertension; G30.9 Alzheimer's disease, unspecified; F02.80 Dementia in other diseases classified elsewhere, unspecified severity, without behavioral disturbance, psychotic disturbance, mood disturbance, and anxiety; R00.1 Bradycardia, unspecified; E78.00 Pure hypercholesterolemia, unspecified; R26.2 Difficulty in walking, not elsewhere classified; Z79.899 Other long term (current) drug therapy; Z91.81 History of falling
CPT/HCPCS: 36415; 70450; 71045; 80048; 81001; 83605; 83880; 84436; 84443; 84484; 85007; 85025; 85027; 87040; 87086; 93005; 93246; 93308; 94640; 94667; 94668; 94761; 96374; 97110; 97161; 97165; 97530; 97535; 99285; J0696; J1885; J8540